=== PATIENT | female | born 1950 | race American Indian/Alaskan Native ===

== ENCOUNTER 2018-07-27 10:25 | Inpatient (IN) | payer MEDICARE ==
[2018-07-27 10:25] VITALS: BMI 39.6
[2018-07-27] MEDS ORDERED: Sodium Chloride 0.9% 1,000 ML IV ONE (11:30)
--- NOTE | 2018-07-27 11:30 | C.PDOC ---
History Of Present Illness 67 y/o female presents to the ED complaining of dizziness associated with generalized weakness for approximately 1 week. She reports taking routine walks around her neighborhood, but over the past week has been feeling too week to co mplete the walk. Last night she went to take her garbage out, felt dizzy, and fell. She denies any LOC or head trauma. Patient describes the dizziness as lightheadedness. Associated with nausea and decreased appetite. Patient reports having similar symptoms following her cholecystectomy years ago. States she had lab tests and was told she had an electrolyte abnormality. She denies any fever, abdominal pain, constipation, bloating, dark or bloody stool, chest pain, SOB, or [place]. Denies prior hx of transfusions. Denies prior hx of stomach ulcers. Time Seen by Provider: 07/27/18 10:50 Chief Complaint (Nursing): Dizziness/Lightheaded History Per: Patient History/Exam Limitations: no limitations Onset/Duration Of Symptoms: Days Current Symptoms Are (Timing): Still Present Fall Associated With With Symptoms: Yes, No Injury As Result Of Fall Past Medical History Reviewed: Historical Data, Nursing Documentation, Vital Signs Vital Signs: Last Vital Signs Temp Pulse 93 H 07/27/18 10:35 Resp 20 07/27/18 10:35 BP 148/72 07/27/18 10:35 Pulse Ox 97 07/27/18 10:35 - Medical History PMH: HTN Surgical History: Cholecystectomy Family History: States: No Known Family Hx - Social History Hx Alcohol Use: No Hx Substance Use: No - Immunization History Hx Tetanus Toxoid Vaccination: No Hx Influenza Vaccination: No Hx Pneumococcal Vaccination: No Review Of Systems Except As Marked, All Systems Reviewed And Found Negative. Constitutional: Positive for: Weakness (generalized). Negative for: Fever, Chills Eyes: Negative for: Vision Change Cardiovascular: Positive for: Light Headedness. Negative for: Chest Pain, Palpitations Respiratory: Negative for: Shortness of Breath, SOB with Excertion Gastrointestinal: Positive for: Nausea. Negative for: Vomiting, Abdominal Pain, Diarrhea, Hematochezia, Other (rectal bleed) Skin: Negative for: Rash Neurological: Positive for: Dizziness. Negative for: Weakness, Numbness, Change in Speech, Headache Physical Exam - Physical Exam Appears: Non-toxic, No Acute Distress Skin: Warm, Dry, No Pale, No Jaundice Head: Atraumatic, Normacephalic Eye(s): bilateral: Normal Inspection (no conjunctival pallor), PERRL, EOMI Oral Mucosa: Moist Neck: Normal ROM, Supple Chest: Symmetrical Cardiovascular: Rhythm Regular, No Murmur Respiratory: Normal Breath Sounds, No Rales, No Rhonchi, No Wheezing, Other (NARD) Gastrointestinal/Abdominal: Soft, No Tenderness, No Distention, No Guarding, No Rebound Extremity: Bilateral: Atraumatic, No Pedal Edema, Normal Color And Temperature Neurological/Psych: Oriented x3, Normal Speech, Normal Cranial Nerves, Other (No focal deficits) ED Course And Treatment - Laboratory Results Result Diagrams: 07/27/18 11:49 07/27/18 11:49 O2 Sat by Pulse Oximetry: 97 (RA) Pulse Ox Interpretation: Normal - Radiology CXR: Interpreted by Me CXR Interpretation: Yes: No Acute Disease Progress - Re-Evaluation Re-evaluation Note: 07/27/18 12:10 D/W DR BHATIA C/F PMD WILL ADMIT - Data Reviewed Data Reviewed: Lab, Diagnostic imaging, EKG, Old records Medical Decision Making Medical Decision Making: Initial Plan: - EKG - Blood work - Urinalysis - Chest x-ray - 1L IV fluids - Reassess Disposition Counseled Patient/Family Regarding: Studies Performed, Diagnosis - Disposition Disposition: HOSPITALIZED Disposition Time: 12:11 Condition: STABLE - POA Present On Arrival: None - Clinical Impression Clinical Impression: Symptomatic anemia - Scribe Statement The provider has reviewed the documentation as recorded by the Jermaine Palomares Provider Attestation: All medical record entries made by the Jermaine were at my direction and personally dictated by me. I have reviewed the chart and agree that the record accurately reflects my personal performance of the history, physical exam, medical decision making, and the department course for this patient. I have also personally directed, reviewed, and agree with the discharge instructions and disposition.
[2018-07-27 11:56] LABS: BASO # 0.1 K/uL (0.0-0.2); EOS # 0.3 K/uL (0.0-0.7); LYMPH # 3.2 K/uL (1.0-4.3); MONO # 0.9 K/uL (0.0-0.8); NEUT % 59.8 % (50.0-75.0)
[2018-07-27 12:02] LABS: BASO % 0.6 % (0.0-2.0); LYMPH % 28.4 % (20.0-40.0); MEAN CELL VOLUME 75.2 fL (81.0-99.0); MEAN CORPUSCULAR HEMOGLOBIN 23.4 pg (27.0-31.0); MEAN CORPUSCULAR HGB CONC 31.1 g/dL (33.0-37.0); MEAN PLATELET VOLUME 7.3 fL (7.2-11.7); MONO % 8.2 % (0.0-10.0); NEUT # 6.8 K/uL (1.8-7.0); RBC 2.72 Mil/uL (3.80-5.20); RED CELL DISTRIBUTION WIDTH 17.2 % (11.5-14.5); WHITE BLOOD COUNT 11.3 K/uL (4.8-10.8)
[2018-07-27 12:05] LABS: HEMOGLOBIN 6.4 g/dL (11.0-16.0)
[2018-07-27 12:09] LABS: ALB/GLOB RATIO 1.4 (1.0-2.1); ALBUMIN 3.9 g/dL (3.5-5.0); ALT/SGPT 12 U/L (9-52); AST/SGOT 30 U/L (14-36); BLOOD UREA NITROGEN 14 mg/dL (7-17); CALCIUM 8.4 mg/dl (8.6-10.4); GFR NON-AFRICAN AMERICAN > 60
[2018-07-27 12:44] LABS: SQUAMOUS EPITHIAL 7 /hpf (0-5); URINE BACTERIA OCC (<OCC)
[2018-07-27] MEDS ORDERED: Glucagon Recombinant 1 mg Inj IM PRN (12:56)
[2018-07-27] MEDS ORDERED: Dextrose 50% SYRINGE Inj (50 ml) IV PRN (12:56)
[2018-07-27 12:58] LABS: URINE BILIRUBIN NEGATIVE (NEGATIVE); URINE BLOOD NEGATIVE (NEGATIVE); URINE CLARITY Hazy (Clear); URINE COLOR YELLOW (YELLOW); URINE GLUCOSE (UA) NEGATIVE (Normal)
[2018-07-27 12:59] LABS: URINE LEUKOCYTE ESTERASE NEGATIVE Leu/uL (Negative); URINE PROTEIN NEGATIVE (NEGATIVE); URINE UROBILINOGEN 0.2 mg/dL (0.2-1.0)
--- NOTE | 2018-07-27 13:01 | CP.PCM.HP ---
<Judy Spencer - Last Filed: 07/27/18 14:06> History of Present Illness - History of Present Illness History of Present Illness: Judy Spencer PGY1 H&P for Dr. Artis Patient is a 67yo F with PMH of anemia, HTN, DM presenting to the ED with fatigue and dizziness for 10 days. She reports gradual onset of fatigue, lethargy, and dizziness. She reports prior history of this two years ago. She reports fatigue that worsens with exertion and shortness of breath when walking. She reports an episode of syncope 5 days ago while she was showering. Last night as she was walking outside of her house to take out the trash, she reports feeling fatigued and falling on her right side. She denied head trauma. She reports blurry vision and palpitations. She also reports decreased PO intake in the past couple of days. She denies blood in the urine, stool, or vomitus. She denies headache, fever, chills, abdominal pain, nausea, vomiting, dysuria. Patient states last colonoscopy was >2 yrs ago, with normal results. She denies previous blood transfusions. SxH: cholecystectomy SocH: 3 pack/year tobacco history, denies etoh or recreational drug use FamH: mom- anemia, . Allergies: NKDA Meds: insulin, diovan, crestor PMD: Sayed Present on Admission - Present on Admission Any Indicators Present on Admission: No Review of Systems - Constitutional Constitutional: As Per HPI, Daytime Sleepiness, Fatigue, Lethargy, Malaise, Weakness. absent: Weight Gain, Weight Loss - EENT Eyes: Blurred Vision - Cardiovascular Cardiovascular: Palpitations. absent: Chest Pain - Respiratory Respiratory: Dyspnea on Exertion - Gastrointestinal Gastrointestinal: absent: Abdominal Pain, Hematemesis, Hematochezia, Melena, Nausea, Vomiting - Genitourinary Genitourinary: absent: Dysuria, Hematuria, Pyuria - Menstruation Menstruation: absent: Abnormal Vaginal Bleeding - Musculoskeletal Musculoskeletal: absent: Numbness, Tingling - Integumentary Integumentary: absent: Rash - Neurological Neurological: Dizziness, Frequent Falls Past Patient History - Infectious Disease Hx of Infectious Diseases: None - Past Social History Smoking Status: Light Smoker < 10 Cigarettes Daily - CARDIAC Hx Hypertension: Yes - ENDOCRINE/METABOLIC Hx Endocrine Disorders: Yes Hx Diabetes Mellitus Type 2: Yes - PSYCHIATRIC Hx Substance Use: No - SURGICAL HISTORY Hx Cholecystectomy: Yes - ANESTHESIA Hx Anesthesia: Yes Hx Anesthesia Reactions: No Hx Malignant Hyperthermia: No Meds Allergies/Adverse Reactions: Allergies Allergy/AdvReac Type Severity Reaction Status Date / Time No Known Allergies Allergy Verified 01/23/16 00:49 Physical Exam - Constitutional Appears: Well, No Acute Distress - Head Exam Head Exam: ATRAUMATIC, NORMOCEPHALIC - Eye Exam Eye Exam: EOMI, PERRL Additional comments: pale conjuctiva - ENT Exam ENT Exam: Mucous Membranes Moist, Normal Exam - Neck Exam Neck exam: Positive for: Normal Inspection. Negative for: Lymphadenopathy, Thyromegaly - Respiratory Exam Respiratory Exam: Clear to Auscultation Bilateral, NORMAL BREATHING PATTERN. absent: Rales, Rhonchi, Wheezes - Cardiovascular Exam Cardiovascular Exam: REGULAR RHYTHM, +S1, +S2. absent: Gallop, Rubs, Systolic Murmur - GI/Abdominal Exam GI & Abdominal Exam: Normal Bowel Sounds, Soft. absent: Distended, Tenderness - Rectal Exam Rectal Exam: Hemorrhoids. absent: Bloody Stool, Fecal Impaction - Extremities Exam Extremities exam: Positive for: normal capillary refill, normal inspection. Negative for: pedal edema, tenderness - Neurological Exam Neurological exam: Alert, CN II-XII Intact, Oriented x3 - Psychiatric Exam Psychiatric exam: Normal Affect, Normal Mood - Skin Skin Exam: Pallor Results - Vital Signs Recent Vital Signs: Last Vital Signs Temp Pulse 89 07/27/18 11:55 Resp 15 07/27/18 11:55 BP 150/67 07/27/18 11:55 Pulse Ox 97 07/27/18 12:34 - Labs Result Diagrams: 07/27/18 11:49 07/27/18 11:49 Labs: Laboratory Results - last 24 hr 07/27/18 07/27/18 07/27/18 10:33 11:49 11:49 WBC 11.3 H RBC 2.72 L Hgb 6.4 L* Hct 20.5 L MCV 75.2 L MCH 23.4 L MCHC 31.1 L RDW 17.2 H Plt Count 391 MPV 7.3 Neut % (Auto) 59.8 Lymph % (Auto) 28.4 [place] % (Auto) 8.2 Eos % (Auto) 3.0 Baso % (Auto) 0.6 Neut # (Auto) 6.8 Lymph # (Auto) 3.2 [place] # (Auto) 0.9 H Eos # (Auto) 0.3 Baso # (Auto) 0.1 Sodium 136 Potassium 3.8 Chloride 106 Carbon Dioxide 23 Anion Gap 11 BUN 14 Creatinine 0.6 L Est GFR ( Amer) > 60 Est GFR (Non-Af Amer) > 60 POC Glucose (mg/dL) 124 H Random Glucose 109 H Calcium 8.4 L Total Bilirubin 0.3 AST 30 ALT 12 Alkaline Phosphatase 95 Troponin I < 0.0120 Total Protein 6.7 Albumin 3.9 Globulin 2.8 Albumin/Globulin Ratio 1.4 Assessment & Plan - Assessment and Plan (Free Text) Assessment: 67yo F with PMH of anemia, HTN, DM presenting to the ED with fatigue and dizziness for 10 days. Hemoglobin 6.4, admitted for symptomatic anemia. Receiving blood transfusion. Plan: Symptomatic Anemia - H/H 6.4/20.5 - microcytic - EKG: NSR - CXR: no active disease - UA +RBCs - consented for 1u PRBC transfusion - f/u rpt H/H - f/u TIBC, %sat, Fe, ferritin - f/u haptoglobin, LDH, retic count - f/u FOBT - f/u TSH, T3, Free T4 - f/u B12, folate - benadryl and tylenol PRN transfusion reaction - f/u CT head and chest - Heme/Onc consulted, Dr. Boudreaux - f/u recs HTN - hold home valsartan as BP is controlled at this time DM - f/u HbA1c - medium dose sliding scale - accuchecks ACHS - hypoglycemic protocol PPx DVT: SCDs, hold chemical anticoagulation at this time GI: pepcid HHD Patient seen and case discussed with Dr. Artis <Armaan Artis H - Last Filed: 07/27/18 15:55> Results - Vital Signs Recent Vital Signs: Last Vital Signs Temp Pulse 98 H 07/27/18 13:57 Resp 15 07/27/18 13:57 BP 170/57 H 07/27/18 13:57 Pulse Ox 98 07/27/18 13:57 - Labs Result Diagrams: 07/27/18 11:49 07/27/18 11:49 Labs: Laboratory Results - last 24 hr 07/27/18 07/27/18 07/27/18 10:33 11:49 11:49 WBC 11.3 H RBC 2.72 L Hgb 6.4 L* Hct 20.5 L MCV 75.2 L MCH 23.4 L MCHC 31.1 L RDW 17.2 H Plt Count 391 MPV 7.3 Neut % (Auto) 59.8 Lymph % (Auto) 28.4 [place] % (Auto) 8.2 Eos % (Auto) 3.0 Baso % (Auto) 0.6 Neut # (Auto) 6.8 Lymph # (Auto) 3.2 [place] # (Auto) 0.9 H Eos # (Auto) 0.3 Baso # (Auto) 0.1 Retic Count Sodium 136 Potassium 3.8 Chloride 106 Carbon Dioxide 23 Anion Gap 11 BUN 14 Creatinine 0.6 L Est GFR ( Amer) > 60 Est GFR (Non-Af Amer) > 60 POC Glucose (mg/dL) 124 H Random Glucose 109 H Calcium 8.4 L Total Bilirubin 0.3 AST 30 ALT 12 Alkaline Phosphatase 95 Troponin I < 0.0120 Total Protein 6.7 Albumin 3.9 Globulin 2.8 Albumin/Globulin Ratio 1.4 Urine Color Urine Clarity Urine pH Ur Specific [place] Urine Protein Urine Glucose (UA) Urine Ketones Urine Blood Urine Nitrate Urine Bilirubin Urine Urobilinogen Ur Leukocyte Esterase Urine WBC (Auto) Urine RBC (Auto) Ur Squamous Epith Cells Urine Bacteria Blood Type Antibody Screen 07/27/18 07/27/18 07/27/18 12:26 12:55 14:18 WBC RBC Hgb Hct MCV MCH MCHC RDW Plt Count MPV Neut % (Auto) Lymph % (Auto) [place] % (Auto) Eos % (Auto) Baso % (Auto) Neut # (Auto) Lymph # (Auto) [place] # (Auto) Eos # (Auto) Baso # (Auto) Retic Count 3.2 H Sodium Potassium Chloride Carbon Dioxide Anion Gap BUN Creatinine Est GFR ( Amer) Est GFR (Non-Af Amer) POC Glucose (mg/dL) Random Glucose Calcium Total Bilirubin AST ALT Alkaline Phosphatase Troponin I Total Protein Albumin Globulin Albumin/Globulin Ratio Urine Color Yellow Urine Clarity Hazy Urine pH 6.0 Ur Specific [place] 1.015 Urine Protein Negative Urine Glucose (UA) Negative Urine Ketones Negative Urine Blood Negative Urine Nitrate Negative Urine Bilirubin Negative Urine Urobilinogen 0.2 Ur Leukocyte Esterase Negative Urine WBC (Auto) 136 H Urine RBC (Auto) 9 H Ur Squamous Epith Cells 7 H Urine Bacteria Occ H Blood Type A POSITIVE Antibody Screen Negative Attending/Attestation - Attestation I have personally seen and examined this patient.: Yes I have fully participated in the care of the patient.: Yes I have reviewed all pertinent clinical information: Yes Notes (Text): 07/27/18 15:03 Medical attending: Patient was seen and examined by me. Agree with the above note by the resident The patient was not in any acute distress when we saw her. She was speaking in full sentences and denied shortness of breath at rest, denied chest pain, denied palpitations at rest However she explained that she has had syncopal episodes as well as episodes of shortness of breath and palpitations while exerting herself around her home. A stool occult has been sent, she does not remember when the last time she had a colonscopy but that she had one. If need to we will get a GI evaluation. We are running a TIBC, retic count, iron studies, Ferritin, LDH, and haptoglobin and hematology evaluation Armaan Artis
--- NOTE | 2018-07-27 15:00 | RAD ---
Date of service: 07/27/2018 HISTORY: DIZZY COMPARISON: No prior. TECHNIQUE: Chest PA and lateral views FINDINGS: LUNGS: No active pulmonary disease. PLEURA: No significant pleural effusion identified. No pneumothorax apparent. CARDIOVASCULAR: Minor aortic atherosclerotic calcification present. Cardiomegaly. No pulmonary vascular congestion. OSSEOUS STRUCTURES: Minor multilevel degenerative spondylosis of the thoracic spine VISUALIZED UPPER ABDOMEN: Normal. OTHER FINDINGS: None. IMPRESSION: No active disease.
--- NOTE | 2018-07-27 15:45 | CT ---
Date of service: 07/27/2018 PROCEDURE: CT HEAD WITHOUT CONTRAST. HISTORY: s/p fall, symptomatic anemia COMPARISON: None available. TECHNIQUE: Axial computed tomography images were obtained through the head/brain without intravenous contrast. Radiation dose: Total exam DLP = 1166.36 mGy-cm. This CT exam was performed using one or more of the following dose reduction techniques: Automated exposure control, adjustment of the mA and/or kV according to patient size, and/or use of iterative reconstruction technique. FINDINGS: HEMORRHAGE: No intracranial hemorrhage. BRAIN: No mass effect or edema. No atrophy or chronic microvascular ischemic changes. VENTRICLES: Unremarkable. No hydrocephalus. CALVARIUM: Unremarkable. PARANASAL SINUSES: Unremarkable as visualized. No significant inflammatory changes. MASTOID AIR CELLS: Unremarkable as visualized. No inflammatory changes. OTHER FINDINGS: None. IMPRESSION: Normal CT of the Head.
[2018-07-27] MEDS: (Novolin R) Insulin Human Regular 100 units/ml vial SC SCH ×2 (16:13→21:18)
--- NOTE | 2018-07-27 17:15 | CT ---
Date of service: 07/27/2018 PROCEDURE: CT Chest without contrast HISTORY: Status post fall symptomatic anemia COMPARISON: No prior study available for comparison TECHNIQUE: Contiguous axial images were obtained through the chest without intravenous contrast enhancement. Sagittal and coronal reconstructions were performed. Radiation dose: Total exam DLP = 896.28 mGy-cm. This CT exam was performed using one or more of the following dose reduction techniques: Automated exposure control, adjustment of the mA and/or kV according to patient size, and/or use of iterative reconstruction technique. FINDINGS: LUNGS: There appears to be some linear atelectasis/scarring left lung base presumably along the inferior margin of the major fissure. Minor linear scarring also seen in the right lung base and lateral aspect right middle lobe extending to the anterolateral pleural surface as well.. Mild passive/dependent atelectasis both posterior lower lung lau. MEDIASTINUM: Heart is enlarged with small pericardial effusion. The cardiac chambers exhibit low attenuation consistent with underlying anemia. Ascending thoracic aorta is dilated measuring approximately 4.25 cm. Descending thoracic aorta measures approximately 2.9 cm. Minor aortic atherosclerotic calcification.. Pulmonary trunk measures approximately 3.7 cm. There are a few small nonspecific mediastinal lymph nodes. Evaluation for hilar adenopathy limited due to the lack of circulating intravenous contrast material. Moderate to fairly significant enlargement right lobe thyroid gland which mildly compresses and displaces the trachea from right to left. Airways patent however. Follow-up ultrasound recommended. The remainder of the trachea is midline and patent with no large central endoluminal lesions. There is a small hiatal hernia. PLEURA: No pleural fluid. No pneumothorax. BONES: Mild multilevel degenerative spondylosis of the thoracic spine. There are no acute compression fractures no retropulsed fragments. UPPER ABDOMEN: Cholecystectomy. OTHER FINDINGS: Note made of a cluster of calcifications right posterolateral breast likely representing a calcified fibroadenoma however follow-up mammography recommended for further evaluation if not recently performed. IMPRESSION: There is enlarged right lobe thyroid gland which mildly compresses and displaces the trachea from right to left.. Minor scarring changes seen in both lung bases as well as the right middle lobe. No acute consolidation effusion or pneumothorax. Cardiomegaly with small pericardial effusion an additional findings consistent with underlying anemia. Cholecystectomy. 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 Follow-up mild moderate fecal be performed further evaluation
[2018-07-27 17:36] LABS: FREE T4 1.11 ng/dL (0.78-2.19)
[2018-07-27 17:43] LABS: IRON < 10 ug/dL (37-170); TOTAL IRON BINDING CAPACITY 415 ug/dL (250-450)
[2018-07-27 17:44] LABS: % IRON SATURATION 2.4 (20-55)
[2018-07-27 17:55] LABS: T3 1.87 nmol/L (1.49-2.60)
[2018-07-27 17:59] LABS: FERRITIN 5.4 ng/mL
--- NOTE | 2018-07-27 23:13 | CP.PCM.CON ---
History of Present Illness - History of Present Illness History of Present Illness: 67 year old female with a history of HTN, DM, admitted with symptomatic anemia. The patient reports to progressive fatigue and dizziness for about 10 days time. She does report to falling twice related to this but denies hitting her head. She deniies abnormal bleeding and bruising. She reports colonoscopy/EGD were normal about 2 years ago. Her hgb was noted to be 6.4 in the ER and is to have a PRBC transfusion today. Past medical history: DM, HTN Past surgical history: Cholecystectomy Family history: Denies hematologic and oncologic problems Social history: 3 cigarettes daily Allergies: NKDA Review of systems: All remaining review of systems including HEENT, cardiovascular, respiratory, gastrointestinal, genitourinary, musculoskeletal, dermatologic, neurologic, and psychiatric are negative unless mentioned in the HPI. Past Patient History - Infectious Disease Hx of Infectious Diseases: None - Past Social History Smoking Status: Light Smoker < 10 Cigarettes Daily - CARDIAC Hx Hypertension: Yes - ENDOCRINE/METABOLIC Hx Endocrine Disorders: Yes Hx Diabetes Mellitus Type 2: Yes - PSYCHIATRIC Hx Substance Use: No - SURGICAL HISTORY Hx Cholecystectomy: Yes - ANESTHESIA Hx Anesthesia: Yes Hx Anesthesia Reactions: No Hx Malignant Hyperthermia: No Meds Allergies/Adverse Reactions: Allergies Allergy/AdvReac Type Severity Reaction Status Date / Time No Known Allergies Allergy Verified 01/23/16 00:49 - Medications Medications: Current Medications Acetaminophen (Tylenol 325mg Tab) 650 mg PO Q6 PRN PRN Reason: Fever >100.4 F Dextrose (Dextrose 50% Inj) 0 ml IV STAT PRN; Protocol PRN Reason: Hypoglycemia Protocol Dextrose (Glutose 15) 0 gm PO ONCE PRN; Protocol PRN Reason: Hypoglycemia Protocol Diphenhydramine HCl (Benadryl) 25 mg PO Q6 PRN PRN Reason: Allergy symptoms Last Admin: 07/27/18 20:19 Dose: 25 mg Famotidine (Pepcid) 20 mg PO BID [facility] Last Admin: 07/27/18 17:33 Dose: 20 mg Ferric Sodium Gluconate Complex (Ferrlecit) 125 mg IVPB DAILY [facility] Stop: 08/05/18 10:01 Glucagon (Glucagen Diagnostic Kit) 0 mg IM STAT PRN; Protocol PRN Reason: Hypoglycemia Protocol Dextrose (Dextrose 5% In Water 1000 Ml) 1,000 mls @ 0 mls/hr IV .Q0M PRN; Protocol PRN Reason: Hypoglycemia Protocol Insulin Human Regular (Novolin R) 0 unit SC ACHS [facility]; Protocol Last Admin: 07/27/18 21:18 Dose: Not Given Rosuvastatin Calcium (Crestor) 10 mg PO HS [facility] Last Admin: 07/27/18 21:33 Dose: 10 mg Physical Exam - Head Exam Head Exam: ATRAUMATIC - Eye Exam Eye Exam: Normal appearance - ENT Exam ENT Exam: Mucous Membranes Dry - Respiratory Exam Respiratory Exam: NORMAL BREATHING PATTERN - Cardiovascular Exam Cardiovascular Exam: +S1, +S2 - GI/Abdominal Exam GI & Abdominal Exam: Normal Bowel Sounds - Extremities Exam Extremities exam: Positive for: normal inspection - Neurological Exam Neurological exam: Oriented x3 - Psychiatric Exam Psychiatric exam: Normal Affect, Normal Mood - Skin Skin Exam: Warm Results - Vital Signs Recent Vital Signs: Last Vital Signs Temp 98.1 F 07/27/18 23:05 Pulse 76 07/27/18 23:05 Resp 20 07/27/18 23:05 BP 133/73 07/27/18 23:05 Pulse Ox 98 07/27/18 13:57 - Labs Result Diagrams: 07/27/18 11:49 07/27/18 11:49 Labs: Laboratory Results - last 24 hr 07/27/18 07/27/18 07/27/18 10:33 11:49 11:49 WBC 11.3 H RBC 2.72 L Hgb 6.4 L* Hct 20.5 L MCV 75.2 L MCH 23.4 L MCHC 31.1 L RDW 17.2 H Plt Count 391 MPV 7.3 Neut % (Auto) 59.8 Lymph % (Auto) 28.4 [place] % (Auto) 8.2 Eos % (Auto) 3.0 Baso % (Auto) 0.6 Neut # (Auto) 6.8 Lymph # (Auto) 3.2 [place] # (Auto) 0.9 H Eos # (Auto) 0.3 Baso # (Auto) 0.1 Retic Count Haptoglobin Sodium 136 Potassium 3.8 Chloride 106 Carbon Dioxide 23 Anion Gap 11 BUN 14 Creatinine 0.6 L Est GFR ( Amer) > 60 Est GFR (Non-Af Amer) > 60 POC Glucose (mg/dL) 124 H Random Glucose 109 H Calcium 8.4 L Iron TIBC % Saturation Ferritin Total Bilirubin 0.3 AST 30 ALT 12 Alkaline Phosphatase 95 Lactate Dehydrogenase Troponin I < 0.0120 Total Protein 6.7 Albumin 3.9 Globulin 2.8 Albumin/Globulin Ratio 1.4 Vitamin B12 Folate Free T4 Total T3 TSH 3rd Generation Urine Color Urine Clarity Urine pH Ur Specific [place] Urine Protein Urine Glucose (UA) Urine Ketones Urine Blood Urine Nitrate Urine Bilirubin Urine Urobilinogen Ur Leukocyte Esterase Urine WBC (Auto) Urine RBC (Auto) Ur Squamous Epith Cells Urine Bacteria Blood Type Antibody Screen 07/27/18 07/27/18 07/27/18 12:26 12:55 14:18 WBC RBC Hgb Hct MCV MCH MCHC RDW Plt Count MPV Neut % (Auto) Lymph % (Auto) [place] % (Auto) Eos % (Auto) Baso % (Auto) Neut # (Auto) Lymph # (Auto) [place] # (Auto) Eos # (Auto) Baso # (Auto) Retic Count 3.2 H Haptoglobin Sodium Potassium Chloride Carbon Dioxide Anion Gap BUN Creatinine Est GFR ( Amer) Est GFR (Non-Af Amer) POC Glucose (mg/dL) Random Glucose Calcium Iron TIBC % Saturation Ferritin Total Bilirubin AST ALT Alkaline Phosphatase Lactate Dehydrogenase Troponin I Total Protein Albumin Globulin Albumin/Globulin Ratio Vitamin B12 Folate Free T4 Total T3 TSH 3rd Generation Urine Color Yellow Urine Clarity Hazy Urine pH 6.0 Ur Specific [place] 1.015 Urine Protein Negative Urine Glucose (UA) Negative Urine Ketones Negative Urine Blood Negative Urine Nitrate Negative Urine Bilirubin Negative Urine Urobilinogen 0.2 Ur Leukocyte Esterase Negative Urine WBC (Auto) 136 H Urine RBC (Auto) 9 H Ur Squamous Epith Cells 7 H Urine Bacteria Occ H Blood Type A POSITIVE Antibody Screen Negative 07/27/18 07/27/18 07/27/18 16:01 17:04 17:04 WBC RBC Hgb Hct MCV MCH MCHC RDW Plt Count MPV Neut % (Auto) Lymph % (Auto) [place] % (Auto) Eos % (Auto) Baso % (Auto) Neut # (Auto) Lymph # (Auto) [place] # (Auto) Eos # (Auto) Baso # (Auto) Retic Count Haptoglobin Sodium Potassium Chloride Carbon Dioxide Anion Gap BUN Creatinine Est GFR ( Amer) Est GFR (Non-Af Amer) POC Glucose (mg/dL) 144 H Random Glucose Calcium Iron < 10 L TIBC 415 % Saturation 2.4 L Ferritin 5.4 Total Bilirubin AST ALT Alkaline Phosphatase Lactate Dehydrogenase 352 Troponin I Total Protein Albumin Globulin Albumin/Globulin Ratio Vitamin B12 998 H Folate 15.0 Free T4 Total T3 1.87 TSH 3rd Generation 0.51 Urine Color Urine Clarity Urine pH Ur Specific [place] Urine Protein Urine Glucose (UA) Urine Ketones Urine Blood Urine Nitrate Urine Bilirubin Urine Urobilinogen Ur Leukocyte Esterase Urine WBC (Auto) Urine RBC (Auto) Ur Squamous Epith Cells Urine Bacteria Blood Type Antibody Screen 07/27/18 07/27/18 07/27/18 17:04 17:04 21:07 WBC RBC Hgb Hct MCV MCH MCHC RDW Plt Count MPV Neut % (Auto) Lymph % (Auto) [place] % (Auto) Eos % (Auto) Baso % (Auto) Neut # (Auto) Lymph # (Auto) [place] # (Auto) Eos # (Auto) Baso # (Auto) Retic Count Haptoglobin 241.5 H Sodium Potassium Chloride Carbon Dioxide Anion Gap BUN Creatinine Est GFR ( Amer) Est GFR (Non-Af Amer) POC Glucose (mg/dL) 173 H Random Glucose Calcium Iron TIBC % Saturation 2.4 L Ferritin Total Bilirubin AST ALT Alkaline Phosphatase Lactate Dehydrogenase Troponin I Total Protein Albumin Globulin Albumin/Globulin Ratio Vitamin B12 Folate Free T4 1.11 Total T3 TSH 3rd Generation Urine Color Urine Clarity Urine pH Ur Specific [place] Urine Protein Urine Glucose (UA) Urine Ketones Urine Blood Urine Nitrate Urine Bilirubin Urine Urobilinogen Ur Leukocyte Esterase Urine WBC (Auto) Urine RBC (Auto) Ur Squamous Epith Cells Urine Bacteria Blood Type Antibody Screen Assessment & Plan (1) Anemia Assessment and Plan: work up consistent with iron deficiency anemia (low ferritin) likely chronic blood loss; rule out GI blood loss for PRBC transfusion will start IV iron Thank you for this interesting consult. Status: Acute
[2018-07-28] MEDS: (Novolin R) Insulin Human Regular 100 units/ml vial SC SCH ×4 (07:15→22:08)
[2018-07-28 07:52] LABS: BASO # 0.1 K/uL (0.0-0.2); BASO % 0.6 % (0.0-2.0); EOS # 0.4 K/uL (0.0-0.7); EOS % 4.5 % (0.0-4.0); LYMPH # 2.9 K/uL (1.0-4.3); LYMPH % 34.2 % (20.0-40.0); MEAN CORPUSCULAR HEMOGLOBIN 24.7 pg (27.0-31.0); MEAN CORPUSCULAR HGB CONC 31.9 g/dL (33.0-37.0); MEAN PLATELET VOLUME 6.8 fL (7.2-11.7); MONO # 0.8 K/uL (0.0-0.8); MONO % 9.4 % (0.0-10.0); NEUT # 4.4 K/uL (1.8-7.0); NEUT % 51.3 % (50.0-75.0); RBC 2.81 Mil/uL (3.80-5.20); RED CELL DISTRIBUTION WIDTH 18.6 % (11.5-14.5); WHITE BLOOD COUNT 8.6 K/uL (4.8-10.8)
[2018-07-28 07:56] LABS: MEAN CELL VOLUME 77.6 fL (81.0-99.0)
[2018-07-28 08:12] LABS: ALB/GLOB RATIO 1.2 (1.0-2.1); ALBUMIN 3.1 g/dL (3.5-5.0); ALT/SGPT 14 U/L (9-52); AST/SGOT 21 U/L (14-36); BLOOD UREA NITROGEN 12 mg/dL (7-17); CALCIUM 8.1 mg/dl (8.6-10.4); GFR NON-AFRICAN AMERICAN > 60
--- NOTE | 2018-07-28 09:05 | CP.PCM.PN ---
<John Spencer - Last Filed: 07/28/18 14:14> Subjective - Date & Time of Evaluation Date of Evaluation: 07/28/18 Time of Evaluation: 09:04 - Subjective Subjective: HOSPITALIST SERVICE Pt s/e at bedside, complained of unsteadiness previously however now improved when she went to bathroom last night, denies lightheadedness, dizziness, [place], SOB, [place], [place] FC CP. Objective - Vital Signs/Intake and Output Vital Signs (last 24 hours): Temp Pulse Resp BP Pulse Ox 98.3 F 62 20 155/81 H 97 07/28/18 07:10 07/28/18 07:10 07/28/18 07:10 07/28/18 07:10 07/28/18 07:10 Intake and Output: 07/28/18 07/28/18 06:59 18:59 Intake Total 620 Balance 620 - Medications Medications: Current Medications Acetaminophen (Tylenol 325mg Tab) 650 mg PO Q6 PRN PRN Reason: Fever >100.4 F Dextrose (Dextrose 50% Inj) 0 ml IV STAT PRN; Protocol PRN Reason: Hypoglycemia Protocol Dextrose (Glutose 15) 0 gm PO ONCE PRN; Protocol PRN Reason: Hypoglycemia Protocol Diphenhydramine HCl (Benadryl) 25 mg PO Q6 PRN PRN Reason: Allergy symptoms Last Admin: 07/27/18 20:19 Dose: 25 mg Famotidine (Pepcid) 20 mg PO BID [facility] Last Admin: 07/27/18 17:33 Dose: 20 mg Ferric Sodium Gluconate Complex (Ferrlecit) 125 mg IVPB DAILY [facility] Stop: 08/05/18 10:01 Glucagon (Glucagen Diagnostic Kit) 0 mg IM STAT PRN; Protocol PRN Reason: Hypoglycemia Protocol Dextrose (Dextrose 5% In Water 1000 Ml) 1,000 mls @ 0 mls/hr IV .Q0M PRN; Protocol PRN Reason: Hypoglycemia Protocol Insulin Human Regular (Novolin R) 0 unit SC ACHS [facility]; Protocol Last Admin: 07/28/18 07:15 Dose: Not Given Rosuvastatin Calcium (Crestor) 10 mg PO HS [facility] Last Admin: 07/27/18 21:33 Dose: 10 mg - Labs Labs: 07/28/18 07:44 07/28/18 07:44 Assessment and Plan - Assessment and Plan (Free Text) Assessment: 67yo F with PMH of anemia, HTN, DM presenting to the ED with fatigue and dizziness for 10 days. Hemoglobin 6.4, admitted for symptomatic anemia. Receiving blood transfusion. Plan: Symptomatic Anemia-Iron Deficiency - H/H 10/31.8 today - microcytic - EKG: NSR - CXR: no active disease - UA +RBCs - normal TIBC, low %sat - elevated haptoglobin, neg LDH, elevated retic count - f/u FOBT - benadryl and tylenol PRN transfusion reaction - neg CT head and chest - Heme/Onc consulted, Dr. Boudreaux transfuse 2 more PRBCs today - GI consulted, Dr Damon Upper EGD tmrw, if neg prep for colonoscopy fri HTN - hold home valsartan as BP is controlled at this time DM - f/u HbA1c - medium dose sliding scale - accuchecks ACHS - hypoglycemic protocol PPx DVT: SCDs, hold chemical anticoagulation at this time GI: pepcid HHD Patient seen and case discussed with Dr. Artis CK PGY1 <Armaan Artis H - Last Filed: 07/28/18 15:45> Objective - Vital Signs/Intake and Output Vital Signs (last 24 hours): Temp Pulse Resp BP Pulse Ox 97.9 F 70 18 146/68 97 07/28/18 15:19 07/28/18 15:19 07/28/18 15:19 07/28/18 15:19 07/28/18 15:00 Intake and Output: 07/28/18 07/28/18 06:59 18:59 Intake Total 620 500 Balance 620 500 - Medications Medications: Current Medications Acetaminophen (Tylenol 325mg Tab) 650 mg PO Q6 PRN PRN Reason: Fever >100.4 F Dextrose (Dextrose 50% Inj) 0 ml IV STAT PRN; Protocol PRN Reason: Hypoglycemia Protocol Dextrose (Glutose 15) 0 gm PO ONCE PRN; Protocol PRN Reason: Hypoglycemia Protocol Diphenhydramine HCl (Benadryl) 25 mg PO Q6 PRN PRN Reason: Allergy symptoms Last Admin: 07/27/18 20:19 Dose: 25 mg Famotidine (Pepcid) 20 mg PO BID [facility] Last Admin: 07/28/18 09:47 Dose: 20 mg Ferric Sodium Gluconate Complex (Ferrlecit) 125 mg IVPB DAILY [facility] Stop: 08/05/18 10:01 Last Admin: 07/28/18 09:47 Dose: 125 mg Glucagon (Glucagen Diagnostic Kit) 0 mg IM STAT PRN; Protocol PRN Reason: Hypoglycemia Protocol Dextrose (Dextrose 5% In Water 1000 Ml) 1,000 mls @ 0 mls/hr IV .Q0M PRN; Protocol PRN Reason: Hypoglycemia Protocol Insulin Human Regular (Novolin R) 0 unit SC ACHS [facility]; Protocol Last Admin: 07/28/18 11:24 Dose: Not Given Losartan Potassium (Cozaar) 50 mg PO DAILY [facility] Rosuvastatin Calcium (Crestor) 10 mg PO HS [facility] Last Admin: 07/27/18 21:33 Dose: 10 mg - Labs Labs: 07/28/18 07:44 07/28/18 07:44 Attending/Attestation - Attestation I have personally seen and examined this patient.: Yes I have fully participated in the care of the patient.: Yes I have reviewed all pertinent clinical information, including history, physical exam and plan: Yes Notes (Text): 07/28/18 15:43 Medical attending: Patient was seen and examined by me. Agree with the above note by the resident The patient was not in any acute distress when I came and saw with the medical research scientist We are transfusing additional PRBCs as the Hgb did not increase by much. She was already getting IV ferrrlicit as well Patient was crying and anxious and we took time to discuss with her and answer questions. Currently the patient says that she does not have pain at this moment We will get a GI evalaution as well thank you Armaan Artis
[2018-07-28] MEDS: Ferric Sodium Gluconat Complex 62.5 mg/5 ml Vial IVPB SCH (09:47)
--- NOTE | 2018-07-28 14:34 | US ---
Date of service: 07/28/2018 HISTORY: mass noted on CT TECHNIQUE: Sonographic evaluation of the thyroid gland. COMPARISON: 07/27/2018. CT thorax. FINDINGS: RIGHT LOBE: Measures 3.2 x 4.5 x 7.1 cm. Heterogenous echotexture, normal vascularity Nodules: Dominant nodule/mass occupying most of the right lobe measures 2.9 x 4 2 x 6 cm. LEFT LOBE: Measures 1.3 x 1.4 x 4.6 cm. Heterogenous echotexture, normal vascularity Nodules: Solid nodule well-circumscribed 8 x 8 x 10.5 mm ISTHMUS: Measures 3.6 mm. Normal echotexture and flow. Nodules: None OTHER FINDINGS: None . IMPRESSION: Enlarged gland bilaterally. Dominant nodule right lobe. In the absence of prior studies, follow-up recommended. Recommendations for follow-up: 1. Radionuclide Scan to assess Thyroid function and to evaluate the thyroid for the presence of hot or cold nodules. 2. Fine needle aspiration (FNA) should also be considered as an invasive diagnostic tool in the assessment of findings described above.
[2018-07-28 20:58] LABS: BASO # 0.1 K/uL (0.0-0.2); BASO % 0.7 % (0.0-2.0); EOS # 0.4 K/uL (0.0-0.7); LYMPH # 2.6 K/uL (1.0-4.3); LYMPH % 31.2 % (20.0-40.0); MEAN CELL VOLUME 79.4 fL (81.0-99.0); MEAN CORPUSCULAR HEMOGLOBIN 25.3 pg (27.0-31.0); MEAN CORPUSCULAR HGB CONC 31.9 g/dL (33.0-37.0); MEAN PLATELET VOLUME 7.1 fL (7.2-11.7); MONO # 0.9 K/uL (0.0-0.8); MONO % 10.6 % (0.0-10.0); NEUT # 4.3 K/uL (1.8-7.0); NEUT % 52.5 % (50.0-75.0); RBC 3.17 Mil/uL (3.80-5.20); RED CELL DISTRIBUTION WIDTH 19.4 % (11.5-14.5); WHITE BLOOD COUNT 8.2 K/uL (4.8-10.8)
[2018-07-28 21:20] LABS: INR 1.1; PROTHROMBIN TIME 12.1 SECONDS (9.7-12.2)
--- NOTE | 2018-07-29 07:16 | CON ---
DATE: 07/28/2018 I was called for GI consultation by the admitting MD. The patient is seen and fully examined on 07/28/2018 as requested by the admitting medical staff. The entire chart is reviewed including but not limited to the most recent lab and radiology study results, current and the previous medication list, current and the previous medical events, allergy to medication list as well as all the available current and the previous medical records. Case discussed with the staff at length. HISTORY OF PRESENT ILLNESS: This is a 67-year-old female who was admitted to the hospital with the complaint of generalized weakness and malaise, nausea, dyspepsia, dizziness without any reported active bleeding but light headache with loss of appetite. No chest pain, palpitations, or significant increase of shortness of breath. PAST MEDICAL HISTORY: Including, 1. Hypertension. 2. Cholelithiasis, was status post cholecystectomy. FAMILY HISTORY: Unrelated to specific GI disorder. SOCIAL HISTORY: No known history of cigarette smoking or alcohol intake. CURRENT MEDICATIONS: Post-admission medication list was reviewed. ALLERGY TO MEDICATION: UNKNOWN. LABORATORY DATA: Initial blood workup showed hemoglobin of 6.4, now it is 7; hematocrit 20.5, now it is 21.8 with low indices highly suggestive of hypochromic macrocytic anemia. Blood glucose level of 145, calcium 8.1 with low iron studies. Thyroid function test was done, appeared to be normal. PHYSICAL EXAMINATION: GENERAL: A 67-year-old female, awake, alert, oriented, afebrile. VITAL SIGNS: Pulse of 64, respiratory rate 20 to 22, blood pressure of 150/78. HEENT: Showed pale dry oral mucoid membrane. Nonicteric sclerae. LUNGS: Few scattered crepitation. Decreased air entry at bases. HEART: Positive S1 and S2. ABDOMEN: Soft with mild generalized tenderness. No mass or organomegaly. No rebound tenderness or guarding. EXTREMITIES: Without significant clubbing, cyanosis, or edema. NEUROLOGICAL: No reported new neurological deficits, sensory or motor. No reported focal deficits. On record, the patient had normal CAT scan of the head at the time of the admission due to her dizziness and the fall as well as chest CAT scan report is seen. IMPRESSION: 1. Severe symptomatic anemia, to rule out gastrointestinal blood loss, upper versus lower. 2. To rule out occult gastrointestinal malignancy. 3. Known history of hypertension with cardiomegaly by radiology study results. 4. Abnormal thyroid gland by chest CAT scan. 5. Episodes of hyperglycemia with hypocalcemia as well as hyponatremia. SUGGESTIONS: 1. Agree with your plan. 2. Cancer markers. 3. Keep n.p.o. after midnight for endoscopic evaluation of the upper GI tract followed by lower GI tract after adequate preparation. Winter Ellis MD
[2018-07-29 07:25] LABS: BASO # 0.1 K/uL (0.0-0.2); BASO % 0.6 % (0.0-2.0); EOS # 0.4 K/uL (0.0-0.7); EOS % 4.5 % (0.0-4.0); HEMOGLOBIN 8.3 g/dL (11.0-16.0); LYMPH # 2.6 K/uL (1.0-4.3); LYMPH % 29.4 % (20.0-40.0); MEAN CORPUSCULAR HEMOGLOBIN 25.8 pg (27.0-31.0); MEAN CORPUSCULAR HGB CONC 32.6 g/dL (33.0-37.0); MONO # 0.8 K/uL (0.0-0.8); MONO % 8.8 % (0.0-10.0); NEUT # 5.1 K/uL (1.8-7.0); NEUT % 56.7 % (50.0-75.0); RBC 3.22 Mil/uL (3.80-5.20); RED CELL DISTRIBUTION WIDTH 19.5 % (11.5-14.5)
--- NOTE | 2018-07-29 07:41 | CP.PCM.PN ---
<AnthonyryanJohn - Last Filed: 07/29/18 13:43> Subjective - Date & Time of Evaluation Date of Evaluation: 07/29/18 Time of Evaluation: 07:39 - Subjective Subjective: HOSPITALIST SERVICE Pt s/e at bedside, pt did not sleep well last night, was anxious about her current status, denies any fever or itchiness after transfusion, denies CP SOB FC NV. Pt is worried about coming results, however she understands and agrees with plans going forward Objective - Vital Signs/Intake and Output Vital Signs (last 24 hours): Temp Pulse Resp BP Pulse Ox 98.8 F 62 20 126/73 96 07/28/18 23:10 07/28/18 23:10 07/28/18 23:10 07/28/18 23:10 07/28/18 23:10 - Medications Medications: Current Medications Acetaminophen (Tylenol 325mg Tab) 650 mg PO Q6 PRN PRN Reason: Fever >100.4 F Last Admin: 07/28/18 15:56 Dose: 650 mg Dextrose (Dextrose 50% Inj) 0 ml IV STAT PRN; Protocol PRN Reason: Hypoglycemia Protocol Dextrose (Glutose 15) 0 gm PO ONCE PRN; Protocol PRN Reason: Hypoglycemia Protocol Diphenhydramine HCl (Benadryl) 25 mg PO Q6 PRN PRN Reason: Allergy symptoms Last Admin: 07/27/18 20:19 Dose: 25 mg Famotidine (Pepcid) 20 mg PO BID [facility] Last Admin: 07/28/18 17:14 Dose: 20 mg Ferric Sodium Gluconate Complex (Ferrlecit) 125 mg IVPB DAILY [facility] Stop: 08/05/18 10:01 Last Admin: 07/28/18 09:47 Dose: 125 mg Glucagon (Glucagen Diagnostic Kit) 0 mg IM STAT PRN; Protocol PRN Reason: Hypoglycemia Protocol Dextrose (Dextrose 5% In Water 1000 Ml) 1,000 mls @ 0 mls/hr IV .Q0M PRN; Protocol PRN Reason: Hypoglycemia Protocol Insulin Human Regular (Novolin R) 0 unit SC ACHS [facility]; Protocol Last Admin: 07/28/18 22:08 Dose: Not Given Losartan Potassium (Cozaar) 50 mg PO DAILY [facility] Last Admin: 07/28/18 15:53 Dose: 50 mg Rosuvastatin Calcium (Crestor) 10 mg PO HS [facility] Last Admin: 07/28/18 21:53 Dose: 10 mg - Labs Labs: 07/29/18 07:00 07/28/18 07:44 PT 12.1 SECONDS (9.7-12.2) 07/28/18 20:45 INR 1.1 07/28/18 20:45 APTT 33 SECONDS (21-34) 07/28/18 20:45 - Additional Findings Additional findings: - Constitutional Appears: Well, No Acute Distress - Head Exam Head Exam: ATRAUMATIC, NORMOCEPHALIC - Eye Exam Eye Exam: EOMI, PERRL Additional comments: pale conjuctiva - ENT Exam ENT Exam: Mucous Membranes Moist, Normal Exam - Neck Exam Neck exam: Positive for: Normal Inspection. Negative for: Lymphadenopathy, Thyromegaly - Respiratory Exam Respiratory Exam: Clear to Auscultation Bilateral, NORMAL BREATHING PATTERN. absent: Rales, Rhonchi, Wheezes - Cardiovascular Exam Cardiovascular Exam: REGULAR RHYTHM, +S1, +S2. absent: Gallop, Rubs, Systolic Murmur - GI/Abdominal Exam GI & Abdominal Exam: Normal Bowel Sounds, Soft. absent: Distended, Tenderness - Rectal Exam Rectal Exam: Hemorrhoids. absent: Bloody Stool, Fecal Impaction - Extremities Exam Extremities exam: Positive for: normal capillary refill, normal inspection. Negative for: pedal edema, tenderness - Neurological Exam Neurological exam: Alert, CN II-XII Intact, Oriented x3 - Psychiatric Exam Psychiatric exam: Normal Affect, Normal Mood - Skin Skin Exam: Pallor Assessment and Plan - Assessment and Plan (Free Text) Assessment: 67yo F with PMH of anemia, HTN, DM presenting to the ED with fatigue and dizziness for 10 days. Hemoglobin 6.4, admitted for symptomatic anemia. Receiving blood transfusion. Plan: Symptomatic Anemia-Iron Deficiency - H&H 8.07/05 today - microcytic - EKG: NSR - CXR: no active disease - UA +RBCs - normal TIBC, low %sat - elevated haptoglobin, neg LDH, elevated retic count - FOBT: f/u - benadryl and tylenol PRN transfusion reaction - neg CT head and chest - Heme/Onc consulted, Dr. Boudreaux transfuse 2 more PRBCs yesterday contionue with Ferrlecit IVPB - GI consulted, Dr Damon Upper EGD today, if neg prep for colonoscopy tmrw HTN - Cozaar 50 daily - home valsartan/hctz not on formulary DM - 6.2 HbA1c - medium dose sliding scale - accuchecks ACHS - hypoglycemic protocol PPx DVT: SCDs, hold chemical anticoagulation at this time GI: pepcid Dispo: for upper EGD today, if neg, colonoscopy tmrw Patient seen and case discussed with Dr. Artis CK PGY1 <Armaan Artis H - Last Filed: 07/29/18 16:42> Objective - Vital Signs/Intake and Output Vital Signs (last 24 hours): Temp Pulse Resp BP Pulse Ox 98.3 F 78 20 148/90 98 07/29/18 15:00 07/29/18 15:00 07/29/18 15:00 07/29/18 15:00 07/29/18 15:00 Intake and Output: 07/29/18 07/29/18 06:59 18:59 Intake Total 200 Balance 200 - Medications Medications: Current Medications Acetaminophen (Tylenol 325mg Tab) 650 mg PO Q6 PRN PRN Reason: Fever >100.4 F Last Admin: 07/28/18 15:56 Dose: 650 mg Bisacodyl (Dulcolax) 10 mg PO ONCE ONE Stop: 07/29/18 17:01 Dextrose (Dextrose 50% Inj) 0 ml IV STAT PRN; Protocol PRN Reason: Hypoglycemia Protocol Dextrose (Glutose 15) 0 gm PO ONCE PRN; Protocol PRN Reason: Hypoglycemia Protocol Diphenhydramine HCl (Benadryl) 25 mg PO Q6 PRN PRN Reason: Allergy symptoms Last Admin: 07/27/18 20:19 Dose: 25 mg Famotidine (Pepcid) 20 mg PO BID [facility] Last Admin: 07/29/18 09:36 Dose: Not Given Ferric Sodium Gluconate Complex (Ferrlecit) 125 mg IVPB DAILY [facility] Stop: 08/05/18 10:01 Last Admin: 07/29/18 09:23 Dose: 125 mg Glucagon (Glucagen Diagnostic Kit) 0 mg IM STAT PRN; Protocol PRN Reason: Hypoglycemia Protocol Dextrose (Dextrose 5% In Water 1000 Ml) 1,000 mls @ 0 mls/hr IV .Q0M PRN; Protocol PRN Reason: Hypoglycemia Protocol Insulin Human Regular (Novolin R) 0 unit SC ACHS [facility]; Protocol Last Admin: 07/29/18 11:03 Dose: Not Given Losartan Potassium (Cozaar) 50 mg PO DAILY [facility] Last Admin: 07/29/18 09:24 Dose: 50 mg Metoclopramide HCl (Reglan) 5 mg IVP Q6H [facility] Stop: 07/31/18 10:00 Rosuvastatin Calcium (Crestor) 10 mg PO HS [facility] Last Admin: 07/28/18 21:53 Dose: 10 mg - Labs Labs: 07/29/18 07:00 07/29/18 06:55 PT 12.1 SECONDS (9.7-12.2) 07/28/18 20:45 INR 1.1 07/28/18 20:45 APTT 33 SECONDS (21-34) 07/28/18 20:45 Attending/Attestation - Attestation I have personally seen and examined this patient.: Yes I have fully participated in the care of the patient.: Yes I have reviewed all pertinent clinical information, including history, physical exam and plan: Yes Notes (Text): Medical attending: Patient was seen and examined by me. Agree with the above note by the resident The patient was not in any acute distress when we came and saw the patient Her Hgb was increased to 8 now. She denied active bleeding. The patient is pending for an upper EGD at some point today Also we are waiting on the results of the thyroid U/S as well She was not as anxious and crying today like she was yesterday. We took our time to explain things to the patient Armaan Artis
[2018-07-29 07:47] LABS: ALB/GLOB RATIO 1.2 (1.0-2.1); ALBUMIN 3.2 g/dL (3.5-5.0); ALT/SGPT 15 U/L (9-52); AST/SGOT 34 U/L (14-36); BLOOD UREA NITROGEN 10 mg/dL (7-17); CALCIUM 8.6 mg/dl (8.6-10.4); GFR NON-AFRICAN AMERICAN > 60
[2018-07-29] MEDS: (Novolin R) Insulin Human Regular 100 units/ml vial SC SCH ×4 (07:58→21:42)
[2018-07-29] MEDS: Ferric Sodium Gluconat Complex 62.5 mg/5 ml Vial IVPB SCH (09:23)
[2018-07-29] MEDS ORDERED: Midazolam 2 MG/2 ML VIAL ONE (11:51)
[2018-07-29] MEDS ORDERED: Propofol 10 mg/ml Inj (20 ML) ONE (11:51)
[2018-07-29] MEDS ORDERED: Peg-Electrolyte Oral Soln 4L (Golytely) PO ONE (14:00)
--- NOTE | 2018-07-29 14:07 | CARD ---
APPROVED REPORT Date of service: 07/27/2018 EKG Measurement Heart [id number] <Conclusion> Normal sinus rhythm Septal infarct, age undetermined Abnormal ECG
[2018-07-29] MEDS ORDERED: Bisacodyl 5mg EC Tab PO ONE (17:00)
--- NOTE | 2018-07-29 22:48 | CP.PCM.PN ---
Subjective - Date & Time of Evaluation Date of Evaluation: 07/28/18 Time of Evaluation: 20:00 - Subjective Subjective: Feeling better Objective - Vital Signs/Intake and Output Vital Signs (last 24 hours): Temp Pulse Resp BP Pulse Ox 98.3 F 78 20 148/90 98 07/29/18 15:00 07/29/18 15:00 07/29/18 15:00 07/29/18 15:00 07/29/18 15:00 Intake and Output: 07/29/18 07/30/18 18:59 06:59 Intake Total 200 Balance 200 - Medications Medications: Current Medications Acetaminophen (Tylenol 325mg Tab) 650 mg PO Q6 PRN PRN Reason: Fever >100.4 F Last Admin: 07/28/18 15:56 Dose: 650 mg Dextrose (Dextrose 50% Inj) 0 ml IV STAT PRN; Protocol PRN Reason: Hypoglycemia Protocol Dextrose (Glutose 15) 0 gm PO ONCE PRN; Protocol PRN Reason: Hypoglycemia Protocol Diphenhydramine HCl (Benadryl) 25 mg PO Q6 PRN PRN Reason: Allergy symptoms Last Admin: 07/27/18 20:19 Dose: 25 mg Famotidine (Pepcid) 20 mg PO BID [facility] Last Admin: 07/29/18 18:00 Dose: 20 mg Ferric Sodium Gluconate Complex (Ferrlecit) 125 mg IVPB DAILY [facility] Stop: 08/05/18 10:01 Last Admin: 07/29/18 09:23 Dose: 125 mg Glucagon (Glucagen Diagnostic Kit) 0 mg IM STAT PRN; Protocol PRN Reason: Hypoglycemia Protocol Dextrose (Dextrose 5% In Water 1000 Ml) 1,000 mls @ 0 mls/hr IV .Q0M PRN; Protocol PRN Reason: Hypoglycemia Protocol Insulin Human Regular (Novolin R) 0 unit SC ACHS [facility]; Protocol Last Admin: 07/29/18 21:42 Dose: Not Given Losartan Potassium (Cozaar) 50 mg PO DAILY [facility] Last Admin: 07/29/18 09:24 Dose: 50 mg Metoclopramide HCl (Reglan) 5 mg IVP Q6H [facility] Stop: 07/31/18 10:00 Last Admin: 07/29/18 18:12 Dose: 5 mg Rosuvastatin Calcium (Crestor) 10 mg PO HS [facility] Last Admin: 04/18/19 22:09 Dose: 10 mg - Labs Labs: 07/29/18 07:00 07/29/18 06:55 PT 12.1 SECONDS (9.7-12.2) 07/28/18 20:45 INR 1.1 07/28/18 20:45 APTT 33 SECONDS (21-34) 07/28/18 20:45 - Head Exam Head Exam: ATRAUMATIC - Eye Exam Eye Exam: Normal appearance - ENT Exam ENT Exam: Mucous Membranes Dry - Respiratory Exam Respiratory Exam: NORMAL BREATHING PATTERN - Cardiovascular Exam Cardiovascular Exam: +S1, +S2 - GI/Abdominal Exam GI & Abdominal Exam: Normal Bowel Sounds Assessment and Plan (1) Anemia Assessment & Plan: work up consistent with iron deficiency anemia (low ferritin) likely chronic blood loss; rule out GI blood loss s/p PRBC transfusion on IV iron GI w/u in progress Status: Acute (2) Elevated CEA Assessment & Plan: for egd and colonoscopy Status: Acute
--- NOTE | 2018-07-29 22:49 | CP.PCM.PN ---
Subjective - Date & Time of Evaluation Date of Evaluation: 07/29/18 Time of Evaluation: 17:00 - Subjective Subjective: No complaints, s/p EGD Objective - Vital Signs/Intake and Output Vital Signs (last 24 hours): Temp Pulse Resp BP Pulse Ox 98.3 F 78 20 148/90 98 07/29/18 15:00 07/29/18 15:00 07/29/18 15:00 07/29/18 15:00 07/29/18 15:00 Intake and Output: 07/29/18 07/30/18 18:59 06:59 Intake Total 200 Balance 200 - Medications Medications: Current Medications Acetaminophen (Tylenol 325mg Tab) 650 mg PO Q6 PRN PRN Reason: Fever >100.4 F Last Admin: 07/28/18 15:56 Dose: 650 mg Dextrose (Dextrose 50% Inj) 0 ml IV STAT PRN; Protocol PRN Reason: Hypoglycemia Protocol Dextrose (Glutose 15) 0 gm PO ONCE PRN; Protocol PRN Reason: Hypoglycemia Protocol Diphenhydramine HCl (Benadryl) 25 mg PO Q6 PRN PRN Reason: Allergy symptoms Last Admin: 07/27/18 20:19 Dose: 25 mg Famotidine (Pepcid) 20 mg PO BID [facility] Last Admin: 07/29/18 18:00 Dose: 20 mg Ferric Sodium Gluconate Complex (Ferrlecit) 125 mg IVPB DAILY [facility] Stop: 08/05/18 10:01 Last Admin: 07/29/18 09:23 Dose: 125 mg Glucagon (Glucagen Diagnostic Kit) 0 mg IM STAT PRN; Protocol PRN Reason: Hypoglycemia Protocol Dextrose (Dextrose 5% In Water 1000 Ml) 1,000 mls @ 0 mls/hr IV .Q0M PRN; Protocol PRN Reason: Hypoglycemia Protocol Insulin Human Regular (Novolin R) 0 unit SC ACHS [facility]; Protocol Last Admin: 07/29/18 21:42 Dose: Not Given Losartan Potassium (Cozaar) 50 mg PO DAILY [facility] Last Admin: 07/29/18 09:24 Dose: 50 mg Metoclopramide HCl (Reglan) 5 mg IVP Q6H [facility] Stop: 07/31/18 10:00 Last Admin: 07/29/18 18:12 Dose: 5 mg Rosuvastatin Calcium (Crestor) 10 mg PO HS [facility] Last Admin: 07/29/18 22:09 Dose: 10 mg - Labs Labs: 07/29/18 07:00 07/29/18 06:55 PT 12.1 SECONDS (9.7-12.2) 07/28/18 20:45 INR 1.1 07/28/18 20:45 APTT 33 SECONDS (21-34) 07/28/18 20:45 - Head Exam Head Exam: ATRAUMATIC - Eye Exam Eye Exam: Normal appearance - ENT Exam ENT Exam: Mucous Membranes Dry - Respiratory Exam Respiratory Exam: NORMAL BREATHING PATTERN - Cardiovascular Exam Cardiovascular Exam: +S1, +S2 - GI/Abdominal Exam GI & Abdominal Exam: Normal Bowel Sounds Assessment and Plan (1) Anemia Assessment & Plan: work up consistent with iron deficiency anemia (low ferritin) likely chronic blood loss; rule out GI blood loss s/p PRBC transfusion on IV iron GI w/u in progress Status: Acute (2) Elevated CEA Assessment & Plan: sp EGD for colonoscopy tomorrow Status: Acute
[2018-07-30] MEDS: (Novolin R) Insulin Human Regular 100 units/ml vial SC SCH ×4 (06:59→21:52)
--- NOTE | 2018-07-30 07:04 | CP.PCM.PN ---
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 Pt agrees w/ plan Objective - Vital Signs/Intake and Output Vital Signs (last 24 hours): Temp Pulse Resp BP Pulse Ox 98.4 F 58 L 18 126/78 96 07/30/18 05:52 07/30/18 05:52 07/30/18 05:52 07/30/18 05:52 07/30/18 05:52 - Medications Medications: Current Medications Acetaminophen (Tylenol 325mg Tab) 650 mg PO Q6 PRN PRN Reason: Fever >100.4 F Last Admin: 07/28/18 15:56 Dose: 650 mg Dextrose (Dextrose 50% Inj) 0 ml IV STAT PRN; Protocol PRN Reason: Hypoglycemia Protocol Dextrose (Glutose 15) 0 gm PO ONCE PRN; Protocol PRN Reason: Hypoglycemia Protocol Diphenhydramine HCl (Benadryl) 25 mg PO Q6 PRN PRN Reason: Allergy symptoms Last Admin: 07/27/18 20:19 Dose: 25 mg Famotidine (Pepcid) 20 mg PO BID [facility] Last Admin: 07/29/18 18:00 Dose: 20 mg Ferric Sodium Gluconate Complex (Ferrlecit) 125 mg IVPB DAILY [facility] Stop: 08/05/18 10:01 Last Admin: 07/29/18 09:23 Dose: 125 mg Glucagon (Glucagen Diagnostic Kit) 0 mg IM STAT PRN; Protocol PRN Reason: Hypoglycemia Protocol Dextrose (Dextrose 5% In Water 1000 Ml) 1,000 mls @ 0 mls/hr IV .Q0M PRN; Protocol PRN Reason: Hypoglycemia Protocol Insulin Human Regular (Novolin R) 0 unit SC ACHS [facility]; Protocol Last Admin: 07/30/18 06:59 Dose: Not Given Losartan Potassium (Cozaar) 50 mg PO DAILY [facility] Last Admin: 07/29/18 09:24 Dose: 50 mg Metoclopramide HCl (Reglan) 5 mg IVP Q6H [facility] Stop: 07/31/18 10:00 Last Admin: 07/30/18 05:46 Dose: 5 mg Rosuvastatin Calcium (Crestor) 10 mg PO HS [facility] Last Admin: 07/29/18 22:09 Dose: 10 mg - Labs Labs: 07/29/18 07:00 07/29/18 06:55 PT 12.1 SECONDS (9.7-12.2) 07/28/18 20:45 INR 1.1 07/28/18 20:45 APTT 33 SECONDS (21-34) 07/28/18 20:45 - Additional Findings Additional findings: - Constitutional Appears: Well, No Acute Distress - Head Exam Head Exam: ATRAUMATIC, NORMOCEPHALIC - Eye Exam Eye Exam: EOMI, PERRL Additional comments: pale conjuctiva - ENT Exam ENT Exam: Mucous Membranes Moist, Normal Exam - Neck Exam Neck exam: Positive for: Normal Inspection. Negative for: Lymphadenopathy, Thyr omegaly - Respiratory Exam Respiratory Exam: Clear to Auscultation Bilateral, NORMAL BREATHING PATTERN. absent: Rales, Rhonchi, Wheezes - Cardiovascular Exam Cardiovascular Exam: REGULAR RHYTHM, +S1, +S2. absent: Gallop, Rubs, Systolic Murmur - GI/Abdominal Exam GI & Abdominal Exam: Normal Bowel Sounds, Soft. absent: Distended, Tenderness - Rectal Exam Rectal Exam: Hemorrhoids. absent: Bloody Stool, Fecal Impaction - Extremities Exam Extremities exam: Positive for: normal capillary refill, normal inspection. Negative for: pedal edema, tenderness - Neurological Exam Neurological exam: Alert, CN II-XII Intact, Oriented x3 - Psychiatric Exam Psychiatric exam: Normal Affect, Normal Mood - Skin Skin Exam: Pallor Assessment and Plan - Assessment and Plan (Free Text) Assessment: 67yo F with PMH of anemia, HTN, DM presenting to the ED with fatigue and dizziness for 10 days. Hemoglobin 6.4, admitted for symptomatic anemia. Receiving blood transfusion. 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 Janusz linda with Ferrlecit IVPB HTN - Cozaar 50 daily - home valsartan/hctz not on formulary Thyroid nodule - CT scan: R Lobe enlargement - U/S: enlarged bilateral gland, f/u with fine needle bx and a radionucleatide scan - Recommend outpatient follow up hot vs cold nodule DM - 6.2 HbA1c - medium dose sliding scale - accuchecks ACHS - hypoglycemic protocol PPx DVT: SCDs, hold chemical anticoagulation at this time GI: pepcid Dispo: f/u CT w PO and IV cont, f/u when GenSx to take to OR Patient seen and case discussed with Dr. Artis CK PGY1 <Armaan Artis - Last Filed: 07/30/18 18:39> Objective - Vital Signs/Intake and Output Vital Signs (last 24 hours): Temp Pulse Resp BP Pulse Ox 97.4 F L 71 20 145/70 98 07/30/18 15:40 07/30/18 15:40 07/30/18 15:40 07/30/18 15:45 07/30/18 15:40 - Medications Medications: Current Medications Acetaminophen (Tylenol 325mg Tab) 650 mg PO Q6 PRN PRN Reason: Fever >100.4 F Last Admin: 07/28/18 15:56 Dose: 650 mg Dextrose (Dextrose 50% Inj) 0 ml IV STAT PRN; Protocol PRN Reason: Hypoglycemia Protocol Dextrose (Glutose 15) 0 gm PO ONCE PRN; Protocol PRN Reason: Hypoglycemia Protocol Diphenhydramine HCl (Benadryl) 25 mg PO Q6 PRN PRN Reason: Allergy symptoms Last Admin: 07/27/18 20:19 Dose: 25 mg Famotidine (Pepcid) 20 mg PO BID [facility] Last Admin: 07/30/18 18:02 Dose: 20 mg Ferric Sodium Gluconate Complex (Ferrlecit) 125 mg IVPB DAILY [facility] Stop: 08/05/18 10:01 Last Admin: 07/30/18 13:03 Dose: 125 mg Glucagon (Glucagen Diagnostic Kit) 0 mg IM STAT PRN; Protocol PRN Reason: Hypoglycemia Protocol Insulin Human Regular (Novolin R) 0 unit SC ACHS [facility]; Protocol Last Admin: 07/30/18 18:03 Dose: Not Given Losartan Potassium (Cozaar) 50 mg PO DAILY [facility] Last Admin: 07/30/18 10:09 Dose: Not Given Metoclopramide HCl (Reglan) 5 mg IVP Q6H [facility] Stop: 07/31/18 10:00 Last Admin: 07/30/18 18:10 Dose: 5 mg Rosuvastatin Calcium (Crestor) 10 mg PO HS [facility] Last Admin: 07/29/18 22:09 Dose: 10 mg - Labs Labs: 07/30/18 08:19 07/30/18 08:19 PT 12.1 SECONDS (9.7-12.2) 07/28/18 20:45 INR 1.1 07/28/18 20:45 APTT 33 SECONDS (21-34) 07/28/18 20:45 Attending/Attestation - Attestation I have personally seen and examined this patient.: Yes I have fully participated in the care of the patient.: Yes I have reviewed all pertinent clinical information, including history, physical exam and plan: Yes Notes (Text): 07/30/18 18:35 Medical attending: Patient was seen and examined by me, agree with the above note by the resident The patient was not in any acute distress when we came and saw her. She has undergone a colonscopy today and the report is concerning for a colonic mass. The patient will be having additional PRBC as well as surgical evaluation. She was anxious about this information and so we took the time to sit and comfort her. Armaan Artis
[2018-07-30 08:34] LABS: BASO # 0.1 K/uL (0.0-0.2); BASO % 0.6 % (0.0-2.0); EOS # 0.4 K/uL (0.0-0.7); EOS % 4.4 % (0.0-4.0); HEMOGLOBIN 7.9 g/dL (11.0-16.0); LYMPH # 2.7 K/uL (1.0-4.3); LYMPH % 29.4 % (20.0-40.0); MEAN CORPUSCULAR HEMOGLOBIN 25.8 pg (27.0-31.0); MEAN CORPUSCULAR HGB CONC 32.6 g/dL (33.0-37.0); MEAN PLATELET VOLUME 7.2 fL (7.2-11.7); MONO # 0.8 K/uL (0.0-0.8); MONO % 8.6 % (0.0-10.0); NEUT # 5.1 K/uL (1.8-7.0); RBC 3.08 Mil/uL (3.80-5.20); RED CELL DISTRIBUTION WIDTH 19.9 % (11.5-14.5)
[2018-07-30 08:45] LABS: ALB/GLOB RATIO 1.3 (1.0-2.1); ALBUMIN 3.1 g/dL (3.5-5.0); ALT/SGPT 16 U/L (9-52); AST/SGOT 25 U/L (14-36); BLOOD UREA NITROGEN 8 mg/dL (7-17); CALCIUM 8.4 mg/dl (8.6-10.4); GFR NON-AFRICAN AMERICAN > 60
[2018-07-30] MEDS ORDERED: Propofol 10 mg/ml Inj (20 ML) ONE (09:53)
[2018-07-30] MEDS ORDERED: Lidocaine Hydrochloride 5 ML INJ ONE (09:54)
[2018-07-30] MEDS ORDERED: Midazolam 2 MG/2 ML VIAL ONE (09:54)
[2018-07-30] MEDS ORDERED: ePHEDrine 50 mg/ml Inj ONE (09:55)
[2018-07-30] MEDS ORDERED: Lactated Ringer's 500 ML IV ONE (10:35)
--- NOTE | 2018-07-30 12:21 | CP.PCM.CON ---
History of Present Illness - History of Present Illness History of Present Illness: Surgery Consult Note- Dr. Barrett Reason for consult: Near obstruction ascending colon mass 67F pmhx significant for DM, HTN initially presented with dizziness, malaise, shortness of breath and subsequently found to be anemic. During work up, colonoscopy was performed by GI and a near obstructing mass in the ascending colon was found. During encounter patient has an appetite, passing gas, and having BM. Explained to patient the findings of the colonoscopy and that further imaging is warranted. PMH: stated above PSH: cholecystectomy ALL: NKDA Socialhx: + tobacco use 3-10 cigarettes per day for 10+ years. Denies etoh, recreational drug use Review of Systems - Review of Systems All systems: reviewed and no additional remarkable complaints except - Constitutional Constitutional: As Per HPI Past Patient History - Infectious Disease Hx of Infectious Diseases: None - Past Social History Smoking Status: Light Smoker < 10 Cigarettes Daily - CARDIAC Hx Hypertension: Yes - ENDOCRINE/METABOLIC Hx Endocrine Disorders: Yes Hx Diabetes Mellitus Type 2: Yes - PSYCHIATRIC Hx Substance Use: No - SURGICAL HISTORY Hx Cholecystectomy: Yes - ANESTHESIA Hx Anesthesia: Yes Hx Anesthesia Reactions: No Hx Malignant Hyperthermia: No Meds Allergies/Adverse Reactions: Allergies Allergy/AdvReac Type Severity Reaction Status Date / Time No Known Allergies Allergy Verified 01/23/16 00:49 - Medications Medications: Current Medications Acetaminophen (Tylenol 325mg Tab) 650 mg PO Q6 PRN PRN Reason: Fever >100.4 F Last Admin: 07/28/18 15:56 Dose: 650 mg Dextrose (Dextrose 50% Inj) 0 ml IV STAT PRN; Protocol PRN Reason: Hypoglycemia Protocol Dextrose (Glutose 15) 0 gm PO ONCE PRN; Protocol PRN Reason: Hypoglycemia Protocol Diphenhydramine HCl (Benadryl) 25 mg PO Q6 PRN PRN Reason: Allergy symptoms Last Admin: 07/27/18 20:19 Dose: 25 mg Famotidine (Pepcid) 20 mg PO BID [facility] Last Admin: 07/29/18 18:00 Dose: 20 mg Ferric Sodium Gluconate Complex (Ferrlecit) 125 mg IVPB DAILY [facility] Stop: 08/05/18 10:01 Last Admin: 07/29/18 09:23 Dose: 125 mg Glucagon (Glucagen Diagnostic Kit) 0 mg IM STAT PRN; Protocol PRN Reason: Hypoglycemia Protocol Dextrose (Dextrose 5% In Water 1000 Ml) 1,000 mls @ 0 mls/hr IV .Q0M PRN; Protocol PRN Reason: Hypoglycemia Protocol Insulin Human Regular (Novolin R) 0 unit SC ACHS [facility]; Protocol Last Admin: 07/30/18 06:59 Dose: Not Given Losartan Potassium (Cozaar) 50 mg PO DAILY [facility] Last Admin: 07/30/18 10:09 Dose: Not Given Metoclopramide HCl (Reglan) 5 mg IVP Q6H [facility] Stop: 07/31/18 10:00 Last Admin: 07/30/18 05:46 Dose: 5 mg Rosuvastatin Calcium (Crestor) 10 mg PO HS [facility] Last Admin: 07/29/18 22:09 Dose: 10 mg Physical Exam - Constitutional Appears: Non-toxic, No Acute Distress - Head Exam Head Exam: ATRAUMATIC - Eye Exam Eye Exam: EOMI. absent: Scleral icterus - ENT Exam ENT Exam: Mucous Membranes Moist - Respiratory Exam Respiratory Exam: NORMAL BREATHING PATTERN. absent: Accessory Muscle Use, Respiratory Distress - Cardiovascular Exam Cardiovascular Exam: REGULAR RHYTHM. absent: Bradycardia, Tachycardia - GI/Abdominal Exam GI & Abdominal Exam: Soft, Tenderness (mildly tender to deep palpation in RLQ. ). absent: Firm, Guarding, Hernia, Pulsatile Mass, Rebound, Rigid - Rectal Exam Additional comments: good tone, no mona blood - Extremities Exam Extremities exam: Negative for: calf tenderness - Neurological Exam Neurological exam: Alert, Oriented x3 - Psychiatric Exam Psychiatric exam: Normal Affect - Skin Skin Exam: Intact, Normal Color Results - Vital Signs Recent Vital Signs: Last Vital Signs Temp 98.9 F 07/30/18 10:35 Pulse 65 07/30/18 11:05 Resp 18 07/30/18 11:05 BP 165/87 H 07/30/18 11:05 Pulse Ox 100 07/30/18 11:05 - Labs Result Diagrams: 07/30/18 08:19 07/30/18 08:19 Labs: Laboratory Results - last 24 hr 07/29/18 07/29/18 07/30/18 18:05 21:15 02:03 WBC RBC Hgb Hct MCV MCH MCHC RDW Plt Count MPV Neut % (Auto) Lymph % (Auto) Holt % (Auto) Eos % (Auto) Baso % (Auto) Neut # (Auto) Lymph # (Auto) Holt # (Auto) Eos # (Auto) Baso # (Auto) Sodium Potassium Chloride Carbon Dioxide Anion Gap BUN Creatinine Est GFR ( Amer) Est GFR (Non-Af Amer) POC Glucose (mg/dL) 93 95 102 Random Glucose Calcium Total Bilirubin AST ALT Alkaline Phosphatase Total Protein Albumin Globulin Albumin/Globulin Ratio 07/30/18 07/30/18 07/30/18 06:21 08:19 08:19 WBC 9.0 RBC 3.08 L Hgb 7.9 L Hct 24.3 L MCV 79.0 L MCH 25.8 L MCHC 32.6 L RDW 19.9 H Plt Count 301 MPV 7.2 Neut % (Auto) 57.0 Lymph % (Auto) 29.4 Holt % (Auto) 8.6 Eos % (Auto) 4.4 H Baso % (Auto) 0.6 Neut # (Auto) 5.1 Lymph # (Auto) 2.7 Holt # (Auto) 0.8 Eos # (Auto) 0.4 Baso # (Auto) 0.1 Sodium 139 Potassium 3.5 L Chloride 107 Carbon Dioxide 26 Anion Gap 10 BUN 8 Creatinine 0.7 Est GFR ( Amer) > 60 Est GFR (Non-Af Amer) > 60 POC Glucose (mg/dL) 98 Random Glucose 84 Calcium 8.4 L Total Bilirubin 0.2 AST 25 ALT 16 Alkaline Phosphatase 77 Total Protein 5.6 L Albumin 3.1 L Globulin 2.5 Albumin/Globulin Ratio 1.3 07/30/18 11:58 WBC RBC Hgb Hct MCV MCH MCHC RDW Plt Count MPV Neut % (Auto) Lymph % (Auto) Holt % (Auto) Eos % (Auto) Baso % (Auto) Neut # (Auto) Lymph # (Auto) Holt # (Auto) Eos # (Auto) Baso # (Auto) Sodium Potassium Chloride Carbon Dioxide Anion Gap BUN Creatinine Est GFR ( Amer) Est GFR (Non-Af Amer) POC Glucose (mg/dL) 96 Random Glucose Calcium Total Bilirubin AST ALT Alkaline Phosphatase Total Protein Albumin Globulin Albumin/Globulin Ratio Assessment & Plan - Assessment and Plan (Free Text) Assessment: 67F w/ anemia, found to have nearly obstructing ascending colon mass on colonoscopy Plan: - will need CT w/ IV & PO contrast - CEA markers - f/u pathology - will plan for surgery during this hospital visit - further recs per Dr. Nena Griffin PGY2
[2018-07-30] MEDS ORDERED: Iohexol 240 (50 ml) PO ONE (12:45)
[2018-07-30] MEDS ORDERED: Potassium Chloride 20 mEq/15 ml LIQ UD PO ONE (13:00)
[2018-07-30] MEDS: Ferric Sodium Gluconat Complex 62.5 mg/5 ml Vial IVPB SCH (13:03)
[2018-07-30] MEDS ORDERED: Iodixanol 320 MG/ML 100 ML BOTTLE IV ONE (16:05)
--- NOTE | 2018-07-30 18:17 | CT ---
Date of service: 07/30/2018 CT chest, abdomen, and pelvis with IV contrast Indication: mass seen at ascending colon Technique: Contiguous axial images of the chest, abdomen, and pelvis. Coronal and Sagittal reformats generated and reviewed. This CT exam was performed using 1 or more of the following dose reduction techniques: Automated exposure control, adjustment of the MAA and/or kV according to patient size, and/or use of iterative reconstruction technique. Contrast: 100 mL Visipaque 320 IV Radiation dose: Total exam DLP = 1852.6 MGy-cm. Comparison: None available Findings: Visualized portions of the inferior thyroid gland demonstrates heterogeneous and markedly enlarged right lower pole. The mediastinal and hilar vascular structures appear within normal limits. The heart appears within normal limits of size. Small pericardial fluid. Small nodular densities are noted within the soft tissues of both breasts/axillae of uncertain significance. Recommend correlation with physical exam and dedicated breast imaging. Mild bibasilar atelectasis. No visible pleural effusion or pneumothorax. No suspicious pulmonary nodules measuring greater than 5 mm. Small hiatal hernia/distal esophageal wall thickening. Cholecystectomy. Hypoattenuation of the liver compatible with hepatic steatosis. The spleen, kidneys, pancreas, and adrenal glands appear unremarkable. The stomach is nondistended. Annular soft tissue mass at the right colon worrisome for malignant neoplasm. Small adjacent foci of air as well as curvilinear focus of air appears extra luminal; correlate clinically for possibility of small perforation. Mild adjacent inflammatory stranding. Small adjacent lymph nodes measuring up to 13 mm in short axis. Small bowel loops appear within normal limits of caliber without evidence of obstruction. Heterogeneous enlarged and lobulated uterus consistent with fibroids. Mildly thick-walled urinary bladder; correlate with urinalysis. Small fat containing left inguinal hernia. Degenerative changes of the spine. Kyphosis. Impression: Annular soft tissue mass involving the right colon worrisome for malignant neoplasm. Small adjacent foci of air as well as curvilinear focus of air appears extraluminal; correlate clinically for possibility of small perforation. Mild adjacent inflammatory stranding. Small adjacent lymph nodes measuring up to 13 mm in short axis. Heterogeneous markedly enlarged right lower pole thyroid gland. Recommend further evaluation with thyroid ultrasound. Small nodular densities are noted within the soft tissues of both breasts/axillae of uncertain significance. Recommend correlation with physical exam and dedicated breast imaging. Hypoattenuation of the liver compatible with hepatic steatosis. Mildly thick-walled urinary bladder; recommend correlation with urinalysis. Fibroid uterus. Cholecystectomy. Additional findings as above. Emergent findings discussed with the patient's RN Jorge on 07/30/18 at 6:07 p.m.
[2018-07-31 06:47] LABS: BASO # 0.1 K/uL (0.0-0.2); BASO % 0.5 % (0.0-2.0); EOS # 0.4 K/uL (0.0-0.7); EOS % 3.4 % (0.0-4.0); HEMOGLOBIN 10.8 g/dL (11.0-16.0); LYMPH # 3.1 K/uL (1.0-4.3); LYMPH % 24.7 % (20.0-40.0); MEAN CORPUSCULAR HEMOGLOBIN 27.1 pg (27.0-31.0); MEAN CORPUSCULAR HGB CONC 33.4 g/dL (33.0-37.0); MEAN PLATELET VOLUME 7.4 fL (7.2-11.7); MONO # 0.9 K/uL (0.0-0.8); MONO % 7.1 % (0.0-10.0); NEUT % 64.3 % (50.0-75.0); RBC 3.99 Mil/uL (3.80-5.20); RED CELL DISTRIBUTION WIDTH 19.5 % (11.5-14.5); WHITE BLOOD COUNT 12.4 K/uL (4.8-10.8)
[2018-07-31 07:01] LABS: ALB/GLOB RATIO 1.4 (1.0-2.1); ALBUMIN 3.7 g/dL (3.5-5.0); ALT/SGPT 12 U/L (9-52); AST/SGOT 31 U/L (14-36); BLOOD UREA NITROGEN 6 mg/dL (7-17); CALCIUM 8.4 mg/dl (8.6-10.4); GFR NON-AFRICAN AMERICAN > 60
--- NOTE | 2018-07-31 08:07 | CP.PCM.PN ---
Subjective - Date & Time of Evaluation Date of Evaluation: 07/31/18 Time of Evaluation: 08:03 - Subjective Subjective: Surgery: Dr. Barrett Patient feeling very well today. Energy has returned. She reports appetite and would like a diet. She denies SOB, chest pain, dizziness, blood bowel movements. She denies pain in the abdomen. Denies n/v/f/c. s/p 2 units PRBC overnight for anemia. Objective - Vital Signs/Intake and Output Vital Signs (last 24 hours): Temp Pulse Resp BP Pulse Ox 98.4 F 79 20 168/72 H 97 07/31/18 07:00 07/31/18 07:00 07/31/18 07:00 07/31/18 07:00 07/31/18 07:00 Intake and Output: 07/31/18 07/31/18 06:59 18:59 Intake Total 710 Balance 710 - Medications Medications: Current Medications Acetaminophen (Tylenol 325mg Tab) 650 mg PO Q6 PRN PRN Reason: Fever >100.4 F Last Admin: 07/28/18 15:56 Dose: 650 mg Dextrose (Dextrose 50% Inj) 0 ml IV STAT PRN; Protocol PRN Reason: Hypoglycemia Protocol Dextrose (Glutose 15) 0 gm PO ONCE PRN; Protocol PRN Reason: Hypoglycemia Protocol Diphenhydramine HCl (Benadryl) 25 mg PO Q6 PRN PRN Reason: Allergy symptoms Last Admin: 07/27/18 20:19 Dose: 25 mg Famotidine (Pepcid) 20 mg PO BID [facility] Last Admin: 07/30/18 18:02 Dose: 20 mg Ferric Sodium Gluconate Complex (Ferrlecit) 125 mg IVPB DAILY [facility] Stop: 08/05/18 10:01 Last Admin: 07/30/18 13:03 Dose: 125 mg Glucagon (Glucagen Diagnostic Kit) 0 mg IM STAT PRN; Protocol PRN Reason: Hypoglycemia Protocol Metronidazole (Flagyl) 500 mg in 100 mls @ 100 mls/hr IVPB Q8H [facility]; Protocol Insulin Human Regular (Novolin R) 0 unit SC ACHS [facility]; Protocol Last Admin: 07/30/18 21:52 Dose: Not Given Losartan Potassium (Cozaar) 50 mg PO DAILY [facility] Last Admin: 07/30/18 10:09 Dose: Not Given Metoclopramide HCl (Reglan) 5 mg IVP Q6H [facility] Stop: 07/31/18 10:00 Last Admin: 07/31/18 06:16 Dose: 5 mg Rosuvastatin Calcium (Crestor) 10 mg PO HS [facility] Last Admin: 07/30/18 21:52 Dose: 10 mg - Labs Labs: 07/31/18 06:38 07/31/18 06:38 PT 12.1 SECONDS (9.7-12.2) 07/28/18 20:45 INR 1.1 07/28/18 20:45 APTT 33 SECONDS (21-34) 07/28/18 20:45 - Constitutional Appears: Non-toxic, No Acute Distress - Head Exam Head Exam: ATRAUMATIC, NORMOCEPHALIC - Eye Exam Eye Exam: EOMI, Normal appearance - ENT Exam ENT Exam: Mucous Membranes Moist - Respiratory Exam Respiratory Exam: NORMAL BREATHING PATTERN. absent: Respiratory Distress - Cardiovascular Exam Cardiovascular Exam: REGULAR RHYTHM. absent: Tachycardia - GI/Abdominal Exam GI & Abdominal Exam: Soft. absent: Distended, Guarding, Tenderness, Rebound - Neurological Exam Neurological Exam: Alert, Awake, Oriented x3 - Psychiatric Exam Psychiatric exam: Normal Affect, Normal Mood - Skin Skin Exam: Normal Color, Warm Assessment and Plan - Assessment and Plan (Free Text) Assessment: 67 y/o female w/ bleeding ascending colon mass s/p colonoscopy with biopsy Plan: -s/p 2 units PRBC - Hgb responded appropriately and no clinical evidence of bleeding -ok for diet today -CLD on Thursday and NPO pmn for Surgery Thursday -CT scan reviewed and d/w Dr. Barrett -OOB -daily labs -please document clearance for OR on Thursday -further recs per Dr. Barrett AKWhite PGY4
[2018-07-31] MEDS: (Novolin R) Insulin Human Regular 100 units/ml vial SC SCH ×4 (08:15→21:37)
--- NOTE | 2018-07-31 09:21 | CP.PCM.PN ---
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 denies CP SOB FC NV 12 point ROS reviewed and otherwise negative Objective - Vital Signs/Intake and Output Vital Signs (last 24 hours): Temp Pulse Resp BP Pulse Ox 98.4 F 79 20 168/72 H 97 07/31/18 07:00 07/31/18 07:00 07/31/18 07:00 07/31/18 07:00 07/31/18 07:00 Intake and Output: 07/31/18 07/31/18 06:59 18:59 Intake Total 710 Balance 710 - Medications Medications: Current Medications Acetaminophen (Tylenol 325mg Tab) 650 mg PO Q6 PRN PRN Reason: Fever >100.4 F Last Admin: 07/28/18 15:56 Dose: 650 mg Dextrose (Dextrose 50% Inj) 0 ml IV STAT PRN; Protocol PRN Reason: Hypoglycemia Protocol Dextrose (Glutose 15) 0 gm PO ONCE PRN; Protocol PRN Reason: Hypoglycemia Protocol Diphenhydramine HCl (Benadryl) 25 mg PO Q6 PRN PRN Reason: Allergy symptoms Last Admin: 07/27/18 20:19 Dose: 25 mg Famotidine (Pepcid) 20 mg PO BID [facility] Last Admin: 07/30/18 18:02 Dose: 20 mg Ferric Sodium Gluconate Complex (Ferrlecit) 125 mg IVPB DAILY [facility] Stop: 08/05/18 10:01 Last Admin: 07/30/18 13:03 Dose: 125 mg Glucagon (Glucagen Diagnostic Kit) 0 mg IM STAT PRN; Protocol PRN Reason: Hypoglycemia Protocol Metronidazole (Flagyl) 500 mg in 100 mls @ 100 mls/hr IVPB Q8H [facility]; Protocol Insulin Human Regular (Novolin R) 0 unit SC ACHS [facility]; Protocol Last Admin: 07/31/18 08:15 Dose: Not Given Losartan Potassium (Cozaar) 50 mg PO DAILY [facility] Last Admin: 07/30/18 10:09 Dose: Not Given Metoclopramide HCl (Reglan) 5 mg IVP Q6H [facility] Stop: 07/31/18 10:00 Last Admin: 07/31/18 06:16 Dose: 5 mg Rosuvastatin Calcium (Crestor) 10 mg PO HS [facility] Last Admin: 07/30/18 21:52 Dose: 10 mg - Labs Labs: 07/31/18 06:38 07/31/18 06:38 PT 12.1 SECONDS (9.7-12.2) 07/28/18 20:45 INR 1.1 07/28/18 20:45 APTT 33 SECONDS (21-34) 07/28/18 20:45 - Additional Findings Additional findings: Constitutional Appears: Well, No Acute Distress - Head Exam Head Exam: ATRAUMATIC, NORMOCEPHALIC - Eye Exam Eye Exam: EOMI, PERRL Additional comments: pale conjuctiva - ENT Exam ENT Exam: Mucous Membranes Moist, Normal Exam - Neck Exam Neck exam: Positive for: Normal Inspection. Negative for: Lymphadenopathy, Thyromegaly - Respiratory Exam Respiratory Exam: Clear to Auscultation Bilateral, NORMAL BREATHING PATTERN. absent: Rales, Rhonchi, Wheezes - Cardiovascular Exam Cardiovascular Exam: REGULAR RHYTHM, +S1, +S2. absent: Gallop, Rubs, Systolic Murmur - GI/Abdominal Exam GI & Abdominal Exam: Normal Bowel Sounds, Soft. absent: Distended, Tenderness - Rectal Exam Rectal Exam: Hemorrhoids. absent: Bloody Stool, Fecal Impaction - Extremities Exam Extremities exam: Positive for: normal capillary refill, normal inspection. Negative for: pedal edema, tenderness - Neurological Exam Neurological exam: Alert, CN II-XII Intact, Oriented x3 - Psychiatric Exam Psychiatric exam: Normal Affect, Normal Mood - Skin Skin Exam: Pallor Assessment and Plan - Assessment and Plan (Free Text) Assessment: 67yo F with PMH of anemia, HTN, DM presenting to the ED with fatigue and dizziness for 10 days. Hemoglobin 6.4, admitted for symptomatic anemia. Receiving blood transfusion. Plan: Ascending Colon Ulcerated Mass - GI consulted, Dr Damon Upper EGD findings: mild esophagitis f/u bx, no bleed colonoscopy today: Ascending colon showed bleeding ulcerated mass, possible adeno ca, will f/u with CT scan - GenSx consulted Dr Barrett: CT ChestAbPelv: malignant appearing ascending colon mass Sx tues Symptomatic Anemia-Iron Deficiency - H&H 10. today - microcytic - EKG: NSR - CXR: no active disease - UA +RBCs - normal TIBC, low %sat - elevated haptoglobin, neg LDH, elevated retic count - FOBT: f/u - benadryl and tylenol PRN transfusion reaction - neg CT head and chest - Heme/Onc consulted, Dr. Janusz linda with Ferrlecit IVPB HTN - Cozaar 50 daily - home valsartan/hctz not on formulary Thyroid nodule - CT scan: R Lobe enlargement - U/S: enlarged bilateral gland, f/u with fine needle bx and a radionucleatide scan - Recommend outpatient follow up hot vs cold nodule DM - 6.2 HbA1c - medium dose sliding scale - accuchecks ACHS - hypoglycemic protocol PPx DVT: SCDs, hold chemical anticoagulation at this time GI: pepcid Dispo: malignancy on CT seen. Sx Patient seen and case discussed with Dr. Artis CK PGY1 <Armaan Artis - Last Filed: 08/01/18 08:08> Objective - Vital Signs/Intake and Output Vital Signs (last 24 hours): Temp Pulse Resp BP Pulse Ox 97.9 F 60 20 162/64 H 97 08/01/18 07:00 08/01/18 07:00 08/01/18 07:00 08/01/18 07:00 08/01/18 07:00 - Medications Medications: Current Medications Acetaminophen (Tylenol 325mg Tab) 650 mg PO Q6 PRN PRN Reason: Fever >100.4 F Last Admin: 07/31/18 21:33 Dose: 650 mg Dextrose (Dextrose 50% Inj) 0 ml IV STAT PRN; Protocol PRN Reason: Hypoglycemia Protocol Dextrose (Glutose 15) 0 gm PO ONCE PRN; Protocol PRN Reason: Hypoglycemia Protocol Diphenhydramine HCl (Benadryl) 25 mg PO Q6 PRN PRN Reason: Allergy symptoms Last Admin: 07/27/18 20:19 Dose: 25 mg Famotidine (Pepcid) 20 mg PO BID [facility] Last Admin: 07/31/18 17:18 Dose: 20 mg Ferric Sodium Gluconate Complex (Ferrlecit) 125 mg IVPB DAILY [facility] Stop: 08/05/18 10:01 Last Admin: 07/31/18 09:59 Dose: 125 mg Glucagon (Glucagen Diagnostic Kit) 0 mg IM STAT PRN; Protocol PRN Reason: Hypoglycemia Protocol Hydrochlorothiazide (Microzide) 12.5 mg PO DAILY [facility] Metronidazole (Flagyl) 500 mg in 100 mls @ 100 mls/hr IVPB Q8H [facility]; Protocol Last Admin: 08/01/18 00:35 Dose: 100 mls/hr Insulin Human Regular (Novolin R) 0 unit SC ACHS [facility]; Protocol Last Admin: 07/31/18 21:37 Dose: Not Given Losartan Potassium (Cozaar) 50 mg PO DAILY [facility] Last Admin: 07/31/18 09:59 Dose: 50 mg Rosuvastatin Calcium (Crestor) 10 mg PO HS [facility] Last Admin: 07/31/18 21:33 Dose: 10 mg - Labs Labs: 07/31/18 06:38 07/31/18 06:38 PT 12.1 SECONDS (9.7-12.2) 07/28/18 20:45 INR 1.1 07/28/18 20:45 APTT 33 SECONDS (21-34) 07/28/18 20:45 Attending/Attestation - Attestation I have personally seen and examined this patient.: Yes I have fully participated in the care of the patient.: Yes I have reviewed all pertinent clinical information, including history, physical exam and plan: Yes Notes (Text): 08/01/18 08:05 Medical attending: Patient was seen and examined by me. Agree with the above note by the resident. The patient was with family members at bedside The patient today's Hgb was much better than previous This is also the first day she appeared to be in better spitrits - she was happy today and I am gald for her since this is the first time we have walked in and she wasn't crying. We were able to have a long conversation with her today Pending surgery this - at some point the other nodules seen on CT - especially on the thyroid will need to be addressed as well Armaan Artis
[2018-07-31] MEDS: Ferric Sodium Gluconat Complex 62.5 mg/5 ml Vial IVPB SCH (09:59)
[2018-07-31] MEDS: metroNIDAZOLE IV 500 mg/100 ml 500 MG/100 ML BAG IVPB SCH ×2 (10:00→17:18)
--- NOTE | 2018-07-31 13:23 | PN ---
DATE: 07/31/2018 LOCATION: 563, bed B. SUBJECTIVE: This is a 67-year-old female, seen and examined in rounds post upper and lower endoscopy with reported colon mass lesion, for which surgical consultation was called. On record, the result of the gastric mucosal biopsy was negative for Helicobacter pylori infection and the patient had no chest pain or palpitation this morning. Most recent lab results today showed leukocytosis of 12.4, hemoglobin 10.8, hematocrit 32.3 post blood transfusion with blood glucose level 107, calcium 8.4. Abdominal and pelvic CAT scan was ordered by myself yesterday, official report is seen, indicative of right colon mass lesion with mild inflammatory adenopathy with enlarged right lower lobe of the thyroid gland. Rest of the report as mentioned. PHYSICAL EXAMINATION: GENERAL: A 67-year-old female. VITAL SIGNS: Afebrile with pulse of 74, respiratory rate 20-22, and blood pressure of 162/70. HEENT: Showed pale, dry oral mucous membrane. Nonicteric sclerae. LUNGS: Few scattered crepitation. Decreased air entry at bases. HEART: Positive S1 and S2. ABDOMEN: Soft, mildly obese with mild generalized tenderness. No mass or organomegaly. No rebound tenderness or guarding. EXTREMITIES: With lower extremity edematous changes. No clubbing or cyanosis. NEUROLOGICAL: No reported new neurological deficits, sensory or motor. IMPRESSION: 1. Anemia, hypochromic microcytic. 2. Peptic ulcer disease. 3. Colon mass lesion, most likely carcinoma of the colon. 4. Abnormal radiology study of the thyroid gland. 5. Poorly-controlled diabetes mellitus. 6. Known history of hypertension and cardiomyopathy. SUGGESTIONS: 1. Agree with your plan. 2. Follow up on pathology report. 3. Surgical reevaluation as the colon mass lesion had evidence of bleeding. 4. Further recommendation to follow. Winter Ellis MD
[2018-08-01] MEDS: metroNIDAZOLE IV 500 mg/100 ml 500 MG/100 ML BAG IVPB SCH ×3 (00:35→16:36)
--- NOTE | 2018-08-01 05:45 | CP.PCM.PN ---
<Hebert Boyd M - Last Filed: 08/01/18 06:10> Subjective - Date & Time of Evaluation Date of Evaluation: 08/01/18 Time of Evaluation: 05:15 - Subjective Subjective: Medicine progress note for Hospitalist Dr. Artis. Pt seen and examiend at bedside. Patient reports feeling much better, having tolerated a diet without any nausea, vomiting. Patient does report she noticed when she passed 2 bowel movements yesterday, she noticed some blood on the tissue and was nervous to eat. Pt educated normal bleeding on tissue paper post colonoscopy biopsy. Patient also reporting pain at midline site. No erythema noted. Denies chest pain, SOB, abdominal pain, nausea, vomiting, diarrhea, constipation. Overnight required hydralizine 10 mg PO for elevated HTN. Objective - Vital Signs/Intake and Output Vital Signs (last 24 hours): Temp Pulse Resp BP Pulse Ox 98.9 F 74 20 154/64 H 96 07/31/18 23:00 07/31/18 23:00 07/31/18 23:00 07/31/18 23:00 07/31/18 23:00 Intake and Output: 07/31/18 08/01/18 18:59 06:59 Intake Total 1000 Balance 1000 - Medications Medications: Current Medications Acetaminophen (Tylenol 325mg Tab) 650 mg PO Q6 PRN PRN Reason: Fever >100.4 F Last Admin: 07/31/18 21:33 Dose: 650 mg Dextrose (Dextrose 50% Inj) 0 ml IV STAT PRN; Protocol PRN Reason: Hypoglycemia Protocol Dextrose (Glutose 15) 0 gm PO ONCE PRN; Protocol PRN Reason: Hypoglycemia Protocol Diphenhydramine HCl (Benadryl) 25 mg PO Q6 PRN PRN Reason: Allergy symptoms Last Admin: 07/27/18 20:19 Dose: 25 mg Famotidine (Pepcid) 20 mg PO BID [facility] Last Admin: 07/31/18 17:18 Dose: 20 mg Ferric Sodium Gluconate Complex (Ferrlecit) 125 mg IVPB DAILY [facility] Stop: 08/05/18 10:01 Last Admin: 07/31/18 09:59 Dose: 125 mg Glucagon (Glucagen Diagnostic Kit) 0 mg IM STAT PRN; Protocol PRN Reason: Hypoglycemia Protocol Metronidazole (Flagyl) 500 mg in 100 mls @ 100 mls/hr IVPB Q8H [facility]; Protocol Last Admin: 08/01/18 00:35 Dose: 100 mls/hr Insulin Human Regular (Novolin R) 0 unit SC ACHS [facility]; Protocol Last Admin: 07/31/18 21:37 Dose: Not Given Losartan Potassium (Cozaar) 50 mg PO DAILY [facility] Last Admin: 07/31/18 09:59 Dose: 50 mg Rosuvastatin Calcium (Crestor) 10 mg PO HS [facility] Last Admin: 07/31/18 21:33 Dose: 10 mg - Labs Labs: 07/31/18 06:38 07/31/18 06:38 PT 12.1 SECONDS (9.7-12.2) 07/28/18 20:45 INR 1.1 07/28/18 20:45 APTT 33 SECONDS (21-34) 07/28/18 20:45 - Constitutional Appears: Non-toxic, No Acute Distress - Head Exam Head Exam: NORMAL INSPECTION, NORMOCEPHALIC - Eye Exam Eye Exam: EOMI, Normal appearance - ENT Exam ENT Exam: Mucous Membranes Moist - Respiratory Exam Respiratory Exam: Clear to Ausculation Bilateral, NORMAL BREATHING PATTERN. absent: Rales, Rhonchi, Wheezes - Cardiovascular Exam Cardiovascular Exam: +S1, +S2 - GI/Abdominal Exam GI & Abdominal Exam: Soft, Normal Bowel Sounds - Extremities Exam Extremities Exam: Full ROM, Normal Inspection. absent: Calf Tenderness, Pedal Edema Additional comments: left UE midline no erythema, no swelling at site - Back Exam Back Exam: absent: CVA tenderness (L), CVA tenderness (R) - Neurological Exam Neurological Exam: Alert, Awake, Oriented x3 - Psychiatric Exam Psychiatric exam: Normal Affect, Normal Mood - Skin Skin Exam: Dry, Intact, Normal Color, Warm Assessment and Plan - Assessment and Plan (Free Text) Assessment: 67yo F with PMH of anemia, HTN, DM presenting to the ED with fatigue and dizziness for 10 days. Hemoglobin 6.4, admitted for symptomatic anemia. Receiv ing blood transfusion. Plan: Ascending Colon Ulcerated Mass - GI consulted, Dr Damon Upper EGD findings: mild esophagitis f/u bx, no bleed colonoscopy today: Ascending colon showed bleeding ulcerated mass, possible adeno ca - GenSx consulted Dr Barrtet: CT ChestAbPelv: malignant appearing ascending colon mass Sx tues; will require medical clerance - CT abd/pelvis: annualar soft tissue mass involving right colon worrisome for neoplasm; small adjacent lymph nodes 13 mm Symptomatic Anemia-Iron Deficiency - H&H 10.8/32 today - microcytic - EKG: NSR - CXR: no active disease - UA +RBCs - normal TIBC, low %sat - elevated haptoglobin, neg LDH, elevated retic count - FOBT: f/u - benadryl and tylenol PRN transfusion reaction - neg CT head and chest - Heme/Onc consulted, Dr. Janusz linda with Ferrlecit IVPB HTN - Cozaar 50 daily - will consider adding HCTZ as additional medication for HTN - home valsartan/hctz not on formulary Thyroid nodule - CT scan: R Lobe enlargement - U/S: enlarged bilateral gland, f/u with fine needle bx and a radionucleatide scan - Recommend outpatient follow up hot vs cold nodule DM - 6.2 HbA1c - medium dose sliding scale - accuchecks ACHS - hypoglycemic protocol Breast nodules - small nodular densities notes on Ct/ab/pelvis, will require mammogram outpatient PPx DVT: SCDs, hold chemical anticoagulation at this time GI: pepcid Dispo: malignancy on CT seen. Sx tues Will d/w Dr. Artis <Armaan Artis H - Last Filed: 08/01/18 10:51> Objective - Vital Signs/Intake and Output Vital Signs (last 24 hours): Temp Pulse Resp BP Pulse Ox 97.9 F 60 20 162/64 H 97 08/01/18 07:00 08/01/18 07:00 08/01/18 07:00 08/01/18 07:00 08/01/18 07:00 - Medications Medications: Current Medications Acetaminophen (Tylenol 325mg Tab) 650 mg PO Q6 PRN PRN Reason: Fever >100.4 F Last Admin: 07/31/18 21:33 Dose: 650 mg Dextrose (Dextrose 50% Inj) 0 ml IV STAT PRN; Protocol PRN Reason: Hypoglycemia Protocol Dextrose (Glutose 15) 0 gm PO ONCE PRN; Protocol PRN Reason: Hypoglycemia Protocol Diphenhydramine HCl (Benadryl) 25 mg PO Q6 PRN PRN Reason: Allergy symptoms Last Admin: 07/27/18 20:19 Dose: 25 mg Famotidine (Pepcid) 20 mg PO BID [facility] Last Admin: 08/01/18 10:29 Dose: 20 mg Ferric Sodium Gluconate Complex (Ferrlecit) 125 mg IVPB DAILY [facility] Stop: 08/05/18 10:01 Last Admin: 08/01/18 10:29 Dose: 125 mg Glucagon (Glucagen Diagnostic Kit) 0 mg IM STAT PRN; Protocol PRN Reason: Hypoglycemia Protocol Hydrochlorothiazide (Microzide) 12.5 mg PO DAILY [facility] Last Admin: 08/01/18 10:32 Dose: 12.5 mg Metronidazole (Flagyl) 500 mg in 100 mls @ 100 mls/hr IVPB Q8H [facility]; Protocol Last Admin: 08/01/18 09:55 Dose: 100 mls/hr Insulin Human Regular (Novolin R) 0 unit SC ACHS [facility]; Protocol Last Admin: 08/01/18 08:10 Dose: Not Given Losartan Potassium (Cozaar) 50 mg PO DAILY [facility] Last Admin: 08/01/18 10:29 Dose: 50 mg Rosuvastatin Calcium (Crestor) 10 mg PO HS [facility] Last Admin: 07/31/18 21:33 Dose: 10 mg - Labs Labs: 08/01/18 08:16 08/01/18 08:16 PT 12.1 SECONDS (9.7-12.2) 07/28/18 20:45 INR 1.1 07/28/18 20:45 APTT 33 SECONDS (21-34) 07/28/18 20:45 Attending/Attestation - Attestation I have personally seen and examined this patient.: Yes I have fully participated in the care of the patient.: Yes I have reviewed all pertinent clinical information, including history, physical exam and plan: Yes Notes (Text): 08/01/18 10:49 Medical attending: Patient was seen and examined by me. Reviewed the above note by the resident Patient is eager for the procedure this Thursday She did not report any acute events overnight. We are getting an endocrinology evaluation because of the equivical thyroid nodules seen on imaging. Today's Hgb was stable as well She was added back on her HCTZ Armaan Artis 08/01/18 10:51
[2018-08-01] MEDS: (Novolin R) Insulin Human Regular 100 units/ml vial SC SCH ×4 (08:10→21:16)
[2018-08-01 08:28] LABS: BASO # 0.1 K/uL (0.0-0.2); BASO % 0.5 % (0.0-2.0); EOS # 0.4 K/uL (0.0-0.7); EOS % 4.5 % (0.0-4.0); HEMOGLOBIN 10.3 g/dL (11.0-16.0); LYMPH # 2.6 K/uL (1.0-4.3); LYMPH % 26.3 % (20.0-40.0); MEAN CELL VOLUME 82.5 fL (81.0-99.0); MEAN CORPUSCULAR HEMOGLOBIN 27.2 pg (27.0-31.0); MEAN CORPUSCULAR HGB CONC 32.9 g/dL (33.0-37.0); MEAN PLATELET VOLUME 7.1 fL (7.2-11.7); MONO # 0.8 K/uL (0.0-0.8); MONO % 8.3 % (0.0-10.0); NEUT # 5.9 K/uL (1.8-7.0); NEUT % 60.4 % (50.0-75.0); NRBC % 0.2 % (0.0-2.0); RBC 3.78 Mil/uL (3.80-5.20); RED CELL DISTRIBUTION WIDTH 20.2 % (11.5-14.5); WHITE BLOOD COUNT 9.8 K/uL (4.8-10.8)
[2018-08-01 08:45] LABS: ALB/GLOB RATIO 1.4 (1.0-2.1); ALBUMIN 3.4 g/dL (3.5-5.0); ALT/SGPT 11 U/L (9-52); AST/SGOT 22 U/L (14-36); BLOOD UREA NITROGEN 13 mg/dL (7-17); CALCIUM 8.3 mg/dl (8.6-10.4); GFR NON-AFRICAN AMERICAN > 60
--- NOTE | 2018-08-01 09:47 | PN ---
DATE: 08/01/2018 LOCATION: 563, bed B. SUBJECTIVE: This 67-year-old female, seen and examined in rounds early today without reported significant clinical changes or evidence of active bleeding, somewhat anxious with reported elevated blood pressure. The patient tolerated oral intake better than before, with bowel movement associated with trace of some blood but no hematemesis, chest pain, palpitation or significant increase of shortness of breath. Most recent lab results showed today's blood glucose level 144. Rest of the lab results still pending. However, the patient still have leukocytosis with low hemoglobin and hematocrit. PHYSICAL EXAMINATION: GENERAL: A 67-year-old female. VITAL SIGNS: Afebrile with pulse of 62, respiratory rate 20 to 22, blood pressure of 160/66. HEENT: Showed pale, dry oral mucous membrane. Nonicteric sclerae. LUNGS: Few scattered crepitation. Decreased air entry at bases. HEART: Positive S1 and S2. ABDOMEN: Soft, slightly obese with mild generalized tenderness. No mass or organomegaly. No rebound tenderness or guarding. It has to be mentioned that official pathology report from the colon mass lesion is still pending. IMPRESSION: 1. Re-exacerbation of peptic ulcer disease. 2. Colon mass lesion with ulceration and bleeding, most likely carcinoma of the colon. 3. Anemia, secondary to above. 4. Abnormal CAT scan of the thyroid gland. 6. Poorly controlled diabetes mellitus. 7. Known history of cardiomegaly, hypertension and some anxiety syndrome. SUGGESTIONS: 1. Continue current management. 2. The patient for potential surgical reevaluation for possible right hemicolectomy. 3. The patient will need mammography due to the abnormal radiology studies of the breast as reported. We will follow up closely with you. Winter Ellis MD
[2018-08-01] MEDS: Ferric Sodium Gluconat Complex 62.5 mg/5 ml Vial IVPB SCH (10:29)
[2018-08-02] MEDS: metroNIDAZOLE IV 500 mg/100 ml 500 MG/100 ML BAG IVPB SCH ×3 (00:45→17:45)
--- NOTE | 2018-08-02 01:55 | CON ---
DATE: 08/01/2018 ENDOCRINOLOGY CONSULT HISTORY OF PRESENT ILLNESS: This is a 67-year-old female with recent history of marked anemia. A subsequent GI workup showed the presence of an obstructing and ulcerative mass lesion in the ascending colon and is now scheduled for a surgical resection this coming week and is also being referred for endocrine evaluation of an incidental mass in the neck area as noted. PAST MEDICAL HISTORY: As mentioned above, history of long-standing diabetes and hypertension, on oral hypoglycemic drug therapy. History of a prior cholecystectomy. Also, history of osteoarthritis with lower back pain and knee pain as noted. FAMILY HISTORY: Positive for hypertension and heart disease. SOCIAL HISTORY: The patient is an active and current smoker, has a supportive family otherwise. REVIEW OF SYSTEMS: As mentioned above, admits to generalized body weakness with easy fatigability and tiredness and suboptimal energy level. Also admits to progressively worsening dizziness and lightheadedness, especially in the last 2 to 3 weeks prior to admission. No chest pain but admits to progressive shortness of breath especially on exertion. Her oral intake has been variable with nausea, dyspepsia, and vague and diffuse abdominal pain with habitual constipation. PHYSICAL EXAMINATION: GENERAL: This is an overweight female, in no apparent distress. VITAL SIGNS: Blood pressure of 150/90, pulse of 100 beats per minute and regular, temperature 99, respirations 20, height 5 feet, weight is 200 pounds. HEENT: Head, normocephalic. Eyes: Anicteric with pink conjunctivae. Funduscopy not possible at this time. Ears, nose and throat otherwise normal. NECK: Supple. Thyroid gland is in normal size. No carotid bruits or any cervical adenopathy. CARDIOPULMONARY: Some adynamic precordium. S1 and S2, rapid and regular. LUNGS: Clear to auscultation. ABDOMEN: Flat and soft with positive bowel sounds. EXTREMITIES: No peripheral edema. Pulses are +2 bilaterally. LABORATORY DATA: Hemoglobin initially was 7 g with hematocrit of 22. Her latest hemoglobin is 10 and hematocrit of 32. The thyroid study showed a TSH of 0.51 with a free T4 of 1.11. Her chemistries, BUN of 13, sodium 136, potassium 3.9, chloride 107, CO2 of 26, glucose of 114, and creatinine 0.8. Her thyroid ultrasound showed the presence of a dominant nodule in the right lobe measuring 6 x 4.2 x 2.9 cm and the right lobe dimension measures 7.1 x 4.5 x 3.2 cm. The left lobe is 4.6 x 1.3 x 1.4 cm with small nodules as noted. ASSESSMENT: This is a 67-year-old female with a colonic mass lesion in the ascending colon and scheduled for colonic resection and is now also being referred for endocrine evaluation of an incidental thyroid mass lesion, especially on the right lobe. Initially seen by CAT scan and confirmed by a thyroid ultrasound. She actually has the presence of a multinodular goiter of moderate enlargement and dimension with a dominant right thyroid nodule as noted. She remains clinically and biochemically euthyroid at this time with no overt compressive neck symptoms as noted. PLAN OF MANAGEMENT: As the patient is scheduled for colonic resection this week, we will order a comprehensive thyroid hormonal profile tomorrow morning and also add thyroid antibodies which will confirm and/or indicate the presence of thyroid autoimmunity. We will also add a quantitative thyroglobulin level for possible underlying thyroid malignancy. She will absolutely need at this time but postoperatively also a fine-needle aspiration biopsy of the dominant nodule on the right lobe to exclude any underlying malignancy at this time. We concur with the present medical management and all the surgical resection scheduled. Kathy Hernandez MD
--- NOTE | 2018-08-02 06:58 | CP.PCM.PN ---
<Hebert Boyd M - Last Filed: 08/02/18 13:14> Subjective - Date & Time of Evaluation Date of Evaluation: 08/02/18 Time of Evaluation: 07:15 - Subjective Subjective: Medicine progress note for hospitalist Dr. Lan. Pt seen and examined at bedside. Initially patient calm and cooperative. Pt reports pain around her midline site. Pt denies abdominal pain, nausea, vomiting, fevers, chills. Pt denies chest pain, SOB, diarrhea, constipation. During attending rounds patient was agitated and upset stating they keep poking me. Pt was referring to blood draws. Objective - Vital Signs/Intake and Output Vital Signs (last 24 hours): Temp Pulse Resp BP Pulse Ox 98.1 F 88 20 120/89 95 08/02/18 00:00 08/02/18 00:00 08/02/18 00:00 08/02/18 00:00 08/02/18 00:00 Intake and Output: 08/01/18 08/02/18 18:59 06:59 Intake Total 850 690 Balance 850 690 - Medications Medications: Current Medications Acetaminophen (Tylenol 325mg Tab) 650 mg PO Q6 PRN PRN Reason: Fever >100.4 F Last Admin: 07/31/18 21:33 Dose: 650 mg Dextrose (Dextrose 50% Inj) 0 ml IV STAT PRN; Protocol PRN Reason: Hypoglycemia Protocol Dextrose (Glutose 15) 0 gm PO ONCE PRN; Protocol PRN Reason: Hypoglycemia Protocol Diphenhydramine HCl (Benadryl) 25 mg PO Q6 PRN PRN Reason: Allergy symptoms Last Admin: 07/27/18 20:19 Dose: 25 mg Famotidine (Pepcid) 20 mg PO BID [facility] Last Admin: 08/01/18 17:29 Dose: 20 mg Ferric Sodium Gluconate Complex (Ferrlecit) 125 mg IVPB DAILY [facility] Stop: 08/05/18 10:01 Last Admin: 08/01/18 10:29 Dose: 125 mg Glucagon (Glucagen Diagnostic Kit) 0 mg IM STAT PRN; Protocol PRN Reason: Hypoglycemia Protocol Hydrochlorothiazide (Microzide) 12.5 mg PO DAILY [facility] Last Admin: 08/01/18 10:32 Dose: 12.5 mg Metronidazole (Flagyl) 500 mg in 100 mls @ 100 mls/hr IVPB Q8H [facility]; Protocol Last Admin: 08/02/18 00:45 Dose: 100 mls/hr Insulin Human Regular (Novolin R) 0 unit SC ACHS [facility]; Protocol Last Admin: 08/01/18 21:16 Dose: Not Given Losartan Potassium (Cozaar) 50 mg PO DAILY [facility] Last Admin: 08/01/18 10:29 Dose: 50 mg Rosuvastatin Calcium (Crestor) 10 mg PO HS [facility] Last Admin: 08/01/18 21:16 Dose: 10 mg - Labs Labs: 08/01/18 08:16 08/01/18 08:16 PT 12.1 SECONDS (9.7-12.2) 07/28/18 20:45 INR 1.1 07/28/18 20:45 APTT 33 SECONDS (21-34) 07/28/18 20:45 - Constitutional Appears: Non-toxic, No Acute Distress - Head Exam Head Exam: NORMAL INSPECTION - Eye Exam Eye Exam: EOMI, Normal appearance - ENT Exam ENT Exam: Mucous Membranes Moist - Respiratory Exam Respiratory Exam: Clear to Ausculation Bilateral, NORMAL BREATHING PATTERN. absent: Rales, Rhonchi, Wheezes - Cardiovascular Exam Cardiovascular Exam: +S1, +S2. absent: +S4, Murmur - GI/Abdominal Exam GI & Abdominal Exam: Soft, Normal Bowel Sounds. absent: Firm, Guarding, Rigid - Extremities Exam Extremities Exam: Full ROM. absent: Calf Tenderness, Pedal Edema Additional comments: swelling superior to midline insertion no erythema present some tenderness on palpation near swelling area - Back Exam Back Exam: absent: CVA tenderness (L), CVA tenderness (R) - Neurological Exam Neurological Exam: Alert, Awake, Oriented x3 - Psychiatric Exam Psychiatric exam: Normal Affect, Normal Mood - Skin Skin Exam: Dry, Intact, Normal Color, Warm Assessment and Plan - Assessment and Plan (Free Text) Assessment: 67yo F with PMH of anemia, HTN, DM presenting to the ED with fatigue and dizziness for 10 days. Hemoglobin 6.4, admitted for symptomatic anemia. Receiving blood transfusion. 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 Godfrey johnson for cardiac clearance Symptomatic Anemia-Iron Deficiency - Initial Hemoglobin 6s - 2 x PRBC - H&H 10s/30 stable - EKG: NSR - CXR: no active disease - UA +RBCs - normal TIBC, low %sat - elevated haptoglobin, neg LDH, elevated retic count - FOBT: f/u - benadryl and tylenol PRN transfusion reaction - neg CT head and chest - Heme/Onc consulted, Dr. Boudreaux continue with Ferric IVPB HTN - Cozaar 50 daily - hold hctz for now - home valsartan/hctz not on formulary Thyroid nodule - CT scan: R Lobe enlargement - U/S: enlarged bilateral gland, f/u with fine needle bx and a radionucleatide scan - F/u endocrine, Dr. David johnson DM - 6.2 HbA1c - medium dose sliding scale - accuchecks ACHS - hypoglycemic protocol Breast nodules - small nodular densities notes on Ct/ab/pelvis, will require mammogram outpatient PPx DVT: SCDs, hold chemical anticoagulation at this time due to recent GI bleed GI: pepcid Dispo: malignancy on CT seen. Sx cecil <Bart Lan - Last Filed: 08/02/18 17:49> Objective - Vital Signs/Intake and Output Vital Signs (last 24 hours): Temp Pulse Resp BP Pulse Ox 98.7 F 69 20 115/65 99 08/02/18 15:00 08/02/18 15:00 08/02/18 15:00 08/02/18 15:00 08/02/18 15:00 Intake and Output: 08/02/18 08/02/18 06:59 18:59 Intake Total 690 120 Balance 690 120 - Medications Medications: Current Medications Acetaminophen (Tylenol 325mg Tab) 650 mg PO Q6 PRN PRN Reason: Fever >100.4 F Last Admin: 07/31/18 21:33 Dose: 650 mg Dextrose (Dextrose 50% Inj) 0 ml IV STAT PRN; Protocol PRN Reason: Hypoglycemia Protocol Dextrose (Glutose 15) 0 gm PO ONCE PRN; Protocol PRN Reason: Hypoglycemia Protocol Famotidine (Pepcid) 20 mg PO BID [facility] Last Admin: 08/02/18 09:47 Dose: 20 mg Ferric Sodium Gluconate Complex (Ferrlecit) 125 mg IVPB DAILY [facility] Stop: 08/05/18 10:01 Last Admin: 08/02/18 09:47 Dose: 125 mg Glucagon (Glucagen Diagnostic Kit) 0 mg IM STAT PRN; Protocol PRN Reason: Hypoglycemia Protocol Hydrochlorothiazide (Microzide) 12.5 mg PO DAILY [facility] Last Admin: 08/02/18 09:47 Dose: 12.5 mg Metronidazole (Flagyl) 500 mg in 100 mls @ 100 mls/hr IVPB Q8H [facility]; Protocol Last Admin: 08/02/18 08:35 Dose: 100 mls/hr Insulin Human Regular (Novolin R) 0 unit SC ACHS [facility]; Protocol Last Admin: 08/02/18 12:19 Dose: Not Given Losartan Potassium (Cozaar) 50 mg PO DAILY [facility] Last Admin: 08/02/18 09:46 Dose: 50 mg Rosuvastatin Calcium (Crestor) 10 mg PO HS [facility] Last Admin: 08/01/18 21:16 Dose: 10 mg - Labs Labs: 08/02/18 11:35 08/02/18 08:12 PT 12.1 SECONDS (9.7-12.2) 07/28/18 20:45 INR 1.1 07/28/18 20:45 APTT 33 SECONDS (21-34) 07/28/18 20:45 Attending/Attestation - Attestation I have personally seen and examined this patient.: Yes I have fully participated in the care of the patient.: Yes I have reviewed all pertinent clinical information, including history, physical exam and plan: Yes Notes (Text): Seen and examined this morning and later this afternoon. patient was complaining of left arm swelling on examination her left above her midline was swollen. patient has poor venous access. midline was removed. Anesthesiologist was requesting for cardiology clearance before surgery. Dr Donahue was consulted. She is going for stress test tomorrow,follow echo. 1. Adenocarcinoma of colon 2.DM 3.HTN 4.anemia
--- NOTE | 2018-08-02 07:41 | CP.PCM.PN ---
Subjective - Date & Time of Evaluation Date of Evaluation: 08/02/18 Time of Evaluation: 07:40 - Subjective Subjective: Surgery: Dr. Barrett Patient doing well today. CLD to start today and bowel prep. Denies n/v/f/c. Denies bloody bowel movements. Objective - Vital Signs/Intake and Output Vital Signs (last 24 hours): Temp Pulse Resp BP Pulse Ox 98.1 F 88 20 120/89 95 08/02/18 00:00 08/02/18 00:00 08/02/18 00:00 08/02/18 00:00 08/02/18 00:00 Intake and Output: 08/02/18 08/02/18 06:59 18:59 Intake Total 690 Balance 690 - Medications Medications: Current Medications Acetaminophen (Tylenol 325mg Tab) 650 mg PO Q6 PRN PRN Reason: Fever >100.4 F Last Admin: 07/31/18 21:33 Dose: 650 mg Dextrose (Dextrose 50% Inj) 0 ml IV STAT PRN; Protocol PRN Reason: Hypoglycemia Protocol Dextrose (Glutose 15) 0 gm PO ONCE PRN; Protocol PRN Reason: Hypoglycemia Protocol Famotidine (Pepcid) 20 mg PO BID [facility] Last Admin: 08/01/18 17:29 Dose: 20 mg Ferric Sodium Gluconate Complex (Ferrlecit) 125 mg IVPB DAILY [facility] Stop: 08/05/18 10:01 Last Admin: 08/01/18 10:29 Dose: 125 mg Glucagon (Glucagen Diagnostic Kit) 0 mg IM STAT PRN; Protocol PRN Reason: Hypoglycemia Protocol Hydrochlorothiazide (Microzide) 12.5 mg PO DAILY [facility] Last Admin: 08/01/18 10:32 Dose: 12.5 mg Metronidazole (Flagyl) 500 mg in 100 mls @ 100 mls/hr IVPB Q8H [facility]; Protocol Last Admin: 08/02/18 00:45 Dose: 100 mls/hr Insulin Human Regular (Novolin R) 0 unit SC ACHS [facility]; Protocol Last Admin: 08/01/18 21:16 Dose: Not Given Losartan Potassium (Cozaar) 50 mg PO DAILY [facility] Last Admin: 08/01/18 10:29 Dose: 50 mg Polyethylene Glycol/Electrolytes (Golytely) 4,000 ml PO ONCE ONE Stop: 08/02/18 07:38 Rosuvastatin Calcium (Crestor) 10 mg PO HS [facility] Last Admin: 08/01/18 21:16 Dose: 10 mg - Labs Labs: 08/01/18 08:16 08/01/18 08:16 PT 12.1 SECONDS (9.7-12.2) 07/28/18 20:45 INR 1.1 07/28/18 20:45 APTT 33 SECONDS (21-34) 07/28/18 20:45 - Constitutional Appears: Non-toxic, No Acute Distress - Head Exam Head Exam: ATRAUMATIC, NORMOCEPHALIC - Eye Exam Eye Exam: EOMI, Normal appearance - ENT Exam ENT Exam: Mucous Membranes Moist - Respiratory Exam Respiratory Exam: NORMAL BREATHING PATTERN. absent: Respiratory Distress - Cardiovascular Exam Cardiovascular Exam: REGULAR RHYTHM. absent: Tachycardia - GI/Abdominal Exam GI & Abdominal Exam: Soft. absent: Distended, Guarding, Tenderness, Rebound Assessment and Plan - Assessment and Plan (Free Text) Assessment: 67 y/o female w/ colon mass and anemia Plan: -for partial colectomy Thursday -bowel prep today, ok to mix with crystal light for taste -CLD today and NPO pmn -am labs and type and cross 2 units on hold for or -start IVF hydration with prep -cont early mobility -IS use -ok for DVT ppx from surgical standpoint, hold am of OR -further recs per Dr. Nena Shipley PGY4
[2018-08-02] MEDS ORDERED: Lactated Ringer's 1,000 ML IV SCH (07:45)
[2018-08-02] MEDS ORDERED: Peg-Electrolyte Oral Soln 4L (Golytely) PO ONE (08:00)
[2018-08-02] MEDS: (Novolin R) Insulin Human Regular 100 units/ml vial SC SCH ×4 (08:34→21:30)
[2018-08-02 08:43] LABS: ALB/GLOB RATIO 1.3 (1.0-2.1); ALBUMIN 3.7 g/dL (3.5-5.0); ALT/SGPT 15 U/L (9-52); AST/SGOT 21 U/L (14-36); BLOOD UREA NITROGEN 11 mg/dL (7-17); CALCIUM 8.8 mg/dl (8.6-10.4); GFR NON-AFRICAN AMERICAN > 60
[2018-08-02] MEDS: Ferric Sodium Gluconat Complex 62.5 mg/5 ml Vial IVPB SCH (09:47)
[2018-08-02 11:59] LABS: BASO # 0.1 K/uL (0.0-0.2); BASO % 0.5 % (0.0-2.0); EOS # 0.6 K/uL (0.0-0.7); EOS % 4.9 % (0.0-4.0); LYMPH # 3.2 K/uL (1.0-4.3); LYMPH % 28.2 % (20.0-40.0); MEAN CELL VOLUME 82.8 fL (81.0-99.0); MEAN CORPUSCULAR HGB CONC 32.7 g/dL (33.0-37.0); MEAN PLATELET VOLUME 7.4 fL (7.2-11.7); MONO # 0.8 K/uL (0.0-0.8); MONO % 7.4 % (0.0-10.0); NEUT # 6.7 K/uL (1.8-7.0); NRBC % 0.1 % (0.0-2.0); RBC 3.71 Mil/uL (3.80-5.20); RED CELL DISTRIBUTION WIDTH 20.7 % (11.5-14.5); WHITE BLOOD COUNT 11.4 K/uL (4.8-10.8)
--- NOTE | 2018-08-02 16:55 | CP.PCM.CON ---
History of Present Illness - History of Present Illness History of Present Illness: 67 F for Colon surgery Cardiology risk assessment requested today and patient scheduled for surgery For Cardiology risk assessment due to multiple risk factors and the symptoms of dyspnea and syncope needs ECHO, Carotid doppler and a stress test If its an emergency surgery proceed with it otherwise recommend to wait till the work up is complete Thank you Past Patient History - Infectious Disease Hx of Infectious Diseases: None - Past Medical History & Family History Past Medical History?: Yes - Past Social History Smoking Status: Light Smoker < 10 Cigarettes Daily - CARDIAC Hx Hypertension: Yes - PULMONARY Hx Respiratory Disorders: No - NEUROLOGICAL Hx Neurological Disorder: Yes Hx Dizziness: Yes - HEENT Hx HEENT Problems: No - RENAL Hx Chronic Kidney Disease: No - ENDOCRINE/METABOLIC Hx Endocrine Disorders: Yes Hx Diabetes Mellitus Type 2: Yes - HEMATOLOGICAL/ONCOLOGICAL Hx Cancer: No - INTEGUMENTARY Hx Dermatological Problems: No - MUSCULOSKELETAL/RHEUMATOLOGICAL Hx Musculoskeletal Disorders: Yes Hx Falls: Yes - GASTROINTESTINAL Hx Gastrointestinal Disorders: No - GENITOURINARY/GYNECOLOGICAL Hx Genitourinary Disorders: No - PSYCHIATRIC Hx Substance Use: No - SURGICAL HISTORY Hx Cholecystectomy: Yes - ANESTHESIA Hx Anesthesia: Yes Hx Anesthesia Reactions: No Hx Malignant Hyperthermia: No Meds Allergies/Adverse Reactions: Allergies Allergy/AdvReac Type Severity Reaction Status Date / Time No Known Allergies Allergy Verified 01/23/16 00:49 - Medications Medications: Current Medications Acetaminophen (Tylenol 325mg Tab) 650 mg PO Q6 PRN PRN Reason: Fever >100.4 F Last Admin: 07/31/18 21:33 Dose: 650 mg Dextrose (Dextrose 50% Inj) 0 ml IV STAT PRN; Protocol PRN Reason: Hypoglycemia Protocol Dextrose (Glutose 15) 0 gm PO ONCE PRN; Protocol PRN Reason: Hypoglycemia Protocol Famotidine (Pepcid) [address] [facility] Last Admin: 08/02/18 09:47 Dose: 20 mg Ferric Sodium Gluconate Complex (Ferrlecit) [address] [facility] Stop: 08/05/18 10:01 Last Admin: 08/02/18 09:47 Dose: 125 mg Glucagon (Glucagen Diagnostic Kit) 0 mg IM STAT PRN; Protocol PRN Reason: Hypoglycemia Protocol Hydrochlorothiazide (Microzide) 12.[address] [facility] Last Admin: 08/02/18 09:47 Dose: 12.5 mg Metronidazole (Flagyl) 500 mg in 100 mls @ 100 mls/hr IVPB Q8H [facility]; Protocol Last Admin: 08/02/18 08:35 Dose: 100 mls/hr Lactated Ringer's (Lactated Ringer's) 1,000 mls @ 100 mls/hr IV .Q10H [facility] Last Admin: 08/02/18 08:37 Dose: 100 mls/hr Insulin Human Regular (Novolin R) 0 unit SC ACHS [facility]; Protocol Last Admin: 08/02/18 12:19 Dose: Not Given Losartan Potassium (Cozaar) 50 mg PO DAILY [facility] Last Admin: 08/02/18 09:46 Dose: 50 mg Rosuvastatin Calcium (Crestor) 10 mg PO HS [facility] Last Admin: 08/01/18 21:16 Dose: 10 mg Results - Vital Signs Recent Vital Signs: Last Vital Signs Temp 98.7 F 08/02/18 15:00 Pulse 69 08/02/18 15:00 Resp 20 08/02/18 15:00 BP 115/65 08/02/18 15:00 Pulse Ox 99 08/02/18 15:00 - Labs Result Diagrams: 08/02/18 11:35 08/02/18 08:12 Labs: Laboratory Results - last 24 hr 08/01/18 08/02/18 08/02/18 20:59 06:23 08:12 WBC RBC Hgb Hct MCV MCH MCHC RDW Plt Count MPV Neut % (Auto) Lymph % (Auto) [place] % (Auto) Eos % (Auto) Baso % (Auto) Neut # (Auto) Lymph # (Auto) [place] # (Auto) Eos # (Auto) Baso # (Auto) Sodium 138 Potassium 4.1 Chloride 106 Carbon Dioxide 26 Anion Gap 11 BUN 11 Creatinine 0.8 Est GFR ( Amer) > 60 Est GFR (Non-Af Amer) > 60 POC Glucose (mg/dL) 160 H 151 H Random Glucose 137 H D Calcium 8.8 Total Bilirubin 0.2 AST 21 ALT 15 Alkaline Phosphatase 77 Total Protein 6.4 Albumin 3.7 Globulin 2.8 Albumin/Globulin Ratio 1.3 Thyroxine (T4) 10.8 TSH 3rd Generation 0.71 08/02/18 08/02/18 08/02/18 11:35 11:41 16:12 WBC 11.4 H RBC 3.71 L Hgb 10.0 L Hct 30.7 L MCV 82.8 MCH 27.0 MCHC 32.7 L RDW 20.7 H Plt Count 259 MPV 7.4 Neut % (Auto) 59.0 Lymph % (Auto) 28.2 [place] % (Auto) 7.4 Eos % (Auto) 4.9 H Baso % (Auto) 0.5 Neut # (Auto) 6.7 Lymph # (Auto) 3.2 [place] # (Auto) 0.8 Eos # (Auto) 0.6 Baso # (Auto) 0.1 Sodium Potassium Chloride Carbon Dioxide Anion Gap BUN Creatinine Est GFR ( Amer) Est GFR (Non-Af Amer) POC Glucose (mg/dL) 98 138 H Random Glucose Calcium Total Bilirubin AST ALT Alkaline Phosphatase Total Protein Albumin Globulin Albumin/Globulin Ratio Thyroxine (T4) TSH 3rd Generation
--- NOTE | 2018-08-02 19:34 | PN ---
DATE: 08/02/2018 LOCATION: 563, bed B. SUBJECTIVE: This is a 67-year-old female post upper and lower endoscopy, seen and examined in rounds without reported significant clinical changes or evidence of active bleeding. The patient denied any actual chest pain or palpitation; however, she is scheduled for potential echo today with cardiology clearance for her potential right hemicolectomy. The entire chart is reviewed including but not limited to the most recent lab and radiology study results, current and the previous medication lists. Today's lab results showed white blood cells elevated to 11.4, hemoglobin 10, hematocrit 30.7 with normal platelet count. Latest blood glucose level 98. PHYSICAL EXAMINATION: GENERAL: A 67-year-old female, awake, alert, oriented with a complaint of intermittent periods of abdominal pain. VITAL SIGNS: Afebrile with pulse of 66, respiratory rate 20 to 22, blood pressure of 152/80. HEENT: Showed pale, dry mucous membranes, nonicteric sclerae. LUNGS: Few scattered crepitation. Decreased air entry at bases. HEART: Positive S1 and S2. ABDOMEN: Soft with mild generalized tenderness. No mass or organomegaly. No rebound tenderness or guarding. EXTREMITIES: Without significant edema, clubbing or cyanosis. NEUROLOGIC: No reported new neurological deficits, sensory or motor. DIAGNOSTIC DATA: Official report from the biopsy of the colon mass lesion showed evidence of ulcerated adenocarcinoma with mucinous features, discussed with the pathology staff. IMPRESSION: 1. Adenocarcinoma of the colon. 2. Re-exacerbation of peptic ulcer disease. 3. Anemia, secondary to above. 4. Abnormal CAT scan of the thyroid. 5. Poorly controlled diabetes mellitus. 6. Known history of hypertension, cardiomegaly and anxiety syndrome. SUGGESTIONS: 1. Continue current management. 2. The patient is for potential right hemicolectomy. Case discussed with the surgical team at length. Winter Ellis MD
[2018-08-03] MEDS: metroNIDAZOLE IV 500 mg/100 ml 500 MG/100 ML BAG IVPB SCH ×3 (00:35→17:43)
--- NOTE | 2018-08-03 07:06 | CP.PCM.PN ---
<Hebert Boyd M - Last Filed: 08/03/18 13:29> Subjective - Date & Time of Evaluation Date of Evaluation: 08/03/18 Time of Evaluation: 07:00 - Subjective Subjective: Medicine progress note for hospitalist Dr. Lan. Patient seen and examined at bedside. Pt reports that her arm is feeling much better now with the midline removed. Pt denies erythema, and states a reduction in swelling. Patient denies fevers, chills, headaches, chest pain, SOB, abdominal pain, nausea, vomiting, diarrhea, constipation. Pt denied ECHO yesterday as "her family member was present praying for her." Objective - Vital Signs/Intake and Output Vital Signs (last 24 hours): Temp Pulse Resp BP Pulse Ox 98 F 58 L 20 147/64 97 08/02/18 23:26 08/02/18 23:26 08/02/18 23:26 08/02/18 23:26 08/02/18 23:26 - Medications Medications: Current Medications Acetaminophen (Tylenol 325mg Tab) 650 mg PO Q6 PRN PRN Reason: Fever >100.4 F Last Admin: 07/31/18 21:33 Dose: 650 mg Dextrose (Dextrose 50% Inj) 0 ml IV STAT PRN; Protocol PRN Reason: Hypoglycemia Protocol Dextrose (Glutose 15) 0 gm PO ONCE PRN; Protocol PRN Reason: Hypoglycemia Protocol Famotidine (Pepcid) 20 mg PO BID [facility] Last Admin: 08/02/18 17:42 Dose: 20 mg Ferric Sodium Gluconate Complex (Ferrlecit) 125 mg IVPB DAILY [facility] Stop: 08/05/18 10:01 Last Admin: 08/02/18 09:47 Dose: 125 mg Glucagon (Glucagen Diagnostic Kit) 0 mg IM STAT PRN; Protocol PRN Reason: Hypoglycemia Protocol Hydrochlorothiazide (Microzide) 12.5 mg PO DAILY [facility] Last Admin: 08/02/18 09:47 Dose: 12.5 mg Metronidazole (Flagyl) 500 mg in 100 mls @ 100 mls/hr IVPB Q8H [facility]; Protocol Last Admin: 08/03/18 00:35 Dose: Not Given Insulin Human Regular (Novolin R) 0 unit SC ACHS [facility]; Protocol Last Admin: 08/02/18 21:30 Dose: Not Given Losartan Potassium (Cozaar) 50 mg PO DAILY [facility] Last Admin: 08/02/18 09:46 Dose: 50 mg Rosuvastatin Calcium (Crestor) 10 mg PO HS [facility] Last Admin: 08/02/18 21:56 Dose: 10 mg - Labs Labs: 08/02/18 11:35 08/02/18 08:12 PT 12.1 SECONDS (9.7-12.2) 07/28/18 20:45 INR 1.1 07/28/18 20:45 APTT 33 SECONDS (21-34) 07/28/18 20:45 - Constitutional Appears: Non-toxic, No Acute Distress - Head Exam Head Exam: NORMAL INSPECTION - Eye Exam Eye Exam: EOMI, Normal appearance - ENT Exam ENT Exam: Mucous Membranes Moist - Respiratory Exam Respiratory Exam: Clear to Ausculation Bilateral, NORMAL BREATHING PATTERN. absent: Rales, Rhonchi, Wheezes - Cardiovascular Exam Cardiovascular Exam: +S1, +S2. absent: Murmur - GI/Abdominal Exam GI & Abdominal Exam: Soft, Normal Bowel Sounds. absent: Firm, Guarding, Rigid - Extremities Exam Extremities Exam: Full ROM. absent: Calf Tenderness, Pedal Edema Additional comments: reduction in swelling of LUE near site of previous midline no erythema present - Back Exam Back Exam: absent: CVA tenderness (L), CVA tenderness (R) - Neurological Exam Neurological Exam: Alert, Awake, Oriented x3 - Psychiatric Exam Psychiatric exam: Normal Affect, Normal Mood - Skin Skin Exam: Dry, Intact, Normal Color, Warm Assessment and Plan - Assessment and Plan (Free Text) Assessment: 67yo F with PMH of anemia, HTN, DM presenting to the ED with fatigue and dizziness for 10 days. Hemoglobin 6.4, admitted for symptomatic anemia. Received 2 X pRBC, colonic mass found, scheduled for partial colectomy on 08/04 pending cardiac clearance. Pt is due for stress test today, echo, and carotid duplex. 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 Donahue reckatarzyna for cardiac clearance Symptomatic Anemia-Iron Deficiency - Initial Hemoglobin 6s - 2 x PRBC - H&H 10s/30 stable - EKG: NSR - CXR: no active disease - UA +RBCs - normal TIBC, low %sat - elevated haptoglobin, neg LDH, elevated retic count - FOBT: f/u - benadryl and tylenol PRN transfusion reaction - neg CT head and chest - Heme/Onc consulted, Dr. Boudreaux - continue with Ferric IVPB; however held on 08/03 due to arm swelling HTN - Cozaar 50 daily - hctz for now - home valsartan/hctz not on formulary Thyroid nodule - CT scan: R Lobe enlargement - U/S: enlarged bilateral gland, f/u with fine needle bx and a radionucleatide scan - endocrine, Dr. Hernandez reckatarzyna - fine needle aspiration following partial colectomy, outpatient vs inpatient DM - 6.2 HbA1c - medium dose sliding scale - accuchecks ACHS - hypoglycemic protocol Breast nodules - small nodular densities notes on Ct/ab/pelvis, will require mammogram outpatient PPx DVT: SCDs, hold chemical anticoagulation at this time due to recent GI bleed GI: pepcid Dispo: malignancy on CT seen. Sx tues <Bart Lan - Last Filed: 08/06/18 16:16> Objective - Vital Signs/Intake and Output Vital Signs (last 24 hours): Temp Pulse Resp BP Pulse Ox 98.3 F 84 18 168/57 H 92 L 08/06/18 16:00 08/06/18 16:01 08/06/18 16:01 08/06/18 16:01 08/06/18 16:01 Intake and Output: 08/06/18 08/06/18 06:59 18:59 Intake Total 2800 400 Output Total 700 650 Balance 2100 -250 - Medications Medications: Current Medications Acetaminophen (Tylenol 325mg Tab) 650 mg PO Q6 [facility] Last Admin: 08/06/18 12:01 Dose: Not Given Amlodipine Besylate (Norvasc) 5 mg PO DAILY [facility] Last Admin: 08/06/18 12:00 Dose: 5 mg Cyclobenzaprine HCl (Flexeril) 5 mg PO TID [facility] Last Admin: 08/06/18 15:35 Dose: 5 mg Dextrose (Dextrose 50% Inj) 0 ml IV STAT PRN; Protocol PRN Reason: Hypoglycemia Protocol Dextrose (Glutose 15) 0 gm PO ONCE PRN; Protocol PRN Reason: Hypoglycemia Protocol Enoxaparin Sodium (Lovenox) 90 mg SC Q12 [facility] Last Admin: 08/06/18 10:56 Dose: 90 mg Famotidine (Pepcid) 20 mg PO BID [facility] Last Admin: 08/06/18 10:57 Dose: 20 mg Glucagon (Glucagen Diagnostic Kit) 0 mg IM STAT PRN; Protocol PRN Reason: Hypoglycemia Protocol Hydromorphone HCl (Dilaudid) 0.5 mg IVP Q6H PRN PRN Reason: Pain, severe (8-10) Last Admin: 08/06/18 15:38 Dose: 0.5 mg BUPIVACAINE 0.125%/0.9% NACL (Bupivacaine-Ns 0.125% On-Q [employer]) 600 mls @ 4 mls/hr IJ ONCE ONE Stop: 08/10/18 22:10 Last Admin: 08/04/18 17:25 Dose: 0 mls Insulin Human Regular (Novolin R) 0 unit SC ACHS [facility]; Protocol Last Admin: 08/06/18 12:00 Dose: 2 units Losartan Potassium (Cozaar) 100 mg PO DAILY [facility] Ondansetron HCl (Zofran Inj) 4 mg IVP Q6H PRN PRN Reason: Nausea/Vomiting Last Admin: 08/06/18 08:01 Dose: 4 mg Oxycodone HCl (Oxycodone Immediate Release Tab) 5 mg PO Q6H PRN PRN Reason: Pain, Mild (1-3) Oxycodone HCl (Oxycodone Immediate Release Tab) 10 mg PO Q6H PRN PRN Reason: Pain, moderate (4-7) Rosuvastatin Calcium (Crestor) 10 mg PO HS [facility] Last Admin: 08/05/18 22:04 Dose: 10 mg - Labs Labs: 08/06/18 11:22 08/06/18 11:22 PT 14.1 SECONDS (9.7-12.2) H 08/04/18 08:17 INR 1.3 08/04/18 08:17 APTT 35.0 SECONDS (21-34) H 08/04/18 08:17 Attending/Attestation - Attestation I have personally seen and examined this patient.: Yes I have fully participated in the care of the patient.: Yes I have reviewed all pertinent clinical information, including history, physical exam and plan: Yes Notes (Text): seen and examined with the resident. patient is happy that her midline is rem chas,pending cardiology work up before surgery Assessment and the plan discussed with the resident and I agree with the documentation
--- NOTE | 2018-08-03 07:15 | PN ---
DATE: 08/03/2018 ENDOCRINOLOGY FOLLOWUP NOTE LOCATION: Room 563. SUBJECTIVE: This is a 67-year-old female with symptomatic anemia on admission and was found to have a colonic mass in the right ascending colon and undergoing surgical resection today as scheduled. She also had an incidental finding of a large multinodular goiter with a dominant right thyroid nodule as noted. She remains clinically and biochemically euthyroid at this time. LABORATORY DATA: Her latest thyroid study showed a T4 of 10.8 with a TSH of 0.71. Her thyroid antibodies are pending at this time. Her latest chemistries showed a BUN of 11, sodium 138, potassium 4.1, chloride 106, CO2 of 26, glucose 137, and creatinine 0.8. Her glucose levels have ranged from 98 to 151 mg/dL. PLAN OF MANAGEMENT: So, at this time, we will concur with the present medical management and also surgical resection as scheduled today. Postoperatively, we will determine whether we can do a fine-needle aspiration biopsy of the dominant right thyroid nodule either inpatient or outpatient depending on her clinical condition otherwise. We will obtain serial chemistries and supplement accordingly as needed. We will follow. Kathy Hernandez MD
[2018-08-03] MEDS: (Novolin R) Insulin Human Regular 100 units/ml vial SC SCH ×4 (07:33→23:04)
[2018-08-03 08:20] LABS: ALB/GLOB RATIO 1.3 (1.0-2.1); ALBUMIN 3.4 g/dL (3.5-5.0); ALT/SGPT 12 U/L (9-52); AST/SGOT 25 U/L (14-36); BLOOD UREA NITROGEN 7 mg/dL (7-17); CALCIUM 8.6 mg/dl (8.6-10.4); GFR NON-AFRICAN AMERICAN > 60
[2018-08-03 08:22] LABS: BASO # 0.1 K/uL (0.0-0.2); BASO % 0.6 % (0.0-2.0); EOS # 0.5 K/uL (0.0-0.7); EOS % 5.2 % (0.0-4.0); HEMOGLOBIN 10.8 g/dL (11.0-16.0); LYMPH % 28.5 % (20.0-40.0); MEAN CORPUSCULAR HGB CONC 33.4 g/dL (33.0-37.0); MEAN PLATELET VOLUME 7.3 fL (7.2-11.7); MONO # 0.9 K/uL (0.0-0.8); MONO % 8.7 % (0.0-10.0); NRBC % 0.1 % (0.0-2.0); RBC 3.86 Mil/uL (3.80-5.20); RED CELL DISTRIBUTION WIDTH 21.4 % (11.5-14.5); WHITE BLOOD COUNT 10.5 K/uL (4.8-10.8)
[2018-08-03] MEDS ORDERED: Caffeine Citrated **INJ** 20 MG/ML IV ONE (08:22)
--- NOTE | 2018-08-03 09:33 | CP.PCM.PN ---
Subjective - Date & Time of Evaluation Date of Evaluation: 08/03/18 Time of Evaluation: 07:30 - Subjective Subjective: General Surgery Note for Dr. Barrett Patient seen and examined at bedside. No acute event overnight. Patient to have cardiology work up today with nuclear stress test. Patient will receive prep today after cardiology work up. May have clear liquids today then NPO past MN. Patient has no complaints at this time. Objective - Vital Signs/Intake and Output Vital Signs (last 24 hours): Temp Pulse Resp BP Pulse Ox 97.6 F 60 20 177/78 H 96 08/03/18 08:28 08/03/18 08:28 08/03/18 08:28 08/03/18 08:28 08/03/18 08:28 - Medications Medications: Current Medications Acetaminophen (Tylenol 325mg Tab) 650 mg PO Q6 PRN PRN Reason: Fever >100.4 F Last Admin: 07/31/18 21:33 Dose: 650 mg Dextrose (Dextrose 50% Inj) 0 ml IV STAT PRN; Protocol PRN Reason: Hypoglycemia Protocol Dextrose (Glutose 15) 0 gm PO ONCE PRN; Protocol PRN Reason: Hypoglycemia Protocol Famotidine (Pepcid) 20 mg PO BID [facility] Last Admin: 08/02/18 17:42 Dose: 20 mg Ferric Sodium Gluconate Complex (Ferrlecit) 125 mg IVPB DAILY [facility] Stop: 08/05/18 10:01 Last Admin: 08/02/18 09:47 Dose: 125 mg Glucagon (Glucagen Diagnostic Kit) 0 mg IM STAT PRN; Protocol PRN Reason: Hypoglycemia Protocol Hydrochlorothiazide (Microzide) 12.5 mg PO DAILY [facility] Last Admin: 08/02/18 09:47 Dose: 12.5 mg Metronidazole (Flagyl) 500 mg in 100 mls @ 100 mls/hr IVPB Q8H [facility]; Protocol Last Admin: 08/03/18 09:07 Dose: Not Given Insulin Human Regular (Novolin R) 0 unit SC ACHS [facility]; Protocol Last Admin: 08/03/18 07:33 Dose: Not Given Losartan Potassium (Cozaar) 50 mg PO DAILY [facility] Last Admin: 08/02/18 09:46 Dose: 50 mg Rosuvastatin Calcium (Crestor) 10 mg PO HS [facility] Last Admin: 08/02/18 21:56 Dose: 10 mg - Labs Labs: 08/03/18 07:41 08/03/18 07:41 PT 12.1 SECONDS (9.7-12.2) 07/28/18 20:45 INR 1.1 07/28/18 20:45 APTT 33 SECONDS (21-34) 07/28/18 20:45 - Additional Findings Additional findings: - Constitutional Appears: Non-toxic, No Acute Distress - Head Exam Head Exam: ATRAUMATIC, NORMOCEPHALIC - Eye Exam Eye Exam: EOMI, Normal appearance - ENT Exam ENT Exam: Mucous Membranes Moist - Respiratory Exam Respiratory Exam: NORMAL BREATHING PATTERN. absent: Respiratory Distress - Cardiovascular Exam Cardiovascular Exam: REGULAR RHYTHM. absent: Tachycardia - GI/Abdominal Exam GI & Abdominal Exam: Soft. absent: Distended, Guarding, Tenderness, Rebound Assessment and Plan - Assessment and Plan (Free Text) Assessment: 67F who presents with bleeding colon mass and symptomatic anemia Plan: -f/u Cardiology work up today -Right hemicolectomy 08/04 -bowel prep today -NPO past mn -start IVF with prep -cont early mobility -IS use -ok for DVT ppx from surgical standpoint, hold am of OR -further recs per Dr. Nena Enrique PGY2
--- NOTE | 2018-08-03 09:53 | PN ---
DATE: 08/03/2018 LOCATION: 563, bed B. SUBJECTIVE: This is a 67-year-old female seen and examined early in rounds without reported significant clinical changes, with a complaint of left upper arm edematous changes and pain on and off. The patient for full cardiology evaluation prior to any surgical interference. No reported chest pain, palpitation or actual increase of shortness of breath. No chills or fever. The entire chart is reviewed including the most recent lab and radiology study results and today's blood glucose level reported to be 119. However, the patient still has leukocytosis with low hemoglobin and hematocrit. PHYSICAL EXAMINATION: GENERAL: A 67-year-old female awake, alert, oriented. VITAL SIGNS: Afebrile with pulse of 62, respiratory rate 20-22, blood pressure of 140/62. HEENT: Showed pale, dry oral mucous membrane. Nonicteric sclerae. LUNGS: Few scattered crepitation. Decreased air entry at bases. HEART: Positive S1 and S2. ABDOMEN: Soft with mild generalized tenderness, mildly obese. No mass or organomegaly. No rebound tenderness or guarding. EXTREMITIES: Without significant clubbing or cyanosis, but mild lower extremity edematous changes. No reported new neurological deficits, no reported new focal deficits. IMPRESSION: 1. Colon cancer with ulceration and trace of bleeding and partial colon obstruction. 2. Peptic ulcer disease. 3. Abnormal CAT scan of the thyroid. 4. Anemia secondary to above. 5. Poorly controlled diabetes mellitus. 6. Hypertension, cardiomegaly, and severe anxiety syndrome by history. SUGGESTIONS: 1. Continue current management. 2. Blood transfusion as needed to keep hemoglobin around 10 g percent. 3. Further recommendation to follow post surgery, awaiting cardiology clearance. Winter Ellis MD
[2018-08-03] MEDS: Ferric Sodium Gluconat Complex 62.5 mg/5 ml Vial IVPB SCH (11:21)
[2018-08-03] MEDS ORDERED: Magnesium Citrate Oral SOL (300 ml) PO ONE (17:08)
[2018-08-03] MEDS: Erythromycin Base 500 mg Tab PO SCH ×4 (17:38→18:30)
[2018-08-03 19:07] LABS: THYROGLOBULIN 42.9 ng/mL (2.8-40.9)
--- NOTE | 2018-08-03 20:05 | PN ---
DATE: 08/02/2018 ENDOCRINOLOGY FOLLOWUP NOTE LOCATION: In room 563. SUBJECTIVE: This is a 67-year-old female with a recent lower endoscopy showing the presence of a obstructing ulcerated mass lesion in the ascending colon and scheduled for surgical resection tomorrow and now being followed closely also for metabolic management for an incidental finding of a moderately enlarged multinodular goiter with a dominant right thyroid nodule. She remains clinically euthyroid at this time. LABORATORY DATA: Her latest chemistry showed a BUN of 11, sodium 138, potassium 4.1, chloride 106, CO2 of 26, glucose 137, and creatinine 0.8. Her latest thyroid studies showed a T4 of 10.8 with a TSH of 0.71 as noted. The thyroid antibodies are pending at this time, which will confirm presence of underlying thyroid autoimmunity. Her thyroid ultrasound confirmed the presence of a large, dominant right thyroid nodule measuring 6 x 4.2 x 2.9 cm with the right lobe dimensions also quite enlarged of 7.1 x 4.5 x 3.2 cm. ASSESSMENT: This is a 67-year-old female with a right colonic mass lesion and scheduled for surgical resection tomorrow to exclude any underlying malignancy and it is also now being followed closely for metabolic management for an incidental finding of a moderately enlarged multinodular goiter with a right thyroid dominant nodule as mentioned. We also exclude any underlying subclinical thyroid malignancy; although, it is quite common with woman to have multinodular goiters, which are usually benign in nature. Because of the dominant right thyroid nodule, we have to exclude also the possibility of underlying and concomitant thyroid malignancy. PLAN OF MANAGEMENT: We will continue and concur with the present medical and surgical plan for tomorrow and postoperatively if she improves clinically and hemodynamically, then we will consider the possibility of doing a fine needle aspiration biopsy either for inpatient and/or outpatient management. We will obtain thyroid antibodies, which are pending actually, which will confirm the presence of underlying thyroid autoimmunity. We will follow. Kathy Hernandez MD
--- NOTE | 2018-08-03 23:29 | CP.PCM.PN ---
Subjective - Date & Time of Evaluation Date of Evaluation: 07/30/18 Time of Evaluation: 20:00 - Subjective Subjective: No complaints. Objective - Vital Signs/Intake and Output Vital Signs (last 24 hours): Temp Pulse Resp BP Pulse Ox 98.8 F 78 20 154/62 H 98 08/03/18 15:00 08/03/18 15:00 08/03/18 15:00 08/03/18 15:00 08/03/18 15:00 - Medications Medications: Current Medications Acetaminophen (Tylenol 325mg Tab) 650 mg PO Q6 PRN PRN Reason: Fever >100.4 F Last Admin: 08/03/18 22:33 Dose: 650 mg Dextrose (Dextrose 50% Inj) 0 ml IV STAT PRN; Protocol PRN Reason: Hypoglycemia Protocol Dextrose (Glutose 15) 0 gm PO ONCE PRN; Protocol PRN Reason: Hypoglycemia Protocol Erythromycin (Erythromycin) 1,000 mg PO ONCE ONE; Protocol Stop: 08/04/18 02:01 Famotidine (Pepcid) 20 mg PO BID [facility] Last Admin: 08/03/18 18:37 Dose: 20 mg Ferric Sodium Gluconate Complex (Ferrlecit) 125 mg IVPB DAILY [facility] Stop: 08/05/18 10:01 Last Admin: 08/03/18 11:21 Dose: Not Given Glucagon (Glucagen Diagnostic Kit) 0 mg IM STAT PRN; Protocol PRN Reason: Hypoglycemia Protocol Hydrochlorothiazide (Microzide) 12.5 mg PO DAILY [facility] Last Admin: 08/02/18 09:47 Dose: 12.5 mg Metronidazole (Flagyl) 500 mg in 100 mls @ 100 mls/hr IVPB Q8H [facility]; Protocol Last Admin: 08/03/18 17:43 Dose: 100 mls/hr Lactated Ringer's (Lactated Ringer's) 1,000 mls @ 130 mls/hr IV .Q7H42M [facility] Insulin Human Regular (Novolin R) 0 unit SC ACHS [facility]; Protocol Last Admin: 08/03/18 23:04 Dose: Not Given Losartan Potassium (Cozaar) 50 mg PO DAILY [facility] Last Admin: 08/03/18 11:13 Dose: 50 mg Neomycin Sulfate (Neomycin Tab) 1,000 mg PO ONCE ONE Stop: 08/04/18 02:01 Rosuvastatin Calcium (Crestor) 10 mg PO HS [facility] Last Admin: 08/03/18 22:33 Dose: 10 mg - Labs Labs: 08/03/18 07:41 08/03/18 07:41 PT 12.1 SECONDS (9.7-12.2) 07/28/18 20:45 INR 1.1 07/28/18 20:45 APTT 33 SECONDS (21-34) 07/28/18 20:45 - Head Exam Head Exam: ATRAUMATIC - Eye Exam Eye Exam: Normal appearance - ENT Exam ENT Exam: Mucous Membranes Dry - Respiratory Exam Respiratory Exam: NORMAL BREATHING PATTERN - Cardiovascular Exam Cardiovascular Exam: +S1, +S2 - GI/Abdominal Exam GI & Abdominal Exam: Normal Bowel Sounds Assessment and Plan (1) Anemia Assessment & Plan: work up consistent with iron deficiency anemia (low ferritin) found to have bleeding colonic mass transfusion support IV iron Status: Acute (2) Colonic mass Assessment & Plan: likely colon cancer staging CT scans surgical evaluation Status: Acute (3) Elevated CEA Assessment & Plan: secondary to colon cancer Status: Acute
--- NOTE | 2018-08-03 23:31 | CP.PCM.PN ---
Subjective - Date & Time of Evaluation Date of Evaluation: 08/02/18 Time of Evaluation: 18:00 - Subjective Subjective: Feels nervous about colon mass Objective - Vital Signs/Intake and Output Vital Signs (last 24 hours): Temp Pulse Resp BP Pulse Ox 98.8 F 78 20 154/62 H 98 08/03/18 15:00 08/03/18 15:00 08/03/18 15:00 08/03/18 15:00 08/03/18 15:00 - Medications Medications: Current Medications Acetaminophen (Tylenol 325mg Tab) 650 mg PO Q6 PRN PRN Reason: Fever >100.4 F Last Admin: 08/03/18 22:33 Dose: 650 mg Dextrose (Dextrose 50% Inj) 0 ml IV STAT PRN; Protocol PRN Reason: Hypoglycemia Protocol Dextrose (Glutose 15) 0 gm PO ONCE PRN; Protocol PRN Reason: Hypoglycemia Protocol Erythromycin (Erythromycin) 1,000 mg PO ONCE ONE; Protocol Stop: 08/04/18 02:01 Famotidine (Pepcid) 20 mg PO BID [facility] Last Admin: 08/03/18 18:37 Dose: 20 mg Ferric Sodium Gluconate Complex (Ferrlecit) 125 mg IVPB DAILY [facility] Stop: 08/05/18 10:01 Last Admin: 08/03/18 11:21 Dose: Not Given Glucagon (Glucagen Diagnostic Kit) 0 mg IM STAT PRN; Protocol PRN Reason: Hypoglycemia Protocol Hydrochlorothiazide (Microzide) 12.5 mg PO DAILY [facility] Last Admin: 08/02/18 09:47 Dose: 12.5 mg Metronidazole (Flagyl) 500 mg in 100 mls @ 100 mls/hr IVPB Q8H [facility]; Protocol Last Admin: 08/03/18 17:43 Dose: 100 mls/hr Lactated Ringer's (Lactated Ringer's) 1,000 mls @ 130 mls/hr IV .Q7H42M [facility] Insulin Human Regular (Novolin R) 0 unit SC ACHS [facility]; Protocol Last Admin: 08/03/18 23:04 Dose: Not Given Losartan Potassium (Cozaar) 50 mg PO DAILY [facility] Last Admin: 08/03/18 11:13 Dose: 50 mg Neomycin Sulfate (Neomycin Tab) 1,000 mg PO ONCE ONE Stop: 08/04/18 02:01 Rosuvastatin Calcium (Crestor) 10 mg PO [facility] Last Admin: 08/03/18 22:33 Dose: 10 mg - Labs Labs: 08/03/18 07:41 08/03/18 07:41 PT 12.1 SECONDS (9.7-12.2) 07/28/18 20:45 INR 1.1 07/28/18 20:45 APTT 33 SECONDS (21-34) 07/28/18 20:45 - Head Exam Head Exam: ATRAUMATIC - Eye Exam Eye Exam: Normal appearance - ENT Exam ENT Exam: Mucous Membranes Dry - Respiratory Exam Respiratory Exam: NORMAL BREATHING PATTERN - Cardiovascular Exam Cardiovascular Exam: +S1, +S2 - GI/Abdominal Exam GI & Abdominal Exam: Normal Bowel Sounds Assessment and Plan (1) Anemia Assessment & Plan: iron deficiency secondary to bleeding colon mass transfusion support IV iron Status: Acute (2) Colonic mass Assessment & Plan: no evidence of distant mets awaiting biopsy results surgical resection Status: Acute (3) Elevated CEA Assessment & Plan: likely colon cancer Status: Acute
--- NOTE | 2018-08-03 23:33 | CP.PCM.PN ---
Subjective - Date & Time of Evaluation Date of Evaluation: 08/03/18 Time of Evaluation: 20:00 - Subjective Subjective: No complaints, family at bedside. Objective - Vital Signs/Intake and Output Vital Signs (last 24 hours): Temp Pulse Resp BP Pulse Ox 98.8 F 78 20 154/62 H 98 08/03/18 15:00 08/03/18 15:00 08/03/18 15:00 08/03/18 15:00 08/03/18 15:00 - Medications Medications: Current Medications Acetaminophen (Tylenol 325mg Tab) 650 mg PO Q6 PRN PRN Reason: Fever >100.4 F Last Admin: 08/03/18 22:33 Dose: 650 mg Dextrose (Dextrose 50% Inj) 0 ml IV STAT PRN; Protocol PRN Reason: Hypoglycemia Protocol Dextrose (Glutose 15) 0 gm PO ONCE PRN; Protocol PRN Reason: Hypoglycemia Protocol Erythromycin (Erythromycin) 1,000 mg PO ONCE ONE; Protocol Stop: 08/04/18 02:01 Famotidine (Pepcid) 20 mg PO BID [facility] Last Admin: 08/03/18 18:37 Dose: 20 mg Ferric Sodium Gluconate Complex (Ferrlecit) 125 mg IVPB DAILY [facility] Stop: 08/05/18 10:01 Last Admin: 08/03/18 11:21 Dose: Not Given Glucagon (Glucagen Diagnostic Kit) 0 mg IM STAT PRN; Protocol PRN Reason: Hypoglycemia Protocol Hydrochlorothiazide (Microzide) 12.5 mg PO DAILY [facility] Last Admin: 08/02/18 09:47 Dose: 12.5 mg Metronidazole (Flagyl) 500 mg in 100 mls @ 100 mls/hr IVPB Q8H [facility]; Protocol Last Admin: 08/03/18 17:43 Dose: 100 mls/hr Lactated Ringer's (Lactated Ringer's) 1,000 mls @ 130 mls/hr IV .Q7H42M [facility] Insulin Human Regular (Novolin R) 0 unit SC ACHS [facility]; Protocol Last Admin: 08/03/18 23:04 Dose: Not Given Losartan Potassium (Cozaar) 50 mg PO DAILY [facility] Last Admin: 08/03/18 11:13 Dose: 50 mg Neomycin Sulfate (Neomycin Tab) 1,000 mg PO ONCE ONE Stop: 08/04/18 02:01 Rosuvastatin Calcium (Crestor) 10 mg PO [facility] Last Admin: 08/03/18 22:33 Dose: 10 mg - Labs Labs: 08/03/18 07:41 08/03/18 07:41 PT 12.1 SECONDS (9.7-12.2) 07/28/18 20:45 INR 1.1 07/28/18 20:45 APTT 33 SECONDS (21-34) 07/28/18 20:45 - Head Exam Head Exam: ATRAUMATIC - Eye Exam Eye Exam: Normal appearance - ENT Exam ENT Exam: Mucous Membranes Dry - Respiratory Exam Respiratory Exam: NORMAL BREATHING PATTERN - Cardiovascular Exam Cardiovascular Exam: +S1, +S2 - GI/Abdominal Exam GI & Abdominal Exam: Normal Bowel Sounds Assessment and Plan (1) Anemia Assessment & Plan: iron deficiency anemia secondary to bleeding colonic mass s/p PRBC transfusion IV iron Status: Acute (2) Colon cancer Assessment & Plan: no evidence of distant mets for surgical resection further treatment recommendations based on surgical staging Status: Acute (3) Elevated CEA Assessment & Plan: secondary to colon cancer Status: Acute
[2018-08-03] MEDS ORDERED: Lactated Ringer's 1,000 ML IV SCH (23:55)
[2018-08-04] MEDS: metroNIDAZOLE IV 500 mg/100 ml 500 MG/100 ML BAG IVPB SCH ×3 (00:12→21:00)
--- NOTE | 2018-08-04 05:19 | CON ---
DATE: 08/03/2018 COVERING FOR: Kathy Hernandez MD LOCATION: The patient is on [address], room [address] B. HISTORY OF PRESENT ILLNESS: Ms. Robert is a 67-year-old black female who entered the hospital due to fatigue, weakness, and subsequently was found to be severely anemic. Her hemoglobin was down to 6 and on appropriate workup during colonoscopy, she was found to have a large colon mass, which is requiring colectomy. The patient currently is awaiting a cardiac clearance before procedure can be done. Endocrine is asked to evaluate the thyroid nodule, which was found incidentally as part of general workup, which included CAT scans and MRIs for the patient who also showed some breast nodules, lymph nodules and lung nodules. Previous history is negative for any thyroid condition. The patient never took thyroid medication. Also, there is no family history of thyroid disorder. She has a history of hypertension and history of diabetes mellitus of several-year duration and at home for that took insulin Toujeo 45 units twice a day as well as Victoza 1.8 units once a day. Apparently, her glycemic control was fair and stable prior to this admission, and also it is stable during this admission while the patient had Accu-Cheks performed four times a day, and they are all in mid 100 range while continuing her insulin dosage same as at home. PHYSICAL EXAMINATION: GENERAL: Presently, physical examination shows the patient to be in no severe distress. She is friendly and asks a lot of pertinent to her condition questions. She is smart and motivated. In terms of thyroid organ system, there is no dysphagia or shortness of breath or pressure upon swallowing or breathing according to the patient, and she is not aware of any swelling on her thyroid or neck area. Besides that, she does appear to be a little bit weak, but in no acute distress. She is sitting up in bed. VITAL SIGNS: Blood pressure 120/70, heart rate is 76. HEAD AND NECK: Unremarkable. Thyroid examination does reveal enlarged right thyroid lobe, which is firmer and larger than the left thyroid lobe. There is no cervical lymphadenopathy observed. CHEST: Clear. HEART: S1 and S2. No gallop. No rub. No murmur. The rate is about 76 per minute. ABDOMEN: There is sensitivity in epigastric area, but no rebound or acute signs. EXTREMITIES: Lower extremities show no evidence of edema, and peripheral pulses are pulsated down to DP area, dorsalis pedis pulse. LABORATORY DATA: Essentially, her blood work is stable with an exception of hemoglobin that had been low at 6 and after the patient received 4 units of packed red blood cells, the hemoglobin has gone up to 8, then 10.3 and down to 8.9 again, but her creatinine and electrolytes remained stable. She is also on low rate of half saline infusion. Accu-Chek values, fingerstick glucose remain stable in mid 100 range while the patient is on her insulin regimen and also low dose of Novolog insulin sliding scale. IMPRESSION AND PLAN: Essentially, the impression from endocrinology standpoint is that the patient has a newly diagnosed right thyroid large nodule, which on ultrasound occupies almost the entire right thyroid lobe and is about 4 x 5 cm in diameter. This is a mixed in that will require biopsy for further diagnosis. The patient also is clinically and chemically euthyroid. Her thyroid function tests are normal. Her current condition though would suggest that this workup could be performed after current treatment and addressing her current problems and proceeding with the current surgery. A biopsy could be performed on the outpatient basis once the patient is somewhat more clinically stable rather than subjectively required to any such procedure. At this moment, this is not a priority right now. The patient was explained all that. I have also named out physical doctors/officers where this could be done on the outpatient basis or in Radiology in [facility] and assured the patient that the procedure would not be a large procedure. She was also advised to have a followup with Dr. Hernandez and myself after the biopsy would be done. I imagine that due to her surgery and anemia and other issues, the biopsy of the thyroid would probably be ready for 09/2018. In efforts, otherwise, diabetes is in good control. We suggested that her Accu-Cheks are continued on four times daily basis and diabetic orders maintained. Thank you very much for allowing me to participate in this patient while covering for Dr. Hernandez. Victorina Vargas MD
[2018-08-04] MEDS: (Novolin R) Insulin Human Regular 100 units/ml vial SC SCH ×4 (07:01→21:54)
--- NOTE | 2018-08-04 07:03 | CP.PCM.PN ---
Subjective - Date & Time of Evaluation Date of Evaluation: 08/04/18 Time of Evaluation: 10:00 - Subjective Subjective: Medicine progress note for hospitalist Dr. Lan. Pt seen and examined at bedside. Pt stating persistent swelling at site of her previous midline placement. Pt reports pain, but no erythema, fevers, chill, nausea, vomiting, diarrhea, constipation, chest pain, SOB. Pt does report yesterday she had some blood on toilet tissue following passing a bowel movement. Pt is scheduled for partial colectomy 08/04. Objective - Vital Signs/Intake and Output Vital Signs (last 24 hours): Temp Pulse Resp BP Pulse Ox 98.1 F 63 20 143/64 98 08/03/18 23:50 08/03/18 23:50 08/03/18 23:50 08/03/18 23:50 08/03/18 23:50 - Medications Medications: Current Medications Acetaminophen (Tylenol 325mg Tab) 650 mg PO Q6 PRN PRN Reason: Fever >100.4 F Last Admin: 08/03/18 22:33 Dose: 650 mg Dextrose (Dextrose 50% Inj) 0 ml IV STAT PRN; Protocol PRN Reason: Hypoglycemia Protocol Dextrose (Glutose 15) 0 gm PO ONCE PRN; Protocol PRN Reason: Hypoglycemia Protocol Famotidine (Pepcid) 20 mg PO BID [facility] Last Admin: 08/03/18 18:37 Dose: 20 mg Ferric Sodium Gluconate Complex (Ferrlecit) 125 mg IVPB DAILY [facility] Stop: 08/05/18 10:01 Last Admin: 08/03/18 11:21 Dose: Not Given Glucagon (Glucagen Diagnostic Kit) 0 mg IM STAT PRN; Protocol PRN Reason: Hypoglycemia Protocol Hydrochlorothiazide (Microzide) 12.5 mg PO DAILY [facility] Last Admin: 08/02/18 09:47 Dose: 12.5 mg Metronidazole (Flagyl) 500 mg in 100 mls @ 100 mls/hr IVPB Q8H [facility]; Protocol Last Admin: 08/04/18 00:12 Dose: 100 mls/hr Lactated Ringer's (Lactated Ringer's) 1,000 mls @ 130 mls/hr IV .Q7H42M [facility] Last Admin: 08/04/18 00:12 Dose: 130 mls/hr Insulin Human Regular (Novolin R) 0 unit SC ACHS [facility]; Protocol Last Admin: 08/04/18 07:01 Dose: Not Given Losartan Potassium (Cozaar) 50 mg PO DAILY [facility] Last Admin: 08/03/18 11:13 Dose: 50 mg Rosuvastatin Calcium (Crestor) 10 mg PO HS [facility] Last Admin: 08/03/18 22:33 Dose: 10 mg - Labs Labs: 08/03/18 07:41 08/03/18 07:41 PT 12.1 SECONDS (9.7-12.2) 07/28/18 20:45 INR 1.1 07/28/18 20:45 APTT 33 SECONDS (21-34) 07/28/18 20:45 - Constitutional Appears: Non-toxic, No Acute Distress - Head Exam Head Exam: NORMAL INSPECTION - Eye Exam Eye Exam: EOMI, Normal appearance - ENT Exam ENT Exam: Mucous Membranes Moist - Respiratory Exam Respiratory Exam: Clear to Ausculation Bilateral, NORMAL BREATHING PATTERN. absent: Rales, Rhonchi, Wheezes - Cardiovascular Exam Cardiovascular Exam: +S1, +S2. absent: Murmur - GI/Abdominal Exam GI & Abdominal Exam: Soft, Normal Bowel Sounds. absent: Guarding, Rigid, Tenderness - Extremities Exam Extremities Exam: Full ROM. absent: Calf Tenderness, Pedal Edema Additional comments: LUE edema No erythema Tenderness on palpation Full range of motion - Back Exam Back Exam: absent: CVA tenderness (L), CVA tenderness (R) - Neurological Exam Neurological Exam: Alert, Awake, Oriented x3 - Psychiatric Exam Psychiatric exam: Agitated, Anxious - Skin Skin Exam: Dry, Intact, Normal Color, Warm Assessment and Plan - Assessment and Plan (Free Text) Assessment: 67yo F with PMH of anemia, HTN, DM presenting to the ED with fatigue and dizziness for 10 days. Hemoglobin 6.4, admitted for symptomatic anemia. Received 2 X pRBC, colonic mass found, partial colectomy 08/04. New DVT of Left subclavian, will require anticoagulation once cleared by surgery. 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 Donahue recs for cardiac clearance - ECHO - EF of 65-70%, diastolic dysfunction - Nuclear stres test - normal - carotid duplex - no stenosis - per cardio, patient is at moderate risk for colonic surgery Deep Vein thrombosis Superficial vein thrombosis - celiac vein revealing superficial vein thrombosis - subclavian vein revealing deep vein thrombosis - will require anticoagulation post op once cleared by surgery - F/u Heme/onc recs Symptomatic Anemia-Iron Deficiency - resolving - Initial Hemoglobin 6s - 2 x PRBC - H&H 10s/30 stable - EKG: NSR - CXR: no active disease - UA +RBCs - normal TIBC, low %sat - elevated haptoglobin, neg LDH, elevated retic count - FOBT: f/u - benadryl and tylenol PRN transfusion reaction - neg CT head and chest - Heme/Onc consulted, Dr. Boudreaux - continue with Ferric IVPB; however held on 08/03 due to arm swelling HTN - Cozaar 50 daily - hctz for now - home valsartan/hctz not on formulary Thyroid nodule - CT scan: R Lobe enlargement - U/S: enlarged bilateral gland, f/u with fine needle bx and a radionucleatide scan - endocrine, Dr. Hernandez recs - fine needle aspiration following partial colectomy, outpatient vs inpatient DM - 6.2 HbA1c - medium dose sliding scale - accuchecks ACHS - hypoglycemic protocol Breast nodules - small nodular densities notes on Ct/ab/pelvis, will require mammogram outpatient PPx DVT: SCDs, hold chemical anticoagulation at this time due to recent GI bleed GI: pepcid Dispo: malignancy on CT seen. Sx 08/04. Will require anticoagulation for new DVT of L subclavian.
[2018-08-04 08:30] LABS: BASO # 0.2 K/uL (0.0-0.2); BASO % 1.3 % (0.0-2.0); EOS # 0.5 K/uL (0.0-0.7); EOS % 4.3 % (0.0-4.0); LYMPH # 3.3 K/uL (1.0-4.3); LYMPH % 27.5 % (20.0-40.0); MEAN CELL VOLUME 83.6 fL (81.0-99.0); MEAN CORPUSCULAR HGB CONC 32.3 g/dL (33.0-37.0); MEAN PLATELET VOLUME 7.1 fL (7.2-11.7); MONO % 8.1 % (0.0-10.0); NEUT # 7.1 K/uL (1.8-7.0); NEUT % 58.8 % (50.0-75.0); RBC 4.06 Mil/uL (3.80-5.20)
[2018-08-04 08:40] LABS: INR 1.3; PROTHROMBIN TIME 14.1 SECONDS (9.7-12.2)
[2018-08-04 08:55] LABS: ALB/GLOB RATIO 1.3 (1.0-2.1); ALBUMIN 3.7 g/dL (3.5-5.0); ALT/SGPT 17 U/L (9-52); AST/SGOT 31 U/L (14-36); BLOOD UREA NITROGEN 8 mg/dL (7-17); CALCIUM 8.4 mg/dl (8.6-10.4); GFR NON-AFRICAN AMERICAN > 60
--- NOTE | 2018-08-04 10:38 | CARD ---
APPROVED REPORT Date of service: 08/03/2018 EXAM: Two-dimensional and M-mode echocardiogram with Doppler and color Doppler. Other Information Quality : GoodRhythm : INDICATION Dizziness and Vertigo Dyspnea Pre-Op RISK FACTORS Hypertension Hyperlipidemia Diabetes 2D DIMENSIONS IVSd1.3 (0.7-1.1cm)LVDd4.4 (3.9-5.9cm) PWd1.0 (0.7-1.1cm)LA Cdcbuy09 (18-58mL) LVDs2.7 (2.5-4.0cm)FS (%) 39.0 % LVEF (%)69.6 (>50%)LVEF (Summers's)65.73 % M-Mode DIMENSIONS Left Atrium (MM)4.46 (2.5-4.0cm)IVSd4.12 (0.7-1.1cm) Aortic Root3.57 (2.2-3.7cm)LVDd2.84 (4.0-5.6cm) PWd0.97 (0.7-1.1cm)FS (%) 3 % LVDs2.92 (2.0-3.8cm)LVEF (%)60 (>50%) Mitral Valve MV E Weckffje04.3cm/sMV A Tmaeenct27.8cm/sE/A ratio0.6 TDI Lateral E' Peak V4.48cm/sMedial E' Peak V3.38cm/sE/Lateral E'13.0 E/Medial E'17.2 Tricuspid Valve TR Peak [id number]/sTR Peak Gr.[id number] LEFT VENTRICLE The left ventricle is normal size. There is moderate asymmetric septal hypertrophy. The echo findings are not consistent with left ventricular outflow obstruction. Left ventricle systolic function is normal. The Ejection Fraction is 65-70%. There is normal LV segmental wall motion. Tissue Doppler imaging reveals abnormal left ventricular diastolic dysfunction. RIGHT VENTRICLE The right ventricle is normal size. There is normal right ventricular wall thickness. The right ventricular systolic function is normal. ATRIA The left atrium size is normal. The right atrium size is normal. The interatrial septum is intact with no evidence for an atrial septal defect. AORTIC VALVE The aortic valve is normal in structure. No aortic regurgitation is present. There is no aortic valvular stenosis. There is no aortic valvular vegetation. MITRAL VALVE The mitral valve is normal in structure. There is no evidence of mitral valve prolapse. There is no mitral valve stenosis. There is no mitral valve regurgitation noted. TRICUSPID VALVE The tricuspid valve is normal in structure. There is mild tricuspid regurgitation. Right ventricular systolic pressure is estimated at 30-40 mmHg. There is mild pulmonary hypertension. PULMONIC VALVE The pulmonic valve is not well visualized. There is trace to mild pulmonic valvular regurgitation. GREAT VESSELS The aortic root is normal in size. PERICARDIAL EFFUSION There is no significant pericardial effusion. <Conclusion> Left ventricle systolic function is normal. The Ejection Fraction is 65-70%. There is moderate asymmetric septal hypertrophy with NO systolic anterior motion of the mitral leaflet. The echo findings are not consistent with left ventricular outflow obstruction. Diastolic dysfunction. No aortic regurgitation is present. There is no mitral valve regurgitation noted. There is mild tricuspid regurgitation. There is mild pulmonary hypertension. There is trace to mild pulmonic valvular regurgitation.
--- NOTE | 2018-08-04 12:26 | PN ---
DATE: 08/04/2018 LOCATION: 563, bed B. SUBJECTIVE: This is a 67-year-old female seen and examined very early in rounds today without significant clinical changes or reported active bleeding, with less abdominal distention, received preparation for possible right hemicolectomy today, with incomplete finishing due to nausea with mild dyspepsia. No chest pain or palpitation. No reported significant increase of shortness of breath. Most recent lab results showed low hemoglobin and hematocrit with today's blood glucose level 137, low albumin and low total protein. Cardiac perfusion scan is still pending reports. PHYSICAL EXAMINATION: GENERAL: A 67-year-old female, awake, alert, oriented. VITAL SIGNS: Afebrile with pulse of 60, respiratory rate 20 to 22, blood pressure 140/60. HEENT: Pale, dry oral mucous membrane. Nonicteric sclerae. LUNGS: Few scattered crepitation. Decreased air entry at bases. HEART: Positive S1 and S2. ABDOMEN: Soft. Bowel sounds are present. No mass or organomegaly. No rebound tenderness or guarding. EXTREMITIES: Without significant clubbing, cyanosis, or edema. NEUROLOGIC: No reported new neurological deficit, sensory or motor. IMPRESSION: 1. Right-sided carcinoma of the colon, the patient for potential right hemicolectomy today. 2. Anemia, secondary to above. 3. Re-exacerbation of peptic ulcer disease. 4. Period of hyperglycemia, poorly controlled. 5. Known history of hypertension, cardiomyopathy, severe anxiety syndrome by history. 6. Abnormal CAT scan of the abdomen and pelvis. SUGGESTIONS: 1. Continue current management. 2. Peripheral hyperalimentation. 3. Further recommendation to follow, pending the outcome of the surgery. Winter Ellis MD
--- NOTE | 2018-08-04 13:02 | VASCLAB ---
Date of service: 08/04/2018 PROCEDURE: Carotid Duplex Exam. HISTORY: cardiac clearance for colonic mass removal(preop examination) COMPARISON: None available. TECHNIQUE: Grayscale and duplex Doppler evaluation of the cervical carotid and vertebral arteries were performed. The common carotid, carotid bifurcations and cervical Internal Carotid Artery (ICA) and proximal External Carotid Artery (ECA) were evaluated. The vertebral arteries were evaluated for gross patency and flow direction. Report prepared by Espinoza Poole T FINDINGS: RIGHT CAROTID ARTERIES: 1. Common Carotid Artery: No significant focal plaque formation of the right common carotid artery. Maximum Peak Systolic velocity: 61 cm/sec: End-diastolic velocity 12 cm/sec. 2. Carotid Bifurcation: plaque formation. Maximum Peak Systolic velocity: 22 cm/sec: End-diastolic velocity 8 cm/sec. 3. Internal Carotid Artery: Plaque description: 3.1. Proximal Segment: Peak systolic velocity 37 cm/sec: End-diastolic velocity 13 cm/sec - % stenosis 0-15% 3.2. Middle Segment: Peak systolic velocity 41 cm/sec: End-diastolic velocity 16 cm/sec - % stenosis 0-15% 3.3. Distal Segment: Peak systolic velocity 41 cm/sec: End-diastolic velocity 17 cm/sec - % stenosis 0-15% 4. External Carotid Artery: No significant focal plaque formation. Peak systolic velocity 48 cm/sec 5. ICA/CCA Ratio: 0.9 LEFT CAROTID ARTERIES: 1. Common Carotid Artery: No significant focal plaque formation of the left common carotid artery. Maximum Peak Systolic velocity: 77 cm/sec: End-diastolic velocity 16 cm/sec. 2. Carotid Bifurcation: plaque formation. Maximum Peak Systolic velocity: 32 cm/sec: End-diastolic velocity 13 cm/sec. 3. Internal Carotid Artery: Plaque description: 3.1. Proximal Segment: Peak systolic velocity 32 cm/sec: End-diastolic velocity 11 cm/sec - % stenosis 0-15% 3.2. Middle Segment: Peak systolic velocity 36 cm/sec: End-diastolic velocity 14 cm/sec - % stenosis 0-15% 3.3. Distal Segment: Peak systolic velocity 42 cm/sec: End-diastolic velocity 17 cm/sec - % stenosis 0-15% 4. External Carotid Artery: No significant focal plaque formation. Peak systolic velocity 36 cm/sec 5. ICA/CCA Ratio: 0.7 VERTEBRAL ARTERIES: 1. Right Vertebral Artery: The right vertebral artery flow direction is antegrade. 2. Left Vertebral Artery: The left vertebral artery flow direction is antegrade. OTHER FINDINGS: 1. None. IMPRESSION: RIGHT: Duplex scan does not suggest hemodynamically significant stenosis of the right extracranial carotid arteries. LEFT: Duplex scan does not suggest hemodynamically significant stenosis of the left extracranial carotid arteries.
--- NOTE | 2018-08-04 13:02 | VASCLAB ---
Date of service: 08/04/2018 PROCEDURE: Left Upper Extremity Venous Duplex Exam HISTORY: left arm swelling,s/p midline,rule out DVT Hx of previous left arm Picc Line(removal) PRIORS: None. TECHNIQUE: Left upper extremity, internal jugular, subclavian, axillary, brachial, ulnar, radial, basilic and upper cephalic veins were evaluated. Flow was assessed with color Doppler, compressibility, assessment of phasic flow and augmentation response. Report prepared by Espinoza Poole, RVT FINDINGS: LEFT: 1. Internal Jugular: 1.1. Compressibility - Fully compressible: Thrombus - None : Flow - Phasic: Augmentation -Normal: Reflux - None. 2. Subclavian: 2.1. Compressibility - Incompressible: Thrombus - Acute : Flow - Absent : Augmentation - None: Reflux - . 3. Axillary: 3.1. Compressibility - Fully compressible: Thrombus - None : Flow - Reduced : Augmentation -Reduced: Reflux - . 4. Brachial: 4.1. Compressibility - Fully compressible: Thrombus - None: Flow - Reduced : Augmentation -Reduced: Reflux - . 5. Ulnar: 5.1. Compressibility - Fully compressible: Thrombus - None: Flow - Phasic: Augmentation -Normal: Reflux - . 6. Radial: 6.1. Compressibility - Fully compressible: Thrombus - None: Flow - Phasic: Augmentation - Normal: Reflux - . 7. Cephalic: 7.1. Compressibility - Incompressible: Thrombus - Acute: Flow - Absent : Augmentation - None: Reflux - . 8. Basilic: 8.1. Compressibility - Fully compressible: Thrombus - None: Flow - Phasic: Augmentation -Normal: Reflux - . OTHER FINDINGS: Left: None. IMPRESSION: Left: There was evidence of deep and superficial(subclavian and cephalic) vein thrombosis noted of the left upper extremity. Normal venous flow noted in the right internal jugular and right subclavian veins.
[2018-08-04] MEDS ORDERED: Etomidate 20 mg/10ml Inj IV ONE (13:11)
[2018-08-04] MEDS ORDERED: Midazolam 2 MG/2 ML VIAL ONE (13:11)
[2018-08-04] MEDS ORDERED: ceFAZolin 1 gm in NS 2 GM/200 ML BAG IVPB ONE (13:53)
[2018-08-04] MEDS ORDERED: metroNIDAZOLE IV 500 mg/100 ml 500 MG/100 ML BAG ONE (13:53)
[2018-08-04] MEDS ORDERED: Succinylcholine Chloride 20 mg/ml Syr (5 ml) IV ONE (13:54)
[2018-08-04] MEDS ORDERED: Rocuronium 10 mg/ml (10 ml) ONE (14:01)
[2018-08-04] MEDS ORDERED: HYDROmorphone 0.5 mg/0.5 ml ISec IVP PRN (14:54)
[2018-08-04] MEDS ORDERED: Bupivacaine HCl 0.5% PF (10 ml) Inj ONE (15:15)
[2018-08-04] MEDS ORDERED: Neostigmine 1:1000 (1 mg/ml) Inj ONE (15:50)
[2018-08-04] MEDS ORDERED: BUPIVACAINE 0.125%/0.9% NACL 600 ML IJ ONE (16:11)
--- NOTE | 2018-08-04 16:11 | PCM.SURG1 ---
Surgeon's Initial Post Op Note - Surgeon's Notes Surgeon: constanza Flotation Tender Helper: brisa Type of Anesthesia: General Endo Anesthesia Administered By: angel Pre-Operative Diagnosis: right colon cancer Operative Findings: nodular liver. large bulky tumor ascending colon Post-Operative Diagnosis: same Operation Performed: right colectomy Specimen/Specimens Removed: colon Estimated Blood Loss: EBL {In ML}: 100 Blood Products Given: N/A Drains Used: No Drains Post-Op Condition: Good Date of Surgery/Procedure: 08/04/18 Time of Surgery/Procedure: 16:11
[2018-08-04] MEDS ORDERED: Lactated Ringer's 500 ML IV ONE (16:14)
--- NOTE | 2018-08-04 17:54 | CP.PCM.CON ---
<Fred Cruz - Last Filed: 08/04/18 17:43> History of Present Illness - History of Present Illness History of Present Illness: ICU Consult note: Pt is a 67 y/o female with hx of HTN, DM, Active Smoker and morbid obesity, recently found to have partially obstructing colonic mass in ascending colon with pathology demonstrating adenocarcinoma s/p Hemocolectomy today under Dr. Barrett, now admitted to ICU for close monitoring. Pt initally presenting admitted with symptomatic anemia and was also found to have DVT of L. Upper extremity. SxH: cholecystectomy SocH: 3 pack/year tobacco history, denies etoh or recreational drug use FamH: mom- anemia, . Allergies: NKDA Meds: insulin, diovan, crestor PMD: Sayed Past Patient History - Infectious Disease Hx of Infectious Diseases: None - Past Medical History & Family History Past Medical History?: Yes - Past Social History Smoking Status: Light Smoker < 10 Cigarettes Daily - CARDIAC Hx Hypertension: Yes - PULMONARY Hx Respiratory Disorders: No - NEUROLOGICAL Hx Neurological Disorder: Yes Hx Dizziness: Yes - HEENT Hx HEENT Problems: No - RENAL Hx Chronic Kidney Disease: No - ENDOCRINE/METABOLIC Hx Endocrine Disorders: Yes Hx Diabetes Mellitus Type 2: Yes - HEMATOLOGICAL/ONCOLOGICAL Hx Cancer: No - INTEGUMENTARY Hx Dermatological Problems: No - MUSCULOSKELETAL/RHEUMATOLOGICAL Hx Musculoskeletal Disorders: Yes Hx Falls: Yes - GASTROINTESTINAL Hx Gastrointestinal Disorders: No - GENITOURINARY/GYNECOLOGICAL Hx Genitourinary Disorders: No - PSYCHIATRIC Hx Substance Use: No - SURGICAL HISTORY Hx Cholecystectomy: Yes - ANESTHESIA Hx Anesthesia: Yes Hx Anesthesia Reactions: No Hx Malignant Hyperthermia: No Meds Allergies/Adverse Reactions: Allergies Allergy/AdvReac Type Severity Reaction Status Date / Time No Known Allergies Allergy Verified 01/23/16 00:49 - Medications Medications: Current Medications Acetaminophen (Tylenol 325mg Tab) 650 mg PO Q6 PRN PRN Reason: Fever >100.4 F Last Admin: 08/03/18 22:33 Dose: 650 mg Dextrose (Dextrose 50% Inj) 0 ml IV STAT PRN; Protocol PRN Reason: Hypoglycemia Protocol Dextrose (Glutose 15) 0 gm PO ONCE PRN; Protocol PRN Reason: Hypoglycemia Protocol Enoxaparin Sodium (Lovenox) 90 mg SC Q12 [facility] Famotidine (Pepcid) 20 mg PO BID [facility] Last Admin: 08/04/18 09:11 Dose: 20 mg Ferric Sodium Gluconate Complex (Ferrlecit) 125 mg IVPB DAILY [facility] Stop: 08/05/18 10:01 Last Admin: 08/03/18 11:21 Dose: Not Given Glucagon (Glucagen Diagnostic Kit) 0 mg IM STAT PRN; Protocol PRN Reason: Hypoglycemia Protocol Hydrochlorothiazide (Microzide) 12.5 mg PO DAILY [facility] Last Admin: 08/04/18 09:11 Dose: 12.5 mg Hydromorphone HCl (Dilaudid) 0.5 mg IVP Q5M PRN PRN Reason: Pain, severe (8-10) Stop: 08/04/18 20:00 Lactated Ringer's (Lactated Ringer's) 1,000 mls @ 150 mls/hr IV .Q6H40M [facility] Acetaminophen (Ofirmev) 100 mls @ 100 mls/hr IV Q6H [facility] Stop: 08/05/18 16:16 BUPIVACAINE 0.125%/0.9% NACL (Bupivacaine-Ns 0.125% On-Q Mice Raiser) 600 mls @ 4 mls/hr IJ ONCE ONE Stop: 08/10/18 22:10 Metronidazole (Flagyl) 500 mg in 100 mls @ 100 mls/hr IVPB Q8H [facility]; Protocol Stop: 08/05/18 14:59 Insulin Human Regular (Novolin R) 0 unit SC ACHS [facility]; Protocol Last Admin: 08/04/18 12:52 Dose: Not Given Losartan Potassium (Cozaar) 50 mg PO DAILY [facility] Last Admin: 08/04/18 09:11 Dose: 50 mg Rosuvastatin Calcium (Crestor) 10 mg PO HS [facility] Last Admin: 08/03/18 22:33 Dose: 10 mg Physical Exam - Constitutional Appears: No Acute Distress - Head Exam Head Exam: NORMAL INSPECTION - Eye Exam Eye Exam: Normal appearance - ENT Exam ENT Exam: Mucous Membranes Moist - Respiratory Exam Respiratory Exam: Clear to Auscultation Bilateral. absent: Rales, Wheezes - Cardiovascular Exam Cardiovascular Exam: REGULAR RHYTHM, +S1, +S2. absent: Systolic Murmur - GI/Abdominal Exam GI & Abdominal Exam: Soft, Tenderness (mildy tender near surgical site. Midline Dressing clean/dry/in tact. ) - Extremities Exam Extremities exam: Positive for: normal capillary refill, normal inspection, pedal pulses present. Negative for: pedal edema - Expanded Upper Extremities Exam Left Vascular exam: normal capillary refill - Neurological Exam Neurological exam: Alert, Oriented x3 - Psychiatric Exam Psychiatric exam: Normal Affect - Skin Skin Exam: Normal Color Results - Vital Signs Recent Vital Signs: Last Vital Signs Temp 98.4 F 08/04/18 07:56 Pulse 81 08/04/18 07:56 Resp 20 08/04/18 07:56 BP 166/79 H 08/04/18 07:56 Pulse Ox 98 08/04/18 07:56 - Labs Result Diagrams: 08/04/18 08:17 08/04/18 08:17 Labs: Laboratory Results - last 24 hr 08/02/18 08/03/18 08/03/18 08:12 07:41 20:59 WBC RBC Hgb Hct MCV MCH MCHC RDW Plt Count MPV Neut % (Auto) Lymph % (Auto) [place] % (Auto) Eos % (Auto) Baso % (Auto) Neut # (Auto) Lymph # (Auto) [place] # (Auto) Eos # (Auto) Baso # (Auto) PT INR APTT Sodium Potassium Chloride Carbon Dioxide Anion Gap BUN Creatinine Est GFR ( Amer) Est GFR (Non-Af Amer) POC Glucose (mg/dL) 225 H Random Glucose Calcium Phosphorus Magnesium Total Bilirubin AST ALT Alkaline Phosphatase Total Protein Albumin Globulin Albumin/Globulin Ratio Thyroglobulin, Quant 42.9 H Thyroperoxidase Ab 4 Thyroglobulin Antibody 1 Blood Type A POSITIVE Antibody Screen Negative 08/04/18 08/04/18 08/04/18 06:30 08:17 08:17 WBC 12.0 H RBC 4.06 Hgb 11.0 Hct 34.0 MCV 83.6 MCH 27.0 MCHC 32.3 L RDW 22.0 H Plt Count 289 MPV 7.1 L Neut % (Auto) 58.8 Lymph % (Auto) 27.5 [place] % (Auto) 8.1 Eos % (Auto) 4.3 H Baso % (Auto) 1.3 Neut # (Auto) 7.1 H Lymph # (Auto) 3.3 [place] # (Auto) 1.0 H Eos # (Auto) 0.5 Baso # (Auto) 0.2 PT INR APTT Sodium 138 Potassium 4.3 Chloride 107 Carbon Dioxide 23 Anion Gap 12 BUN 8 Creatinine 0.8 Est GFR ( Amer) > 60 Est GFR (Non-Af Amer) > 60 POC Glucose (mg/dL) 137 H Random Glucose 127 H Calcium 8.4 L Phosphorus 3.1 Magnesium 1.8 Total Bilirubin 0.4 AST 31 ALT 17 Alkaline Phosphatase 80 Total Protein 6.5 Albumin 3.7 Globulin 2.9 Albumin/Globulin Ratio 1.3 Thyroglobulin, Quant Thyroperoxidase Ab Thyroglobulin Antibody Blood Type Antibody Screen 08/04/18 08/04/18 08:17 16:45 WBC RBC Hgb Hct MCV MCH MCHC RDW Plt Count MPV Neut % (Auto) Lymph % (Auto) [place] % (Auto) Eos % (Auto) Baso % (Auto) Neut # (Auto) Lymph # (Auto) [place] # (Auto) Eos # (Auto) Baso # (Auto) PT 14.1 H INR 1.3 APTT 35.0 H Sodium Potassium Chloride Carbon Dioxide Anion Gap BUN Creatinine Est GFR ( Amer) Est GFR (Non-Af Amer) POC Glucose (mg/dL) 155 H Random Glucose Calcium Phosphorus Magnesium Total Bilirubin AST ALT Alkaline Phosphatase Total Protein Albumin Globulin Albumin/Globulin Ratio Thyroglobulin, Quant Thyroperoxidase Ab Thyroglobulin Antibody Blood Type Antibody Screen Assessment & Plan - Assessment and Plan (Free Text) Assessment: Pt is a 67 y/o female with hx of HTN, DM, Active Smoker and morbid obesity, recently found to have partially obstructing colonic mass in ascending colon with pathology demonstrating adenocarcinoma s/p Hemocolectomy today under Dr. Barrett, now admitted to ICU for close monitoring. Pt initally presenting admitted with symptomatic anemia and was also found to have DVT of L. Upper extremity. Pt evaluated postoperatively in while in PACU. Neuro - Asleep and arousable; answering questions appropriately - Ofirmev IV q6H for pain - Dilaudid prn - 0.5% Marcaine pain pump Cardiac - Hemodynamically stable - [place] - Echo EF of 65-70%, diastolic dysfunction - Nuclear stress test - normal - Carotid duplex - no stenosis - HTN: C/W home meds Cozaar and HTZ - Cardiology: Moderate risk for surgery Pulm - Saturating well on rm air - Maintain O2sat >90% GI - NPO for now, will advance to liquids in am - GI, Dr. Nelson - Zofran prn Renal - (+) Urine Output post operatively - Monitor I/O - C/W LR at 150cc/hr - BUN/Crea stable Heme/Onc - Anemia, studies c/w Iron Deficiency Anemia. S/P PRBC. C/W IV Iron - DVT- Celiac vein revealing superficial vein thrombosis ; Subclavian vein revealing deep vein thrombosis - Therapeutic Heparin, start tonight - Monitor H/H & platelets - Pathology (Ascending colon biopsy, 07/30): Ulcerated Adenocarcinoma - CEA 10 - CTA/P completed for staging-- malignant appearing mass in ascending colon, no distant mets - Empiric Flagyl for 24 hours as per surgery - Heme/Onc on board, Dr. Boudreaux Endocrine - 6.2 HbA1c, medium dose sliding scale, accuchecks ACHS, hypoglycemic protocol - U/S: enlarged Thyroid bilateral gland, f/u with fine needle bx and a radionucleatide scan - Endocrine, Dr. David johnson - fine needle aspiration following partial colectomy, outpatient vs inpatient PPX DVT: Heparin GI: Pepcid Discussed Case with Dr. Luca Cruz, PGY2 <Franklyn Segovia S - Last Filed: 08/04/18 18:59> Meds - Medications Medications: Current Medications Acetaminophen (Tylenol 325mg Tab) 650 mg PO Q6 PRN PRN Reason: Fever >100.4 F Last Admin: 08/03/18 22:33 Dose: 650 mg Dextrose (Dextrose 50% Inj) 0 ml IV STAT PRN; Protocol PRN Reason: Hypoglycemia Protocol Dextrose (Glutose 15) 0 gm PO ONCE PRN; Protocol PRN Reason: Hypoglycemia Protocol Enoxaparin Sodium (Lovenox) 90 mg SC Q12 [facility] Famotidine (Pepcid) 20 mg PO BID [facility] Last Admin: 08/04/18 18:01 Dose: 20 mg Ferric Sodium Gluconate Complex (Ferrlecit) 125 mg IVPB DAILY [facility] Stop: 08/05/18 10:01 Last Admin: 08/03/18 11:21 Dose: Not Given Glucagon (Glucagen Diagnostic Kit) 0 mg IM STAT PRN; Protocol PRN Reason: Hypoglycemia Protocol Hydrochlorothiazide (Microzide) 12.5 mg PO DAILY [facility] Last Admin: 08/04/18 09:11 Dose: 12.5 mg Hydromorphone HCl (Dilaudid) 0.5 mg IVP Q5M PRN PRN Reason: Pain, severe (8-10) Stop: 08/04/18 20:00 Last Admin: 08/04/18 16:36 Dose: 0.5 mg Lactated Ringer's (Lactated Ringer's) 1,000 mls @ 150 mls/hr IV .Q6H40M [facility] Last Admin: 08/04/18 18:01 Dose: 150 mls/hr Acetaminophen (Ofirmev) 100 mls @ 100 mls/hr IV Q6H [facility] Stop: 08/05/18 16:16 Last Admin: 08/04/18 16:40 Dose: 100 mls BUPIVACAINE 0.125%/0.9% NACL (Bupivacaine-Ns 0.125% On-Q Mice Raiser) 600 mls @ 4 mls/hr IJ ONCE ONE Stop: 08/10/18 22:10 Last Admin: 08/04/18 17:25 Dose: 0 mls Metronidazole (Flagyl) 500 mg in 100 mls @ 100 mls/hr IVPB Q8H [facility]; Protocol Stop: 08/05/18 14:59 Insulin Human Regular (Novolin R) 0 unit SC ACHS [facility]; Protocol Last Admin: 08/04/18 17:57 Dose: Not Given Losartan Potassium (Cozaar) 50 mg PO DAILY [facility] Last Admin: 08/04/18 09:11 Dose: 50 mg Ondansetron HCl (Zofran Inj) 4 mg IVP Q6H PRN PRN Reason: Nausea/Vomiting Rosuvastatin Calcium (Crestor) 10 mg PO HS [facility] Last Admin: 08/03/18 22:33 Dose: 10 mg Results - Vital Signs Recent Vital Signs: Last Vital Signs Temp 97.4 F L 08/04/18 18:06 Pulse 68 08/04/18 18:06 Resp 14 08/04/18 18:06 BP 130/68 08/04/18 18:06 Pulse Ox 99 08/04/18 18:06 - Labs Result Diagrams: 08/04/18 08:17 08/04/18 08:17 Labs: Laboratory Results - last 24 hr 08/02/18 08/03/18 08/03/18 08:12 07:41 20:59 WBC RBC Hgb Hct MCV MCH MCHC RDW Plt Count MPV Neut % (Auto) Lymph % (Auto) [place] % (Auto) Eos % (Auto) Baso % (Auto) Neut # (Auto) Lymph # (Auto) [place] # (Auto) Eos # (Auto) Baso # (Auto) PT INR APTT Sodium Potassium Chloride Carbon Dioxide Anion Gap BUN Creatinine Est GFR ( Amer) Est GFR (Non-Af Amer) POC Glucose (mg/dL) 225 H Random Glucose Calcium Phosphorus Magnesium Total Bilirubin AST ALT Alkaline Phosphatase Total Protein Albumin Globulin Albumin/Globulin Ratio Thyroglobulin, Quant 42.9 H Thyroperoxidase Ab 4 Thyroglobulin Antibody 1 Blood Type A POSITIVE Antibody Screen Negative 08/04/18 08/04/18 08/04/18 06:30 08:17 08:17 WBC 12.0 H RBC 4.06 Hgb 11.0 Hct 34.0 MCV 83.6 MCH 27.0 MCHC 32.3 L RDW 22.0 H Plt Count 289 MPV 7.1 L Neut % (Auto) 58.8 Lymph % (Auto) 27.5 [place] % (Auto) 8.1 Eos % (Auto) 4.3 H Baso % (Auto) 1.3 Neut # (Auto) 7.1 H Lymph # (Auto) 3.3 [place] # (Auto) 1.0 H Eos # (Auto) 0.5 Baso # (Auto) 0.2 PT INR APTT Sodium 138 Potassium 4.3 Chloride 107 Carbon Dioxide 23 Anion Gap 12 BUN 8 Creatinine 0.8 Est GFR ( Amer) > 60 Est GFR (Non-Af Amer) > 60 POC Glucose (mg/dL) 137 H Random Glucose 127 H Calcium 8.4 L Phosphorus 3.1 Magnesium 1.8 Total Bilirubin 0.4 AST 31 ALT 17 Alkaline Phosphatase 80 Total Protein 6.5 Albumin 3.7 Globulin 2.9 Albumin/Globulin Ratio 1.3 Thyroglobulin, Quant Thyroperoxidase Ab Thyroglobulin Antibody Blood Type Antibody Screen 08/04/18 08/04/18 08:17 16:45 WBC RBC Hgb Hct MCV MCH MCHC RDW Plt Count MPV Neut % (Auto) Lymph % (Auto) [place] % (Auto) Eos % (Auto) Baso % (Auto) Neut # (Auto) Lymph # (Auto) [place] # (Auto) Eos # (Auto) Baso # (Auto) PT 14.1 H INR 1.3 APTT 35.0 H Sodium Potassium Chloride Carbon Dioxide Anion Gap BUN Creatinine Est GFR ( Amer) Est GFR (Non-Af Amer) POC Glucose (mg/dL) 155 H Random Glucose Calcium Phosphorus Magnesium Total Bilirubin AST ALT Alkaline Phosphatase Total Protein Albumin Globulin Albumin/Globulin Ratio Thyroglobulin, Quant Thyroperoxidase Ab Thyroglobulin Antibody Blood Type Antibody Screen Attending/Attestation - Attestation I have personally seen and examined this patient.: Yes I have fully participated in the care of the patient.: Yes I have reviewed all pertinent clinical information: Yes Notes (Text): 08/04/18 18:58 Patient seen and examined 67-year-old female status post hemicolectomy for partially obstructing adenocarcinoma, transferred to ICU postop for overnight observation Continue pain medication Intake and output No anticoagulation yet
[2018-08-04] MEDS: Lactated Ringer's 1,000 ML IV SCH (18:01)
[2018-08-04] MEDS: Enoxaparin 100 mg Syringe SC SCH (21:54)
--- NOTE | 2018-08-04 22:21 | CP.PCM.PN ---
Subjective - Date & Time of Evaluation Date of Evaluation: 08/04/18 Time of Evaluation: 18:00 - Subjective Subjective: Tolerated surgery well. New LUE DVT Objective - Vital Signs/Intake and Output Vital Signs (last 24 hours): Temp Pulse Resp BP Pulse Ox 98.4 F 68 16 135/66 100 08/04/18 20:00 08/04/18 21:00 08/04/18 21:00 08/04/18 20:13 08/04/18 21:00 Intake and Output: 08/04/18 08/05/18 18:59 06:59 Intake Total 2050 300 Output Total 225 50 Balance 1825 250 - Medications Medications: Current Medications Acetaminophen (Tylenol 325mg Tab) 650 mg PO Q6 PRN PRN Reason: Fever >100.4 F Last Admin: 08/03/18 22:33 Dose: 650 mg Dextrose (Dextrose 50% Inj) 0 ml IV STAT PRN; Protocol PRN Reason: Hypoglycemia Protocol Dextrose (Glutose 15) 0 gm PO ONCE PRN; Protocol PRN Reason: Hypoglycemia Protocol Enoxaparin Sodium (Lovenox) 90 mg SC Q12 [facility] Last Admin: 08/04/18 21:54 Dose: 90 mg Famotidine (Pepcid) 20 mg PO BID [facility] Last Admin: 08/04/18 18:01 Dose: 20 mg Ferric Sodium Gluconate Complex (Ferrlecit) 125 mg IVPB DAILY [facility] Stop: 08/05/18 10:01 Last Admin: 08/03/18 11:21 Dose: Not Given Glucagon (Glucagen Diagnostic Kit) 0 mg IM STAT PRN; Protocol PRN Reason: Hypoglycemia Protocol Hydrochlorothiazide (Microzide) 12.5 mg PO DAILY [facility] Last Admin: 08/04/18 09:11 Dose: 12.5 mg Lactated Ringer's (Lactated Ringer's) 1,000 mls @ 150 mls/hr IV .Q6H40M [facility] Last Admin: 08/04/18 18:01 Dose: 150 mls/hr Acetaminophen (Ofirmev) 100 mls @ 100 mls/hr IV Q6H [facility] Stop: 08/05/18 16:16 Last Admin: 08/04/18 21:53 Dose: 100 mls/hr BUPIVACAINE 0.125%/0.9% NACL (Bupivacaine-Ns 0.125% On-Q Television Actor) 600 mls @ 4 mls/hr IJ ONCE ONE Stop: 08/10/18 22:10 Last Admin: 08/04/18 17:25 Dose: 0 mls Metronidazole (Flagyl) 500 mg in 100 mls @ 100 mls/hr IVPB Q8H [facility]; Protocol Stop: 08/05/18 14:59 Last Admin: 08/04/18 21:00 Dose: 100 mls/hr Insulin Human Regular (Novolin R) 0 unit SC ACHS [facility]; Protocol Last Admin: 08/04/18 21:54 Dose: Not Given Losartan Potassium (Cozaar) 50 mg PO DAILY [facility] Last Admin: 08/04/18 09:11 Dose: 50 mg Ondansetron HCl (Zofran Inj) 4 mg IVP Q6H PRN PRN Reason: Nausea/Vomiting Rosuvastatin Calcium (Crestor) 10 mg PO HS [facility] Last Admin: 08/04/18 21:54 Dose: 10 mg - Labs Labs: 08/04/18 08:17 08/04/18 08:17 PT 14.1 SECONDS (9.7-12.2) H 08/04/18 08:17 INR 1.3 08/04/18 08:17 APTT 35.0 SECONDS (21-34) H 08/04/18 08:17 - Head Exam Head Exam: ATRAUMATIC - Eye Exam Eye Exam: Normal appearance - ENT Exam ENT Exam: Mucous Membranes Dry - Respiratory Exam Respiratory Exam: NORMAL BREATHING PATTERN - Cardiovascular Exam Cardiovascular Exam: +S1, +S2 - GI/Abdominal Exam GI & Abdominal Exam: Normal Bowel Sounds Assessment and Plan (1) DVT (deep venous thrombosis) Assessment & Plan: provoked from catheter in the RUE, now removed therapeutic anticoagulation x 3 months; start once cleared by surgery Status: Acute (2) Colon cancer Assessment & Plan: no distant mets s/p hemicolectomy f/u path Status: Acute (3) Anemia Assessment & Plan: iron deficiency colon cancer s/p resection s/p transfusion support IV iron Status: Acute (4) Elevated CEA Assessment & Plan: secondary to colon cancer s/p resection Status: Acute
[2018-08-05] MEDS: Lactated Ringer's 1,000 ML IV SCH ×6 (02:39→20:42)
--- NOTE | 2018-08-05 02:55 | PN ---
DATE: 08/04/2018 ENDOCRINOLOGY FOLLOWUP NOTE LOCATION: Room 563. SUBJECTIVE: This is a 67-year-old female with recent marked symptomatic anemia and diagnosed to have a right colonic mass in the ascending colon and has been rescheduled for surgical resection today as noted. She remains clinically and biochemically euthyroid at this time but has a very large multinodular goiter with a dominant right thyroid nodule as noted. Her latest thyroid studies showed a T4 of 10.8 with a TSH of 0.71. Her thyroglobulin level is actually 42.9 as noted. Her latest chemistry showed a BUN of 8, sodium 138, potassium 4.3, chloride 107, CO2 of 23, glucose 127, and creatinine 0.8. PLAN: So, at this time, we will hold off any kind of thyroid management pending the postoperative course of the patient. We will obtain serial chemistries and supplement accordingly as needed. We will follow. Kathy Hernandez MD
[2018-08-05] MEDS: HYDROmorphone 0.5 mg/0.5 ml ISec IVP PRN ×4 (04:16→20:38)
--- NOTE | 2018-08-05 04:34 | CP.PCM.PN ---
Subjective - Date & Time of Evaluation Date of Evaluation: 08/05/18 Time of Evaluation: 05:00 - Subjective Subjective: General Surgery Note for Dr. Barrett Patient seen and examined at bedside. No acute event overnight. Patient is s/p right hemicolectomy POD#1. Patient reports abd pain at surgical site. Patient has ON-Q PUMP. She currently is NPO. She denies flatus or BM. Denies fever/chills or nausea/vomiting. UOP was 800cc since OR. Objective - Vital Signs/Intake and Output Vital Signs (last 24 hours): Temp Pulse Resp BP Pulse Ox 98 F 77 16 142/66 98 08/05/18 00:00 08/05/18 01:13 08/05/18 01:13 08/05/18 01:13 08/05/18 01:13 Intake and Output: 08/04/18 08/05/18 18:59 06:59 Intake Total 2050 980 Output Total 225 200 Balance 1825 780 - Medications Medications: Current Medications Dextrose (Dextrose 50% Inj) 0 ml IV STAT PRN; Protocol PRN Reason: Hypoglycemia Protocol Dextrose (Glutose 15) 0 gm PO ONCE PRN; Protocol PRN Reason: Hypoglycemia Protocol Enoxaparin Sodium (Lovenox) 90 mg SC Q12 [facility] Last Admin: 08/04/18 21:54 Dose: 90 mg Famotidine (Pepcid) 20 mg PO BID [facility] Last Admin: 08/04/18 18:01 Dose: 20 mg Ferric Sodium Gluconate Complex (Ferrlecit) 125 mg IVPB DAILY [facility] Stop: 08/05/18 10:01 Last Admin: 08/03/18 11:21 Dose: Not Given Glucagon (Glucagen Diagnostic Kit) 0 mg IM STAT PRN; Protocol PRN Reason: Hypoglycemia Protocol Hydrochlorothiazide (Microzide) 12.5 mg PO DAILY [facility] Last Admin: 08/04/18 09:11 Dose: 12.5 mg Hydromorphone HCl (Dilaudid) 0.5 mg IVP Q3H PRN PRN Reason: Pain, severe (8-10) Last Admin: 08/05/18 04:16 Dose: 0.5 mg Lactated Ringer's (Lactated Ringer's) 1,000 mls @ 150 mls/hr IV .Q6H40M [facility] Last Admin: 08/05/18 02:39 Dose: 150 mls/hr Acetaminophen (Ofirmev) 100 mls @ 100 mls/hr IV Q6H [facility] Stop: 08/05/18 16:16 Last Admin: 08/05/18 04:00 Dose: 100 mls/hr BUPIVACAINE 0.125%/0.9% NACL (Bupivacaine-Ns 0.125% On-Q [place]) 600 mls @ 4 mls/hr IJ ONCE ONE Stop: 08/10/18 22:10 Last Admin: 08/04/18 17:25 Dose: 0 mls Metronidazole (Flagyl) 500 mg in 100 mls @ 100 mls/hr IVPB Q8H [facility]; Protocol Stop: 08/05/18 14:59 Last Admin: 08/04/18 21:00 Dose: 100 mls/hr Insulin Human Regular (Novolin R) 0 unit SC ACHS [facility]; Protocol Last Admin: 08/04/18 21:54 Dose: Not Given Losartan Potassium (Cozaar) 50 mg PO DAILY [facility] Last Admin: 08/04/18 09:11 Dose: 50 mg Ondansetron HCl (Zofran Inj) 4 mg IVP Q6H PRN PRN Reason: Nausea/Vomiting Last Admin: 08/05/18 03:57 Dose: 4 mg Rosuvastatin Calcium (Crestor) 10 mg PO HS [facility] Last Admin: 08/04/18 21:54 Dose: 10 mg - Labs Labs: 08/04/18 08:17 08/04/18 08:17 PT 14.1 SECONDS (9.7-12.2) H 08/04/18 08:17 INR 1.3 08/04/18 08:17 APTT 35.0 SECONDS (21-34) H 08/04/18 08:17 - Constitutional Appears: No Acute Distress - Head Exam Head Exam: ATRAUMATIC, NORMOCEPHALIC - Eye Exam Eye Exam: EOMI, Normal appearance Pupil Exam: PERRL - ENT Exam ENT Exam: Mucous Membranes Moist - Respiratory Exam Respiratory Exam: NORMAL BREATHING PATTERN - Cardiovascular Exam Cardiovascular Exam: REGULAR RHYTHM - GI/Abdominal Exam GI & Abdominal Exam: Soft, Tenderness, Normal Bowel Sounds. absent: Distended, Firm, Guarding, Rigid, Rebound Additional comments: ON-Q pump in place Midline dressing clean dry and intact - Extremities Exam Extremities Exam: Normal Capillary Refill - Back Exam Back Exam: absent: CVA tenderness (L), CVA tenderness (R) - Neurological Exam Neurological Exam: Alert, Awake, Oriented x3 - Psychiatric Exam Psychiatric exam: Normal Affect, Normal Mood - Skin Skin Exam: Dry, Intact, Warm Assessment and Plan - Assessment and Plan (Free Text) Assessment: 67F s/p right hemicolectomy POD#1 Plan: -Will likely start CLD this morning -Pain control -Anti-emetics PRN -Strict I's & O's -OOB/IS/Ambulation -PT -Monitor for bowel function -bowel regimen -Medical management as per primary and ICU -Further recommendations as per Dr. Nena Enrique PGY2
--- NOTE | 2018-08-05 05:24 | CARD ---
APPROVED REPORT Date of service: 08/03/2018 Protocol: LEXISCAN Test Type: LEXISCAN STRESS Test Indications: PRE OP Medical History: CP Target HR: 151 bpm Resting ECG: normal Resting Heart Rate: 64 bpm Resting Blood Pressure: 132/80mmHg submaximum (85%): 128 bpm TEST SUMMARY PREINFSNHYPERV.17:[id number]/80.0. INFUSIONDOSE 100:300.00.01.055/.0. [id number]/80.0. PROCEDURE Pharmacologic stress testing was performed using 0.4mg per 5ml of regadenoson given intravenously over 7-10 seconds. POST EXERCISE Reason for Termination: Protocol Completed Target HR: No Max HR: 55 bpm 52% of Maximum Predicted HR: 151 bpm Exercise duration: 00:30 min:sec, 0 Stage Exercise capacity: 1.0METs Max Blood Pressure: 132/80mmHg Blood Pressure response to exercise: normal resting BP - appropriate response Heart Rate response to exercise: appropriate Chest Pain: No, none Angina index: 0 Arrhythmia: No, none ST Change: No, none Deviation: 0 mm INTERPRETATION Stress EKG Conclusion: Nuclear report to follow EXAM: Myocardial Perfusion STRESS/REST Imaging Protocol The imaging protocol used to acquire images was Stress Tc-99m/rest Tc-99m 1 day Stress Spect myocardial perfusion imaging was performed in supine position 45 minutes following the injection of 13.2 mCi of Tc-99 Myoview. Gated Rest Spect was performed 45 minutes after intravenous 32.4 mCi Tc-99 Myoview injection. The images were gated to evaluate regional wall motion and calculate ventricular ejection fraction.Images were reconstructed using backfilter projection method in short horizontal and verticle long axis. Spect slices were generated. RESTING DATA EDV62.74hvMF2.30L/min ESV17.00mlMyocardial Vezp441.00g Av. Heart Rate73.00bpm EF73.00% STRESS DATA EDV82.55wkPC9.90L/min ESV26.00mlMyocardial Yaax476.00g EF68.00% Regional WT score at stress:0.00 Regional WM score at stress:0.00 Summed WT score at stress:12.00 Av. Heart Rate70.00bpmSummed WM score at stress:1.00 LV Perf. Quant 17 Seg. SSS2.00 17 Seg. SRS0.00 17 Seg. SDS2.00 Stress Defect Extent (% LAD)0.00Rest Defect Extent (% LAD)0.00Rev. Defect Extent (% LAD)0.00 Stress Defect Extent (% LCX)18.80Rest Defect Extent (% LCX)0.00Rev. Defect Extent (% LCX)18.80 Stress Defect Extent (% RCA)0.00Rest Defect Extent (% RCA)0.00Rev. Defect Extent (% RCA)0.00 Stress Defect Extent (% ESTELLE)5.00Rest Defect Extent (% ESTELLE)0.00Rev. Defect Extent (% ESTELLE)5.00 Other Information Quality:Good IMPRESSION Normal Myocardial Perfusion exercise stress study Left Ventricle LV Function:Left ventricle systolic function is normal. The Ejection Fraction is >55%. Metabolism/Perfusion There are no perfusion/metabolism defects. Conclusion 1. Normal Lexiscan Nuclear Stress test. EF 60%
[2018-08-05] MEDS: metroNIDAZOLE IV 500 mg/100 ml 500 MG/100 ML BAG IVPB SCH ×2 (05:25→13:38)
--- NOTE | 2018-08-05 06:09 | CP.PCM.PN ---
Subjective - Date & Time of Evaluation Date of Evaluation: 08/04/18 Time of Evaluation: 18:05 - Subjective Subjective: Patient s/p Hemicloectomy Patient seen and evaluated in ICU Pt is a 67 y/o female with hx of HTN, DM, Active Smoker and morbid obesity, recently found to have partially obstructing colonic mass in ascending colon with pathology demonstrating adenocarcinoma s/p Hemocolectomy today under Dr. Barrett, now admitted to ICU for close monitoring. Pt initally presenting admitted with symptomatic anemia and was also found to have DVT of L. Upper extremity. SxH: cholecystectomy SocH: 3 pack/year tobacco history, denies etoh or recreational drug use FamH: mom- anemia, . Allergies: NKDA Meds: insulin, diovan, crestor PMD: Sayed Past Patient History - Infectious Disease Hx of Infectious Diseases: None - Past Medical History & Family History Past Medical History?: Yes - Past Social History Smoking Status: Light Smoker < 10 Cigarettes Daily - CARDIAC Hx Hypertension: Yes - PULMONARY Hx Respiratory Disorders: No - NEUROLOGICAL Hx Neurological Disorder: Yes Hx Dizziness: Yes - HEENT Hx HEENT Problems: No - RENAL Hx Chronic Kidney Disease: No - ENDOCRINE/METABOLIC Hx Endocrine Disorders: Yes Hx Diabetes Mellitus Type 2: Yes - HEMATOLOGICAL/ONCOLOGICAL Hx Cancer: No - INTEGUMENTARY Hx Dermatological Problems: No - MUSCULOSKELETAL/RHEUMATOLOGICAL Hx Musculoskeletal Disorders: Yes Hx Falls: Yes - GASTROINTESTINAL Hx Gastrointestinal Disorders: No - GENITOURINARY/GYNECOLOGICAL Hx Genitourinary Disorders: No - PSYCHIATRIC Hx Substance Use: No - SURGICAL HISTORY Hx Cholecystectomy: Yes - ANESTHESIA Hx Anesthesia: Yes Hx Anesthesia Reactions: No Hx Malignant Hyperthermia: No Meds Allergies/Adverse Reactions: Allergies Allergy/AdvReac Type Severity Reaction Status Date / Time No Known Allergies Allergy Verified 01/23/16 00:49 - Medications Medications: Current Medications Acetaminophen (Tylenol 325mg Tab) 650 mg PO Q6 PRN PRN Reason: Fever >100.4 F Last Admin: 08/03/18 22:33 Dose: 650 mg Dextrose (Dextrose 50% Inj) 0 ml IV STAT PRN; Protocol PRN Reason: Hypoglycemia Protocol Dextrose (Glutose 15) 0 gm PO ONCE PRN; Protocol PRN Reason: Hypoglycemia Protocol Enoxaparin Sodium (Lovenox) 90 mg SC Q12 [facility] Famotidine (Pepcid) 20 mg PO BID [facility] Last Admin: 08/04/18 09:11 Dose: 20 mg Ferric Sodium Gluconate Complex (Ferrlecit) 125 mg IVPB DAILY [facility] Stop: 08/05/18 10:01 Last Admin: 08/03/18 11:21 Dose: Not Given Glucagon (Glucagen Diagnostic Kit) 0 mg IM STAT PRN; Protocol PRN Reason: Hypoglycemia Protocol Hydrochlorothiazide (Microzide) 12.5 mg PO DAILY [facility] Last Admin: 08/04/18 09:11 Dose: 12.5 mg Hydromorphone HCl (Dilaudid) 0.5 mg IVP Q5M PRN PRN Reason: Pain, severe (8-10) Stop: 08/04/18 20:00 Lactated Ringer's (Lactated Ringer's) 1,000 mls @ 150 mls/hr IV .Q6H40M [facility] Acetaminophen (Ofirmev) 100 mls @ 100 mls/hr IV Q6H [facility] Stop: 08/05/18 16:16 BUPIVACAINE 0.125%/0.9% NACL (Bupivacaine-Ns 0.125% On-Q Aviation Safety Technician) 600 mls @ 4 mls/hr IJ ONCE ONE Stop: 08/10/18 22:10 Metronidazole (Flagyl) 500 mg in 100 mls @ 100 mls/hr IVPB Q8H [facility]; Protocol Stop: 08/05/18 14:59 Insulin Human Regular (Novolin R) 0 unit SC ACHS [facility]; Protocol Last Admin: 08/04/18 12:52 Dose: Not Given Losartan Potassium (Cozaar) 50 mg PO DAILY [facility] Last Admin: 08/04/18 09:11 Dose: 50 mg Rosuvastatin Calcium (Crestor) 10 mg PO [facility] Last Admin: 08/03/18 22:33 Dose: 10 mg Physical Exam - Constitutional Appears: No Acute Distress - Head Exam Head Exam: NORMAL INSPECTION - Eye Exam Eye Exam: Normal appearance - ENT Exam ENT Exam: Mucous Membranes Moist - Respiratory Exam Respiratory Exam: Clear to Auscultation Bilateral. absent: Rales, Wheezes - Cardiovascular Exam Cardiovascular Exam: REGULAR RHYTHM, +S1, +S2. absent: Systolic Murmur - GI/Abdominal Exam GI & Abdominal Exam: Soft, Tenderness (mildy tender near surgical site. Midline Dressing clean/dry/in tact. ) - Extremities Exam Extremities exam: Positive for: normal capillary refill, normal inspection, pedal pulses present. Negative for: pedal edema - Expanded Upper Extremities Exam Left Vascular exam: normal capillary refill - Neurological Exam Neurological exam: Alert, Oriented x3 - Psychiatric Exam Psychiatric exam: Normal Affect - Skin Skin Exam: Normal Color Results - Vital Signs Recent Vital Signs: Last Vital Signs Temp 98.4 F 08/04/18 07:56 Pulse 81 08/04/18 07:56 Resp 20 08/04/18 07:56 BP 166/79 H 08/04/18 07:56 Pulse Ox 98 08/04/18 07:56 - Labs Result Diagrams: 08/04/18 08:17 08/04/18 08:17 Labs: Laboratory Results - last 24 hr 08/02/18 08/03/18 08/03/18 08:12 07:41 20:59 WBC RBC Hgb Hct MCV MCH MCHC RDW Plt Count MPV Neut % (Auto) Lymph % (Auto) [place] % (Auto) Eos % (Auto) Baso % (Auto) Neut # (Auto) Lymph # (Auto) [place] # (Auto) Eos # (Auto) Baso # (Auto) PT INR APTT Sodium Potassium Chloride Carbon Dioxide Anion Gap BUN Creatinine Est GFR ( Amer) Est GFR (Non-Af Amer) POC Glucose (mg/dL) 225 H Random Glucose Calcium Phosphorus Magnesium Total Bilirubin AST ALT Alkaline Phosphatase Total Protein Albumin Globulin Albumin/Globulin Ratio Thyroglobulin, Quant 42.9 H Thyroperoxidase Ab 4 Thyroglobulin Antibody 1 Blood Type A POSITIVE Antibody Screen Negative 08/04/18 08/04/18 08/04/18 06:30 08:17 08:17 WBC 12.0 H RBC 4.06 Hgb 11.0 Hct 34.0 MCV 83.6 MCH 27.0 MCHC 32.3 L RDW 22.0 H Plt Count 289 MPV 7.1 L Neut % (Auto) 58.8 Lymph % (Auto) 27.5 [place] % (Auto) 8.1 Eos % (Auto) 4.3 H Baso % (Auto) 1.3 Neut # (Auto) 7.1 H Lymph # (Auto) 3.3 [place] # (Auto) 1.0 H Eos # (Auto) 0.5 Baso # (Auto) 0.2 PT INR APTT Sodium 138 Potassium 4.3 Chloride 107 Carbon Dioxide 23 Anion Gap 12 BUN 8 Creatinine 0.8 Est GFR ( Amer) > 60 Est GFR (Non-Af Amer) > 60 POC Glucose (mg/dL) 137 H Random Glucose 127 H Calcium 8.4 L Phosphorus 3.1 Magnesium 1.8 Total Bilirubin 0.4 AST 31 ALT 17 Alkaline Phosphatase 80 Total Protein 6.5 Albumin 3.7 Globulin 2.9 Albumin/Globulin Ratio 1.3 Thyroglobulin, Quant Thyroperoxidase Ab Thyroglobulin Antibody Blood Type Antibody Screen 08/04/18 08/04/18 08:17 16:45 WBC RBC Hgb Hct MCV MCH MCHC RDW Plt Count MPV Neut % (Auto) Lymph % (Auto) [place] % (Auto) Eos % (Auto) Baso % (Auto) Neut # (Auto) Lymph # (Auto) [place] # (Auto) Eos # (Auto) Baso # (Auto) PT 14.1 H INR 1.3 APTT 35.0 H Sodium Potassium Chloride Carbon Dioxide Anion Gap BUN Creatinine Est GFR ( Amer) Est GFR (Non-Af Amer) POC Glucose (mg/dL) 155 H Random Glucose Calcium Phosphorus Magnesium Total Bilirubin AST ALT Alkaline Phosphatase Total Protein Albumin Globulin Albumin/Globulin Ratio Thyroglobulin, Quant Thyroperoxidase Ab Thyroglobulin Antibody Blood Type Antibody Screen Assessment & Plan - Assessment and Plan (Free Text) Assessment: Pt is a 67 y/o female with hx of HTN, DM, Active Smoker and morbid obesity, recently found to have partially obstructing colonic mass in ascending colon with pathology demonstrating adenocarcinoma s/p Hemocolectomy today under Dr. Barrett, now admitted to ICU for close monitoring. Pt initally presenting admitted with symptomatic anemia and was also found to have DVT of L. Upper extremity. Pt evaluated postoperatively in while in PACU. Neuro - Asleep and arousable; answering questions appropriately - Ofirmev IV q6H for pain - Dilaudid prn - 0.5% Marcaine pain pump Cardiac - Hemodynamically stable - It Business Process Architect - Echo EF of 65-70%, diastolic dysfunction - Nuclear stress test - normal - Carotid duplex - no stenosis - HTN: C/W home meds Cozaar and HTZ - Cardiology: Moderate risk for surgery Pulm - Saturating well on rm air - Maintain O2sat >90% GI - NPO for now, will advance to liquids in am - GI, Dr. Nelson - Zofran prn Renal - (+) Urine Output post operatively - Monitor I/O - C/W LR at 150cc/hr - BUN/Crea stable Heme/Onc - Anemia, studies c/w Iron Deficiency Anemia. S/P PRBC. C/W IV Iron - DVT- Celiac vein revealing superficial vein thrombosis ; Subclavian vein revealing deep vein thrombosis - Therapeutic Heparin, start tonight - Monitor H/H & platelets - Pathology (Ascending colon biopsy, 07/30): Ulcerated Adenocarcinoma - CEA 10 - CTA/P completed for staging-- malignant appearing mass in ascending colon, no distant mets - Empiric Flagyl for 24 hours as per surgery - Heme/Onc on board, Dr. Boudreaux Endocrine - 6.2 HbA1c, medium dose sliding scale, accuchecks ACHS, hypoglycemic protocol - U/S: enlarged Thyroid bilateral gland, f/u with fine needle bx and a radionucleatide scan - Endocrine, Dr. David johnson - fine needle aspiration following partial colectomy, outpatient vs inpatient PPX DVT: Heparin GI: Pepcid No cardiac events post op Will monitor Objective - Vital Signs/Intake and Output Vital Signs (last 24 hours): Temp Pulse Resp BP Pulse Ox 98.8 F 79 20 159/70 H 93 L 08/05/18 04:00 08/05/18 04:13 08/05/18 04:13 08/05/18 04:13 08/05/18 04:13 Intake and Output: 08/04/18 08/05/18 18:59 06:59 Intake Total 2050 1380 Output Total 225 250 Balance 1825 1130 - Medications Medications: Current Medications Dextrose (Dextrose 50% Inj) 0 ml IV STAT PRN; Protocol PRN Reason: Hypoglycemia Protocol Dextrose (Glutose 15) 0 gm PO ONCE PRN; Protocol PRN Reason: Hypoglycemia Protocol Enoxaparin Sodium (Lovenox) 90 mg SC Q12 [facility] Last Admin: 08/04/18 21:54 Dose: 90 mg Famotidine (Pepcid) 20 mg PO BID [facility] Last Admin: 08/04/18 18:01 Dose: 20 mg Ferric Sodium Gluconate Complex (Ferrlecit) 125 mg IVPB DAILY [facility] Stop: 08/05/18 10:01 Last Admin: 08/03/18 11:21 Dose: Not Given Glucagon (Glucagen Diagnostic Kit) 0 mg IM STAT PRN; Protocol PRN Reason: Hypoglycemia Protocol Hydrochlorothiazide (Microzide) 12.5 mg PO DAILY [facility] Last Admin: 08/04/18 09:11 Dose: 12.5 mg Hydromorphone HCl (Dilaudid) 0.5 mg IVP Q3H PRN PRN Reason: Pain, severe (8-10) Last Admin: 08/05/18 04:16 Dose: 0.5 mg Lactated Ringer's (Lactated Ringer's) 1,000 mls @ 150 mls/hr IV .Q6H40M [facility] Last Admin: 08/05/18 05:26 Dose: Not Given Acetaminophen (Ofirmev) 100 mls @ 100 mls/hr IV Q6H [facility] Stop: 08/05/18 16:16 Last Admin: 08/05/18 04:00 Dose: 100 mls/hr BUPIVACAINE 0.125%/0.9% NACL (Bupivacaine-Ns 0.125% On-Q Aviation Safety Technician) 600 mls @ 4 mls/hr IJ ONCE ONE Stop: 08/10/18 22:10 Last Admin: 08/04/18 17:25 Dose: 0 mls Metronidazole (Flagyl) 500 mg in 100 mls @ 100 mls/hr IVPB Q8H [facility]; Protocol Stop: 08/05/18 14:59 Last Admin: 08/05/18 05:25 Dose: 100 mls/hr Insulin Human Regular (Novolin R) 0 unit SC ACHS [facility]; Protocol Last Admin: 08/04/18 21:54 Dose: Not Given Losartan Potassium (Cozaar) 50 mg PO DAILY [facility] Last Admin: 08/04/18 09:11 Dose: 50 mg Ondansetron HCl (Zofran Inj) 4 mg IVP Q6H PRN PRN Reason: Nausea/Vomiting Last Admin: 08/05/18 03:57 Dose: 4 mg Rosuvastatin Calcium (Crestor) 10 mg PO HS [facility] Last Admin: 08/04/18 21:54 Dose: 10 mg - Labs Labs: 08/04/18 08:17 08/04/18 08:17 PT 14.1 SECONDS (9.7-12.2) H 08/04/18 08:17 INR 1.3 08/04/18 08:17 APTT 35.0 SECONDS (21-34) H 08/04/18 08:17
--- NOTE | 2018-08-05 06:10 | OP ---
PROCEDURE DATE: 08/04/2018 PREOPERATIVE DIAGNOSIS: Tumor of right colon cancer. POSTOPERATIVE DIAGNOSIS: Tumor of right colon cancer. PROCEDURE CARRIED OUT: Right colectomy. SURGEON: Washington Barrett Jr., MD SPECIAL EDUCATION EDUCATIONAL ASSISTANT: Eddi Enrique DO ANESTHESIOLOGIST: Mr. Carpenter. INDICATIONS: The patient is an older middle-aged woman who presents with anemia, subsequently found to have a large tumor of the ascending colon. OPERATIVE FINDINGS: One, the liver was nodular, but there was no ascites and appeared fatty. There was no evidence of liver metastasis. There were some nodes in the mesentery but not particularly so. The tumor, however, was a large bulky tumor in the right colon and it is approximately 3 inches superior to the cecum. The rest of the intraoperative findings were unremarkable. There were some adhesions to the umbilicus from previous surgery. DESCRIPTION OF PROCEDURE: The patient was given general anesthesia, intravenous antibiotics, and Venodyne boots were applied. A standard midline incision was carried out with the above-mentioned findings. After exploring the abdomen, we then mobilized the colon, divided the small bowel, divided the transverse colon and then created a [id number] stapled anastomosis. After completion of the anastomosis, the omentum was wrapped around this and the abdomen was closed. The On-Q system was inserted for pain control. No drain was left. BLOOD LOSS FOR THE PROCEDURE: Less than 100 mL. OPERATION CARRIED OUT: Right colectomy. Washington Barrett Jr., MD cc: Dr. Gema Ellis MD
[2018-08-05 06:22] LABS: BASO % 0.2 % (0.0-2.0); EOS % 0.1 % (0.0-4.0); HEMOGLOBIN 10.1 g/dL (11.0-16.0); LYMPH # 1.4 K/uL (1.0-4.3); LYMPH % 10.3 % (20.0-40.0); MEAN CELL VOLUME 83.9 fL (81.0-99.0); MEAN CORPUSCULAR HEMOGLOBIN 27.6 pg (27.0-31.0); MEAN CORPUSCULAR HGB CONC 32.9 g/dL (33.0-37.0); MEAN PLATELET VOLUME 6.9 fL (7.2-11.7); MONO # 0.7 K/uL (0.0-0.8); MONO % 5.1 % (0.0-10.0); NEUT # 11.5 K/uL (1.8-7.0); NEUT % 84.3 % (50.0-75.0); RBC 3.66 Mil/uL (3.80-5.20); WHITE BLOOD COUNT 13.6 K/uL (4.8-10.8)
[2018-08-05 06:47] LABS: ALB/GLOB RATIO 1.2 (1.0-2.1); ALT/SGPT 23 U/L (9-52); AST/SGOT 22 U/L (14-36); BLOOD UREA NITROGEN 11 mg/dL (7-17); CALCIUM 7.8 mg/dl (8.6-10.4); GFR NON-AFRICAN AMERICAN > 60
[2018-08-05] MEDS ORDERED: Lactated Ringer's 1,000 ML IV ONE (07:50)
--- NOTE | 2018-08-05 07:55 | CP.PCM.PN ---
Subjective - Date & Time of Evaluation Date of Evaluation: 08/05/18 Time of Evaluation: 07:52 - Subjective Subjective: Surgery: Dr. Barrett Patient doing well. Pain controlled. Denies n/v/f/c. OOB to chair this am. Denies bowel movement or flatus. Per nursing report urine output aprx 35cc/hr over 12hrs. Objective - Vital Signs/Intake and Output Vital Signs (last 24 hours): Temp Pulse Resp BP Pulse Ox 98.8 F 75 14 129/53 L 94 L 08/05/18 04:00 08/05/18 06:00 08/05/18 06:00 08/05/18 05:14 08/05/18 06:00 Intake and Output: 08/05/18 08/05/18 06:59 18:59 Intake Total 1630 Output Total 400 Balance 1230 - Medications Medications: Current Medications Dextrose (Dextrose 50% Inj) 0 ml IV STAT PRN; Protocol PRN Reason: Hypoglycemia Protocol Dextrose (Glutose 15) 0 gm PO ONCE PRN; Protocol PRN Reason: Hypoglycemia Protocol Enoxaparin Sodium (Lovenox) 90 mg SC Q12 [facility] Last Admin: 08/04/18 21:54 Dose: 90 mg Famotidine (Pepcid) 20 mg PO BID [facility] Last Admin: 08/04/18 18:01 Dose: 20 mg Ferric Sodium Gluconate Complex (Ferrlecit) 125 mg IVPB DAILY [facility] Stop: 08/05/18 10:01 Last Admin: 08/03/18 11:21 Dose: Not Given Glucagon (Glucagen Diagnostic Kit) 0 mg IM STAT PRN; Protocol PRN Reason: Hypoglycemia Protocol Hydrochlorothiazide (Microzide) 12.5 mg PO DAILY [facility] Last Admin: 08/04/18 09:11 Dose: 12.5 mg Hydromorphone HCl (Dilaudid) 0.5 mg IVP Q3H PRN PRN Reason: Pain, severe (8-10) Last Admin: 08/05/18 04:16 Dose: 0.5 mg Lactated Ringer's (Lactated Ringer's) 1,000 mls @ 150 mls/hr IV .Q6H40M [facility] Last Admin: 08/05/18 05:26 Dose: Not Given Acetaminophen (Ofirmev) 100 mls @ 100 mls/hr IV Q6H [facility] Stop: 08/05/18 16:16 Last Admin: 08/05/18 04:00 Dose: 100 mls/hr BUPIVACAINE 0.125%/0.9% NACL (Bupivacaine-Ns 0.125% On-Q Sorter Operator) 600 mls @ 4 mls/h r IJ ONCE ONE Stop: 08/10/18 22:10 Last Admin: 08/04/18 17:25 Dose: 0 mls Metronidazole (Flagyl) 500 mg in 100 mls @ 100 mls/hr IVPB Q8H [facility]; Protocol Stop: 08/05/18 14:59 Last Admin: 08/05/18 05:25 Dose: 100 mls/hr Lactated Ringer's (Lactated Ringer's) 1,000 mls @ 1,000 mls/hr IV .Q1H ONE Stop: 08/05/18 08:49 Insulin Human Regular (Novolin R) 0 unit SC ACHS [facility]; Protocol Last Admin: 08/04/18 21:54 Dose: Not Given Losartan Potassium (Cozaar) 50 mg PO DAILY [facility] Last Admin: 08/04/18 09:11 Dose: 50 mg Ondansetron HCl (Zofran Inj) 4 mg IVP Q6H PRN PRN Reason: Nausea/Vomiting Last Admin: 08/05/18 03:57 Dose: 4 mg Rosuvastatin Calcium (Crestor) 10 mg PO HS [facility] Last Admin: 08/04/18 21:54 Dose: 10 mg - Labs Labs: 08/05/18 06:18 08/05/18 06:18 PT 14.1 SECONDS (9.7-12.2) H 08/04/18 08:17 INR 1.3 08/04/18 08:17 APTT 35.0 SECONDS (21-34) H 08/04/18 08:17 - Constitutional Appears: Non-toxic, No Acute Distress - Head Exam Head Exam: ATRAUMATIC, NORMOCEPHALIC - Eye Exam Eye Exam: EOMI, Normal appearance - ENT Exam ENT Exam: Mucous Membranes Moist - Respiratory Exam Respiratory Exam: NORMAL BREATHING PATTERN. absent: Respiratory Distress - Cardiovascular Exam Cardiovascular Exam: REGULAR RHYTHM. absent: Tachycardia - GI/Abdominal Exam GI & Abdominal Exam: Soft, Tenderness (appropriate). absent: Distended, Guarding, Rebound Assessment and Plan - Assessment and Plan (Free Text) Assessment: 67 y/o female s/p right hemicolectomy POD1 Plan: -ONQ to 7 -OOB, early mobility -lovenox -ok for CLD -bolus x1 for borderline urine output -august d/c finney this afternoon if urine output increases -abx dc after 3rd dose - IS use -further recs per Dr. Nena Shipley PGY4
[2018-08-05] MEDS: (Novolin R) Insulin Human Regular 100 units/ml vial SC SCH ×4 (08:21→22:00)
--- NOTE | 2018-08-05 09:55 | CP.PCM.PN ---
Subjective - Date & Time of Evaluation Date of Evaluation: 08/05/18 Time of Evaluation: 09:45 - Subjective Subjective: seen and examined,sitting on the chair,c/o feeling tired and mild nausea, started on liquid diet Objective - Vital Signs/Intake and Output Vital Signs (last 24 hours): Temp Pulse Resp BP Pulse Ox 98.8 F 69 17 137/56 L 96 08/05/18 04:00 08/05/18 09:00 08/05/18 09:00 08/05/18 08:13 08/05/18 09:00 Intake and Output: 08/05/18 08/05/18 06:59 18:59 Intake Total 1630 150 Output Total 400 36 Balance 1230 114 - Medications Medications: Current Medications Dextrose (Dextrose 50% Inj) 0 ml IV STAT PRN; Protocol PRN Reason: Hypoglycemia Protocol Dextrose (Glutose 15) 0 gm PO ONCE PRN; Protocol PRN Reason: Hypoglycemia Protocol Enoxaparin Sodium (Lovenox) 90 mg SC Q12 [facility] Last Admin: 08/04/18 21:54 Dose: 90 mg Famotidine (Pepcid) 20 mg PO BID [facility] Last Admin: 08/04/18 18:01 Dose: 20 mg Ferric Sodium Gluconate Complex (Ferrlecit) 125 mg IVPB DAILY [facility] Stop: 08/05/18 10:01 Last Admin: 08/03/18 11:21 Dose: Not Given Glucagon (Glucagen Diagnostic Kit) 0 mg IM STAT PRN; Protocol PRN Reason: Hypoglycemia Protocol Hydrochlorothiazide (Microzide) 12.5 mg PO DAILY [facility] Last Admin: 08/04/18 09:11 Dose: 12.5 mg Hydromorphone HCl (Dilaudid) 0.5 mg IVP Q3H PRN PRN Reason: Pain, severe (8-10) Last Admin: 08/05/18 04:16 Dose: 0.5 mg Lactated Ringer's (Lactated Ringer's) 1,000 mls @ 150 mls/hr IV .Q6H40M [facility] Last Admin: 08/05/18 05:26 Dose: Not Given Acetaminophen (Ofirmev) 100 mls @ 100 mls/hr IV Q6H [facility] Stop: 08/05/18 16:16 Last Admin: 08/05/18 04:00 Dose: 100 mls/hr BUPIVACAINE 0.125%/0.9% NACL (Bupivacaine-Ns 0.125% On-Q [employer]) 600 mls @ 4 mls/hr IJ ONCE ONE Stop: 08/10/18 22:10 Last Admin: 08/04/18 17:25 Dose: 0 mls Metronidazole (Flagyl) 500 mg in 100 mls @ 100 mls/hr IVPB Q8H [facility]; Protocol Stop: 08/05/18 14:59 Last Admin: 08/05/18 05:25 Dose: 100 mls/hr Insulin Human Regular (Novolin R) 0 unit SC ACHS [facility]; Protocol Last Admin: 08/05/18 08:21 Dose: 2 units Losartan Potassium (Cozaar) 50 mg PO DAILY [facility] Last Admin: 08/04/18 09:11 Dose: 50 mg Ondansetron HCl (Zofran Inj) 4 mg IVP Q6H PRN PRN Reason: Nausea/Vomiting Last Admin: 08/05/18 03:57 Dose: 4 mg Rosuvastatin Calcium (Crestor) 10 mg PO HS [facility] Last Admin: 08/04/18 21:54 Dose: 10 mg - Labs Labs: 08/05/18 06:18 08/05/18 06:18 PT 14.1 SECONDS (9.7-12.2) H 08/04/18 08:17 INR 1.3 08/04/18 08:17 APTT 35.0 SECONDS (21-34) H 08/04/18 08:17 - Constitutional Appears: Non-toxic - Head Exam Head Exam: NORMAL INSPECTION - Eye Exam Eye Exam: Normal appearance - ENT Exam ENT Exam: Mucous Membranes Moist - Neck Exam Neck Exam: Full ROM - Respiratory Exam Respiratory Exam: Clear to Ausculation Bilateral, NORMAL BREATHING PATTERN - Cardiovascular Exam Cardiovascular Exam: REGULAR RHYTHM - GI/Abdominal Exam GI & Abdominal Exam: Soft, Tenderness (surgery site,no diffuse tenderness), Normal Bowel Sounds - Extremities Exam Extremities Exam: Full ROM - Back Exam Back Exam: NORMAL INSPECTION - Neurological Exam Neurological Exam: Awake, Oriented x3 - Psychiatric Exam Psychiatric exam: Normal Mood - Skin Skin Exam: Dry, Intact, Normal Color Assessment and Plan - Assessment and Plan (Free Text) Plan: Ascending Colon Ulcerated Mass and s/p R hemicolectomy with removal of colonic mass POD #1 Adenocarcinoma of the Colon Patient was started on CLD by jesenia Has low urine out put and renal was consulted continue fluids,monitor urine out put Pathology (Ascending colon biopsy, 07/30): Ulcerated Adenocarcinoma CEA 10 CTA/P completed for staging-- malignant appearing mass in ascending colon, no distant mets Empiric Flagyl for 24 hours as per surgery Heme/Onc on board, Dr. Boudreaux Deep Vein thrombosis Superficial vein thrombosis Patient has poor venous access,Left arm midline was placed on left arm and removed due to swelling. Contributing factor for the thrombosis is malignancy celiac vein revealing superficial vein thrombosis and subclavian vein revealing deep vein thrombosis started on therapeutic Lovenox by surgery team Symptomatic Anemia-Iron Deficiency - resolving Initial Hemoglobin 6s,anemia due to blood loss secondary to colon malignancy s/p 2 x PRBC transfusion Heme/Onc consulted, Dr. Boudreaux continue with Ferric IVPB; however held on 08/03 due to arm swelling,patient has poor venous access HTN Cozaar 50 daily and hctz for now -home valsartan/hctz not on formulary Thyroid nodule CT scan: R Lobe enlargement U/S: enlarged bilateral gland, f/u with fine needle bx and a radionucleatide scan endocrine, Dr. Hernandez recs - fine needle aspiration following partial colectomy, outpatient vs inpatient DM 6.2 HbA1c medium dose sliding scale accuchecks ACHS hypoglycemic protocol Breast nodules small nodular densities notes on Ct/ab/pelvis, will require mammogram outpatient PPx DVT: on Lovenox
[2018-08-05] MEDS: Enoxaparin 100 mg Syringe SC SCH ×2 (10:55→22:00)
--- NOTE | 2018-08-05 11:09 | CP.PCM.PN ---
<Lyubov Yoon - Last Filed: 08/05/18 15:23> Subjective - Date & Time of Evaluation Date of Evaluation: 08/05/18 Time of Evaluation: 11:09 - Subjective Subjective: Progress note for Dr. Donahue Patient was seen and examined at bedside in no acute distress. Family at bedside. Patient has no complaitns and feels well. She denies chest pain, dyspnea, palpitations, leg pain and leg swelling. Objective - Vital Signs/Intake and Output Vital Signs (last 24 hours): Temp Pulse Resp BP Pulse Ox 98.8 F 69 17 137/56 L 96 08/05/18 04:00 08/05/18 09:00 08/05/18 09:00 08/05/18 08:13 08/05/18 09:00 Intake and Output: 08/05/18 08/05/18 06:59 18:59 Intake Total 1630 1450 Output Total 400 92 Balance 1230 1358 - Medications Medications: Current Medications Dextrose (Dextrose 50% Inj) 0 ml IV STAT PRN; Protocol PRN Reason: Hypoglycemia Protocol Dextrose (Glutose 15) 0 gm PO ONCE PRN; Protocol PRN Reason: Hypoglycemia Protocol Enoxaparin Sodium (Lovenox) 90 mg SC Q12 [facility] Last Admin: 08/05/18 10:55 Dose: 90 mg Famotidine (Pepcid) 20 mg PO BID [facility] Last Admin: 08/05/18 10:55 Dose: 20 mg Glucagon (Glucagen Diagnostic Kit) 0 mg IM STAT PRN; Protocol PRN Reason: Hypoglycemia Protocol Hydrochlorothiazide (Microzide) 12.5 mg PO DAILY [facility] Last Admin: 08/05/18 10:55 Dose: 12.5 mg Hydromorphone HCl (Dilaudid) 0.5 mg IVP Q3H PRN PRN Reason: Pain, severe (8-10) Last Admin: 08/05/18 10:15 Dose: 0.5 mg Lactated Ringer's (Lactated Ringer's) 1,000 mls @ 150 mls/hr IV .Q6H40M [facility] Last Admin: 08/05/18 09:54 Dose: 150 mls/hr Acetaminophen (Ofirmev) 100 mls @ 100 mls/hr IV Q6H [facility] Stop: 08/05/18 16:16 Last Admin: 08/05/18 04:00 Dose: 100 mls/hr BUPIVACAINE 0.125%/0.9% NACL (Bupivacaine-Ns 0.125% On-Q [employer] Director) 600 mls @ 4 mls/hr IJ ONCE ONE Stop: 08/10/18 22:10 Last Admin: 08/04/18 17:25 Dose: 0 mls Metronidazole (Flagyl) 500 mg in 100 mls @ 100 mls/hr IVPB Q8H [facility]; Protocol Stop: 08/05/18 14:59 Last Admin: 08/05/18 05:25 Dose: 100 mls/hr Insulin Human Regular (Novolin R) 0 unit SC ACHS [facility]; Protocol Last Admin: 08/05/18 08:21 Dose: 2 units Losartan Potassium (Cozaar) 50 mg PO DAILY [facility] Last Admin: 08/05/18 10:55 Dose: 50 mg Ondansetron HCl (Zofran Inj) 4 mg IVP Q6H PRN PRN Reason: Nausea/Vomiting Last Admin: 08/05/18 03:57 Dose: 4 mg Rosuvastatin Calcium (Crestor) 10 mg PO HS [facility] Last Admin: 08/04/18 21:54 Dose: 10 mg - Labs Labs: 08/05/18 06:18 08/05/18 06:18 PT 14.1 SECONDS (9.7-12.2) H 08/04/18 08:17 INR 1.3 08/04/18 08:17 APTT 35.0 SECONDS (21-34) H 08/04/18 08:17 - Constitutional Appears: No Acute Distress - Head Exam Head Exam: ATRAUMATIC, NORMAL INSPECTION - Eye Exam Eye Exam: EOMI, Normal appearance - Respiratory Exam Respiratory Exam: NORMAL BREATHING PATTERN. 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 Cardiology was consulted for preop clearance. Preoperative clearance - Echo EF of 65-70%, diastolic dysfunction - Nuclear stress test - normal - Carotid duplex - no stenosis - HTN: C/W home meds Cozaar and HTZ - Moderate risk for surgery --> s/p colectomy on 08/04/18 - No cardiac events post-operatively. - No further cardiology intervention at this time. Please reconsult as needed. Case discussed with Lyubov Perez, PGY2 <David Donahue - Last Filed: 08/06/18 20:56> Objective - Vital Signs/Intake and Output Vital Signs (last 24 hours): Temp Pulse Resp BP Pulse Ox 98.3 F 92 H 13 138/59 L 95 08/06/18 16:00 08/06/18 18:13 08/06/18 18:13 08/06/18 18:13 08/06/18 18:13 Intake and Output: 08/06/18 08/07/18 18:59 06:59 Intake Total 600 Output Total 900 Balance -300 - Medications Medications: Current Medications Acetaminophen (Tylenol 325mg Tab) 650 mg PO Q6 [facility] Last Admin: 08/06/18 17:14 Dose: Not Given Amlodipine Besylate (Norvasc) 5 mg PO DAILY [facility] Last Admin: 08/06/18 12:00 Dose: 5 mg Cyclobenzaprine HCl (Flexeril) 5 mg PO TID [facility] Last Admin: 08/06/18 17:16 Dose: 5 mg Dextrose (Dextrose 50% Inj) 0 ml IV STAT PRN; Protocol PRN Reason: Hypoglycemia Protocol Dextrose (Glutose 15) 0 gm PO ONCE PRN; Protocol PRN Reason: Hypoglycemia Protocol Enoxaparin Sodium (Lovenox) 90 mg SC Q12 [facility] Last Admin: 08/06/18 10:56 Dose: 90 mg Famotidine (Pepcid) 20 mg PO BID [facility] Last Admin: 08/06/18 17:16 Dose: 20 mg Glucagon (Glucagen Diagnostic Kit) 0 mg IM STAT PRN; Protocol PRN Reason: Hypoglycemia Protocol Hydromorphone HCl (Dilaudid) 0.5 mg IVP Q6H PRN PRN Reason: Pain, severe (8-10) Last Admin: 08/06/18 15:38 Dose: 0.5 mg BUPIVACAINE 0.125%/0.9% NACL (Bupivacaine-Ns 0.125% On-Q [employer]) 600 mls @ 4 mls/hr IJ ONCE ONE Stop: 08/10/18 22:10 Last Admin: 08/04/18 17:25 Dose: 0 mls Insulin Human Regular (Novolin R) 0 unit SC ACHS [facility]; Protocol Last Admin: 08/06/18 16:54 Dose: Not Given Losartan Potassium (Cozaar) 100 mg PO DAILY [facility] Ondansetron HCl (Zofran Inj) 4 mg IVP Q6H PRN PRN Reason: Nausea/Vomiting Last Admin: 08/06/18 08:01 Dose: 4 mg Oxycodone HCl (Oxycodone Immediate Release Tab) 5 mg PO Q6H PRN PRN Reason: Pain, Mild (1-3) Oxycodone HCl (Oxycodone Immediate Release Tab) 10 mg PO Q6H PRN PRN Reason: Pain, moderate (4-7) Rosuvastatin Calcium (Crestor) 10 mg PO HS [facility] Last Admin: 08/05/18 22:04 Dose: 10 mg - Labs Labs: 08/06/18 11:22 08/06/18 11:22 PT 14.1 SECONDS (9.7-12.2) H 08/04/18 08:17 INR 1.3 08/04/18 08:17 APTT 35.0 SECONDS (21-34) H 08/04/18 08:17 Assessment and Plan - Assessment and Plan (Free Text) Plan: Patient seen and personally seen and evaluated by me. Plan of care d/w the medical reimbursement specialist and as documented
--- NOTE | 2018-08-05 13:51 | CP.CCUPN ---
<Nicholas Frost - Last Filed: 08/05/18 13:55> CCU Subjective - Physician Review Subjective (Free Text): 08/05/18 14:30 PGY-1 Critical Care Progress Note for Dr. Bhatia Patient seen and examined at bedside. No acute events overnight. Patient tolerating clear liquid diet. Low urine output despite fluids. Denies BM or flatus since surgery yesterday. CCU Objective - Vital Signs / Intake & Output Vital Signs (Last 4 hours): Vital Signs Pulse Resp BP Pulse Ox 08/05/18 13:00 76 16 93 L 08/05/18 12:00 69 15 08/05/18 11:14 77 17 142/65 96 08/05/18 11:00 73 16 95 08/05/18 10:13 78 13 157/76 H 97 08/05/18 10:00 71 18 95 Intake and Output (Last 8hrs): Intake & Output 08/04/18 08/05/18 08/05/18 22:59 06:59 14:59 Intake Total 1280 1100 1800 Output Total 335 290 128 Balance 848 875 5912 Intake: IV 600 Intake, IV Amount 650 1100 1800 Right Upper arm 650 1100 1800 Oral 30 0 Output: Urine 335 290 128 Urethral (Park) 110 290 128 Urine, Voided 45 Emesis 0 Other: # Bowel Movements 0 0 - Physical Exam Head: Positive for: Atraumatic, Normocephalic Extroacular Muscles: Positive for: EOMI Mouth: Positive for: Moist Mucous Membranes Respiratory/Chest: Positive for: Clear to Auscultation, Tender to Palpation. Negative for: Respiratory Distress, Accessory Muscle Use Cardiovascular: Positive for: Regular Rate and Rhythm, Normal S1, S2 Abdomen: Positive for: Tenderness, Normal Bowel Sounds, Other (dressings c/d/i). Negative for: Distention Neurological: Positive for: CN II-XII Intact Psychiatric: Positive for: Alert, Oriented x 3 - Medications Active Medications: Active Medications Generic Name Dose Route Start Last Admin Trade Name Freq PRN Reason Stop Dose Admin Dextrose 0 ml 07/27/18 12:56 Dextrose 50% Inj IV STAT PRN Hypoglycemia Protocol Protocol Dextrose 0 gm 07/27/18 12:56 Glutose 15 PO ONCE PRN Hypoglycemia Protocol Protocol Enoxaparin Sodium 90 mg 08/04/18 22:00 08/05/18 10:55 Lovenox SC 90 mg Q12 TULIO Administration Famotidine 20 mg 07/27/18 18:00 08/05/18 10:55 Pepcid PO 20 mg BID TULIO Administration Glucagon 0 mg 07/27/18 12:56 Glucagen Diagnostic Kit IM STAT PRN Hypoglycemia Protocol Protocol Hydrochlorothiazide 12.5 mg 08/01/18 10:00 08/05/18 10:55 Microzide PO 12.5 mg DAILY TULIO Administration Hydromorphone HCl 0.5 mg 08/05/18 03:55 08/05/18 10:15 Dilaudid IVP 0.5 mg Q3H PRN Administration Pain, severe (8-10) Lactated Ringer's 1,000 mls @ 150 mls/hr 08/04/18 16:11 08/05/18 13:41 Lactated Ringer's IV Not Given .Q6H40M TULIO Acetaminophen 100 mls @ 100 mls/hr 08/04/18 16:15 08/05/18 11:15 Ofirmev IV 08/05/18 16:16 100 mls/hr Q6H TULIO Administration BUPIVACAINE 0.125%/0.9% NACL 600 mls @ 4 mls/hr 08/04/18 16:11 08/04/18 17:25 Bupivacaine-Ns 0.125% On-Q Rice Farmer IJ 08/10/18 22:10 0 mls ONCE ONE Administration Metronidazole 500 mg in 100 mls @ 100 mls/hr 08/04/18 22:00 08/05/18 13:38 Flagyl IVPB 08/05/18 14:59 100 mls/hr Q8H TULIO Administration Protocol Insulin Human Regular 0 unit 07/27/18 16:30 08/05/18 12:14 Novolin R SC Not Given ACHS TULIO Protocol Losartan Potassium 50 mg 07/28/18 10:00 08/05/18 10:55 Cozaar PO 50 mg DAILY TULIO Administration Ondansetron HCl 4 mg 08/04/18 17:30 08/05/18 03:57 Zofran Inj IVP 4 mg Q6H PRN Administration Nausea/Vomiting Rosuvastatin Calcium 10 mg 07/27/18 22:00 08/04/18 21:54 Crestor PO 10 mg HS TULIO Administration - Patient Studies Lab Studies: Lab Studies 08/05/18 08/05/1808/05/19 Range/Units 12:17 06:18 06:18 WBC 13.6 H (4.8-10.8) K/uL RBC 3.66 L (3.80-5.20) Mil/uL Hgb 10.1 L (11.0-16.0) g/dL Hct 30.7 L (34.0-47.0) % MCV 83.9 (81.0-99.0) fL MCH 27.6 (27.0-31.0) pg MCHC 32.9 L (33.0-37.0) g/dL RDW 22.0 H (11.5-14.5) % Plt Count 235 (130-400) K/uL MPV 6.9 L (7.2-11.7) fL Neut % (Auto) 84.3 H (50.0-75.0) % Lymph % (Auto) 10.3 L (20.0-40.0) % [place] % (Auto) 5.1 (0.0-10.0) % Eos % (Auto) 0.1 (0.0-4.0) % Baso % (Auto) 0.2 (0.0-2.0) % Neut # (Auto) 11.5 H (1.8-7.0) K/uL Lymph # (Auto) 1.4 (1.0-4.3) K/uL [place] # (Auto) 0.7 (0.0-0.8) K/uL Eos # (Auto) 0.0 (0.0-0.7) K/uL Baso # (Auto) 0.0 (0.0-0.2) K/uL Sodium 135 (132-148) mmol/L Potassium 4.1 (3.6-5.2) mmol/L Chloride 105 (98-107) mmol/L Carbon Dioxide 24 (22-30) mmol/L Anion Gap 11 (10-20) BUN 11 (7-17) mg/dL Creatinine 0.6 L (0.7-1.2) mg/dL Est GFR ( Amer) > 60 Est GFR (Non-Af Amer) > 60 POC Glucose (mg/dL) (65-110) mg/dL Random Glucose 156 H D (65-105) mg/dL Calcium 7.8 L (8.6-10.4) mg/dl Phosphorus 3.6 (2.5-4.5) mg/dL Magnesium 1.7 (1.6-2.3) mg/dL Total Bilirubin 0.3 (0.2-1.3) mg/dL AST 22 (14-36) U/L ALT 23 (9-52) U/L Alkaline Phosphatase 62 (38-126) U/L Total Protein 5.6 L (6.3-8.3) g/dL Albumin 3.0 L (3.5-5.0) g/dL Globulin 2.6 (2.2-3.9) gm/dL Albumin/Globulin Ratio 1.2 (1.0-2.1) Ur Random Sodium 75 mmol/L 08/04/18 Range/Units 16:45 WBC (4.8-10.8) K/uL RBC (3.80-5.20) Mil/uL Hgb (11.0-16.0) g/dL Hct (34.0-47.0) % MCV (81.0-99.0) fL MCH (27.0-31.0) pg MCHC (33.0-37.0) g/dL RDW (11.5-14.5) % Plt Count (130-400) K/uL MPV (7.2-11.7) fL Neut % (Auto) (50.0-75.0) % Lymph % (Auto) (20.0-40.0) % [place] % (Auto) (0.0-10.0) % Eos % (Auto) (0.0-4.0) % Baso % (Auto) (0.0-2.0) % Neut # (Auto) (1.8-7.0) K/uL Lymph # (Auto) (1.0-4.3) K/uL [place] # (Auto) (0.0-0.8) K/uL Eos # (Auto) (0.0-0.7) K/uL Baso # (Auto) (0.0-0.2) K/uL Sodium (132-148) mmol/L Potassium (3.6-5.2) mmol/L Chloride (98-107) mmol/L Carbon Dioxide (22-30) mmol/L Anion Gap (10-20) BUN (7-17) mg/dL Creatinine (0.7-1.2) mg/dL Est GFR ( Amer) Est GFR (Non-Af Amer) POC Glucose (mg/dL) 155 H (65-110) mg/dL Random Glucose (65-105) mg/dL Calcium (8.6-10.4) mg/dl Phosphorus (2.5-4.5) mg/dL Magnesium (1.6-2.3) mg/dL Total Bilirubin (0.2-1.3) mg/dL AST (14-36) U/L ALT (9-52) U/L Alkaline Phosphatase (38-126) U/L Total Protein (6.3-8.3) g/dL Albumin (3.5-5.0) g/dL Globulin (2.2-3.9) gm/dL Albumin/Globulin Ratio (1.0-2.1) Ur Random Sodium mmol/L Laboratory Results - last 24 hr 08/04/18 08/05/18 08/05/18 16:45 06:18 06:18 WBC 13.6 H RBC 3.66 L Hgb 10.1 L Hct 30.7 L MCV 83.9 MCH 27.6 MCHC 32.9 L RDW 22.0 H Plt Count 235 MPV 6.9 L Neut % (Auto) 84.3 H Lymph % (Auto) 10.3 L [place] % (Auto) 5.1 Eos % (Auto) 0.1 Baso % (Auto) 0.2 Neut # (Auto) 11.5 H Lymph # (Auto) 1.4 [place] # (Auto) 0.7 Eos # (Auto) 0.0 Baso # (Auto) 0.0 Sodium 135 Potassium 4.1 Chloride 105 Carbon Dioxide 24 Anion Gap 11 BUN 11 Creatinine 0.6 L Est GFR ( Amer) > 60 Est GFR (Non-Af Amer) > 60 POC Glucose (mg/dL) 155 H Random Glucose 156 H D Calcium 7.8 L Phosphorus 3.6 Magnesium 1.7 Total Bilirubin 0.3 AST 22 ALT 23 Alkaline Phosphatase 62 Total Protein 5.6 L Albumin 3.0 L Globulin 2.6 Albumin/Globulin Ratio 1.2 Ur Random Sodium 08/05/18 12:17 WBC RBC Hgb Hct MCV MCH MCHC RDW Plt Count MPV Neut % (Auto) Lymph % (Auto) [place] % (Auto) Eos % (Auto) Baso % (Auto) Neut # (Auto) Lymph # (Auto) [place] # (Auto) Eos # (Auto) Baso # (Auto) Sodium Potassium Chloride Carbon Dioxide Anion Gap BUN Creatinine Est GFR ( Amer) Est GFR (Non-Af Amer) POC Glucose (mg/dL) Random Glucose Calcium Phosphorus Magnesium Total Bilirubin AST ALT Alkaline Phosphatase Total Protein Albumin Globulin Albumin/Globulin Ratio Ur Random Sodium 75 Fingerstick Blood Sugar Results: 148 Review of Systems - Review of Systems All systems: reviewed and no additional remarkable complaints except Critical Care Progress Note - Nutrition Nutrition: Nutrition Category Date Time Status Liquid Diet [DIET] Diets 08/05/18 Lunch Active Assessment/Plan - Assessment and Plan (Free Text) Assessment: Pt is a 67 y/o female with hx of HTN, DM, Active Smoker and morbid obesity, recently found to have partially obstructing colonic mass in ascending colon with pathology demonstrating adenocarcinoma s/p Hemicolectomy 08/[address] Barrett, now admitted to ICU for close monitoring. Pt initally presenting admitted with symptomatic anemia and was also found to have DVT of L. Upper extremity. 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 Damon - Christel prn Renal - Nephro consulted, Dr. Rai - Retaining urine post-op - --F/u urine Na/urine Cr - Monitor I/O - LR at 150cc/hr - BUN/Crea WNL - Urinary retention Heme/Onc - Anemia, studies c/w Iron Deficiency Anemia. S/P PRBC. C/W IV Iron - DVT- Celiac vein revealing superficial vein thrombosis ; Subclavian vein revealing deep vein thrombosis - Therapeutic Heparin, start tonight - Monitor H/H & platelets - Pathology (Ascending colon biopsy, 07/30): Ulcerated Adenocarcinoma - CEA 10 - CTA/P completed for staging-- malignant appearing mass in ascending colon, no distant mets - Empiric Flagyl for 24 hours as per surgery - Heme/Onc on board, Dr. Boudreaux Endocrine - 6.2 HbA1c, medium dose sliding scale, accuchecks ACHS, hypoglycemic protocol - U/S: enlarged Thyroid bilateral gland, f/u with fine needle bx and a radionucleatide scan - Endocrine, Dr. David johnson - fine needle aspiration following partial colectomy, outpatient vs inpatient PPX DVT: Heparin GI: Pepcid Assessment and plan d/w Dr. Jannette Frost, PGY-1 <Ed Bhatia - Last Filed: 08/05/18 16:08> CCU Objective - Vital Signs / Intake & Output Vital Signs (Last 4 hours): Vital Signs Pulse Resp BP Pulse Ox 08/05/18 15:41 56 L 14 175/124 H 95 08/05/18 15:00 74 13 96 08/05/18 14:00 74 16 96 08/05/18 13:00 76 16 93 L Intake and Output (Last 8hrs): Intake & Output 08/05/18 08/05/18 08/05/18 06:59 14:59 22:59 Intake Total 1100 2070 390 Output Total 290 178 50 Balance 810 1892 340 Intake: Intake, IV Amount 1100 1950 150 Right Upper arm 1100 1950 150 Oral 120 240 Output: Urine 290 178 50 Urethral (Park) 290 178 50 Emesis 0 0 Other: # Bowel Movements 0 1 - Medications Active Medications: Active Medications Generic Name Dose Route Start Last Admin Trade Name Freq PRN Reason Stop Dose Admin Dextrose 0 ml 07/27/18 12:56 Dextrose 50% Inj IV STAT PRN Hypoglycemia Protocol Protocol Dextrose 0 gm 07/27/18 12:56 Glutose 15 PO ONCE PRN Hypoglycemia Protocol Protocol Enoxaparin Sodium 90 mg 08/04/18 22:00 08/05/18 10:55 Lovenox SC 90 mg Q12 TULIO Administration Famotidine 20 mg 07/27/18 18:00 08/05/18 10:55 Pepcid PO 20 mg BID TULIO Administration Glucagon 0 mg 07/27/18 12:56 Glucagen Diagnostic Kit IM STAT PRN Hypoglycemia Protocol Protocol Hydrochlorothiazide 12.5 mg 08/01/18 10:00 08/05/18 10:55 Microzide PO 12.5 mg DAILY TULIO Administration Hydromorphone HCl 0.5 mg 08/05/18 03:55 08/05/18 15:50 Dilaudid IVP 0.5 mg Q3H PRN Administration Pain, severe (8-10) Lactated Ringer's 1,000 mls @ 150 mls/hr 08/04/18 16:11 08/05/18 13:41 Lactated Ringer's IV Not Given .Q6H40M TULIO Acetaminophen 100 mls @ 100 mls/hr 08/04/18 16:15 08/05/18 11:15 Ofirmev IV 08/05/18 16:16 100 mls/hr Q6H TULIO Administration BUPIVACAINE 0.125%/0.9% NACL 600 mls @ 4 mls/hr 08/04/18 16:11 08/04/18 17:25 Bupivacaine-Ns 0.125% On-Q Rice Farmer IJ 08/10/18 22:10 0 mls ONCE ONE Administration Insulin Human Regular 0 unit 07/27/18 16:30 08/05/18 12:14 Novolin R SC Not Given ACHS TULIO Protocol Losartan Potassium 50 mg 07/28/18 10:00 08/05/18 10:55 Cozaar PO 50 mg DAILY TULIO Administration Ondansetron HCl 4 mg 08/04/18 17:30 08/05/18 15:50 Zofran Inj IVP 4 mg Q6H PRN Administration Nausea/Vomiting Rosuvastatin Calcium 10 mg 07/27/18 22:00 08/04/18 21:54 Crestor PO 10 mg HS TULIO Administration - Patient Studies Lab Studies: Lab Studies 08/05/18 08/05/18 08/05/18 Range/Units 12:17 06:18 06:18 WBC 13.6 H (4.8-10.8) K/uL RBC 3.66 L (3.80-5.20) Mil/uL Hgb 10.1 L (11.0-16.0) g/dL Hct 30.7 L (34.0-47.0) % MCV 83.9 (81.0-99.0) fL MCH 27.6 (27.0-31.0) pg MCHC 32.9 L (33.0-37.0) g/dL RDW 22.0 H (11.5-14.5) % Plt Count 235 (130-400) K/uL MPV 6.9 L (7.2-11.7) fL Neut % (Auto) 84.3 H (50.0-75.0) % Lymph % (Auto) 10.3 L (20.0-40.0) % [place] % (Auto) 5.1 (0.0-10.0) % Eos % (Auto) 0.1 (0.0-4.0) % Baso % (Auto) 0.2 (0.0-2.0) % Neut # (Auto) 11.5 H (1.8-7.0) K/uL Lymph # (Auto) 1.4 (1.0-4.3) K/uL [place] # (Auto) 0.7 (0.0-0.8) K/uL Eos # (Auto) 0.0 (0.0-0.7) K/uL Baso # (Auto) 0.0 (0.0-0.2) K/uL Sodium 135 (132-148) mmol/L Potassium 4.1 (3.6-5.2) mmol/L Chloride 105 (98-107) mmol/L Carbon Dioxide 24 (22-30) mmol/L Anion Gap 11 (10-20) BUN 11 (7-17) mg/dL Creatinine 0.6 L (0.7-1.2) mg/dL Est GFR ( Amer) > 60 Est GFR (Non-Af Amer) > 60 POC Glucose (mg/dL) (65-110) mg/dL Random Glucose 156 H D (65-105) mg/dL Calcium 7.8 L (8.6-10.4) mg/dl Phosphorus 3.6 (2.5-4.5) mg/dL Magnesium 1.7 (1.6-2.3) mg/dL Total Bilirubin 0.3 (0.2-1.3) mg/dL AST 22 (14-36) U/L ALT 23 (9-52) U/L Alkaline Phosphatase 62 (38-126) U/L Total Protein 5.6 L (6.3-8.3) g/dL Albumin 3.0 L (3.5-5.0) g/dL Globulin 2.6 (2.2-3.9) gm/dL Albumin/Globulin Ratio 1.2 (1.0-2.1) Ur Random Creatinine 240.9 mg/dL Ur Random Sodium 75 mmol/L 08/04/18 Range/Units 16:45 WBC (4.8-10.8) K/uL RBC (3.80-5.20) Mil/uL Hgb (11.0-16.0) g/dL Hct (34.0-47.0) % MCV (81.0-99.0) fL MCH (27.0-31.0) pg MCHC (33.0-37.0) g/dL RDW (11.5-14.5) % Plt Count (130-400) K/uL MPV (7.2-11.7) fL Neut % (Auto) (50.0-75.0) % Lymph % (Auto) (20.0-40.0) % [place] % (Auto) (0.0-10.0) % Eos % (Auto) (0.0-4.0) % Baso % (Auto) (0.0-2.0) % Neut # (Auto) (1.8-7.0) K/uL Lymph # (Auto) (1.0-4.3) K/uL [place] # (Auto) (0.0-0.8) K/uL Eos # (Auto) (0.0-0.7) K/uL Baso # (Auto) (0.0-0.2) K/uL Sodium (132-148) mmol/L Potassium (3.6-5.2) mmol/L Chloride (98-107) mmol/L Carbon Dioxide (22-30) mmol/L Anion Gap (10-20) BUN (7-17) mg/dL Creatinine (0.7-1.2) mg/dL Est GFR ( Amer) Est GFR (Non-Af Amer) POC Glucose (mg/dL) 155 H (65-110) mg/dL Random Glucose (65-105) mg/dL Calcium (8.6-10.4) mg/dl Phosphorus (2.5-4.5) mg/dL Magnesium (1.6-2.3) mg/dL Total Bilirubin (0.2-1.3) mg/dL AST (14-36) U/L ALT (9-52) U/L Alkaline Phosphatase (38-126) U/L Total Protein (6.3-8.3) g/dL Albumin (3.5-5.0) g/dL Globulin (2.2-3.9) gm/dL Albumin/Globulin Ratio (1.0-2.1) Ur Random Creatinine mg/dL Ur Random Sodium mmol/L Laboratory Results - last 24 hr 08/04/18 08/05/18 08/05/18 16:45 06:18 06:18 WBC 13.6 H RBC 3.66 L Hgb 10.1 L Hct 30.7 L MCV 83.9 MCH 27.6 MCHC 32.9 L RDW 22.0 H Plt Count 235 MPV 6.9 L Neut % (Auto) 84.3 H Lymph % (Auto) 10.3 L [place] % (Auto) 5.1 Eos % (Auto) 0.1 Baso % (Auto) 0.2 Neut # (Auto) 11.5 H Lymph # (Auto) 1.4 [place] # (Auto) 0.7 Eos # (Auto) 0.0 Baso # (Auto) 0.0 Sodium 135 Potassium 4.1 Chloride 105 Carbon Dioxide 24 Anion Gap 11 BUN 11 Creatinine 0.6 L Est GFR ( Amer) > 60 Est GFR (Non-Af Amer) > 60 POC Glucose (mg/dL) 155 H Random Glucose 156 H D Calcium 7.8 L Phosphorus 3.6 Magnesium 1.7 Total Bilirubin 0.3 AST 22 ALT 23 Alkaline Phosphatase 62 Total Protein 5.6 L Albumin 3.0 L Globulin 2.6 Albumin/Globulin Ratio 1.2 Ur Random Creatinine Ur Random Sodium 08/05/18 12:17 WBC RBC Hgb Hct MCV MCH MCHC RDW Plt Count MPV Neut % (Auto) Lymph % (Auto) [place] % (Auto) Eos % (Auto) Baso % (Auto) Neut # (Auto) Lymph # (Auto) [place] # (Auto) Eos # (Auto) Baso # (Auto) Sodium Potassium Chloride Carbon Dioxide Anion Gap BUN Creatinine Est GFR ( Amer) Est GFR (Non-Af Amer) POC Glucose (mg/dL) Random Glucose Calcium Phosphorus Magnesium Total Bilirubin AST ALT Alkaline Phosphatase Total Protein Albumin Globulin Albumin/Globulin Ratio Ur Random Creatinine 240.9 Ur Random Sodium 75 Critical Care Progress Note - Nutrition Nutrition: Nutrition Category Date Time Status Liquid Diet [DIET] Diets 08/05/18 Lunch Active Attending/Attestation - Attestation I have personally seen and examined this patient.: Yes I have fully participated in the care of the patient.: Yes I have reviewed all pertinent clinical information: Yes Notes (Text): 08/05/18 16:02 I have seen and examined the patient. Medical records, lab studies, and imaging were reviewed by me and a management plan was formulated on multidisciplinary rounds with resident Dr. Frost. I agree with their documented assessment and plan. Patient is recovering from recent hemicolectomy. Is in a pre-renal state, FeNA<1%, hydrating with 3L bolus and maintenance of LR@150, will monitor for i ncreased urine output, then stop. Critical Care Time 35 minutes. Multi-disciplinary rounds were performed with house staff, nursing, speech therapy, respiratory therapy, pharmacy and nutrition with integrated input from the primary team/attending and other consulting services. The documented time is cumulative and includes review of patient data/exams/labs/chart review and examination of the patient on rounds and throughout the day; time is exclusive of any procedures or teaching time.
--- NOTE | 2018-08-05 14:42 | CP.PCM.CON ---
History of Present Illness - History of Present Illness History of Present Illness: Nephrology Consultation Note: Assessment: Stable oliguria likely hypovolemia ? ATN due to hypotension diabetes Mellitus hypertension morbid obesity colon CA s/p Rt hemicolectomy 08/04/18 Anemia Plan No acute need for renal replacement therapy at this time. Hypertension control with meds as ordered. Maintain hemodynamics stable. Avoid hypotension. Monitor Input/Output, daily weights and renal function with basic metabolic panel continue with IVF flush finney supplement lytes as needed check Urine Na, Cr Dose meds/antibiotics for GFR >60 Glycemic control Further work up/management as per primary team Thanks for allowing me to participate in care of your patient. Will follow patient with you. Please call if any Qs. had d/w team Dr Giovanni Rai Office: [phone] Chief Complaint; pain Reason for consult: low urine output HPI: Pt is a 67 F with hx of diabetes Mellitus ( years), hypertension (years) morbid obesity presented with complaints of anemia and found to have colonic mass s/p Rt hemicolectomy 08/04/18. post-op urine output is noted to be low hence renal consulted Denies OTC/herbal meds or NSAIDs No recent iodinated contrast exposure. Noted obvious episodes of low BP during surgery. BP was low at 90/50s towards the end. ROS: Cardiovascular: No chest pain. Pulmonary: No shortness of breath Gastrointestinal: c/o abdominal pain at surgical site No nausea. No vomiting. Genitourinary: No pain while urinating. Denies blood in urine. has finney All other negative except as mentioned in HPI Physical Examination: General Appearance: Comfortable, in no acute respiratory distress, co-operative . obese Vitals reviewed and noted as below Head; Atraumatic, normocephalic ENT: no ulcers no thrush. Tongue is midline. Oropharynx: no rash or ulcers. EYES: Pupils are equal, round and reactive to light accommodation. Eye muscles and extraocular movement intact. Sclera is anicteric. Neck; supple no lymphadenopathy, no thyromegaly or bruit Lungs: Normal respiratory rate/effort. Breath sounds bilateral equal and clear Heart: Normal rate. s1s2 normal. No rub or gallop. Extremities: no edema. No varicose veins Neurological: Patient is alert, awake and oriented to person, place and time. No focal deficit. Strength bilateral appropriate and equal Skin: Warm and dry. Normal turgor. No rash. Palpitation: Normal elasticity for age Abdomen: Abdomen is soft. Bowel sounds +. There is no abdominal tenderness, no guarding/rigidity no organomegaly. s/p surgery, has abdominal binder. exam overall limited Psych: normal insight and normal affect/mood MSK: no joint tenderness or swelling. Digits and nails normal, no deformity : kidney or bladder not palpable. has finney Labs/imaging reviewed. Past medical history, past surgical history, family history, social history, allergy reviewed and noted as below Family hx: no hx of CKD. Rest non-contributory Past Patient History - Infectious Disease Hx of Infectious Diseases: None - Past Medical History & Family History Past Medical History?: Yes - Past Social History Smoking Status: Light Smoker < 10 Cigarettes Daily - CARDIAC Hx Hypertension: Yes - PULMONARY Hx Respiratory Disorders: No - NEUROLOGICAL Hx Neurological Disorder: Yes Hx Dizziness: Yes - HEENT Hx HEENT Problems: No - RENAL Hx Chronic Kidney Disease: No - ENDOCRINE/METABOLIC Hx Endocrine Disorders: Yes Hx Diabetes Mellitus Type 2: Yes - HEMATOLOGICAL/ONCOLOGICAL Hx Cancer: No - INTEGUMENTARY Hx Dermatological Problems: No - MUSCULOSKELETAL/RHEUMATOLOGICAL Hx Musculoskeletal Disorders: Yes Hx Falls: Yes - GASTROINTESTINAL Hx Gastrointestinal Disorders: No - GENITOURINARY/GYNECOLOGICAL Hx Genitourinary Disorders: No - PSYCHIATRIC Hx Substance Use: No - SURGICAL HISTORY Hx Cholecystectomy: Yes - ANESTHESIA Hx Anesthesia: Yes Hx Anesthesia Reactions: No Hx Malignant Hyperthermia: No Meds Allergies/Adverse Reactions: Allergies Allergy/AdvReac Type Severity Reaction Status Date / Time No Known Allergies Allergy Verified 01/23/16 00:49 - Medications Medications: Current Medications Dextrose (Dextrose 50% Inj) 0 ml IV STAT PRN; Protocol PRN Reason: Hypoglycemia Protocol Dextrose (Glutose 15) 0 gm PO ONCE PRN; Protocol PRN Reason: Hypoglycemia Protocol Enoxaparin Sodium (Lovenox) 90 mg SC Q12 [facility] Last Admin: 08/05/18 10:55 Dose: 90 mg Famotidine (Pepcid) 20 mg PO BID [facility] Last Admin: 08/05/18 10:55 Dose: 20 mg Glucagon (Glucagen Diagnostic Kit) 0 mg IM STAT PRN; Protocol PRN Reason: Hypoglycemia Protocol Hydrochlorothiazide (Microzide) 12.5 mg PO DAILY [facility] Last Admin: 08/05/18 10:55 Dose: 12.5 mg Hydromorphone HCl (Dilaudid) 0.5 mg IVP Q3H PRN PRN Reason: Pain, severe (8-10) Last Admin: 08/05/18 10:15 Dose: 0.5 mg Lactated Ringer's (Lactated Ringer's) 1,000 mls @ 150 mls/hr IV .Q6H40M [facility] Last Admin: 08/05/18 13:41 Dose: Not Given Acetaminophen (Ofirmev) 100 mls @ 100 mls/hr IV Q6H [facility] Stop: 08/05/18 16:16 Last Admin: 08/05/18 11:15 Dose: 100 mls/hr BUPIVACAINE 0.125%/0.9% NACL (Bupivacaine-Ns 0.125% On-Q Bpm Analyst) 600 mls @ 4 mls/hr IJ ONCE ONE Stop: 08/10/18 22:10 Last Admin: 08/04/18 17:25 Dose: 0 mls Metronidazole (Flagyl) 500 mg in 100 mls @ 100 mls/hr IVPB Q8H [facility]; Protocol Stop: 08/05/18 14:59 Last Admin: 08/05/18 13:38 Dose: 100 mls/hr Insulin Human Regular (Novolin R) 0 unit SC ACHS [facility]; Protocol Last Admin: 08/05/18 12:14 Dose: Not Given Losartan Potassium (Cozaar) 50 mg PO DAILY [facility] Last Admin: 08/05/18 10:55 Dose: 50 mg Ondansetron HCl (Zofran Inj) 4 mg IVP Q6H PRN PRN Reason: Nausea/Vomiting Last Admin: 08/05/18 03:57 Dose: 4 mg Rosuvastatin Calcium (Crestor) 10 mg PO HS [facility] Last Admin: 08/04/18 21:54 Dose: 10 mg Results - Vital Signs Recent Vital Signs: Last Vital Signs Temp 98.8 F 08/05/18 04:00 Pulse 76 08/05/18 13:00 Resp 16 08/05/18 13:00 BP 142/65 08/05/18 11:14 Pulse Ox 93 L 08/05/18 13:00 - Labs Result Diagrams: 08/05/18 06:18 08/05/18 06:18 Labs: Laboratory Results - last 24 hr 08/04/18 08/05/18 08/05/18 16:45 06:18 06:18 WBC 13.6 H RBC 3.66 L Hgb 10.1 L Hct 30.7 L MCV 83.9 MCH 27.6 MCHC 32.9 L RDW 22.0 H Plt Count 235 MPV 6.9 L Neut % (Auto) 84.3 H Lymph % (Auto) 10.3 L [place] % (Auto) 5.1 Eos % (Auto) 0.1 Baso % (Auto) 0.2 Neut # (Auto) 11.5 H Lymph # (Auto) 1.4 [place] # (Auto) 0.7 Eos # (Auto) 0.0 Baso # (Auto) 0.0 Sodium 135 Potassium 4.1 Chloride 105 Carbon Dioxide 24 Anion Gap 11 BUN 11 Creatinine 0.6 L Est GFR ( Amer) > 60 Est GFR (Non-Af Amer) > 60 POC Glucose (mg/dL) 155 H Random Glucose 156 H D Calcium 7.8 L Phosphorus 3.6 Magnesium 1.7 Total Bilirubin 0.3 AST 22 ALT 23 Alkaline Phosphatase 62 Total Protein 5.6 L Albumin 3.0 L Globulin 2.6 Albumin/Globulin Ratio 1.2 Ur Random Sodium 08/05/18 12:17 WBC RBC Hgb Hct MCV MCH MCHC RDW Plt Count MPV Neut % (Auto) Lymph % (Auto) [place] % (Auto) Eos % (Auto) Baso % (Auto) Neut # (Auto) Lymph # (Auto) [place] # (Auto) Eos # (Auto) Baso # (Auto) Sodium Potassium Chloride Carbon Dioxide Anion Gap BUN Creatinine Est GFR ( Amer) Est GFR (Non-Af Amer) POC Glucose (mg/dL) Random Glucose Calcium Phosphorus Magnesium Total Bilirubin AST ALT Alkaline Phosphatase Total Protein Albumin Globulin Albumin/Globulin Ratio Ur Random Sodium 75
[2018-08-05 15:14] LABS: CREATININE, RANDOM URINE 240.9 mg/dL
[2018-08-05] MEDS ORDERED: Sodium Chloride 0.9% 1,000 ML IV ONE ×2 (18:12→23:53)
--- NOTE | 2018-08-05 21:04 | PN ---
DATE: 08/05/2018 ENDOCRINOLOGY FOLLOWUP NOTE LOCATION: ICU room 8. This is a 67-year-old female with recent admission for marked anemia and evaluated to have a right colonic mass lesion and underwent today a right hemicolectomy and has been transferred to ICU for closer hemodynamic monitoring. She also had an incidental finding of a multinodular goiter with a dominant right thyroid nodule as noted. No overt compression symptoms have been noted otherwise in the neck area. No dysphonia or dysphagia as noted. Her thyroid ultrasound showed the presence of a large dominant thyroid nodule in the right lobe with an underlying multinodular goiter confirmed from the large dimensions of both the right and left lobes as noted. A fine-needle aspiration biopsy of the dominant right thyroid nodule would be recommended once she has improved clinically postoperatively either while inpatient or even done electively as outpatient to further elucidate the nature of the dominant right thyroid nodule. We will continue her low-dose correction scale using Novolin regular insulin as given. As her oral intake is improved and advanced, then we will start her back on a more physiologic basal and bolus insulin drug combination as indicated. We will obtain serial chemistries and supplement accordingly as needed. We will follow. Kathy Hernandez MD
--- NOTE | 2018-08-05 21:36 | PN ---
DATE: 08/05/2018 LOCATION: ICU 8. SUBJECTIVE: This is a 67-year-old female post right hemicolectomy, seen and examined in the intensive care unit without significant clinical changes, but intermittent period of abdominal pain. No chest pain or palpitation. The entire chart is reviewed including but not limited to the most recent lab and radiology study results, current and the previous medication list and today's lab showed leukocytosis of 13.6, hemoglobin 10.1, hematocrit 30.7 with normal platelet count, blood glucose level 156, calcium 7.8, albumin 3, and total protein 5.6. PHYSICAL EXAMINATION: GENERAL: A 67-year-old female. VITAL SIGNS: Afebrile with pulse of 74, respiratory rate 20-22, and blood pressure of 140/64. HEENT: Showed pale, dry oral mucous membrane. Nonicteric sclerae. LUNGS: Few scattered crepitation. Decreased air entry at bases. HEART: Positive S1 and S2. ABDOMEN: Soft with mild generalized tenderness, the side of a recently done surgery appears to be intact. Abdominal dressing was observed without any discharge. EXTREMITIES: Lower extremity edematous changes. No clubbing or cyanosis. NEUROLOGICAL: No reported new neurological deficits, sensory or motor. IMPRESSION: 1. Right-sided with status post right manuel colectomy. 2. Anemia, most likely secondary to above. 3. Re-exacerbation of peptic ulcer disease. 4. A period of hyperglycemia, which so far poorly-controlled. Known history of cardiomegaly, hypertension, and severe anxiety syndrome. 5. Abnormal CAT scan of the abdomen and pelvis. SUGGESTIONS: 1. Continue current management. 2. Antireflux measures. 3. Further recommendation to follow and the patient will need followup colonoscopy after 1 year or as indicated. Winter Ellis MD
[2018-08-06] MEDS: Lactated Ringer's 1,000 ML IV SCH ×3 (01:31→08:02)
--- NOTE | 2018-08-06 07:52 | CP.PCM.PN ---
Subjective - Date & Time of Evaluation Date of Evaluation: 08/06/18 Time of Evaluation: 07:49 - Subjective Subjective: Surgery: Dr. Barrett Patient reports More pain than yesterday and had problems sleeping last night. She denies cp or SOB. She was OOB to chair for most of yesterday. Last night patient adamant about finney removal and has voided freely 700cc since 0100 today. She is tolerating CLD and per patient + flatus with small BM last night. Objective - Vital Signs/Intake and Output Vital Signs (last 24 hours): Temp Pulse Resp BP Pulse Ox 98.6 F 76 22 171/67 H 96 08/06/18 04:00 08/06/18 07:13 08/06/18 07:13 08/06/18 07:13 08/06/18 06:00 Intake and Output: 08/06/18 08/06/18 06:59 18:59 Intake Total 2800 150 Output Total 700 Balance 2100 150 - Medications Medications: Current Medications Dextrose (Dextrose 50% Inj) 0 ml IV STAT PRN; Protocol PRN Reason: Hypoglycemia Protocol Dextrose (Glutose 15) 0 gm PO ONCE PRN; Protocol PRN Reason: Hypoglycemia Protocol Enoxaparin Sodium (Lovenox) 90 mg SC Q12 [facility] Last Admin: 08/05/18 22:00 Dose: 90 mg Famotidine (Pepcid) 20 mg PO BID [facility] Last Admin: 08/05/18 18:07 Dose: 20 mg Glucagon (Glucagen Diagnostic Kit) 0 mg IM STAT PRN; Protocol PRN Reason: Hypoglycemia Protocol Hydromorphone HCl (Dilaudid) 0.5 mg IVP Q3H PRN PRN Reason: Pain, severe (8-10) Last Admin: 08/05/18 20:38 Dose: 0.5 mg Lactated Ringer's (Lactated Ringer's) 1,000 mls @ 150 mls/hr IV .Q6H40M [facility] Last Admin: 08/06/18 04:16 Dose: 150 mls/hr BUPIVACAINE 0.125%/0.9% NACL (Bupivacaine-Ns 0.125% On-Q Bale Stacker) 600 mls @ 4 mls/hr IJ ONCE ONE Stop: 08/10/18 22:10 Last Admin: 08/04/18 17:25 Dose: 0 mls Insulin Human Regular (Novolin R) 0 unit SC ACHS [facility]; Protocol Last Admin: 08/05/18 22:00 Dose: Not Given Ondansetron HCl (Zofran Inj) 4 mg IVP Q6H PRN PRN Reason: Nausea/Vomiting Last Admin: 08/05/18 22:04 Dose: 4 mg Rosuvastatin Calcium (Crestor) 10 mg PO HS [facility] Last Admin: 08/05/18 22:04 Dose: 10 mg - Labs Labs: 08/05/18 06:18 08/05/18 06:18 PT 14.1 SECONDS (9.7-12.2) H 08/04/18 08:17 INR 1.3 08/04/18 08:17 APTT 35.0 SECONDS (21-34) H 08/04/18 08:17 - Constitutional Appears: Non-toxic, No Acute Distress - Head Exam Head Exam: ATRAUMATIC, NORMOCEPHALIC - Eye Exam Eye Exam: EOMI, Normal appearance - ENT Exam ENT Exam: Mucous Membranes Moist - Respiratory Exam Respiratory Exam: NORMAL BREATHING PATTERN. absent: Respiratory Distress - Cardiovascular Exam Cardiovascular Exam: REGULAR RHYTHM. absent: Tachycardia - GI/Abdominal Exam GI & Abdominal Exam: Distended, Soft. absent: Guarding, Tenderness, Rebound Assessment and Plan - Assessment and Plan (Free Text) Assessment: 67 y/o female s/p right hemicolectomy POD2 Plan: -cont CLD -monitor BM -OOB ambulating -may consider FLD today -cont lovenox -f/u labs -oral pain medication -f/u path -no further abx required for post op -medical management per primary -further recs per Dr. Barrett [facility] PGY4
[2018-08-06] MEDS: (Novolin R) Insulin Human Regular 100 units/ml vial SC SCH ×4 (08:01→21:08)
[2018-08-06] MEDS: HYDROmorphone 0.5 mg/0.5 ml ISec IVP PRN ×2 (08:01→15:38)
[2018-08-06] MEDS ORDERED: oxyCODONE 10 mg Immediate Release Tab PO PRN (09:00)
--- NOTE | 2018-08-06 10:00 | PN ---
DATE: 08/06/2018 LOCATION: ICU 8. SUBJECTIVE: This 67-year-old female, seen and examined early in rounds with postoperative abdominal pain, but no passing gas and no reported bowel movement. The entire chart is reviewed including but not limited to the most recent lab and radiology study results and today's lab results still pending. However, the patient has leukocytosis with low hemoglobin and hematocrit but normal platelet count with increased blood glucose level, low calcium, low albumin and low total protein. On record, no reported chills or fever. No chest pain or palpitation or evidence of active bleeding postsurgically. PHYSICAL EXAMINATION: GENERAL: A 67-year-old female. VITAL SIGNS: Afebrile with pulse of 72, respiratory rate 20 to 22 with blood pressure of 168/64. HEENT: Showed pale, dry, mucous membrane. Nonicteric sclerae. LUNGS: Few scattered crepitation. Decreased air entry at bases. HEART: Positive S1 and S2. ABDOMEN: Soft with moderate generalized tenderness covered with clean dressing, bowel sounds are negative. No mass or organomegaly. EXTREMITIES: With mild lower extremity edematous changes. No clubbing or cyanosis. NEUROLOGIC: No reported new neurological deficits, sensory or motor. IMPRESSION: 1. Right-sided colon carcinoma with status post right hemicolectomy. 2. Peptic ulcer disease. 3. Anemia, most likely secondary to above. 4. Hyperglycemia, poorly controlled. 5. Known history of hypertension, cardiomegaly, severe anxiety syndrome. 6. Abnormal CAT scan of the abdomen and pelvis. SUGGESTIONS: 1. Continue current management. 2. Follow up with Oncology-Hematology. 3. Followup colonoscopy after 1 year. 4. Peripheral hyperalimentation. 5,. Further recommendation to follow. Case discussed at length with the [employer] consultant. Winter Ellis MD
[2018-08-06] MEDS: Enoxaparin 100 mg Syringe SC SCH ×2 (10:56→21:23)
[2018-08-06 11:28] LABS: BASO # 0.1 K/uL (0.0-0.2); BASO % 0.7 % (0.0-2.0); EOS % 0.1 % (0.0-4.0); HEMOGLOBIN 9.1 g/dL (11.0-16.0); LYMPH # 2.2 K/uL (1.0-4.3); MEAN CELL VOLUME 83.1 fL (81.0-99.0); MEAN CORPUSCULAR HEMOGLOBIN 27.3 pg (27.0-31.0); MEAN CORPUSCULAR HGB CONC 32.8 g/dL (33.0-37.0); MEAN PLATELET VOLUME 7.5 fL (7.2-11.7); MONO # 0.8 K/uL (0.0-0.8); MONO % 5.2 % (0.0-10.0); NEUT # 12.5 K/uL (1.8-7.0); RBC 3.34 Mil/uL (3.80-5.20); RED CELL DISTRIBUTION WIDTH 22.2 % (11.5-14.5); WHITE BLOOD COUNT 15.6 K/uL (4.8-10.8)
[2018-08-06 11:58] LABS: ALB/GLOB RATIO 1.1 (1.0-2.1); ALBUMIN 2.9 g/dL (3.5-5.0); ALT/SGPT 17 U/L (9-52); AST/SGOT 21 U/L (14-36); BLOOD UREA NITROGEN 7 mg/dL (7-17); CALCIUM 7.7 mg/dl (8.6-10.4); GFR NON-AFRICAN AMERICAN > 60
--- NOTE | 2018-08-06 13:24 | CP.PCM.PN ---
Subjective - Date & Time of Evaluation Date of Evaluation: 08/06/18 Time of Evaluation: 13:22 - Subjective Subjective: Nephrology Consultation Note: Assessment: Stable oliguria likely hypovolemia as FeNa 0.1%: improved diabetes Mellitus hypertension with urgency morbid obesity colon CA s/p Rt hemicolectomy 08/04/18 Anemia Plan No acute need for renal replacement therapy at this time. Hypertension control with meds as ordered. Maintain hemodynamics stable. Avoid hypotension. increase losartan 100 mg/d. added norvasc as well Monitor Input/Output, daily weights and renal function with basic metabolic panel pt on diet, UOP better and cr stable. okay to be off fluid supplement lytes as needed Dose meds/antibiotics for GFR >60 Glycemic control Further work up/management as per primary team Thanks for allowing me to participate in care of your patient. Will follow patient with you for HTN management. Please call if any Qs. had d/w team Dr Giovanni Rai Office: [phone] Chief Complaint; pain Reason for consult: low urine output HPI: Pt is a 67 F with hx of diabetes Mellitus ( years), hypertension (years) morbid obesity presented with complaints of anemia and found to have colonic mass s/p Rt hemicolectomy 08/04/18. post-op urine output is noted to be low hence renal consulted Denies OTC/herbal meds or NSAIDs No recent iodinated contrast exposure. Noted obvious episodes of low BP during surgery. BP was low at 90/50s towards the end. ROS: making more urine. BP high overnight Cardiovascular: No chest pain. Pulmonary: No shortness of breath Gastrointestinal: c/o abdominal pain at surgical site No nausea. No vomiting. Genitourinary: No pain while urinating. Denies blood in urine. All other negative except as mentioned in HPI Physical Examination: General Appearance: Comfortable, in no acute respiratory distress, co-operative . obese Vitals reviewed and noted as below Head; Atraumatic, normocephalic ENT: no ulcers no thrush. Tongue is midline. Oropharynx: no rash or ulcers. EYES: Pupils are equal, round and reactive to light accommodation. Eye muscles and extraocular movement intact. Sclera is anicteric. Neck; supple no lymphadenopathy, no thyromegaly or bruit Lungs: Normal respiratory rate/effort. Breath sounds bilateral equal and clear Heart: Normal rate. s1s2 normal. No rub or gallop. Extremities: no edema. No varicose veins Neurological: Patient is alert, awake and oriented to person, place and time. No focal deficit. Strength bilateral appropriate and equal Skin: Warm and dry. Normal turgor. No rash. Palpitation: Normal elasticity for age Abdomen: Abdomen is soft. Bowel sounds +. There is no abdominal tenderness, no guarding/rigidity no organomegaly. s/p surgery, has abdominal binder. exam overall limited Psych: normal insight and normal affect/mood MSK: no joint tenderness or swelling. Digits and nails normal, no deformity : kidney or bladder not palpable. has finney Labs/imaging reviewed. Past medical history, past surgical history, family history, social history, allergy reviewed and noted as below Family hx: no hx of CKD. Rest non-contributory Objective - Vital Signs/Intake and Output Vital Signs (last 24 hours): Temp Pulse Resp BP Pulse Ox 98.6 F 82 10 L 149/66 97 08/06/18 08:00 08/06/18 11:16 08/06/18 11:16 08/06/18 11:16 08/06/18 11:16 Intake and Output: 08/06/18 08/06/18 06:59 18:59 Intake Total 2800 300 Output Total 700 400 Balance 2100 -100 - Medications Medications: Current Medications Acetaminophen (Tylenol 325mg Tab) 650 mg PO Q6 [facility] Last Admin: 08/06/18 12:01 Dose: Not Given Amlodipine Besylate (Norvasc) 5 mg PO DAILY [facility] Last Admin: 08/06/18 12:00 Dose: 5 mg Cyclobenzaprine HCl (Flexeril) 5 mg PO TID [facility] Last Admin: 08/06/18 10:56 Dose: 5 mg Dextrose (Dextrose 50% Inj) 0 ml IV STAT PRN; Protocol PRN Reason: Hypoglycemia Protocol Dextrose (Glutose 15) 0 gm PO ONCE PRN; Protocol PRN Reason: Hypoglycemia Protocol Enoxaparin Sodium (Lovenox) 90 mg SC Q12 [facility] Last Admin: 08/06/18 10:56 Dose: 90 mg Famotidine (Pepcid) 20 mg PO BID [facility] Last Admin: 08/06/18 10:57 Dose: 20 mg Glucagon (Glucagen Diagnostic Kit) 0 mg IM STAT PRN; Protocol PRN Reason: Hypoglycemia Protocol Hydromorphone HCl (Dilaudid) 0.5 mg IVP Q6H PRN PRN Reason: Pain, severe (8-10) BUPIVACAINE 0.125%/0.9% NACL (Bupivacaine-Ns 0.125% On-Q Shaper Set Up Operator) 600 mls @ 4 mls/hr IJ ONCE ONE Stop: 08/10/18 22:10 Last Admin: 08/04/18 17:25 Dose: 0 mls Insulin Human Regular (Novolin R) 0 unit SC [facility]; Protocol Last Admin: 08/06/18 12:00 Dose: 2 units Losartan Potassium (Cozaar) 100 mg PO DAILY [facility] Ondansetron HCl (Zofran Inj) 4 mg IVP Q6H PRN PRN Reason: Nausea/Vomiting Last Admin: 08/06/18 08:01 Dose: 4 mg Oxycodone HCl (Oxycodone Immediate Release Tab) 5 mg PO Q6H PRN PRN Reason: Pain, Mild (1-3) Oxycodone HCl (Oxycodone Immediate Release Tab) 10 mg PO Q6H PRN PRN Reason: Pain, moderate (4-7) Rosuvastatin Calcium (Crestor) 10 mg PO HS [facility] Last Admin: 08/05/18 22:04 Dose: 10 mg - Labs Labs: 08/06/18 11:22 08/06/18 11:22 PT 14.1 SECONDS (9.7-12.2) H 08/04/18 08:17 INR 1.3 08/04/18 08:17 APTT 35.0 SECONDS (21-34) H 08/04/18 08:17
--- NOTE | 2018-08-06 14:43 | CP.PCM.PN ---
Subjective - Date & Time of Evaluation Date of Evaluation: 08/06/18 Time of Evaluation: 14:00 - Subjective Subjective: Seen and examined by me. patient is lying down on bed comfortable. Her abdominal and left arm pain is better. faley cath was removed,passing urine well,started on liquid diet by surgery. blood pressure was high,started on amlodipine and Lorsartan dose increased Refuses abdominal exam.state that the other doctors examined her already Objective - Vital Signs/Intake and Output Vital Signs (last 24 hours): Temp Pulse Resp BP Pulse Ox 98.6 F 82 10 L 149/66 97 08/06/18 08:00 08/06/18 11:16 08/06/18 11:16 08/06/18 11:16 08/06/18 11:16 Intake and Output: 08/06/18 08/06/18 06:59 18:59 Intake Total 2800 300 Output Total 700 400 Balance 2100 -100 - Medications Medications: Current Medications Acetaminophen (Tylenol 325mg Tab) 650 mg PO Q6 [facility] Last Admin: 08/06/18 12:01 Dose: Not Given Amlodipine Besylate (Norvasc) 5 mg PO DAILY [facility] Last Admin: 08/06/18 12:00 Dose: 5 mg Cyclobenzaprine HCl (Flexeril) 5 mg PO TID [facility] Last Admin: 08/06/18 10:56 Dose: 5 mg Dextrose (Dextrose 50% Inj) 0 ml IV STAT PRN; Protocol PRN Reason: Hypoglycemia Protocol Dextrose (Glutose 15) 0 gm PO ONCE PRN; Protocol PRN Reason: Hypoglycemia Protocol Enoxaparin Sodium (Lovenox) 90 mg SC Q12 [facility] Last Admin: 08/06/18 10:56 Dose: 90 mg Famotidine (Pepcid) 20 mg PO BID [facility] Last Admin: 08/06/18 10:57 Dose: 20 mg Glucagon (Glucagen Diagnostic Kit) 0 mg IM STAT PRN; Protocol PRN Reason: Hypoglycemia Protocol Hydromorphone HCl (Dilaudid) 0.5 mg IVP Q6H PRN PRN Reason: Pain, severe (8-10) BUPIVACAINE 0.125%/0.9% NACL (Bupivacaine-Ns 0.125% On-Q [employer]) 600 mls @ 4 mls/hr IJ ONCE ONE Stop: 08/10/18 22:10 Last Admin: 08/04/18 17:25 Dose: 0 mls Insulin Human Regular (Novolin R) 0 unit SC ACHS [facility]; Protocol Last Admin: 08/06/18 12:00 Dose: 2 units Losartan Potassium (Cozaar) 100 mg PO DAILY [facility] Ondansetron HCl (Zofran Inj) 4 mg IVP Q6H PRN PRN Reason: Nausea/Vomiting Last Admin: 08/06/18 08:01 Dose: 4 mg Oxycodone HCl (Oxycodone Immediate Release Tab) 5 mg PO Q6H PRN PRN Reason: Pain, Mild (1-3) Oxycodone HCl (Oxycodone Immediate Release Tab) 10 mg PO Q6H PRN PRN Reason: Pain, moderate (4-7) Rosuvastatin Calcium (Crestor) 10 mg PO HS [facility] Last Admin: 08/05/18 22:04 Dose: 10 mg - Labs Labs: 08/06/18 11:22 08/06/18 11:22 PT 14.1 SECONDS (9.7-12.2) H 08/04/18 08:17 INR 1.3 08/04/18 08:17 APTT 35.0 SECONDS (21-34) H 08/04/18 08:17 - Constitutional Appears: Non-toxic, In Acute Distress - Head Exam Head Exam: NORMAL INSPECTION - Eye Exam Eye Exam: Normal appearance - ENT Exam ENT Exam: Mucous Membranes Moist - Neck Exam Neck Exam: Full ROM - Respiratory Exam Respiratory Exam: NORMAL BREATHING PATTERN. absent: Accessory Muscle Use, Stridor - Cardiovascular Exam Cardiovascular Exam: REGULAR RHYTHM - Extremities Exam Extremities Exam: Full ROM, Normal Capillary Refill. absent: Tenderness - Back Exam Back Exam: NORMAL INSPECTION - Neurological Exam Neurological Exam: Awake, Oriented x3 - Psychiatric Exam Psychiatric exam: Normal Mood - Skin Skin Exam: Dry Assessment and Plan - Assessment and Plan (Free Text) Plan: Ascending Colon Ulcerated Mass and s/p R hemicolectomy with removal of colonic mass POD #2 (large bulky tumor removed from ascending colon,nodular liver with no mets noted,no ascites) we will follow biopsy reports. follow oncology recommendation s/p colonoscopy and biopsy,Adenocarcinoma of the Colon Patient was started on CLD by surgery CEA 10 CTA/P completed for staging-- malignant appearing mass in ascending colon, no distant mets Empiric Flagyl for 24 hours as per surgery Heme/Onc on board, Dr. Boudreaux Deep Vein thrombosis Superficial vein thrombosis Patient has poor venous access,Left arm midline was placed on left arm and removed due to swelling. 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 Boudreaux continue with Ferric IVPB; however held on 08/03 due to arm swelling,patient has poor venous access HTN Losartan dose increased amlodipine added Thyroid nodule CT scan: R Lobe enlargement U/S: enlarged bilateral gland, f/u with fine needle bx and a radionucleatide scan endocrine, Dr. Hernandez reckatarzyna - fine needle aspiration following partial colectomy, outpatient vs inpatient DM 6.2 HbA1c medium dose sliding scale accuchecks ACHS hypoglycemic protocol Breast nodules small nodular densities notes on Ct/ab/pelvis, will require mammogram outpatient PPx DVT: on Lovenox
[2018-08-06] MEDS ORDERED: oxyCODONE 5 mg Immediate Release Tab PO PRN (16:15)
--- NOTE | 2018-08-06 21:04 | PN ---
DATE: 08/06/2018 ENDOCRINOLOGY FOLLOWUP NOTE LOCATION: ICU room 8. SUBJECTIVE: This is a 67-year-old female with recent admission for marked symptomatic anemia, and subsequent GI workup showing the presence of a colonic mass lesion and underwent a right hemicolectomy procedure yesterday and is now being followed closely in the ICU for postoperative hemodynamic monitoring and management. She is tolerating her current diet as advanced from liquids to soft diet as noted. LABORATORY DATA: Her glycemic levels are near optimal as noted, and the latest chemistry showed a BUN of 7, sodium 132, potassium 3.6, chloride 99, CO2 of 24, glucose 139, and creatinine 0.5. Her latest thyroid study showed a T4 of 13.5 with a TSH of 0.92, which is truly indicative of the so-called acute sick euthyroid syndrome. ASSESSMENT: This is a 67-year-old female with a right colonic mass lesion in the ascending colon and presenting here with symptomatic anemia and underwent a right hemicolectomy procedure yesterday and is now being followed closely for metabolic management. She also had an incidental finding of a moderately enlarged multinodular goiter with a dominant right thyroid nodule as noted. PLAN OF MANAGEMENT: We will defer at this time the fine-needle aspiration biopsy for now as the patient has really no obstructive neck manifestations as noted. She remains clinically and biochemically euthyroid at this time, and her thyroid indices are indicative of only the so-called acute sick euthyroid syndrome. She actually needs a fine-needle aspiration biopsy of the dominant right thyroid nodule either done with this admission or post discharge on the outpatient elective procedure. This was explained in detail to the patient, and she has also agreed to defer the aforementioned for now. We will obtain serial chemistries and supplement accordingly as needed, and we will also obtain serial thyroid studies accordingly. Kathy Hernandez MD
[2018-08-07] MEDS: HYDROmorphone 0.5 mg/0.5 ml ISec IVP PRN ×2 (01:17→07:55)
--- NOTE | 2018-08-07 06:13 | CP.PCM.PN ---
Subjective - Date & Time of Evaluation Date of Evaluation: 08/07/18 Time of Evaluation: 06:49 - Subjective Subjective: General Surgery: Dr. Barrett Patient seen and examined at examined at bedside. No acute event overnight. Patient reports abd pain but states it is controlled. She has been OOB to chair. Urine output was 900cc for yesterday. She is tolerating FLD. Admits to flatus and BM. Denies fever/chills, cp, SOB, nausea/vomiting/diarrhea. Objective - Vital Signs/Intake and Output Vital Signs (last 24 hours): Temp Pulse Resp BP Pulse Ox 98.9 F 94 H 20 153/73 H 96 08/07/18 00:00 08/07/18 01:00 08/07/18 00:00 08/07/18 00:00 08/07/18 00:00 Intake and Output: 08/06/18 08/07/18 18:59 06:59 Intake Total 600 100 Output Total 900 Balance -300 100 - Medications Medications: Current Medications Acetaminophen (Tylenol 325mg Tab) 650 mg PO Q6 [facility] Last Admin: 08/07/18 01:20 Dose: 650 mg Amlodipine Besylate (Norvasc) 5 mg PO DAILY [facility] Last Admin: 08/06/18 12:00 Dose: 5 mg Cyclobenzaprine HCl (Flexeril) 5 mg PO TID [facility] Last Admin: 08/06/18 17:16 Dose: 5 mg Dextrose (Dextrose 50% Inj) 0 ml IV STAT PRN; Protocol PRN Reason: Hypoglycemia Protocol Dextrose (Glutose 15) 0 gm PO ONCE PRN; Protocol PRN Reason: Hypoglycemia Protocol Enoxaparin Sodium (Lovenox) 90 mg SC Q12 [facility] Last Admin: 08/06/18 21:23 Dose: 90 mg Famotidine (Pepcid) 20 mg PO BID [facility] Last Admin: 08/06/18 17:16 Dose: 20 mg Glucagon (Glucagen Diagnostic Kit) 0 mg IM STAT PRN; Protocol PRN Reason: Hypoglycemia Protocol Hydromorphone HCl (Dilaudid) 0.5 mg IVP Q6H PRN PRN Reason: Pain, severe (8-10) Last Admin: 08/07/18 01:17 Dose: 0.5 mg BUPIVACAINE 0.125%/0.9% NACL (Bupivacaine-Ns 0.125% On-Q [employer]) 600 mls @ 4 mls/hr IJ ONCE ONE Stop: 08/10/18 22:10 Last Admin: 08/04/18 17:25 Dose: 0 mls Insulin Human Regular (Novolin R) 0 unit SC ACHS [facility]; Protocol Last Admin: 08/06/18 21:08 Dose: Not Given Losartan Potassium (Cozaar) 100 mg PO DAILY [facility] Ondansetron HCl (Zofran Inj) 4 mg IVP Q6H PRN PRN Reason: Nausea/Vomiting Last Admin: 08/06/18 08:01 Dose: 4 mg Oxycodone HCl (Oxycodone Immediate Release Tab) 5 mg PO Q6H PRN PRN Reason: Pain, Mild (1-3) Oxycodone HCl (Oxycodone Immediate Release Tab) 10 mg PO Q6H PRN PRN Reason: Pain, moderate (4-7) Rosuvastatin Calcium (Crestor) 10 mg PO HS [facility] Last Admin: 08/06/18 21:23 Dose: 10 mg - Labs Labs: 08/06/18 11:22 08/06/18 11:22 PT 14.1 SECONDS (9.7-12.2) H 08/04/18 08:17 INR 1.3 08/04/18 08:17 APTT 35.0 SECONDS (21-34) H 08/04/18 08:17 - Additional Findings Additional findings: - Constitutional Appears: Non-toxic, No Acute Distress - Head Exam Head Exam: ATRAUMATIC, NORMOCEPHALIC - Eye Exam Eye Exam: EOMI, Normal appearance - ENT Exam ENT Exam: Mucous Membranes Moist - Respiratory Exam Respiratory Exam: NORMAL BREATHING PATTERN. absent: Respiratory Distress - Cardiovascular Exam Cardiovascular Exam: REGULAR RHYTHM. absent: Tachycardia - GI/Abdominal Exam GI & Abdominal Exam: Distended, Soft. absent: Guarding, Tenderness, Rebound Assessment and Plan - Assessment and Plan (Free Text) Assessment: 67 F s/p right hemicolectomy POD#3 Plan: -cont CLD -OOB/ambulation /IS -PT -cont lovenox -Pain control -f/u path -medical management per primary -further recs per Dr. Nena Enrique PGY2
[2018-08-07] MEDS: (Novolin R) Insulin Human Regular 100 units/ml vial SC SCH ×4 (07:56→21:57)
--- NOTE | 2018-08-07 09:32 | CP.PCM.PN ---
<Soniya Rosenbaum - Last Filed: 08/07/18 13:38> Subjective - Date & Time of Evaluation Date of Evaluation: 08/07/18 Time of Evaluation: 09:29 - Subjective Subjective: PGY3 progress note for hospitalists Pt seen and examined at bedside. No acute events overnight. Per nurse, unable to draw blood work this am even after multiple attempts. Pt is sitting comfortably in chair. Currently not complaining of pain. Abd band in place and bupivicane pump in place. Currently denies having any CP, SOB, N/V/D/C, F/C. Objective - Vital Signs/Intake and Output Vital Signs (last 24 hours): Temp Pulse Resp BP Pulse Ox 98.5 F 96 H 20 115/55 L 97 08/07/18 08:00 08/07/18 08:00 08/07/18 08:00 08/07/18 08:00 08/07/18 08:00 Intake and Output: 08/07/18 08/07/18 06:59 18:59 Intake Total 100 Balance 100 - Medications Medications: Current Medications Acetaminophen (Tylenol 325mg Tab) 650 mg PO Q6 [facility] Last Admin: 08/07/18 06:50 Dose: 650 mg Amlodipine Besylate (Norvasc) 5 mg PO DAILY [facility] Last Admin: 08/06/18 12:00 Dose: 5 mg Cyclobenzaprine HCl (Flexeril) 5 mg PO TID [facility] Last Admin: 08/06/18 17:16 Dose: 5 mg Dextrose (Dextrose 50% Inj) 0 ml IV STAT PRN; Protocol PRN Reason: Hypoglycemia Protocol Dextrose (Glutose 15) 0 gm PO ONCE PRN; Protocol PRN Reason: Hypoglycemia Protocol Enoxaparin Sodium (Lovenox) 90 mg SC Q12 [facility] Last Admin: 08/06/18 21:23 Dose: 90 mg Famotidine (Pepcid) 20 mg PO BID [facility] Last Admin: 08/06/18 17:16 Dose: 20 mg Glucagon (Glucagen Diagnostic Kit) 0 mg IM STAT PRN; Protocol PRN Reason: Hypoglycemia Protocol Hydromorphone HCl (Dilaudid) 0.5 mg IVP Q6H PRN PRN Reason: Pain, severe (8-10) Last Admin: 08/07/18 07:55 Dose: 0.5 mg BUPIVACAINE 0.125%/0.9% NACL (Bupivacaine-Ns 0.125% On-Q [employer]) 600 mls @ 4 mls/hr IJ ONCE ONE Stop: 08/10/18 22:10 Last Admin: 08/04/18 17:25 Dose: 0 mls Insulin Human Regular (Novolin R) 0 unit SC ACHS [facility]; Protocol Last Admin: 08/07/18 07:56 Dose: Not Given Losartan Potassium (Cozaar) 100 mg PO DAILY [facility] Ondansetron HCl (Zofran Inj) 4 mg IVP Q6H PRN PRN Reason: Nausea/Vomiting Last Admin: 08/06/18 08:01 Dose: 4 mg Oxycodone HCl (Oxycodone Immediate Release Tab) 5 mg PO Q6H PRN PRN Reason: Pain, Mild (1-3) Oxycodone HCl (Oxycodone Immediate Release Tab) 10 mg PO Q6H PRN PRN Reason: Pain, moderate (4-7) Rosuvastatin Calcium (Crestor) 10 mg PO HS [facility] Last Admin: 08/06/18 21:23 Dose: 10 mg - Labs Labs: 08/06/18 11:22 08/06/18 11:22 PT 14.1 SECONDS (9.7-12.2) H 08/04/18 08:17 INR 1.3 08/04/18 08:17 APTT 35.0 SECONDS (21-34) H 08/04/18 08:17 - Constitutional Appears: Non-toxic, No Acute Distress - Head Exam Head Exam: ATRAUMATIC, NORMOCEPHALIC - ENT Exam ENT Exam: Mucous Membranes Dry - Respiratory Exam Respiratory Exam: Clear to Ausculation Bilateral. absent: Rales, Rhonchi, Wheezes - Cardiovascular Exam Cardiovascular Exam: REGULAR RHYTHM, +S1, +S2 - GI/Abdominal Exam GI & Abdominal Exam: Soft, Tenderness (mildly tender), Normal Bowel Sounds. absent: Distended, Firm, Guarding - Neurological Exam Neurological Exam: Alert, Awake, Oriented x3 - Psychiatric Exam Psychiatric exam: Normal Affect, Normal Mood - Skin Skin Exam: Dry, Intact, Normal Color, Warm Assessment and Plan - Assessment and Plan (Free Text) Assessment: Ascending Colon Ulcerated Mass and s/p R hemicolectomy with removal of colonic mass POD #3 (large bulky tumor removed from ascending colon,nodular liver with no mets noted,no ascites) s/p colonoscopy and biopsy,Adenocarcinoma of the Colon Biopsy pending Diet advanced to full liquid per surgical team CEA 10 CTA/P completed for staging-- malignant appearing mass in ascending colon, no distant mets Heme/Onc on board, Dr. Boudreaux Pain managemetn per surgical team PT/OT ordered Zofran prn Deep Vein thrombosis Superficial vein thrombosis Patient has poor venous access,Left arm midline was placed on left arm and removed due to swelling. 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 Boudreaux continue with Ferric IVPB; however held on 08/03 due to arm swelling,patient has poor venous access HTN Losartan dose increased amlodipine added Thyroid nodule CT scan: R Lobe enlargement U/S: enlarged bilateral gland, f/u with fine needle bx and a radionucleatide scan endocrine, Dr. Hernandez reckatarzyna - fine needle aspiration following partial colectomy, outpatient vs inpatient DM 6.2 HbA1c medium dose sliding scale accuchecks ACHS hypoglycemic protocol Breast nodules small nodular densities notes on Ct/ab/pelvis, will require mammogram outpatient Leukocystosis - may be 2/2 surgery. Will continue to trend HLD Crestor 10 mg po HS PPx DVT: on Lovenox Pepcid Case discussed with attending, Dr. Lan. <Bart Lan - Last Filed: 08/07/18 15:22> Objective - Vital Signs/Intake and Output Vital Signs (last 24 hours): Temp Pulse Resp BP Pulse Ox 99.0 F 96 H 18 107/47 L 96 08/07/18 12:00 08/07/18 12:00 08/07/18 12:00 08/07/18 12:00 08/07/18 12:00 Intake and Output: 08/07/18 08/07/18 06:59 18:59 Intake Total 100 350 Output Total 150 Balance 100 200 - Medications Medications: Current Medications Acetaminophen (Tylenol 325mg Tab) 650 mg PO Q6 [facility] Last Admin: 08/07/18 11:56 Dose: 650 mg Amlodipine Besylate (Norvasc) 5 mg PO DAILY [facility] Last Admin: 08/07/18 09:41 Dose: 5 mg Cyclobenzaprine HCl (Flexeril) 5 mg PO TID [facility] Last Admin: 08/07/18 09:42 Dose: 5 mg Dextrose (Dextrose 50% Inj) 0 ml IV STAT PRN; Protocol PRN Reason: Hypoglycemia Protocol Dextrose (Glutose 15) 0 gm PO ONCE PRN; Protocol PRN Reason: Hypoglycemia Protocol Enoxaparin Sodium (Lovenox) 90 mg SC Q12 [facility] Last Admin: 08/07/18 09:42 Dose: 90 mg Famotidine (Pepcid) 20 mg PO BID [facility] Last Admin: 08/07/18 09:42 Dose: 20 mg Glucagon (Glucagen Diagnostic Kit) 0 mg IM STAT PRN; Protocol PRN Reason: Hypoglycemia Protocol Hydromorphone HCl (Dilaudid) 0.5 mg IVP Q6H PRN PRN Reason: Pain, severe (8-10) Last Admin: 08/07/18 07:55 Dose: 0.5 mg BUPIVACAINE 0.125%/0.9% NACL (Bupivacaine-Ns 0.125% On-Q [employer]) 600 mls @ 4 mls/hr IJ ONCE ONE Stop: 08/13/18 18:59 Insulin Human Regular (Novolin R) 0 unit SC [facility]; Protocol Last Admin: 08/07/18 11:55 Dose: 2 units Losartan Potassium (Cozaar) 100 mg PO DAILY [facility] Last Admin: 08/07/18 09:42 Dose: 100 mg Ondansetron HCl (Zofran Inj) 4 mg IVP Q6H PRN PRN Reason: Nausea/Vomiting Last Admin: 08/06/18 08:01 Dose: 4 mg Oxycodone HCl (Oxycodone Immediate Release Tab) 5 mg PO Q6H PRN PRN Reason: Pain, Mild (1-3) Last Admin: 08/07/18 11:55 Dose: 5 mg Oxycodone HCl (Oxycodone Immediate Release Tab) 10 mg PO Q6H PRN PRN Reason: Pain, moderate (4-7) Rosuvastatin Calcium (Crestor) 10 mg PO HS [facility] Last Admin: 08/06/18 21:23 Dose: 10 mg - Labs Labs: 08/06/18 11:22 08/06/18 11:22 PT 14.1 SECONDS (9.7-12.2) H 08/04/18 08:17 INR 1.3 08/04/18 08:17 APTT 35.0 SECONDS (21-34) H 08/04/18 08:17 Attending/Attestation - Attestation I have personally seen and examined this patient.: Yes I have fully participated in the care of the patient.: Yes I have reviewed all pertinent clinical information, including history, physical exam and plan: Yes Notes (Text): Seen and examined with the resident. Lying down on chair,feeling little better,less pain,on full liquids continue Lovenox for DVT Could not draw morning labs. difficult due to poor venous access. patient was refusing multiple attemp, We will try tonight. No fever Monitor BP Assessment and the plan discussed with the patient
[2018-08-07] MEDS: Enoxaparin 100 mg Syringe SC SCH ×2 (09:42→21:49)
--- NOTE | 2018-08-07 09:52 | PN ---
DATE: 08/07/2018 LOCATION: ICU 8. SUBJECTIVE: This is a 67-year-old female post right hemicolectomy due to right-sided colon CA, seen and examined in rounds with intermittent periods of abdominal pain, less than before with a complaint of generalized weakness and malaise. The entire chart is reviewed including but not limited to the most recent lab and radiology study results and the patient still has leukocytosis, low hemoglobin and hematocrit with elevated blood glucose level with low albumin, low total protein with increased T4, today's lab is still pending. PHYSICAL EXAMINATION: GENERAL: A 67-year-old female. VITAL SIGNS: Afebrile with pulse of 84, respiratory rate 20-22, blood pressure 140/72. HEENT: Showed pale, dry oral mucous membrane. Nonicteric sclerae. LUNGS: Few scattered crepitation. Decreased air entry at bases. HEART: Positive S1 and S2. ABDOMEN: Soft. Bowel sounds are present, but hypoactive covered with clean dressing with mild distention. No mass or organomegaly. No rebound tenderness or guarding. EXTREMITIES: Without significant clubbing, cyanosis or edema. No reported new or significant neurological deficits, sensory or motor despite the patient complained before of some speech, despite her speech was reported to be normal. IMPRESSION: 1. Colon cancer status post right hemicolectomy improving clinically. The patient passing gas, had bowel movement recently. 2. Known history of peptic ulcer disease by recent upper endoscopy. 3. Anemia secondary to above. 4. Poorly controlled hyperglycemia. 5. Known history of severe anxiety syndrome, hypertension, cardiomegaly. 6. Abnormal CAT scan of the abdomen and pelvis. SUGGESTIONS: 1. Continue current management. 2. Ativan 1 mg p.o. twice a day with primary MD. 3. Advance the diet as tolerated as per the neurosurgical physician assistant. 4. If the patient's symptoms of not feeling well is statement, then CAT scan of the head to be ordered. Otherwise, close observation to follow. Winter Ellis MD
--- NOTE | 2018-08-07 10:10 | PN ---
DATE: 08/07/2018 ENDOCRINOLOGY FOLLOWUP NOTE LOCATION: ICU room 8. SUBJECTIVE: This is a 67-year-old female who underwent a recent right hemicolectomy for a colonic mass in the ascending colon and is also being followed for metabolic management. She had an incidental finding of a moderately enlarged multinodular goiter with a dominant right thyroid nodule. She has improved clinically and hemodynamically postoperatively as noted. Her latest chemistry showed a BUN of 7, sodium 132, potassium 3.6, chloride 99, CO2 24, glucose 139, and creatinine 0.5. Her glucose levels have ranged from 137 to 142 mg/dL. She has remained clinically and biochemically euthyroid and the latest T4 is 13.5 with a TSH of 0.92. ASSESSMENT AND PLAN: At this time, we will hold off the fine-needle aspiration biopsy at this time until she improves clinically as noted thereof. We will follow with you. Kathy Hernandez MD
[2018-08-07] MEDS: oxyCODONE 5 mg Immediate Release Tab PO PRN ×2 (11:55→20:12)
[2018-08-07] MEDS ORDERED: BUPIVACAINE 0.125%/0.9% NACL 600 ML IJ ONE (13:00)
[2018-08-07 17:50] LABS: ALB/GLOB RATIO 1.1 (1.0-2.1); ALBUMIN 2.8 g/dL (3.5-5.0); ALT/SGPT 13 U/L (9-52); AST/SGOT 61 U/L (14-36); BLOOD UREA NITROGEN 17 mg/dL (7-17); CALCIUM 7.9 mg/dl (8.6-10.4); GFR NON-AFRICAN AMERICAN > 60
--- NOTE | 2018-08-07 23:00 | CP.PCM.PN ---
Subjective - Date & Time of Evaluation Date of Evaluation: 08/05/18 Time of Evaluation: 12:00 - Subjective Subjective: No complaints. Objective - Vital Signs/Intake and Output Vital Signs (last 24 hours): Temp Pulse Resp BP Pulse Ox 98.3 F 84 20 125/72 98 08/07/18 21:53 08/07/18 21:53 08/07/18 21:53 08/07/18 21:53 08/07/18 21:53 Intake and Output: 08/07/18 08/08/18 18:59 06:59 Intake Total 350 Output Total 150 Balance 200 - Medications Medications: Current Medications Acetaminophen (Tylenol 325mg Tab) 650 mg PO Q6 [facility] Last Admin: 08/07/18 17:34 Dose: 650 mg Amlodipine Besylate (Norvasc) 5 mg PO DAILY [facility] Last Admin: 08/07/18 09:41 Dose: 5 mg Cyclobenzaprine HCl (Flexeril) 5 mg PO TID [facility] Last Admin: 08/07/18 17:40 Dose: Not Given Dextrose (Dextrose 50% Inj) 0 ml IV STAT PRN; Protocol PRN Reason: Hypoglycemia Protocol Dextrose (Glutose 15) 0 gm PO ONCE PRN; Protocol PRN Reason: Hypoglycemia Protocol Enoxaparin Sodium (Lovenox) 90 mg SC Q12 [facility] Last Admin: 08/07/18 21:49 Dose: 90 mg Famotidine (Pepcid) 20 mg PO BID [facility] Last Admin: 08/07/18 17:35 Dose: 20 mg Glucagon (Glucagen Diagnostic Kit) 0 mg IM STAT PRN; Protocol PRN Reason: Hypoglycemia Protocol Hydromorphone HCl (Dilaudid) 0.5 mg IVP Q6H PRN PRN Reason: Pain, severe (8-10) Last Admin: 08/07/18 07:55 Dose: 0.5 mg BUPIVACAINE 0.125%/0.9% NACL (Bupivacaine-Ns 0.125% On-Q Business Strategist) 600 mls @ 4 mls/hr IJ ONCE ONE Stop: 08/13/18 18:59 Insulin Human Regular (Novolin R) 0 unit SC ACHS [facility]; Protocol Last Admin: 08/07/18 21:57 Dose: Not Given Losartan Potassium (Cozaar) 100 mg PO DAILY [facility] Last Admin: 08/07/18 09:42 Dose: 100 mg Ondansetron HCl (Zofran Inj) 4 mg IVP Q6H PRN PRN Reason: Nausea/Vomiting Last Admin: 08/07/18 20:16 Dose: 4 mg Oxycodone HCl (Oxycodone Immediate Release Tab) 5 mg PO Q6H PRN PRN Reason: Pain, Mild (1-3) Last Admin: 08/07/18 20:12 Dose: 5 mg Oxycodone HCl (Oxycodone Immediate Release Tab) 10 mg PO Q6H PRN PRN Reason: Pain, moderate (4-7) Rosuvastatin Calcium (Crestor) 10 mg PO HS [facility] Last Admin: 08/07/18 22:14 Dose: Not Given - Labs Labs: 08/06/18 11:22 08/07/18 16:52 PT 14.1 SECONDS (9.7-12.2) H 08/04/18 08:17 INR 1.3 08/04/18 08:17 APTT 35.0 SECONDS (21-34) H 08/04/18 08:17 - Head Exam Head Exam: ATRAUMATIC - Eye Exam Eye Exam: Normal appearance - ENT Exam ENT Exam: Mucous Membranes Dry - Respiratory Exam Respiratory Exam: NORMAL BREATHING PATTERN - Cardiovascular Exam Cardiovascular Exam: +S1, +S2 - GI/Abdominal Exam GI & Abdominal Exam: Normal Bowel Sounds Assessment and Plan (1) DVT (deep venous thrombosis) Assessment & Plan: provoked from catheter in the RUE, now removed therapeutic anticoagulation x 3 months Status: Acute (2) Colon cancer Assessment & Plan: no distant mets s/p hemicolectomy f/u path Status: Acute (3) Anemia Assessment & Plan: iron deficiency colon cancer s/p resection s/p transfusion support IV iron Status: Acute (4) Elevated CEA Assessment & Plan: secondary to colon cancer s/p resection Status: Acute
--- NOTE | 2018-08-07 23:02 | CP.PCM.PN ---
Subjective - Date & Time of Evaluation Date of Evaluation: 08/06/18 Time of Evaluation: 12:00 - Subjective Subjective: Has LUE swelling Objective - Vital Signs/Intake and Output Vital Signs (last 24 hours): Temp Pulse Resp BP Pulse Ox 98.3 F 84 20 125/72 98 08/07/18 21:53 08/07/18 21:53 08/07/18 21:53 08/07/18 21:53 08/07/18 21:53 Intake and Output: 08/07/18 08/08/18 18:59 06:59 Intake Total 350 Output Total 150 Balance 200 - Medications Medications: Current Medications Acetaminophen (Tylenol 325mg Tab) 650 mg PO Q6 [facility]S AT [facility] Last Admin: 08/07/18 17:34 Dose: 650 mg Amlodipine Besylate (Norvasc) 5 mg PO DAILY [facility] 234 [facility]S AT [facility] Last Admin: 08/07/18 09:41 Dose: 5 mg Cyclobenzaprine HCl (Flexeril) 5 mg PO TID [facility] 234 BEDS AT [facility] Last Admin: 08/07/18 17:40 Dose: Not Given Dextrose (Dextrose 50% Inj) 0 ml IV STAT PRN; Protocol PRN Reason: Hypoglycemia Protocol Dextrose (Glutose 15) 0 gm PO ONCE PRN; Protocol PRN Reason: Hypoglycemia Protocol Enoxaparin Sodium (Lovenox) 90 mg SC Q12 [facility] 234 B[facility]S AT [facility] Last Admin: 08/07/18 21:49 Dose: 90 mg Famotidine (Pepcid) 20 mg PO BID [facility] 234 BEDS AT [facility] Last Admin: 08/07/18 17:35 Dose: 20 mg Glucagon (Glucagen Diagnostic Kit) 0 mg IM STAT PRN; Protocol PRN Reason: Hypoglycemia Protocol Hydromorphone HCl (Dilaudid) 0.5 mg IVP Q6H PRN PRN Reason: Pain, severe (8-10) Last Admin: 08/07/18 07:55 Dose: 0.5 mg BUPIVACAINE 0.125%/0.9% NACL (Bupivacaine-Ns 0.125% On-Q Change Director) 600 mls @ 4 mls/hr IJ ONCE ONE Stop: 08/13/18 18:59 Insulin Human Regular (Novolin R) 0 unit SC ACHS [facility] 234 BEDS AT [facility]; Protocol Last Admin: 08/07/18 21:57 Dose: Not Given Losartan Potassium (Cozaar) 100 mg PO DAILY [facility] 234 BEDS AT [facility] Last Admin: 08/07/18 09:42 Dose: 100 mg Ondansetron HCl (Zofran Inj) 4 mg IVP Q6H PRN PRN Reason: Nausea/Vomiting Last Admin: 08/07/18 20:16 Dose: 4 mg Oxycodone HCl (Oxycodone Immediate Release Tab) 5 mg PO Q6H PRN PRN Reason: Pain, Mild (1-3) Last Admin: 08/07/18 20:12 Dose: 5 mg Oxycodone HCl (Oxycodone Immediate Release Tab) 10 mg PO Q6H PRN PRN Reason: Pain, moderate (4-7) Rosuvastatin Calcium (Crestor) 10 mg PO HS [facility] Last Admin: 08/07/18 22:14 Dose: Not Given - Labs Labs: 08/06/18 11:22 08/07/18 16:52 PT 14.1 SECONDS (9.7-12.2) H 08/04/18 08:17 INR 1.3 08/04/18 08:17 APTT 35.0 SECONDS (21-34) H 08/04/18 08:17 - Head Exam Head Exam: ATRAUMATIC - Eye Exam Eye Exam: Normal appearance - ENT Exam ENT Exam: Mucous Membranes Dry - Respiratory Exam Respiratory Exam: NORMAL BREATHING PATTERN - Cardiovascular Exam Cardiovascular Exam: +S1, +S2 - GI/Abdominal Exam GI & Abdominal Exam: Normal Bowel Sounds Assessment and Plan (1) DVT (deep venous thrombosis) Assessment & Plan: provoked from catheter in the RUE, now removed therapeutic anticoagulation x 3 months Status: Acute (2) Colon cancer Assessment & Plan: no distant mets s/p hemicolectomy f/u path Status: Acute (3) Anemia Assessment & Plan: iron deficiency colon cancer s/p resection s/p transfusion support IV iron Status: Acute (4) Elevated CEA Assessment & Plan: secondary to colon cancer s/p resection Status: Acute
--- NOTE | 2018-08-07 23:03 | CP.PCM.PN ---
Subjective - Date & Time of Evaluation Date of Evaluation: 08/07/18 Time of Evaluation: 18:00 - Subjective Subjective: Complaining about needle sticks for blood draws. Objective - Vital Signs/Intake and Output Vital Signs (last 24 hours): Temp Pulse Resp BP Pulse Ox 98.3 F 84 20 125/72 98 08/07/18 21:53 08/07/18 21:53 08/07/18 21:53 08/07/18 21:53 08/07/18 21:53 Intake and Output: 08/07/18 08/08/18 18:59 06:59 Intake Total 350 Output Total 150 Balance 200 - Medications Medications: Current Medications Acetaminophen (Tylenol 325mg Tab) 650 mg PO Q6 [facility] Last Admin: 08/07/18 17:34 Dose: 650 mg Amlodipine Besylate (Norvasc) 5 mg PO DAILY [facility] Last Admin: 08/07/18 09:41 Dose: 5 mg Cyclobenzaprine HCl (Flexeril) 5 mg PO TID [facility] Last Admin: 08/07/18 17:40 Dose: Not Given Dextrose (Dextrose 50% Inj) 0 ml IV STAT PRN; Protocol PRN Reason: Hypoglycemia Protocol Dextrose (Glutose 15) 0 gm PO ONCE PRN; Protocol PRN Reason: Hypoglycemia Protocol Enoxaparin Sodium (Lovenox) 90 mg SC Q12 [facility] Last Admin: 08/07/18 21:49 Dose: 90 mg Famotidine (Pepcid) 20 mg PO BID [facility] Last Admin: 08/07/18 17:35 Dose: 20 mg Glucagon (Glucagen Diagnostic Kit) 0 mg IM STAT PRN; Protocol PRN Reason: Hypoglycemia Protocol Hydromorphone HCl (Dilaudid) 0.5 mg IVP Q6H PRN PRN Reason: Pain, severe (8-10) Last Admin: 08/07/18 07:55 Dose: 0.5 mg BUPIVACAINE 0.125%/0.9% NACL (Bupivacaine-Ns 0.125% On-Q Grain Combine Driver) 600 mls @ 4 mls/hr IJ ONCE ONE Stop: 08/13/18 18:59 Insulin Human Regular (Novolin R) 0 unit SC ACHS [facility]; Protocol Last Admin: 08/07/18 21:57 Dose: Not Given Losartan Potassium (Cozaar) 100 mg PO DAILY [facility] Last Admin: 08/07/18 09:42 Dose: 100 mg Ondansetron HCl (Zofran Inj) 4 mg IVP Q6H PRN PRN Reason: Nausea/Vomiting Last Admin: 08/07/18 20:16 Dose: 4 mg Oxycodone HCl (Oxycodone Immediate Release Tab) 5 mg PO Q6H PRN PRN Reason: Pain, Mild (1-3) Last Admin: 08/07/18 20:12 Dose: 5 mg Oxycodone HCl (Oxycodone Immediate Release Tab) 10 mg PO Q6H PRN PRN Reason: Pain, moderate (4-7) Rosuvastatin Calcium (Crestor) 10 mg PO HS [facility] Last Admin: 08/07/18 22:14 Dose: Not Given - Labs Labs: 08/06/18 11:22 08/07/18 16:52 PT 14.1 SECONDS (9.7-12.2) H 08/04/18 08:17 INR 1.3 08/04/18 08:17 APTT 35.0 SECONDS (21-34) H 08/04/18 08:17 - Head Exam Head Exam: ATRAUMATIC - Eye Exam Eye Exam: Normal appearance - ENT Exam ENT Exam: Mucous Membranes Dry - Respiratory Exam Respiratory Exam: NORMAL BREATHING PATTERN - Cardiovascular Exam Cardiovascular Exam: +S1, +S2 - GI/Abdominal Exam GI & Abdominal Exam: Normal Bowel Sounds Assessment and Plan (1) DVT (deep venous thrombosis) Assessment & Plan: provoked from catheter in the RUE, now removed therapeutic anticoagulation x 3 months Status: Acute (2) Colon cancer Assessment & Plan: no distant mets s/p hemicolectomy f/u path Status: Acute (3) Anemia Assessment & Plan: iron deficiency colon cancer s/p resection s/p transfusion support IV iron Status: Acute (4) Elevated CEA Assessment & Plan: secondary to colon cancer s/p resection Status: Acute
[2018-08-08] MEDS: (Novolin R) Insulin Human Regular 100 units/ml vial SC SCH ×4 (08:22→21:26)
--- NOTE | 2018-08-08 08:25 | PN ---
DATE: 08/08/2018 LOCATION: 650, bed A. SUBJECTIVE: This is a 67-year-old female seen and examined out in the intensive care unit to the floor with reported recurrent [id number] abdominal pain, mild abdominal distention with one episode of nausea and vomiting of dark-colored gastric contents without reported actual chest pain, palpitation or significant increase of shortness of breath. The patient expressed frustration due to inability to draw blood workup before. The patient denied any rectal bleeding but passing gas with some bowel movement recently. The entire chart is reviewed including but not limited to the most recent lab and radiology study results and today's blood glucose level is 152. Rest of the lab is still pending. However, the patient still have low sodium, low calcium and low phosphorus with mildly elevated AST before with low albumin and low total protein with the latest hemoglobin 9.1, hematocrit 27.7 with normal platelet count, but leukocytosis. PHYSICAL EXAMINATION: GENERAL: A 57-year-old female. VITAL SIGNS: Afebrile with pulse of 92, respiratory rate 20 to 22, blood pressure 130/70. HEENT: Showed pale, dry oral mucous membrane. Nonicteric sclerae. LUNGS: Few scattered crepitation. Decreased air entry at bases. HEART: Positive S1 and S2. ABDOMEN: Soft with mild generalized tenderness. No mass or organomegaly. No rebound tenderness or guarding. Clean dressing still in place. EXTREMITIES: With evidence of venous superficial thrombosis with tenderness in the left side. NEUROLOGICAL: No reported new neurological deficits, sensory or motor. IMPRESSION: 1. Right-sided adenocarcinoma of the colon with status post hemicolectomy. 2. Known history of hypertension, poorly controlled diabetes mellitus with hyperlipidemia. 3. Re-exacerbation of peptic ulcer disease. 4. Anemia, secondary to above. 5. Electrolyte imbalance with hyponatremia which can lead to recurrent episode of nausea and vomiting in addition to above. 6. Reported breast nodules. SUGGESTIONS: 1. Continue current management. 2. Reglan IV. 3. Adjust oral intake. 4. Further recommendation to follow. Winter Ellis MD
--- NOTE | 2018-08-08 08:58 | CP.PCM.PN ---
Subjective - Date & Time of Evaluation Date of Evaluation: 08/08/18 Time of Evaluation: 08:55 - Subjective Subjective: Surgery: Dr. Barrett Patient reports nausea usually associated with oxycodone pain medication. She reports flatus and minimal po intake due to nausea. She states she is voiding freely and last night noticed some blood in her urine/stool mix. She states she had a blood tinged mucous bowl movement last night and hasnt noticed bleeding since. She complains of frequent blood draws and reports that they were unable to get blood from her this am. She denies f/c. Per nursing report, blood tinged urine vs mucous bowl movement last night, no other acute events. Objective - Vital Signs/Intake and Output Vital Signs (last 24 hours): Temp Pulse Resp BP Pulse Ox 98.8 F 100 H 20 150/90 97 08/08/18 07:00 08/08/18 07:00 08/08/18 07:00 08/08/18 07:00 08/08/18 07:00 - Medications Medications: Current Medications Acetaminophen (Tylenol 325mg Tab) 650 mg PO Q6 [facility] Last Admin: 08/07/18 23:40 Dose: Not Given Amlodipine Besylate (Norvasc) 5 mg PO DAILY [facility] Last Admin: 08/07/18 09:41 Dose: 5 mg Cyclobenzaprine HCl (Flexeril) 10 mg PO TID [facility] Dextrose (Dextrose 50% Inj) 0 ml IV STAT PRN; Protocol PRN Reason: Hypoglycemia Protocol Dextrose (Glutose 15) 0 gm PO ONCE PRN; Protocol PRN Reason: Hypoglycemia Protocol Enoxaparin Sodium (Lovenox) 90 mg SC Q12 [facility] Last Admin: 08/07/18 21:49 Dose: 90 mg Famotidine (Pepcid) 20 mg PO BID [facility] Last Admin: 08/07/18 17:35 Dose: 20 mg Glucagon (Glucagen Diagnostic Kit) 0 mg IM STAT PRN; Protocol PRN Reason: Hypoglycemia Protocol BUPIVACAINE 0.125%/0.9% NACL (Bupivacaine-Ns 0.125% On-Q Lens Silverer) 600 mls @ 4 mls/hr IJ ONCE ONE Stop: 08/13/18 18:59 Insulin Human Regular (Novolin R) 0 unit SC ACHS [facility]; Protocol Last Admin: 08/07/18 21:57 Dose: Not Given Losartan Potassium (Cozaar) 100 mg PO DAILY [facility] Last Admin: 08/07/18 09:42 Dose: 100 mg Ondansetron HCl (Zofran Inj) 4 mg IVP Q6H PRN PRN Reason: Nausea/Vomiting Last Admin: 08/08/18 08:08 Dose: 4 mg Rosuvastatin Calcium (Crestor) 10 mg PO HS [facility] Last Admin: 08/07/18 22:14 Dose: Not Given Tramadol HCl (Ultram) 50 mg PO TID PRN PRN Reason: Pain, moderate (4-7) Tramadol HCl (Ultram) 50 mg PO ONCE ONE Stop: 08/08/18 09:01 - Labs Labs: 08/06/18 11:22 08/07/18 16:52 PT 14.1 SECONDS (9.7-12.2) H 08/04/18 08:17 INR 1.3 08/04/18 08:17 APTT 35.0 SECONDS (21-34) H 08/04/18 08:17 - Constitutional Appears: Non-toxic, No Acute Distress - Head Exam Head Exam: ATRAUMATIC, NORMOCEPHALIC - Eye Exam Eye Exam: EOMI, Normal appearance - ENT Exam ENT Exam: Mucous Membranes Moist - Respiratory Exam Respiratory Exam: NORMAL BREATHING PATTERN. absent: Respiratory Distress - Cardiovascular Exam Cardiovascular Exam: REGULAR RHYTHM. absent: Tachycardia - GI/Abdominal Exam GI & Abdominal Exam: Soft. absent: Distended, Guarding, Tenderness, Rebound Additional comments: midline incision CDI with staple closure, binder in place Assessment and Plan - Assessment and Plan (Free Text) Assessment: 67 y/o female s/p right hemicolectomy Plan: -add reglan for nausea and d/c oxycodone -will add ultram for prn pain and increase flexeril dose -OnQ remains -hold lovenox and monitor for further bleeding, if no episodes today can resume evenings dose -OOB -IS use -f/u electrolytes and replace prn -further recs per Dr. Nena Shipley PGY4
--- NOTE | 2018-08-08 10:11 | CP.PCM.PN ---
Subjective - Date & Time of Evaluation Date of Evaluation: 08/08/18 Time of Evaluation: 10:11 - Subjective Subjective: PGY3 progress note for hospitalists Pt seen and examined this am. Pt had 2 bloody BMs overnight and this morning. Pt also complaining of abd pain and after receiving pain medication, pt developed N/V. No other complaints. Specifically denies SOB, CP, F/C. Objective - Vital Signs/Intake and Output Vital Signs (last 24 hours): Temp Pulse Resp BP Pulse Ox 98.8 F 100 H 20 150/90 97 08/08/18 07:00 08/08/18 07:00 08/08/18 07:00 08/08/18 07:00 08/08/18 07:00 - Medications Medications: Current Medications Acetaminophen (Tylenol 325mg Tab) 650 mg PO Q6 [facility] Last Admin: 08/07/18 23:40 Dose: Not Given Amlodipine Besylate (Norvasc) 5 mg PO DAILY [facility] Last Admin: 08/07/18 09:41 Dose: 5 mg Cyclobenzaprine HCl (Flexeril) 10 mg PO TID [facility] Last Admin: 08/08/18 09:18 Dose: 10 mg Dextrose (Dextrose 50% Inj) 0 ml IV STAT PRN; Protocol PRN Reason: Hypoglycemia Protocol Dextrose (Glutose 15) 0 gm PO ONCE PRN; Protocol PRN Reason: Hypoglycemia Protocol Enoxaparin Sodium (Lovenox) 90 mg SC Q12 [facility] Last Admin: 08/07/18 21:49 Dose: 90 mg Famotidine (Pepcid) 20 mg PO BID [facility] Last Admin: 08/08/18 09:18 Dose: 20 mg Glucagon (Glucagen Diagnostic Kit) 0 mg IM STAT PRN; Protocol PRN Reason: Hypoglycemia Protocol BUPIVACAINE 0.125%/0.9% NACL (Bupivacaine-Ns 0.125% On-Q Wool Hat Hydraulicker) 600 mls @ 4 mls/hr IJ ONCE ONE Stop: 08/13/18 18:59 Insulin Human Regular (Novolin R) 0 unit SC ACHS [facility]; Protocol Last Admin: 08/08/18 08:22 Dose: Not Given Losartan Potassium (Cozaar) 100 mg PO DAILY [facility] Last Admin: 08/07/18 09:42 Dose: 100 mg Metoclopramide HCl (Reglan) 10 mg IVP Q6 [facility] Stop: 08/09/18 06:01 Ondansetron HCl (Zofran Inj) 4 mg IVP Q4H PRN PRN Reason: Nausea/Vomiting Rosuvastatin Calcium (Crestor) 10 mg PO HS [facility] Last Admin: 08/07/18 22:14 Dose: Not Given Tramadol HCl (Ultram) 50 mg PO TID PRN PRN Reason: Pain, moderate (4-7) - Labs Labs: 08/06/18 11:22 08/07/18 16:52 PT 14.1 SECONDS (9.7-12.2) H 08/04/18 08:17 INR 1.3 08/04/18 08:17 APTT 35.0 SECONDS (21-34) H 08/04/18 08:17 - Constitutional Appears: Non-toxic, No Acute Distress - Head Exam Head Exam: ATRAUMATIC, NORMOCEPHALIC - ENT Exam ENT Exam: Mucous Membranes Moist - Respiratory Exam Respiratory Exam: Clear to Ausculation Bilateral. absent: Accessory Muscle Use, Rales, Rhonchi, Wheezes, Respiratory Distress - Cardiovascular Exam Cardiovascular Exam: REGULAR RHYTHM, +S1, +S2. absent: Gallop, Rubs, Murmur - GI/Abdominal Exam GI & Abdominal Exam: Soft, Normal Bowel Sounds. absent: Distended, Firm, Guarding, Rigid, Tenderness, Organomegaly - Extremities Exam Extremities Exam: absent: Pedal Edema, Tenderness - Neurological Exam Neurological Exam: Alert, Awake, Oriented x3 - Psychiatric Exam Psychiatric exam: Normal Affect, Normal Mood - Skin Skin Exam: Dry, Intact, Normal Color, Warm Assessment and Plan - Assessment and Plan (Free Text) Assessment: Ascending Colon Ulcerated Mass and s/p R hemicolectomy with removal of colonic mass POD #3 (large bulky tumor removed from ascending colon,nodular liver with no mets noted,no ascites) s/p colonoscopy and biopsy,Adenocarcinoma of the Colon Biopsy pending Diet per surgery team. CEA 10 CTA/P completed for staging-- malignant appearing mass in ascending colon, no distant mets Heme/Onc on board, Dr. Boudreaux Pain management per surgical team. Currently on Bupivicane pump and tramadol PT/OT ordered Zofran prn Deep Vein thrombosis Superficial vein thrombosis Patient has poor venous access,Left arm midline was placed on left arm and removed due to swelling. 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 Damon is consulted - CBC today shows drop in hgb at 6.5 - Type and cross ordered. - Patient will likely need a central line for transfusion. Vascular surgery notified Symptomatic Anemia-Iron Deficiency - resolving Initial Hemoglobin 6s,anemia due to blood loss secondary to colon malignancy s/p 2 x PRBC transfusion Heme/Onc consulted, Dr. Boudreaux continue with Ferric IVPB; however held on 08/03 due to arm swelling,patient has poor venous access HTN Losartan dose increased amlodipine added Thyroid nodule CT scan: R Lobe enlargement U/S: enlarged bilateral gland, f/u with fine needle bx and a radionucleatide scan endocrine, Dr. Hernandez reckatarzyna - fine needle aspiration following partial colectomy, outpatient vs inpatient DM 6.2 HbA1c medium dose sliding scale accuchecks ACHS hypoglycemic protocol Breast nodules small nodular densities notes on Ct/ab/pelvis, will require mammogram outpatient Leukocystosis - may be 2/2 surgery. Will continue to trend - Repeat CBC pending HLD Crestor 10 mg po HS PPx DVT: on Lovenox Pepcid Case discussed with attending, Dr. Lan.
--- NOTE | 2018-08-08 11:17 | PN ---
DATE: 08/08/2018 ENDOCRINOLOGY FOLLOWUP NOTE LOCATION: Room 654. SUBJECTIVE: This is a 67-year-old female with recent right hemicolectomy for a colonic mass lesion in the ascending colon and currently being followed closely postoperatively for hemodynamic monitoring in the ICU as noted. She remains clinically and biochemically euthyroid at this time. She also has an incidental finding of a moderately large multinodular goiter with a dominant right thyroid nodule as noted. The patient is aware that she needs to undergo a fine needle aspiration biopsy of the dominant thyroid nodule as mentioned. This could be done electively on the outpatient if the patient decides for the procedure otherwise. There is no indication at this time for any kind of thyroid or pharmacotherapy. We will obtain serial thyroid studies accordingly. We will also obtain serial chemistries and supplement accordingly. Kathy Hernandez MD
[2018-08-08 14:13] LABS: BASO # 0.1 K/uL (0.0-0.2); BASO % 0.4 % (0.0-2.0); EOS % 0.2 % (0.0-4.0); LYMPH # 2.2 K/uL (1.0-4.3); LYMPH % 16.4 % (20.0-40.0); MEAN CELL VOLUME 85.2 fL (81.0-99.0); MEAN CORPUSCULAR HEMOGLOBIN 27.8 pg (27.0-31.0); MEAN CORPUSCULAR HGB CONC 32.7 g/dL (33.0-37.0); MEAN PLATELET VOLUME 7.6 fL (7.2-11.7); MONO # 1.2 K/uL (0.0-0.8); MONO % 8.9 % (0.0-10.0); NEUT # 10.1 K/uL (1.8-7.0); NEUT % 74.1 % (50.0-75.0); NRBC % 0.1 % (0.0-2.0); RBC 2.32 Mil/uL (3.80-5.20); RED CELL DISTRIBUTION WIDTH 23.2 % (11.5-14.5); WHITE BLOOD COUNT 13.7 K/uL (4.8-10.8)
[2018-08-08 14:18] LABS: INR 1.3; PROTHROMBIN TIME 13.8 SECONDS (9.7-12.2)
[2018-08-08 14:19] LABS: HEMOGLOBIN 6.5 g/dL (11.0-16.0)
[2018-08-08 14:26] LABS: ALBUMIN 2.7 g/dL (3.5-5.0); ALT/SGPT 22 U/L (9-52); AST/SGOT 30 U/L (14-36); BLOOD UREA NITROGEN 20 mg/dL (7-17); GFR NON-AFRICAN AMERICAN > 60
--- NOTE | 2018-08-08 15:36 | CP.PCM.PCO ---
Physician Communication Note - Physician Communication Note Physician Communication Note: 20G IV placed in R AC. ok to use
--- NOTE | 2018-08-08 20:54 | CP.PCM.PN ---
Subjective - Date & Time of Evaluation Date of Evaluation: 08/08/18 Time of Evaluation: 17:00 - Subjective Subjective: Had 2 bloody bowel movements overnight, lovenox held Objective - Vital Signs/Intake and Output Vital Signs (last 24 hours): Temp Pulse Resp BP Pulse Ox 98.2 F 82 18 114/73 97 08/08/18 20:30 08/08/18 20:30 08/08/18 20:30 08/08/18 20:30 08/08/18 07:00 Intake and Output: 08/08/18 08/09/18 18:59 06:59 Intake Total 325 0 Balance 325 0 - Medications Medications: Current Medications Acetaminophen (Tylenol 325mg Tab) 650 mg PO Q6 [facility] Last Admin: 08/08/18 17:53 Dose: 650 mg Amlodipine Besylate (Norvasc) 5 mg PO DAILY [facility] Last Admin: 08/07/18 09:41 Dose: 5 mg Cyclobenzaprine HCl (Flexeril) 10 mg PO TID [facility] Last Admin: 08/08/18 17:52 Dose: 10 mg Dextrose (Dextrose 50% Inj) 0 ml IV STAT PRN; Protocol PRN Reason: Hypoglycemia Protocol Dextrose (Glutose 15) 0 gm PO ONCE PRN; Protocol PRN Reason: Hypoglycemia Protocol Enoxaparin Sodium (Lovenox) 90 mg SC Q12 [facility] Last Admin: 08/07/18 21:49 Dose: 90 mg Famotidine (Pepcid) 20 mg PO BID [facility] Last Admin: 08/08/18 17:53 Dose: 20 mg Glucagon (Glucagen Diagnostic Kit) 0 mg IM STAT PRN; Protocol PRN Reason: Hypoglycemia Protocol BUPIVACAINE 0.125%/0.9% NACL (Bupivacaine-Ns 0.125% On-Q Technical Translator) 600 mls @ 4 mls/hr IJ ONCE ONE Stop: 08/13/18 18:59 Insulin Human Regular (Novolin R) 0 unit SC ACHS [facility]; Protocol Last Admin: 08/08/18 17:22 Dose: Not Given Losartan Potassium (Cozaar) 100 mg PO DAILY [facility] Last Admin: 08/07/18 09:42 Dose: 100 mg Metoclopramide HCl (Reglan) 10 mg IVP Q6 [facility] Stop: 08/09/18 06:01 Last Admin: 08/08/18 17:53 Dose: 10 mg Ondansetron HCl (Zofran Inj) 4 mg IVP Q4H PRN PRN Reason: Nausea/Vomiting Rosuvastatin Calcium (Crestor) 10 mg PO HS [facility] Last Admin: 08/07/18 22:14 Dose: Not Given Tramadol HCl (Ultram) 50 mg PO TID PRN PRN Reason: Pain, moderate (4-7) - Labs Labs: 08/08/18 13:59 08/08/18 13:59 PT 13.8 SECONDS (9.7-12.2) H 08/08/18 13:59 INR 1.3 08/08/18 13:59 APTT 31.0 SECONDS (21-34) 08/08/18 13:59 - Head Exam Head Exam: ATRAUMATIC - Eye Exam Eye Exam: Normal appearance - ENT Exam ENT Exam: Mucous Membranes Dry - Respiratory Exam Respiratory Exam: NORMAL BREATHING PATTERN - Cardiovascular Exam Cardiovascular Exam: +S1, +S2 - GI/Abdominal Exam GI & Abdominal Exam: Normal Bowel Sounds Assessment and Plan (1) Anemia Assessment & Plan: GI bleeding iron deficiency recommend 2U PRBC will start IV iron when better IV access placed Status: Acute (2) DVT (deep venous thrombosis) Assessment & Plan: provoked from midline lovenox held for GI bleeding Status: Acute (3) Colon cancer Assessment & Plan: s/p hemicolectomy f/u path Status: Acute (4) Elevated CEA Assessment & Plan: secondary to colon cancer Status: Acute
--- NOTE | 2018-08-09 06:52 | CP.PCM.PN ---
Objective - Vital Signs/Intake and Output Vital Signs (last 24 hours): Temp Pulse Resp BP Pulse Ox 98.9 F 81 95 H 114/62 20 L 08/08/18 23:00 08/09/18 03:34 08/08/18 23:00 08/08/18 23:00 08/08/18 23:00 Intake and Output: 08/08/18 08/09/18 18:59 06:59 Intake Total 325 375 Balance 325 375 - Medications Medications: Current Medications Acetaminophen (Tylenol 325mg Tab) 650 mg PO Q6 [facility] Last Admin: 08/09/18 06:04 Dose: 650 mg Amlodipine Besylate (Norvasc) 5 mg PO DAILY [facility] Last Admin: 08/07/18 09:41 Dose: 5 mg Cyclobenzaprine HCl (Flexeril) 10 mg PO TID [facility] Last Admin: 08/08/18 17:52 Dose: 10 mg Dextrose (Dextrose 50% Inj) 0 ml IV STAT PRN; Protocol PRN Reason: Hypoglycemia Protocol Dextrose (Glutose 15) 0 gm PO ONCE PRN; Protocol PRN Reason: Hypoglycemia Protocol Enoxaparin Sodium (Lovenox) 90 mg SC Q12 [facility] Last Admin: 08/07/18 21:49 Dose: 90 mg Famotidine (Pepcid) 20 mg PO BID [facility] Last Admin: 08/08/18 17:53 Dose: 20 mg Glucagon (Glucagen Diagnostic Kit) 0 mg IM STAT PRN; Protocol PRN Reason: Hypoglycemia Protocol BUPIVACAINE 0.125%/0.9% NACL (Bupivacaine-Ns 0.125% On-Q Internet Marketer) 600 mls @ 4 mls/hr IJ ONCE ONE Stop: 08/13/18 18:59 Insulin Human Regular (Novolin R) 0 unit SC ACHS [facility]; Protocol Last Admin: 08/08/18 21:26 Dose: Not Given Losartan Potassium (Cozaar) 100 mg PO DAILY [facility] Last Admin: 08/07/18 09:42 Dose: 100 mg Ondansetron HCl (Zofran Inj) 4 mg IVP Q4H PRN PRN Reason: Nausea/Vomiting Rosuvastatin Calcium (Crestor) 10 mg PO HS [facility] Last Admin: 08/08/18 21:39 Dose: 10 mg Tramadol HCl (Ultram) 50 mg PO TID PRN PRN Reason: Pain, moderate (4-7) Last Admin: 08/08/18 21:40 Dose: 50 mg - Labs Labs: 08/08/18 13:59 08/08/18 13:59 PT 13.8 SECONDS (9.7-12.2) H 08/08/18 13:59 INR 1.3 08/08/18 13:59 APTT 31.0 SECONDS (21-34) 08/08/18 13:59
--- NOTE | 2018-08-09 06:54 | CP.PCM.PN ---
<Hebert Boyd M - Last Filed: 08/09/18 11:06> Subjective - Date & Time of Evaluation Date of Evaluation: 08/09/18 Time of Evaluation: 07:20 - Subjective Subjective: Medicine progress note for Dr. Artis Pt seen and examined at bedside. Pt lying in bed comfortably, states her abdominal food is improved from previous days. Pt reports 2 non-bloody bowel movements since yesterday. Additionally pt reports receiving 2 units of PRBC wi th no issues. Denies headaches, vision changes, chest pain, SOB, nausea, vomiting, abdominal pain, constipation, diarrhea, fevers, chills. Objective - Vital Signs/Intake and Output Vital Signs (last 24 hours): Temp Pulse Resp BP Pulse Ox 98.9 F 81 95 H 114/62 20 L 08/08/18 23:00 08/09/18 03:34 08/08/18 23:00 08/08/18 23:00 08/08/18 23:00 Intake and Output: 08/08/18 08/09/18 18:59 06:59 Intake Total 325 375 Balance 325 375 - Medications Medications: Current Medications Acetaminophen (Tylenol 325mg Tab) 650 mg PO Q6 [facility] Last Admin: 08/09/18 06:04 Dose: 650 mg Amlodipine Besylate (Norvasc) 5 mg PO DAILY [facility] Last Admin: 08/07/18 09:41 Dose: 5 mg Cyclobenzaprine HCl (Flexeril) 10 mg PO TID [facility] Last Admin: 08/08/18 17:52 Dose: 10 mg Dextrose (Dextrose 50% Inj) 0 ml IV STAT PRN; Protocol PRN Reason: Hypoglycemia Protocol Dextrose (Glutose 15) 0 gm PO ONCE PRN; Protocol PRN Reason: Hypoglycemia Protocol Enoxaparin Sodium (Lovenox) 90 mg SC Q12 [facility] Last Admin: 08/07/18 21:49 Dose: 90 mg Famotidine (Pepcid) 20 mg PO BID [facility] Last Admin: 08/08/18 17:53 Dose: 20 mg Glucagon (Glucagen Diagnostic Kit) 0 mg IM STAT PRN; Protocol PRN Reason: Hypoglycemia Protocol BUPIVACAINE 0.125%/0.9% NACL (Bupivacaine-Ns 0.125% On-Q Suspender Maker) 600 mls @ 4 mls/hr IJ ONCE ONE Stop: 08/13/18 18:59 Insulin Human Regular (Novolin R) 0 unit SC ACHS [facility]; Protocol Last Admin: 08/08/18 21:26 Dose: Not Given Losartan Potassium (Cozaar) 100 mg PO DAILY [facility] Last Admin: 08/07/18 09:42 Dose: 100 mg Ondansetron HCl (Zofran Inj) 4 mg IVP Q4H PRN PRN Reason: Nausea/Vomiting Rosuvastatin Calcium (Crestor) 10 mg PO HS [facility] Last Admin: 08/08/18 21:39 Dose: 10 mg Tramadol HCl (Ultram) 50 mg PO TID PRN PRN Reason: Pain, moderate (4-7) Last Admin: 08/08/18 21:40 Dose: 50 mg - Labs Labs: 08/08/18 13:59 08/08/18 13:59 PT 13.8 SECONDS (9.7-12.2) H 08/08/18 13:59 INR 1.3 08/08/18 13:59 APTT 31.0 SECONDS (21-34) 08/08/18 13:59 - Constitutional Appears: Non-toxic, No Acute Distress - Head Exam Head Exam: NORMAL INSPECTION - Eye Exam Eye Exam: Normal appearance - ENT Exam ENT Exam: Mucous Membranes Moist - Respiratory Exam Respiratory Exam: Decreased Breath Sounds, Rales, NORMAL BREATHING PATTERN. absent: Rhonchi, Wheezes - Cardiovascular Exam Cardiovascular Exam: +S1, +S2. absent: Murmur - GI/Abdominal Exam GI & Abdominal Exam: Soft, Normal Bowel Sounds - Extremities Exam Extremities Exam: Full ROM. absent: Calf Tenderness, Pedal Edema Additional comments: LE extremity swelling, reduced from previous day, no erythema, slight tenderness on palpation. - Back Exam Back Exam: absent: CVA tenderness (L), CVA tenderness (R) - Neurological Exam Neurological Exam: Alert, Awake, Oriented x3 - Psychiatric Exam Psychiatric exam: Normal Affect, Normal Mood - Skin Skin Exam: Dry, Normal Color, Warm Assessment and Plan - Assessment and Plan (Free Text) Assessment: 67yo F with PMH of anemia, HTN, DM presenting to the ED with fatigue and dizziness for 10 days. Hemoglobin 6.4, admitted for symptomatic anemia. 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 New DVT of Left subclavian, initially on lovenox; however due to gi bleed, held, transfused 2 PRBC. Will transfuse 1 X more PRBC and start heparin drip. Plan: Ascending Colon Ulcerated Mass Colon cancer - CT abd/pelvis: annualar soft tissue mass involving right colon worrisome for neoplasm; small adjacent lymph nodes 13 mm - GI consulted, Dr Damon - Upper EGD findings: mild esophagitis f/u bx, no bleed - colonoscopy: Ascending colon showed bleeding ulcerated mass - path results: ulcerated adenocarcinoma w/ mucinous features - F/u cardio, Dr. Godfrey johnson for cardiac clearance - ECHO - EF of 65-70%, diastolic dysfunction - Nuclear stres test - normal - carotid duplex - no stenosis - per cardio, patient is at moderate risk for colonic surgery - GenSx consulted Dr Barrett: - CT ChestAbPelv: malignant appearing ascending colon mass - s/p right colectomy on 08/04 - f/u path - onQ + tramadol pain per surgery Deep Vein thrombosis Superficial vein thrombosis - celiac vein revealing superficial vein thrombosis - subclavian vein revealing deep vein thrombosis - s/p lovenox 90 SC BID; however held due to GI bleed - will transfuse 1 X pRBC today and start heparin drip GI bleed - hgb 6.5 on 08/08 - lovenox held - 2 X PRBC - 1 X pRBC today - will start heparin drip tonight w/ close monitoring Symptomatic Anemia-Iron Deficiency - resolving - Initial Hemoglobin 6s - 2 x PRBC - H&H 10s/30 stable - EKG: NSR - CXR: no active disease - UA +RBCs - normal TIBC, low %sat - elevated haptoglobin, neg LDH, elevated retic count - FOBT: f/u - benadryl and tylenol PRN transfusion reaction - neg CT head and chest - Heme/Onc consulted, Dr. Boudreaux - continue with Ferric IVPB; however held on 08/03 due to arm swelling HTN - home valsartan/hctz not on formulary - losartan/hctz held for now - amlodipin 5 mg daily Thyroid nodule - CT scan: R Lobe enlargement - U/S: enlarged bilateral gland, f/u with fine needle bx and a radionucleatide scan - endocrine, Dr. David johnson - fine needle aspiration following partial colectomy, outpatient vs inpatient DM - 6.2 HbA1c - medium dose sliding scale - accuchecks ACHS - hypoglycemic protocol Breast nodules - small nodular densities notes on Ct/ab/pelvis, will require mammogram outpatient PPx DVT: SCDs, chemical anticoagulation resumption 08/09 PM GI: pepcid PT recs: subacute rehab on d/c Dispo: malignancy on CT seen. Sx 08/04. Will give 1 X PRBC heather due to recent GI bleed and start heparin drip tonight, no Lovenox due to long acting duration. <Armaan Artis H - Last Filed: 08/09/18 13:57> Objective - Vital Signs/Intake and Output Vital Signs (last 24 hours): Temp Pulse Resp BP Pulse Ox 98.7 F 86 18 140/70 96 08/09/18 13:43 08/09/18 13:43 08/09/18 13:43 08/09/18 13:43 08/09/18 07:00 Intake and Output: 08/09/18 08/09/18 06:59 18:59 Intake Total 375 0 Balance 375 0 - Medications Medications: Current Medications Acetaminophen (Tylenol 325mg Tab) 650 mg PO Q6 [facility] Last Admin: 08/09/18 13:00 Dose: 650 mg Cyclobenzaprine HCl (Flexeril) 10 mg PO TID [facility] Last Admin: 08/09/18 13:13 Dose: 10 mg Dextrose (Dextrose 50% Inj) 0 ml IV STAT PRN; Protocol PRN Reason: Hypoglycemia Protocol Dextrose (Glutose 15) 0 gm PO ONCE PRN; Protocol PRN Reason: Hypoglycemia Protocol Enoxaparin Sodium (Lovenox) 90 mg SC Q12 [facility] Last Admin: 08/07/18 21:49 Dose: 90 mg Famotidine (Pepcid) 20 mg PO BID [facility] Last Admin: 08/09/18 10:31 Dose: 20 mg Glucagon (Glucagen Diagnostic Kit) 0 mg IM STAT PRN; Protocol PRN Reason: Hypoglycemia Protocol BUPIVACAINE 0.125%/0.9% NACL (Bupivacaine-Ns 0.125% On-Q Suspender Maker) 600 mls @ 4 mls/hr IJ ONCE ONE Stop: 08/13/18 18:59 Heparin Sodium/Sodium Chloride (Heparin 00778 Units/250ml 1/2 Normal Saline) 25,000 units in 250 mls @ 10.751 mls/hr IV .[id number] PRN; Protocol PRN Reason: ADJUST RATE PER PROTOCOL Insulin Human Regular (Novolin R) 0 unit SC ACHS [facility]; Protocol Last Admin: 08/09/18 12:03 Dose: 2 units Losartan Potassium (Cozaar) 100 mg PO DAILY [facility] Last Admin: 08/07/18 09:42 Dose: 100 mg Ondansetron HCl (Zofran Inj) 4 mg IVP Q4H PRN PRN Reason: Nausea/Vomiting Potassium Phos/Sodium Phos (Neutra-Phos) 2 pkt PO BID [facility] Stop: 08/09/18 18:01 Last Admin: 08/09/18 13:13 Dose: 2 pkt Rosuvastatin Calcium (Crestor) 10 mg PO HS [facility] Last Admin: 08/08/18 21:39 Dose: 10 mg Tramadol HCl (Ultram) 50 mg PO TID PRN PRN Reason: Pain, moderate (4-7) Last Admin: 08/09/18 13:12 Dose: 50 mg - Labs Labs: 08/09/18 07:01 08/09/18 07:01 PT 13.8 SECONDS (9.7-12.2) H 08/08/18 13:59 INR 1.3 08/08/18 13:59 APTT 31.0 SECONDS (21-34) 08/08/18 13:59 Attending/Attestation - Attestation I have personally seen and examined this patient.: Yes I have fully participated in the care of the patient.: Yes I have reviewed all pertinent clinical information, including history, physical exam and plan: Yes Notes (Text): 08/09/18 13:53 Medical attending: Patient was seen and examined by me. Agree with the above note by the resident The patient was not in any acute distress this morning. Her Hgb is better today 8.0, she had transfusion last night As mentioned previously she is S/P surgery and because of upper extremity DVT received Lovenox - and shortly therafter she reported blood in her BMs. Because it is a deep upper extremity DVT for now will avoid the lovenox 90 BID she was getting and try using heparin ggt. If her Hgb stays stable then can send home with PO anticoagulation. Armaan Artis
[2018-08-09 07:28] LABS: BASO # 0.1 K/uL (0.0-0.2); BASO % 0.8 % (0.0-2.0); EOS # 0.3 K/uL (0.0-0.7); LYMPH # 2.7 K/uL (1.0-4.3); LYMPH % 25.9 % (20.0-40.0); MEAN CELL VOLUME 83.7 fL (81.0-99.0); MEAN CORPUSCULAR HEMOGLOBIN 28.2 pg (27.0-31.0); MEAN CORPUSCULAR HGB CONC 33.7 g/dL (33.0-37.0); MEAN PLATELET VOLUME 7.2 fL (7.2-11.7); MONO # 1.1 K/uL (0.0-0.8); MONO % 10.1 % (0.0-10.0); NEUT # 6.4 K/uL (1.8-7.0); NEUT % 60.2 % (50.0-75.0); NRBC % 0.2 % (0.0-2.0); RBC 2.84 Mil/uL (3.80-5.20); RED CELL DISTRIBUTION WIDTH 20.5 % (11.5-14.5); WHITE BLOOD COUNT 10.5 K/uL (4.8-10.8)
[2018-08-09 07:29] LABS: ALB/GLOB RATIO 1.1 (1.0-2.1); ALBUMIN 2.6 g/dL (3.5-5.0); ALT/SGPT 21 U/L (9-52); AST/SGOT 24 U/L (14-36); BLOOD UREA NITROGEN 20 mg/dL (7-17); CALCIUM 7.6 mg/dl (8.6-10.4); GFR NON-AFRICAN AMERICAN > 60
[2018-08-09] MEDS ORDERED: Potassium Chloride 20 mEq ER Tab PO ONE (07:51)
[2018-08-09] MEDS: (Novolin R) Insulin Human Regular 100 units/ml vial SC SCH ×4 (08:39→21:31)
--- NOTE | 2018-08-09 10:31 | CP.PCM.PN ---
Subjective - Date & Time of Evaluation Date of Evaluation: 08/09/18 Time of Evaluation: 06:45 - Subjective Subjective: General Surgery Note for Dr. Barrett Patient seen and examined at bedside. No acute event overnight. Patient states pain is controlled. Denies bloody BM. Patient states she is feeling much better after transfusion. Admits to having flatus and BMs today. Denies fever/chills, cp, SOB, n/v/d, constipation. Objective - Vital Signs/Intake and Output Vital Signs (last 24 hours): Temp Pulse Resp BP Pulse Ox 98.8 F 76 20 125/68 96 08/09/18 07:00 08/09/18 07:00 08/09/18 07:00 08/09/18 07:00 08/09/18 07:00 Intake and Output: 08/09/18 08/09/18 06:59 18:59 Intake Total 375 Balance 375 - Medications Medications: Current Medications Acetaminophen (Tylenol 325mg Tab) 650 mg PO Q6 [facility] Last Admin: 08/09/18 06:04 Dose: 650 mg Amlodipine Besylate (Norvasc) 5 mg PO DAILY [facility] Last Admin: 08/07/18 09:41 Dose: 5 mg Cyclobenzaprine HCl (Flexeril) 10 mg PO TID [facility] Last Admin: 08/08/18 17:52 Dose: 10 mg Dextrose (Dextrose 50% Inj) 0 ml IV STAT PRN; Protocol PRN Reason: Hypoglycemia Protocol Dextrose (Glutose 15) 0 gm PO ONCE PRN; Protocol PRN Reason: Hypoglycemia Protocol Enoxaparin Sodium (Lovenox) 90 mg SC Q12 [facility] Last Admin: 08/07/18 21:49 Dose: 90 mg Famotidine (Pepcid) 20 mg PO BID [facility] Last Admin: 08/08/18 17:53 Dose: 20 mg Glucagon (Glucagen Diagnostic Kit) 0 mg IM STAT PRN; Protocol PRN Reason: Hypoglycemia Protocol BUPIVACAINE 0.125%/0.9% NACL (Bupivacaine-Ns 0.125% On-Q Infection Prevention Coordinator) 600 mls @ 4 mls/hr IJ ONCE ONE Stop: 08/13/18 18:59 Insulin Human Regular (Novolin R) 0 unit SC ACHS [facility]; Protocol Last Admin: 08/09/18 08:39 Dose: Not Given Losartan Potassium (Cozaar) 100 mg PO DAILY [facility] Last Admin: 08/07/18 09:42 Dose: 100 mg Ondansetron HCl (Zofran Inj) 4 mg IVP Q4H PRN PRN Reason: Nausea/Vomiting Rosuvastatin Calcium (Crestor) 10 mg PO HS [facility] Last Admin: 08/08/18 21:39 Dose: 10 mg Tramadol HCl (Ultram) 50 mg PO TID PRN PRN Reason: Pain, moderate (4-7) Last Admin: 08/08/18 21:40 Dose: 50 mg - Labs Labs: 08/09/18 07:01 08/09/18 07:01 PT 13.8 SECONDS (9.7-12.2) H 08/08/18 13:59 INR 1.3 08/08/18 13:59 APTT 31.0 SECONDS (21-34) 08/08/18 13:59 - Constitutional Appears: No Acute Distress - Head Exam Head Exam: ATRAUMATIC, NORMOCEPHALIC - Eye Exam Eye Exam: EOMI, Normal appearance Pupil Exam: PERRL - ENT Exam ENT Exam: Mucous Membranes Moist - Respiratory Exam Respiratory Exam: NORMAL BREATHING PATTERN - Cardiovascular Exam Cardiovascular Exam: REGULAR RHYTHM - GI/Abdominal Exam GI & Abdominal Exam: Soft, Normal Bowel Sounds. absent: Distended, Firm, Guarding, Rigid, Tenderness, Rebound Additional comments: mildine incision clean/dry/intact ON-Q pump still in place with bupivacaine left - Extremities Exam Extremities Exam: Normal Capillary Refill - Back Exam Back Exam: absent: CVA tenderness (L), CVA tenderness (R) - Neurological Exam Neurological Exam: Alert, Oriented x3 - Psychiatric Exam Psychiatric exam: Normal Affect, Normal Mood - Skin Skin Exam: Dry, Intact, Warm Assessment and Plan - Assessment and Plan (Free Text) Assessment: 67 F s/p right hemicolectomy POD#5 Plan: -Diabetic diet -OOB/ambulation /IS -PT -hold lovenox -Pain control -Monitor for Bloody BM -Monitor H/H, transfuse as needed -medical management per primary -further recs per Dr. Nena Enrique PGY2
--- NOTE | 2018-08-09 12:18 | CP.PCM.PN ---
Subjective - Date & Time of Evaluation Date of Evaluation: 08/09/18 Time of Evaluation: 12:17 - Subjective Subjective: Nephrology Consultation Note: Assessment: Stable oliguria likely hypovolemia as FeNa 0.1%: RESOLVED diabetes Mellitus hypertension with urgency morbid obesity colon CA s/p Rt hemicolectomy 08/04/18 Anemia hypokalemia hypophosphatemia Plan No acute need for renal replacement therapy at this time. Hypertension control with meds as ordered. Maintain hemodynamics stable. Avoid hypotension. c/w losartan 100 mg/d. stop norvasc Monitor Input/Output, daily weights and renal function with basic metabolic panel supplement lytes as needed ordered for K phos Dose meds/antibiotics for GFR >60 Glycemic control Further work up/management as per primary team Thanks for allowing me to participate in care of your patient. Will follow pat ient with you for HTN and lytes management. Please call if any Qs. had d/w team Dr Giovanni Rai Office: [phone] Chief Complaint; pain Reason for consult: low urine output HPI: Pt is a 67 F with hx of diabetes Mellitus ( years), hypertension (years) morbid obesity presented with complaints of anemia and found to have colonic mass s/p Rt hemicolectomy 08/04/18. post-op urine output is noted to be low hence renal consulted Denies OTC/herbal meds or NSAIDs No recent iodinated contrast exposure. Noted obvious episodes of low BP during surgery. BP was low at 90/50s towards the end. ROS: making more urine. GI bleed over weekend Cardiovascular: No chest pain. Pulmonary: No shortness of breath Gastrointestinal: no abdominal pain No nausea. No vomiting. Genitourinary: No pain while urinating. Denies blood in urine. All other negative except as mentioned in HPI Physical Examination: General Appearance: Comfortable, in no acute respiratory distress, co-operative . obese Vitals reviewed and noted as below Head; Atraumatic, normocephalic ENT: no ulcers no thrush. Tongue is midline. Oropharynx: no rash or ulcers. EYES: Pupils are equal, round and reactive to light accommodation. Eye muscles and extraocular movement intact. Sclera is anicteric. Neck; supple no lymphadenopathy, no thyromegaly or bruit Lungs: Normal respiratory rate/effort. Breath sounds bilateral equal and clear Heart: Normal rate. s1s2 normal. No rub or gallop. Extremities: no edema. No varicose veins Neurological: Patient is alert, awake and oriented to person, place and time. No focal deficit. Strength bilateral appropriate and equal Skin: Warm and dry. Normal turgor. No rash. Palpitation: Normal elasticity for age Abdomen: Abdomen is soft. Bowel sounds +. There is no abdominal tenderness, no guarding/rigidity no organomegaly. s/p surgery, has abdominal binder. exam overall limited Psych: normal insight and normal affect/mood MSK: no joint tenderness or swelling. Digits and nails normal, no deformity : kidney or bladder not palpable. has finney Labs/imaging reviewed. Past medical history, past surgical history, family history, social history, allergy reviewed and noted as below Family hx: no hx of CKD. Rest non-contributory Objective - Vital Signs/Intake and Output Vital Signs (last 24 hours): Temp Pulse Resp BP Pulse Ox 98.8 F 76 20 125/68 96 08/09/18 07:00 08/09/18 07:00 08/09/18 07:00 08/09/18 07:00 08/09/18 07:00 Intake and Output: 08/09/18 08/09/18 06:59 18:59 Intake Total 375 Balance 375 - Medications Medications: Current Medications Acetaminophen (Tylenol 325mg Tab) 650 mg PO Q6 [facility] Last Admin: 08/09/18 06:04 Dose: 650 mg Cyclobenzaprine HCl (Flexeril) 10 mg PO TID [facility] Last Admin: 08/09/18 10:31 Dose: 10 mg Dextrose (Dextrose 50% Inj) 0 ml IV STAT PRN; Protocol PRN Reason: Hypoglycemia Protocol Dextrose (Glutose 15) 0 gm PO ONCE PRN; Protocol PRN Reason: Hypoglycemia Protocol Enoxaparin Sodium (Lovenox) 90 mg SC Q12 [facility] Last Admin: 08/07/18 21:49 Dose: 90 mg Famotidine (Pepcid) 20 mg PO BID [facility] Last Admin: 08/09/18 10:31 Dose: 20 mg Glucagon (Glucagen Diagnostic Kit) 0 mg IM STAT PRN; Protocol PRN Reason: Hypoglycemia Protocol BUPIVACAINE 0.125%/0.9% NACL (Bupivacaine-Ns 0.125% On-Q End Frazer) 600 mls @ 4 mls/hr IJ ONCE ONE Stop: 08/13/18 18:59 Heparin Sodium/Sodium Chloride (Heparin 77423 Units/250ml 1/2 Normal Saline) 25,000 units in 250 mls @ 10.751 mls/hr IV .[id number] PRN; Protocol PRN Reason: ADJUST RATE PER PROTOCOL Insulin Human Regular (Novolin R) 0 unit SC ACHS [facility]; Protocol Last Admin: 08/09/18 12:03 Dose: 2 units Losartan Potassium (Cozaar) 100 mg PO DAILY [facility] Last Admin: 08/07/18 09:42 Dose: 100 mg Ondansetron HCl (Zofran Inj) 4 mg IVP Q4H PRN PRN Reason: Nausea/Vomiting Potassium Phos/Sodium Phos (Neutra-Phos) 2 pkt PO BID [facility] Stop: 08/09/18 18:01 Rosuvastatin Calcium (Crestor) 10 mg PO HS [facility] Last Admin: 08/08/18 21:39 Dose: 10 mg Tramadol HCl (Ultram) 50 mg PO TID PRN PRN Reason: Pain, moderate (4-7) Last Admin: 08/08/18 21:40 Dose: 50 mg - Labs Labs: 08/09/18 07:01 08/09/18 07:01 PT 13.8 SECONDS (9.7-12.2) H 08/08/18 13:59 INR 1.3 08/08/18 13:59 APTT 31.0 SECONDS (21-34) 08/08/18 13:59
[2018-08-09] MEDS: Potassium & Sodium Phosphate PO SCH ×2 (13:13→18:21)
[2018-08-09] MEDS ORDERED: Potassium Phosphate 15 MMOLE in Sodium Chloride 0.9% 250 ML IVPB SCH (14:00)
--- NOTE | 2018-08-09 16:03 | PN ---
DATE: 08/09/2018 LOCATION: 650, bed A. SUBJECTIVE: This is a 67-year-old female seen and examined early in rounds with intermittent period of abdominal pain without reported bowel movement early today but dark-colored urine as reported, appeared to be bloody at times. The patient had no chest pain, palpitation, or reported significant shortness of breath. Had two units of blood transfusion without any reaction. Today's lab results showed hemoglobin of 8, hematocrit 23.8 post two units of blood transfusion with normal white blood cells and platelet count. Potassium 3.2, CO2 content 31, BUN 20 with normal creatinine. Blood glucose level 141, calcium drop 7.8, phosphorus 1.7, albumin 2.6 with total protein 5. T4 of 14.4. PHYSICAL EXAMINATION: GENERAL: A 67-year-old female, appeared to be awake, alert. VITAL SIGNS: Afebrile with pulse of 72, respiratory rate 20 TO 22, blood pressure of 130/66. HEENT: Pale, dry oral mucous membrane. Nonicteric sclerae. LUNGS: Few scattered crepitation. Decreased air entry at bases. HEART: Positive S1 and S2. ABDOMEN: Soft with mild to moderate distention with mild to moderate generalized tenderness. Bowel sounds are hypoactive. No mass or organomegaly. No rebound tenderness or guarding. The patient experienced mild nausea during my physical examination. EXTREMITIES: Lower extremities mild edematous changes. No clubbing or cyanosis. NEUROLOGIC: No reported new neurological deficits, sensory or motor. IMPRESSION: 1. Right-sided colon carcinoma status post right hemicolectomy. 2. Re-exacerbation of peptic ulcer disease. 3. Anemia, most likely secondary to above. 4. Hematuria, as reported recently without clear etiology. 5. Reported deep vein thrombosis., electrolyte imbalance, poorly controlled diabetes mellitus. 6. Breast nodules by recent radiology studies. 7. Known history of hypertension with hyperlipidemia. SUGGESTIONS: 1. Continue current management. 2. Correct any underlying electrolyte imbalance. 3. Renal ultrasound with complete urinalysis and urine for C and S. Further recommendation to follow, Winter Ellis MD
[2018-08-09] MEDS ORDERED: Heparin25000 units/250ml 1/2NS 25,000 UNITS/250 ML BAG IV PRN (18:00)
--- NOTE | 2018-08-09 22:47 | PN ---
DATE: 08/09/2018 ENDOCRINOLOGY FOLLOWUP NOTE. LOCATION: In room 650. SUBJECTIVE: This is a 67-year-old female with recent right hemicolectomy undertaken for a colonic mass lesion in the ascending colon as noted thereof and is improving clinically and hemodynamically as noted postoperatively at this time. Her glycemic levels are fluctuating but improved, and the glucose values have ranged from 134 to 141 mg/dL. LABORATORY DATA: Her chemistry showed a BUN of 20, sodium 137, potassium 3.2, chloride 100, CO2 of 31, glucose 115, and creatinine 0.7. Her thyroid study showed a T4 of 14.4 with a TSH of 2 as noted. ASSESSMENT AND PLAN: This is a 67-year-old female with a recent colonic mass lesion in the ascending colon and underwent a right hemicolectomy and is being followed closely for hemodynamic monitoring as noted thereof. She also had an incidental finding of a multinodular goiter with a dominant right thyroid nodule and fine needle aspiration biopsy procedure as tolerated thereof. We will obtain serial chemistries and we will hold off any kind of thyroid pharmacotherapy as we are dealing with most likely an acute sick euthyroid syndrome as noted. We will obtain serial thyroid studies accordingly and also serial chemistries and supplement accordingly as needed. Kathy Hernandez MD
[2018-08-10 01:35] VITALS: RESP 20
[2018-08-10 02:16] LABS: INR 1.1; PROTHROMBIN TIME 12.4 SECONDS (9.7-12.2)
[2018-08-10] MEDS ORDERED: Heparin25000 units/250ml 1/2NS 25,000 UNITS/250 ML BAG IV PRN (02:45)
[2018-08-10] MEDS: (Novolin R) Insulin Human Regular 100 units/ml vial SC SCH ×4 (07:30→21:32)
--- NOTE | 2018-08-10 11:23 | CP.PCM.PN ---
Subjective - Date & Time of Evaluation Date of Evaluation: 08/10/18 Time of Evaluation: 09:30 - Subjective Subjective: GI Fellow PGY5 Progress Note Pt seen and evaluated at bedside, doing well and feels much better after blood transfusion. Pt denies any further rectal bleeding, melena or hematochezia. ROS: A 12pt ROS was negative except as above. Objective - Vital Signs/Intake and Output Vital Signs (last 24 hours): Temp Pulse Resp BP Pulse Ox 98.0 F 64 20 123/67 98 08/10/18 07:39 08/10/18 07:39 08/10/18 07:39 08/10/18 07:39 08/10/18 07:39 - Medications Medications: Current Medications Acetaminophen (Tylenol 325mg Tab) 650 mg PO Q6 [facility] Last Admin: 08/10/18 05:41 Dose: 650 mg Cyclobenzaprine HCl (Flexeril) 10 mg PO TID [facility] Last Admin: 08/10/18 10:48 Dose: 10 mg Dextrose (Dextrose 50% Inj) 0 ml IV STAT PRN; Protocol PRN Reason: Hypoglycemia Protocol Dextrose (Glutose 15) 0 gm PO ONCE PRN; Protocol PRN Reason: Hypoglycemia Protocol Enoxaparin Sodium (Lovenox) 90 mg SC Q12 [facility] Last Admin: 08/07/18 21:49 Dose: 90 mg Famotidine (Pepcid) 20 mg PO BID [facility] Last Admin: 08/10/18 10:51 Dose: 20 mg Glucagon (Glucagen Diagnostic Kit) 0 mg IM STAT PRN; Protocol PRN Reason: Hypoglycemia Protocol BUPIVACAINE 0.125%/0.9% NACL (Bupivacaine-Ns 0.125% On-Q [employer] Supervisor) 600 mls @ 4 mls/hr IJ ONCE ONE Stop: 08/13/18 18:59 Heparin Sodium/Sodium Chloride (Heparin 22963 Units/250ml 1/2 Normal Saline) 25,000 units in 250 mls @ 12.901 mls/hr IV .[id number] PRN; Protocol PRN Reason: ADJUST RATE PER PROTOCOL Last Admin: 08/10/18 02:49 Dose: 12 units/kg/hr, 12.901 mls/hr Insulin Human Regular (Novolin R) 0 unit SC ACHS [facility]; Protocol Last Admin: 08/10/18 07:30 Dose: Not Given Losartan Potassium (Cozaar) 100 mg PO DAILY [facility] Last Admin: 08/07/18 09:42 Dose: 100 mg Ondansetron HCl (Zofran Inj) 4 mg IVP Q4H PRN PRN Reason: Nausea/Vomiting Rosuvastatin Calcium (Crestor) 10 mg PO HS [facility] Last Admin: 08/09/18 21:10 Dose: 10 mg Tramadol HCl (Ultram) 50 mg PO TID PRN PRN Reason: Pain, moderate (4-7) Last Admin: 08/09/18 13:12 Dose: 50 mg - Labs Labs: 08/09/18 07:01 08/09/18 07:01 PT 12.4 SECONDS (9.7-12.2) H 08/10/18 02:00 INR 1.1 08/10/18 02:00 APTT 41.0 SECONDS (21-34) H D 08/10/18 02:00 - Constitutional Appears: Non-toxic, No Acute Distress - Head Exam Head Exam: ATRAUMATIC, NORMAL INSPECTION, NORMOCEPHALIC - Eye Exam Eye Exam: EOMI, Normal appearance - ENT Exam ENT Exam: Mucous Membranes Moist, Normal Exam - Neck Exam Neck Exam: Full ROM, Normal Inspection - Respiratory Exam Respiratory Exam: Clear to Ausculation Bilateral, NORMAL BREATHING PATTERN - Cardiovascular Exam Cardiovascular Exam: REGULAR RHYTHM, RRR, +S1, +S2 - GI/Abdominal Exam GI & Abdominal Exam: Soft, Normal Bowel Sounds. absent: Tenderness, Organomegaly - Rectal Exam Rectal Exam: Deferred - Extremities Exam Extremities Exam: Full ROM, Normal Inspection - Neurological Exam Neurological Exam: Alert, Awake, Oriented x3 - Psychiatric Exam Psychiatric exam: Anxious, Normal Affect, Normal Mood - Skin Skin Exam: Dry, Normal Color, Warm Assessment and Plan - Assessment and Plan (Free Text) Assessment: 1. Colon cancer s/p right hemicolectomy-adenocarcioma 2. Anemia Plan: -Continue supportive care -Diet as tolerated -Colon adenocarcinoma s/p right hemicolectomy -Follow up with Oncology and Surgery -Followup with GI as an outpatient for 6 month screening
[2018-08-10 11:29] LABS: BASO # 0.1 K/uL (0.0-0.2); BASO % 0.8 % (0.0-2.0); EOS # 0.4 K/uL (0.0-0.7); EOS % 4.1 % (0.0-4.0); HEMOGLOBIN 9.7 g/dL (11.0-16.0); LYMPH # 2.2 K/uL (1.0-4.3); LYMPH % 22.6 % (20.0-40.0); MEAN CELL VOLUME 85.3 fL (81.0-99.0); MEAN CORPUSCULAR HEMOGLOBIN 28.5 pg (27.0-31.0); MEAN CORPUSCULAR HGB CONC 33.4 g/dL (33.0-37.0); MEAN PLATELET VOLUME 7.6 fL (7.2-11.7); MONO # 0.7 K/uL (0.0-0.8); NEUT # 6.4 K/uL (1.8-7.0); NEUT % 65.5 % (50.0-75.0); RBC 3.4 Mil/uL (3.80-5.20); RED CELL DISTRIBUTION WIDTH 19.6 % (11.5-14.5); WHITE BLOOD COUNT 9.8 K/uL (4.8-10.8)
[2018-08-10 11:49] LABS: INR 1.2; PROTHROMBIN TIME 12.7 SECONDS (9.7-12.2)
--- NOTE | 2018-08-10 12:13 | CP.PCM.PN ---
Subjective - Date & Time of Evaluation Date of Evaluation: 08/10/18 Time of Evaluation: 12:12 - Subjective Subjective: Nephrology Consultation Note: Assessment: Stable oliguria likely hypovolemia as FeNa 0.1%: RESOLVED diabetes Mellitus hypertension with urgency morbid obesity colon CA s/p Rt hemicolectomy 08/04/18 Anemia hypokalemia hypophosphatemia Plan No acute need for renal replacement therapy at this time. no new labs today Hypertension control with meds as ordered. Maintain hemodynamics stable. Avoid hypotension. c/w losartan 100 mg/d. Monitor Input/Output, daily weights and renal function with basic metabolic panel supplement lytes as needed Dose meds/antibiotics for GFR >60 Glycemic control Further work up/management as per primary team Thanks for allowing me to participate in care of your patient. Will follow patient with you for HTN and lytes management. Please call if any Qs. had d/w team Dr Giovanni Rai Office: [phone] Chief Complaint; pain Reason for consult: low urine output HPI: Pt is a 67 F with hx of diabetes Mellitus ( years), hypertension (years) morbid obesity presented with complaints of anemia and found to have colonic mass s/p Rt hemicolectomy 08/04/18. post-op urine output is noted to be low hence renal consulted Denies OTC/herbal meds or NSAIDs No recent iodinated contrast exposure. Noted obvious episodes of low BP during surgery. BP was low at 90/50s towards the end. ROS: making more urine. GI bleed over weekend. stable now Cardiovascular: No chest pain. Pulmonary: No shortness of breath Gastrointestinal: no abdominal pain No nausea. No vomiting. Genitourinary: No pain while urinating. Denies blood in urine. All other negative except as mentioned in HPI Physical Examination: General Appearance: Comfortable, in no acute respiratory distress, co-operative . obese Vitals reviewed and noted as below Head; Atraumatic, normocephalic ENT: no ulcers no thrush. Tongue is midline. Oropharynx: no rash or ulcers. EYES: Pupils are equal, round and reactive to light accommodation. Eye muscles and extraocular movement intact. Sclera is anicteric. Neck; supple no lymphadenopathy, no thyromegaly or bruit Lungs: Normal respiratory rate/effort. Breath sounds bilateral equal and clear Heart: Normal rate. s1s2 normal. No rub or gallop. Extremities: no edema. No varicose veins Neurological: Patient is alert, awake and oriented to person, place and time. No focal deficit. Strength bilateral appropriate and equal Skin: Warm and dry. Normal turgor. No rash. Palpitation: Normal elasticity for age Abdomen: Abdomen is soft. Bowel sounds +. There is no abdominal tenderness, no guarding/rigidity no organomegaly. s/p surgery, has abdominal binder. exam overall limited Psych: normal insight and normal affect/mood MSK: no joint tenderness or swelling. Digits and nails normal, no deformity : kidney or bladder not palpable. has finney Labs/imaging reviewed. Past medical history, past surgical history, family history, social history, allergy reviewed and noted as below Family hx: no hx of CKD. Rest non-contributory Objective - Vital Signs/Intake and Output Vital Signs (last 24 hours): Temp Pulse Resp BP Pulse Ox 98.0 F 64 20 123/67 98 08/10/18 07:39 08/10/18 07:39 08/10/18 07:39 08/10/18 07:39 08/10/18 07:39 - Medications Medications: Current Medications Acetaminophen (Tylenol 325mg Tab) 650 mg PO Q6 [facility] Last Admin: 08/10/18 05:41 Dose: 650 mg Cyclobenzaprine HCl (Flexeril) 10 mg PO TID [facility] Last Admin: 08/10/18 10:48 Dose: 10 mg Dextrose (Dextrose 50% Inj) 0 ml IV STAT PRN; Protocol PRN Reason: Hypoglycemia Protocol Dextrose (Glutose 15) 0 gm PO ONCE PRN; Protocol PRN Reason: Hypoglycemia Protocol Enoxaparin Sodium (Lovenox) 90 mg SC Q12 [facility] Last Admin: 08/07/18 21:49 Dose: 90 mg Famotidine (Pepcid) 20 mg PO BID [facility] Last Admin: 08/10/18 10:51 Dose: 20 mg Glucagon (Glucagen Diagnostic Kit) 0 mg IM STAT PRN; Protocol PRN Reason: Hypoglycemia Protocol BUPIVACAINE 0.125%/0.9% NACL (Bupivacaine-Ns 0.125% On-Q Sack Sorter) 600 mls @ 4 mls/hr IJ ONCE ONE Stop: 08/13/18 18:59 Heparin Sodium/Sodium Chloride (Heparin 33226 Units/250ml 1/2 Normal Saline) 25,000 units in 250 mls @ 12.901 mls/hr IV .[id number] PRN; Protocol PRN Reason: ADJUST RATE PER PROTOCOL Last Admin: 08/10/18 02:49 Dose: 12 units/kg/hr, 12.901 mls/hr Insulin Human Regular (Novolin R) 0 unit SC ACHS [facility]; Protocol Last Admin: 08/10/18 07:30 Dose: Not Given Losartan Potassium (Cozaar) 100 mg PO DAILY [facility] Last Admin: 08/07/18 09:42 Dose: 100 mg Ondansetron HCl (Zofran Inj) 4 mg IVP Q4H PRN PRN Reason: Nausea/Vomiting Rosuvastatin Calcium (Crestor) 10 mg PO HS [facility] Last Admin: 08/09/18 21:10 Dose: 10 mg Tramadol HCl (Ultram) 50 mg PO TID PRN PRN Reason: Pain, moderate (4-7) Last Admin: 08/09/18 13:12 Dose: 50 mg - Labs Labs: 08/10/18 11:15 08/09/18 07:01 PT 12.7 SECONDS (9.7-12.2) H 08/10/18 11:15 INR 1.2 08/10/18 11:15 APTT 55.0 SECONDS (21-34) H D 08/10/18 11:15
[2018-08-10 13:02] LABS: ALT/SGPT 23 U/L (9-52); AST/SGOT 32 U/L (14-36); BLOOD UREA NITROGEN 11 mg/dL (7-17); CALCIUM 8.3 mg/dl (8.6-10.4); GFR NON-AFRICAN AMERICAN > 60
--- NOTE | 2018-08-10 13:40 | CP.PCM.PN ---
<Hebert Boyd - Last Filed: 08/10/18 16:17> Subjective - Date & Time of Evaluation Date of Evaluation: 08/10/18 Time of Evaluation: 07:45 - Subjective Subjective: Medicine progress note for hospitalist Dr. Artis. Pt seen and examined at bedside. Pt on heparin drip since 08/09, reports no bloody bowel movements, denies abdominal pain. Pt reports arm swelling reduced with minimal pain. Patient denies headaches, blurry vision, chest pain, SOB, cough, diarrhea, constipation, fevers, chills. Objective - Vital Signs/Intake and Output Vital Signs (last 24 hours): Temp Pulse Resp BP Pulse Ox 98.0 F 64 20 123/67 98 08/10/18 07:39 08/10/18 07:39 08/10/18 07:39 08/10/18 07:39 08/10/18 07:39 - Medications Medications: Current Medications Acetaminophen (Tylenol 325mg Tab) 650 mg PO Q6 [facility] Last Admin: 08/10/18 12:48 Dose: 650 mg Cyclobenzaprine HCl (Flexeril) 10 mg PO TID [facility] Last Admin: 08/10/18 13:38 Dose: 10 mg Dextrose (Dextrose 50% Inj) 0 ml IV STAT PRN; Protocol PRN Reason: Hypoglycemia Protocol Dextrose (Glutose 15) 0 gm PO ONCE PRN; Protocol PRN Reason: Hypoglycemia Protocol Enoxaparin Sodium (Lovenox) 90 mg SC Q12 [facility] Last Admin: 08/07/18 21:49 Dose: 90 mg Famotidine (Pepcid) 20 mg PO BID [facility] Last Admin: 08/10/18 10:51 Dose: 20 mg Glucagon (Glucagen Diagnostic Kit) 0 mg IM STAT PRN; Protocol PRN Reason: Hypoglycemia Protocol BUPIVACAINE 0.125%/0.9% NACL (Bupivacaine-Ns 0.125% On-Q Kennel Helper) 600 mls @ 4 mls/hr IJ ONCE ONE Stop: 08/13/18 18:59 Heparin Sodium/Sodium Chloride (Heparin 33578 Units/250ml 1/2 Normal Saline) 25,000 units in 250 mls @ 12.901 mls/hr IV .[id number] PRN; Protocol PRN Reason: ADJUST RATE PER PROTOCOL Last Admin: 08/10/18 02:49 Dose: 12 units/kg/hr, 12.901 mls/hr Insulin Human Regular (Novolin R) 0 unit SC ACHS [facility]; Protocol Last Admin: 08/10/18 12:49 Dose: 2 units Losartan Potassium (Cozaar) 100 mg PO DAILY [facility] Last Admin: 08/07/18 09:42 Dose: 100 mg Ondansetron HCl (Zofran Inj) 4 mg IVP Q4H PRN PRN Reason: Nausea/Vomiting Rosuvastatin Calcium (Crestor) 10 mg PO HS [facility] Last Admin: 08/09/18 21:10 Dose: 10 mg Tramadol HCl (Ultram) 50 mg PO TID PRN PRN Reason: Pain, moderate (4-7) Last Admin: 08/10/18 13:38 Dose: 50 mg - Labs Labs: 08/10/18 11:15 08/10/18 11:15 PT 12.7 SECONDS (9.7-12.2) H 08/10/18 11:15 INR 1.2 08/10/18 11:15 APTT 55.0 SECONDS (21-34) H D 08/10/18 11:15 - Constitutional Appears: Non-toxic, No Acute Distress - Head Exam Head Exam: NORMAL INSPECTION - Eye Exam Eye Exam: EOMI, Normal appearance - ENT Exam ENT Exam: Mucous Membranes Moist - Respiratory Exam Respiratory Exam: Clear to Ausculation Bilateral, NORMAL BREATHING PATTERN. absent: Rales, Rhonchi, Wheezes - Cardiovascular Exam Cardiovascular Exam: +S1, +S2. absent: Murmur - GI/Abdominal Exam GI & Abdominal Exam: Soft, Normal Bowel Sounds Additional comments: sri @ midline incision site, area clean dry, intact, abdominal binder in place - Extremities Exam Extremities Exam: Full ROM. absent: Calf Tenderness, Pedal Edema Additional comments: reduced swelling - Back Exam Back Exam: absent: CVA tenderness (L), CVA tenderness (R) - Neurological Exam Neurological Exam: Alert, Awake, Oriented x3 - Psychiatric Exam Psychiatric exam: Normal Affect, Normal Mood - Skin Skin Exam: Dry, Intact, Normal Color, Warm Assessment and Plan - Assessment and Plan (Free Text) Assessment: 67yo F with PMH of anemia, HTN, DM presenting to the ED with fatigue and dizziness for 10 days. Hemoglobin 6.4, admitted for symptomatic anemia. Received 2 X pRBC, colonic mass found- ulcerated adenocarcinoma w/ mucinous features, partial colectomy 08/04 - colonic adenocarcinoma, moderately differentiated, grade 2, invation through mucularis propria, not beyond subseroosal fat, no lyphovascular identified. New DVT of Left subclavian, initially on lovenox; however due to gi bleed, held, transfused 3 PRBC, no bleeding s/p heparin, will convert to eliquis 5 BID. Awaiting subacute placement. Plan: Deep Vein thrombosis Superficial vein thrombosis - celiac vein revealing superficial vein thrombosis - subclavian vein revealing deep vein thrombosis - s/p lovenox 90 SC BID; however held due to GI bleed - s/p heparin w/ stable h/h - d/c heaprin 08/10 night and start eliquis 5 mg BID tonight Ascending Colon Ulcerated Mass Colon cancer - CT abd/pelvis: annualar soft tissue mass involving right colon worrisome for neoplasm; small adjacent lymph nodes 13 mm - GI consulted, Dr Damon - Upper EGD findings: mild esophagitis f/u bx, no bleed - colonoscopy: Ascending colon showed bleeding ulcerated mass - path results: ulcerated adenocarcinoma w/ mucinous features - cardio consulted for clearance, Dr. Donahue recs for cardiac clearance - ECHO - EF of 65-70%, diastolic dysfunction - Nuclear stres test - normal - carotid duplex - no stenosis - per cardio, patient is at moderate risk for colonic surgery - GenSx consulted Dr Barrett: - CT ChestAbPelv: malignant appearing ascending colon mass - s/p right colectomy on 08/04 - path - colonic adenocarcinoma, moderately differentiated, grade 2, invation through mucularis propria, not beyond subseroosal fat, no lyphovascular identified - tramadol/flexeril for pain management per surgery - clear from surgery for d/c, pending subacute placement - F/u heme/onc recs - unlikley mets, f/u path & outpatient Symptomatic Anemia-Iron Deficiency - resolving - Initial Hemoglobin 6s - 2 x PRBC - H&H 10s/30 stable - EKG: NSR - CXR: no active disease - UA +RBCs - normal TIBC, low %sat - elevated haptoglobin, neg LDH, elevated retic count - FOBT: f/u - benadryl and tylenol PRN transfusion reaction - neg CT head and chest - Heme/Onc consulted, Dr. Boudreaux - continue with Ferric IVPB; however held on 08/03 due to arm swelling HTN - initially BP in 170s - home valsartan/hctz not on formulary - losartan/hctz initially - post op BP 120s, BP meds held for now Thyroid nodule - CT scan: R Lobe enlargement - U/S: enlarged bilateral gland, f/u with fine needle bx and a radionucleatide scan - endocrine, Dr. Hernandez recs - fine needle aspiration following partial colectomy, outpatient vs inpatient DM - 6.2 HbA1c - medium dose sliding scale - accuchecks ACHS - hypoglycemic protocol Breast nodules - small nodular densities notes on Ct/ab/pelvis, will require mammogram outpatient GI bleed - resolved - hgb 6.5 on 08/08 - lovenox held - 2 X PRBC - 1 X pRBC today - s/p heparin no longer bloody bowel movements - d/c heparin to now eliquis 5 BID PPx DVT: SCDs, eliquis 5 mg BID GI: pepcid PT recs: subacute rehab on d/c Dispo: mass on colonoscopy; s/p hemicolectomy on 08/04. Unlikely mets, will d/c to subacute; however, pt is extremely selective with her option and is stating she may sign out AMA. Working with social work to find placement. on D/c/ AMA provide eliquis 5 mg BID for DVT in left subclavian. F/u required with GI ([facility]), Heme (angi), surgery ([facility]), primary (mone murphy). <Armaan Artis H - Last Filed: 08/10/18 18:24> Objective - Vital Signs/Intake and Output Vital Signs (last 24 hours): Temp Pulse Resp BP Pulse Ox 99.1 F 79 20 157/74 H 95 08/10/18 15:34 08/10/18 15:34 08/10/18 15:34 08/10/18 15:34 08/10/18 15:34 - Medications Medications: Current Medications Acetaminophen (Tylenol 325mg Tab) 650 mg PO Q6 [facility] Last Admin: 08/10/18 12:48 Dose: 650 mg Apixaban (Eliquis) 5 mg PO Q12H [facility] Last Admin: 08/10/18 17:17 Dose: 5 mg Cyclobenzaprine HCl (Flexeril) 10 mg PO TID [facility] Last Admin: 08/10/18 17:17 Dose: 10 mg Dextrose (Dextrose 50% Inj) 0 ml IV STAT PRN; Protocol PRN Reason: Hypoglycemia Protocol Dextrose (Glutose 15) 0 gm PO ONCE PRN; Protocol PRN Reason: Hypoglycemia Protocol Famotidine (Pepcid) 20 mg PO BID [facility] Last Admin: 08/10/18 10:51 Dose: 20 mg Glucagon (Glucagen Diagnostic Kit) 0 mg IM STAT PRN; Protocol PRN Reason: Hypoglycemia Protocol BUPIVACAINE 0.125%/0.9% NACL (Bupivacaine-Ns 0.125% On-Q Kennel Helper) 600 mls @ 4 mls/hr IJ ONCE ONE Stop: 08/13/18 18:59 Heparin Sodium/Sodium Chloride (Heparin 06836 Units/250ml 1/2 Normal Saline) 25,000 units in 250 mls @ 12.901 mls/hr IV .[id number] PRN; Protocol PRN Reason: ADJUST RATE PER PROTOCOL Last Admin: 08/10/18 02:49 Dose: 12 units/kg/hr, 12.901 mls/hr Insulin Human Regular (Novolin R) 0 unit SC ACHS [facility]; Protocol Last Admin: 08/10/18 17:17 Dose: 2 units Losartan Potassium (Cozaar) 100 mg PO DAILY [facility] Last Admin: 08/07/18 09:42 Dose: 100 mg Ondansetron HCl (Zofran Inj) 4 mg IVP Q4H PRN PRN Reason: Nausea/Vomiting Rosuvastatin Calcium (Crestor) 10 mg PO HS [facility] Last Admin: 08/09/18 21:10 Dose: 10 mg Tramadol HCl (Ultram) 50 mg PO TID PRN PRN Reason: Pain, moderate (4-7) Last Admin: 08/10/18 13:38 Dose: 50 mg - Labs Labs: 08/10/18 11:15 08/10/18 11:15 PT 12.7 SECONDS (9.7-12.2) H 08/10/18 11:15 INR 1.2 08/10/18 11:15 APTT 55.0 SECONDS (21-34) H D 08/10/18 11:15 Attending/Attestation - Attestation I have personally seen and examined this patient.: Yes I have fully participated in the care of the patient.: Yes I have reviewed all pertinent clinical information, including history, physical exam and plan: Yes Notes (Text): 08/10/18 18:11 Medical attending: Patient was seen and examined by me. Agree with the above note by the medical clerk The patient Hgb was 9.5 this morning. She did not have problems with the heparin ggt. She had two BMs that were non bloody she explained. The patient tolerated her diet as well. Discussed with hematology oncology and so far the pathology results have not returned. So will transition over to Eliquis 5mg PO BID. The patient was hoping that she could go to a particular [facility], however it may take a day or two before case workers give us the ok The staff later notified me that she was getting impatient and considering leaving AMA. But then she changed her mind and agreed to stay I hope she does not leave [place] because she would benefit from rehab to get as strong as possible in case later on in the near future she may require chemotherapy depending on the pathology results of the lymph nodes Armaan Artis
--- NOTE | 2018-08-10 14:52 | CP.PCM.PN ---
Subjective - Date & Time of Evaluation Date of Evaluation: 08/10/18 Time of Evaluation: 14:50 - Subjective Subjective: Surgery: Dr. Barrett Patient doing well. In good spirits. No further bloody bowel movements. Has been OOB with some difficulty. Pain controlled. Tolerating diet. Objective - Vital Signs/Intake and Output Vital Signs (last 24 hours): Temp Pulse Resp BP Pulse Ox 98.0 F 64 20 123/67 98 08/10/18 07:39 08/10/18 07:39 08/10/18 07:39 08/10/18 07:39 08/10/18 07:39 - Medications Medications: Current Medications Acetaminophen (Tylenol 325mg Tab) 650 mg PO Q6 [facility] Last Admin: 08/10/18 12:48 Dose: 650 mg Apixaban (Eliquis) 5 mg PO Q12H [facility] Cyclobenzaprine HCl (Flexeril) 10 mg PO TID [facility] Last Admin: 08/10/18 13:38 Dose: 10 mg Dextrose (Dextrose 50% Inj) 0 ml IV STAT PRN; Protocol PRN Reason: Hypoglycemia Protocol Dextrose (Glutose 15) 0 gm PO ONCE PRN; Protocol PRN Reason: Hypoglycemia Protocol Famotidine (Pepcid) 20 mg PO BID [facility] Last Admin: 08/10/18 10:51 Dose: 20 mg Glucagon (Glucagen Diagnostic Kit) 0 mg IM STAT PRN; Protocol PRN Reason: Hypoglycemia Protocol BUPIVACAINE 0.125%/0.9% NACL (Bupivacaine-Ns 0.125% On-Q Ventilator Specialist) 600 mls @ 4 mls/hr IJ ONCE ONE Stop: 08/13/18 18:59 Heparin Sodium/Sodium Chloride (Heparin 86054 Units/250ml 1/2 Normal Saline) 25,000 units in 250 mls @ 12.901 mls/hr IV .[id number] PRN; Protocol PRN Reason: ADJUST RATE PER PROTOCOL Last Admin: 08/10/18 02:49 Dose: 12 units/kg/hr, 12.901 mls/hr Insulin Human Regular (Novolin R) 0 unit SC ACHS [facility]; Protocol Last Admin: 08/10/18 12:49 Dose: 2 units Losartan Potassium (Cozaar) 100 mg PO DAILY [facility] Last Admin: 08/07/18 09:42 Dose: 100 mg Ondansetron HCl (Zofran Inj) 4 mg IVP Q4H PRN PRN Reason: Nausea/Vomiting Rosuvastatin Calcium (Crestor) 10 mg PO HS [facility] Last Admin: 08/09/18 21:10 Dose: 10 mg Tramadol HCl (Ultram) 50 mg PO TID PRN PRN Reason: Pain, moderate (4-7) Last Admin: 08/10/18 13:38 Dose: 50 mg - Labs Labs: 08/10/18 11:15 08/10/18 11:15 PT 12.7 SECONDS (9.7-12.2) H 08/10/18 11:15 INR 1.2 08/10/18 11:15 APTT 55.0 SECONDS (21-34) H D 08/10/18 11:15 - Constitutional Appears: Non-toxic, No Acute Distress - Head Exam Head Exam: ATRAUMATIC, NORMOCEPHALIC - Eye Exam Eye Exam: EOMI, Normal appearance - ENT Exam ENT Exam: Mucous Membranes Moist - Respiratory Exam Respiratory Exam: NORMAL BREATHING PATTERN. absent: Respiratory Distress - Cardiovascular Exam Cardiovascular Exam: REGULAR RHYTHM. absent: Tachycardia - GI/Abdominal Exam GI & Abdominal Exam: Soft. absent: Distended, Tenderness Additional comments: incision CDI Assessment and Plan - Assessment and Plan (Free Text) Assessment: 67 y/o female s/p right hemicolectomy Plan: -ok for oral AC -OOB -reg diet -path T3N0 - hemo/onc recs -planning for AWA -further recs per DR. Nena Shipley PGY4
--- NOTE | 2018-08-10 22:13 | CP.PCM.PN ---
Subjective - Date & Time of Evaluation Date of Evaluation: 08/09/18 Time of Evaluation: 20:00 - Subjective Subjective: No complaints. Objective - Vital Signs/Intake and Output Vital Signs (last 24 hours): Temp Pulse Resp BP Pulse Ox 98.6 F 79 20 157/74 H 95 08/10/18 22:02 08/10/18 15:34 08/10/18 15:34 08/10/18 15:34 08/10/18 15:34 - Medications Medications: Current Medications Acetaminophen (Tylenol 325mg Tab) 650 mg PO Q6 [facility] Last Admin: 08/10/18 19:08 Dose: 650 mg Apixaban (Eliquis) 5 mg PO Q12H [facility] Last Admin: 08/10/18 17:17 Dose: 5 mg Cyclobenzaprine HCl (Flexeril) 10 mg PO TID [facility] Last Admin: 08/10/18 17:17 Dose: 10 mg Dextrose (Dextrose 50% Inj) 0 ml IV STAT PRN; Protocol PRN Reason: Hypoglycemia Protocol Dextrose (Glutose 15) 0 gm PO ONCE PRN; Protocol PRN Reason: Hypoglycemia Protocol Famotidine (Pepcid) 20 mg PO BID [facility] Last Admin: 08/10/18 19:03 Dose: 20 mg Glucagon (Glucagen Diagnostic Kit) 0 mg IM STAT PRN; Protocol PRN Reason: Hypoglycemia Protocol BUPIVACAINE 0.125%/0.9% NACL (Bupivacaine-Ns 0.125% On-Q Staple Cutter) 600 mls @ 4 mls/hr IJ ONCE ONE Stop: 08/13/18 18:59 Insulin Human Regular (Novolin R) 0 unit SC ACHS [facility]; Protocol Last Admin: 08/10/18 21:32 Dose: Not Given Losartan Potassium (Cozaar) 100 mg PO DAILY [facility] Last Admin: 08/07/18 09:42 Dose: 100 mg Ondansetron HCl (Zofran Inj) 4 mg IVP Q4H PRN PRN Reason: Nausea/Vomiting Rosuvastatin Calcium (Crestor) 10 mg PO HS [facility] Last Admin: 08/10/18 21:32 Dose: 10 mg Tramadol HCl (Ultram) 50 mg PO TID PRN PRN Reason: Pain, moderate (4-7) Last Admin: 08/10/18 13:38 Dose: 50 mg - Labs Labs: 08/10/18 11:15 08/10/18 11:15 PT 12.7 SECONDS (9.7-12.2) H 08/10/18 11:15 INR 1.2 08/10/18 11:15 APTT 55.0 SECONDS (21-34) H D 08/10/18 11:15 - Head Exam Head Exam: ATRAUMATIC - Eye Exam Eye Exam: Normal appearance - ENT Exam ENT Exam: Mucous Membranes Dry - Respiratory Exam Respiratory Exam: NORMAL BREATHING PATTERN - Cardiovascular Exam Cardiovascular Exam: +S1, +S2 - GI/Abdominal Exam GI & Abdominal Exam: Normal Bowel Sounds Assessment and Plan (1) Anemia Assessment & Plan: GI bleeding iron deficiency s/p 2U PRBC Status: Acute (2) DVT (deep venous thrombosis) Assessment & Plan: provoked from midline anticoagulation restarted Status: Acute (3) Colon cancer Assessment & Plan: s/p hemicolectomy f/u path Status: Acute (4) Elevated CEA Assessment & Plan: secondary to colon cancer Status: Acute
--- NOTE | 2018-08-10 22:14 | CP.PCM.PN ---
Subjective - Date & Time of Evaluation Date of Evaluation: 08/10/18 Time of Evaluation: 19:00 - Subjective Subjective: No complaints. Objective - Vital Signs/Intake and Output Vital Signs (last 24 hours): Temp Pulse Resp BP Pulse Ox 98.6 F 79 20 157/74 H 95 08/10/18 22:02 08/10/18 15:34 08/10/18 15:34 08/10/18 15:34 08/10/18 15:34 - Medications Medications: Current Medications Acetaminophen (Tylenol 325mg Tab) 650 mg PO Q6 [facility] Last Admin: 08/10/18 19:08 Dose: 650 mg Apixaban (Eliquis) 5 mg PO Q12H [facility] Last Admin: 08/10/18 17:17 Dose: 5 mg Cyclobenzaprine HCl (Flexeril) 10 mg PO TID [facility] Last Admin: 08/10/18 17:17 Dose: 10 mg Dextrose (Dextrose 50% Inj) 0 ml IV STAT PRN; Protocol PRN Reason: Hypoglycemia Protocol Dextrose (Glutose 15) 0 gm PO ONCE PRN; Protocol PRN Reason: Hypoglycemia Protocol Famotidine (Pepcid) 20 mg PO BID [facility] Last Admin: 08/10/18 19:03 Dose: 20 mg Glucagon (Glucagen Diagnostic Kit) 0 mg IM STAT PRN; Protocol PRN Reason: Hypoglycemia Protocol BUPIVACAINE 0.125%/0.9% NACL (Bupivacaine-Ns 0.125% On-Q Unified Communications Architect) 600 mls @ 4 mls/hr IJ ONCE ONE Stop: 08/13/18 18:59 Insulin Human Regular (Novolin R) 0 unit SC ACHS [facility]; Protocol Last Admin: 08/10/18 21:32 Dose: Not Given Losartan Potassium (Cozaar) 100 mg PO DAILY [facility] Last Admin: 08/07/18 09:42 Dose: 100 mg Ondansetron HCl (Zofran Inj) 4 mg IVP Q4H PRN PRN Reason: Nausea/Vomiting Rosuvastatin Calcium (Crestor) 10 mg PO HS [facility] Last Admin: 08/10/18 21:32 Dose: 10 mg Tramadol HCl (Ultram) 50 mg PO TID PRN PRN Reason: Pain, moderate (4-7) Last Admin: 08/10/18 13:38 Dose: 50 mg - Labs Labs: 08/10/18 11:15 08/10/18 11:15 PT 12.7 SECONDS (9.7-12.2) H 08/10/18 11:15 INR 1.2 08/10/18 11:15 APTT 55.0 SECONDS (21-34) H D 08/10/18 11:15 - Head Exam Head Exam: ATRAUMATIC - Eye Exam Eye Exam: Normal appearance - ENT Exam ENT Exam: Mucous Membranes Dry - Respiratory Exam Respiratory Exam: NORMAL BREATHING PATTERN - Cardiovascular Exam Cardiovascular Exam: +S1, +S2 - GI/Abdominal Exam GI & Abdominal Exam: Normal Bowel Sounds Assessment and Plan (1) Anemia Assessment & Plan: GI bleeding iron deficiency recommend 2U PRBC Status: Acute (2) DVT (deep venous thrombosis) Assessment & Plan: provoked from midline restarted anticoagulation; Eliquis 5mg BID Status: Acute (3) Colon cancer Assessment & Plan: s/p hemicolectomy stage II does not require adjuvant chemotherapy Status: Acute (4) Elevated CEA Assessment & Plan: secondary to colon cancer Status: Acute
--- NOTE | 2018-08-11 00:48 | PN ---
DATE: 08/10/2018 ENDOCRINOLOGY FOLLOWUP NOTE LOCATION: Room 650. This is a 67-year-old female with recent right hemicolectomy for an ascending colonic mass lesion as noted and is now being followed closely for metabolic management. She remains clinically and biochemically euthyroid at this time. She has a large multinodular goiter with dominant right thyroid nodule as noted. Her latest thyroid study showed a T4 of 14.4 with a TSH of 2. Her chemistry showed a BUN of 11, sodium 140, potassium 3.4, chloride 105, CO2 of 25, glucose 236, creatinine 0.6. Her glucose levels have ranged from 127 to 166 mg/dL. So at this time, we will continue the present medical management and obtain serial chemistries and supplement accordingly as needed. We will hold off the fine-needle aspiration biopsy of the dominant right thyroid nodule for now and continue the completion of her current medical management as noted. After a request, I discussed with the patient regarding the need for outpatient fine-needle aspiration biopsy of the dominant thyroid nodule subclinical thyroid malignancy especially the very large dominant right thyroid nodule. We will obtain serial chemistries and supplement accordingly as needed. We will follow. Kathy Hernandez MD
[2018-08-11] MEDS: (Novolin R) Insulin Human Regular 100 units/ml vial SC SCH ×4 (07:30→21:04)
--- NOTE | 2018-08-11 08:03 | CP.PCM.PN ---
Subjective - Date & Time of Evaluation Date of Evaluation: 08/11/18 Time of Evaluation: 08:03 - Subjective Subjective: detailed discussion with patient re pathology report copy given to patient Objective - Vital Signs/Intake and Output Vital Signs (last 24 hours): Temp Pulse Resp BP Pulse Ox 98.3 F 73 20 132/71 96 08/10/18 23:00 08/11/18 04:00 08/10/18 23:00 08/10/18 23:00 08/10/18 23:00 Intake and Output: 08/11/18 08/11/18 06:59 18:59 Output Total 600 Balance -600 - Medications Medications: Current Medications Acetaminophen (Tylenol 325mg Tab) 650 mg PO Q6 [facility] Last Admin: 08/11/18 06:20 Dose: 650 mg Apixaban (Eliquis) 5 mg PO Q12H [facility] Last Admin: 08/11/18 06:22 Dose: 5 mg Cyclobenzaprine HCl (Flexeril) 10 mg PO TID [facility] Last Admin: 08/10/18 17:17 Dose: 10 mg Dextrose (Dextrose 50% Inj) 0 ml IV STAT PRN; Protocol PRN Reason: Hypoglycemia Protocol Dextrose (Glutose 15) 0 gm PO ONCE PRN; Protocol PRN Reason: Hypoglycemia Protocol Famotidine (Pepcid) 20 mg PO BID [facility] Last Admin: 08/10/18 19:03 Dose: 20 mg Glucagon (Glucagen Diagnostic Kit) 0 mg IM STAT PRN; Protocol PRN Reason: Hypoglycemia Protocol BUPIVACAINE 0.125%/0.9% NACL (Bupivacaine-Ns 0.125% On-Q Processing Associate) 600 mls @ 4 mls/hr IJ ONCE ONE Stop: 08/13/18 18:59 Insulin Human Regular (Novolin R) 0 unit SC ACHS [facility]; Protocol Last Admin: 08/10/18 21:32 Dose: Not Given Losartan Potassium (Cozaar) 100 mg PO DAILY [facility] Last Admin: 08/07/18 09:42 Dose: 100 mg Ondansetron HCl (Zofran Inj) 4 mg IVP Q4H PRN PRN Reason: Nausea/Vomiting Rosuvastatin Calcium (Crestor) 10 mg PO HS [facility] Last Admin: 08/10/18 21:32 Dose: 10 mg Tramadol HCl (Ultram) 50 mg PO TID PRN PRN Reason: Pain, moderate (4-7) Last Admin: 08/10/18 13:38 Dose: 50 mg - Labs Labs: 08/10/18 11:15 08/10/18 11:15 PT 12.7 SECONDS (9.7-12.2) H 08/10/18 11:15 INR 1.2 08/10/18 11:15 APTT 55.0 SECONDS (21-34) H D 08/10/18 11:15
--- NOTE | 2018-08-11 09:23 | CP.PCM.PN ---
<Hebert Boyd M - Last Filed: 08/11/18 11:50> Subjective - Date & Time of Evaluation Date of Evaluation: 08/11/18 Time of Evaluation: 07:05 - Subjective Subjective: Medicine progress note for hospitalist Dr. Artis. Pt seen and examined at bedside. Pt reports feeling well, having regular bowel movements with no blood present. Patient is tolerating diet without nausea, vomiting, and reports minimal abdominal pain. Patient denies headaches, vision changes, chest pain, SOB, nausea, vomiting, fevers, chills, burning on urination. Objective - Vital Signs/Intake and Output Vital Signs (last 24 hours): Temp Pulse Resp BP Pulse Ox 98.3 F 73 20 132/71 96 08/10/18 23:00 08/11/18 04:00 08/10/18 23:00 08/10/18 23:00 08/10/18 23:00 Intake and Output: 08/11/18 08/11/18 06:59 18:59 Output Total 600 Balance -600 - Medications Medications: Current Medications Acetaminophen (Tylenol 325mg Tab) 650 mg PO Q6 [facility] Last Admin: 08/11/18 06:20 Dose: 650 mg Apixaban (Eliquis) 5 mg PO Q12H [facility] Last Admin: 08/11/18 06:22 Dose: 5 mg Cyclobenzaprine HCl (Flexeril) 10 mg PO TID [facility] Last Admin: 08/10/18 17:17 Dose: 10 mg Dextrose (Dextrose 50% Inj) 0 ml IV STAT PRN; Protocol PRN Reason: Hypoglycemia Protocol Dextrose (Glutose 15) 0 gm PO ONCE PRN; Protocol PRN Reason: Hypoglycemia Protocol Famotidine (Pepcid) 20 mg PO BID [facility] Last Admin: 08/10/18 19:03 Dose: 20 mg Glucagon (Glucagen Diagnostic Kit) 0 mg IM STAT PRN; Protocol PRN Reason: Hypoglycemia Protocol BUPIVACAINE 0.125%/0.9% NACL (Bupivacaine-Ns 0.125% On-Q Manager Real Estate) 600 mls @ 4 mls/hr IJ ONCE ONE Stop: 08/13/18 18:59 Insulin Human Regular (Novolin R) 0 unit SC ACHS [facility]; Protocol Last Admin: 08/10/18 21:32 Dose: Not Given Losartan Potassium (Cozaar) 100 mg PO DAILY [facility] Last Admin: 08/07/18 09:42 Dose: 100 mg Ondansetron HCl (Zofran Inj) 4 mg IVP Q4H PRN PRN Reason: Nausea/Vomiting Rosuvastatin Calcium (Crestor) 10 mg PO HS [facility] Last Admin: 08/10/18 21:32 Dose: 10 mg Tramadol HCl (Ultram) 50 mg PO TID PRN PRN Reason: Pain, moderate (4-7) Last Admin: 08/10/18 13:38 Dose: 50 mg - Labs Labs: 08/10/18 11:15 08/10/18 11:15 PT 12.7 SECONDS (9.7-12.2) H 08/10/18 11:15 INR 1.2 08/10/18 11:15 APTT 55.0 SECONDS (21-34) H D 08/10/18 11:15 - Constitutional Appears: Non-toxic, No Acute Distress - Head Exam Head Exam: NORMAL INSPECTION - Eye Exam Eye Exam: EOMI, Normal appearance - ENT Exam ENT Exam: Mucous Membranes Moist - Respiratory Exam Respiratory Exam: Clear to Ausculation Bilateral, NORMAL BREATHING PATTERN. absent: Rales, Rhonchi, Wheezes - Cardiovascular Exam Cardiovascular Exam: +S1, +S2 - GI/Abdominal Exam GI & Abdominal Exam: Soft, Normal Bowel Sounds. absent: Firm, Guarding, Rigid, Tenderness Additional comments: sri at midline from surgical site. - Extremities Exam Extremities Exam: Full ROM, Normal Inspection. absent: Calf Tenderness, Pedal Edema - Neurological Exam Neurological Exam: Alert, Awake, Oriented x3 - Psychiatric Exam Psychiatric exam: Normal Affect, Normal Mood - Skin Skin Exam: Dry, Intact, Normal Color, Warm Assessment and Plan - Assessment and Plan (Free Text) Assessment: 67yo F with PMH of anemia, HTN, DM presenting to the ED with fatigue and dizzine ss for 10 days. Hemoglobin 6.4, admitted for symptomatic anemia. Received 2 X pRBC, colonic mass found- ulcerated adenocarcinoma w/ mucinous features, partial colectomy 08/04 - colonic adenocarcinoma, moderately differentiated, grade 2, invation through mucularis propria, not beyond subseroosal fat, no lyphovascular identified. New DVT of Left subclavian, initially on lovenox; however due to gi bleed, held, transfused 3 PRBC, no bleeding s/p heparin, and now on eliquis 5 BID. Awaiting subacute placement. Plan: Deep Vein thrombosis Superficial vein thrombosis - celiac vein revealing superficial vein thrombosis - subclavian vein revealing deep vein thrombosis - s/p lovenox 90 SC BID; however held due to GI bleed - s/p heparin w/ stable h/h - d/c heaprin 08/10 night and start eliquis 5 mg BID 08/10 Ascending Colon Ulcerated Mass Colon cancer - CT abd/pelvis: annualar soft tissue mass involving right colon worrisome for neoplasm; small adjacent lymph nodes 13 mm - neg CT head and chest - GI consulted, Dr Damon - Upper EGD findings: mild esophagitis f/u bx, no bleed - colonoscopy: Ascending colon showed bleeding ulcerated mass - path results: ulcerated adenocarcinoma w/ mucinous features - cardio consulted for clearance, Dr. Godfrey johnson for cardiac clearance - ECHO - EF of 65-70%, diastolic dysfunction - Nuclear stres test - normal - carotid duplex - no stenosis - per cardio, patient is at moderate risk for colonic surgery - GenSx consulted Dr Barrett: - CT ChestAbPelv: malignant appearing ascending colon mass - s/p right colectomy on 08/04 - path - colonic adenocarcinoma, moderately differentiated, grade 2, invation through mucularis propria, not beyond subseroosal fat, no lyphovascular identified - tramadol/flexeril for pain management per surgery - clear from surgery for d/c, pending subacute placement - F/u heme/onc recs - unlikley mets, f/u path & outpatient -stage 2, does not require adjuvant chemotherapy Symptomatic Anemia-Iron Deficiency - resolving - Initial Hemoglobin 6s - 2 x PRBC - Heme/Onc consulted, Dr. Boudreaux - see above - H&H 10s/30 stable HTN - initially BP in 170s - home valsartan/hctz not on formulary - losartan/hctz initially - post op BP 120s, BP meds held for now Thyroid nodule - CT scan: R Lobe enlargement - U/S: enlarged bilateral gland, f/u with fine needle bx and a radionucleatide scan - endocrine, Dr. David johnson - fine needle aspiration following partial colectomy, outpatient vs inpatient DM - 6.2 HbA1c - medium dose sliding scale - accuchecks ACHS - hypoglycemic protocol Breast nodules - small nodular densities notes on Ct/ab/pelvis, will require mammogram outpatient GI bleed - resolved - hgb 6.5 on 08/08 - lovenox held - 2 X PRBC - 1 X pRBC today - s/p heparin no longer bloody bowel movements - d/c heparin to now eliquis 5 BID PPx DVT: SCDs, eliquis 5 mg BID GI: pepcid PT recs: subacute rehab on d/c Dispo: mass on colonoscopy; s/p hemicolectomy on 08/04. Unlikely mets, will d/c to subacute; however, pt is extremely selective with her option and is stating she may sign out AMA. Working with social work to find placement. on D/c/ AMA provide eliquis 5 mg BID for DVT in left subclavian. F/u required with GI (Nelson), Heme (angi), surgery (constanza), primary (mone murphy). <Armaan Artis H - Last Filed: 08/11/18 13:37> Objective - Vital Signs/Intake and Output Vital Signs (last 24 hours): Temp Pulse Resp BP Pulse Ox 98.3 F 73 20 132/71 96 08/10/18 23:00 08/11/18 07:00 08/10/18 23:00 08/10/18 23:00 08/10/18 23:00 Intake and Output: 08/11/18 08/11/18 06:59 18:59 Output Total 600 Balance -600 - Medications Medications: Current Medications Acetaminophen (Tylenol 325mg Tab) 650 mg PO Q6 [facility] Last Admin: 08/11/18 06:20 Dose: 650 mg Apixaban (Eliquis) 5 mg PO Q12H [facility] Last Admin: 08/11/18 06:22 Dose: 5 mg Cyclobenzaprine HCl (Flexeril) 10 mg PO TID [facility] Last Admin: 08/11/18 13:10 Dose: 10 mg Dextrose (Dextrose 50% Inj) 0 ml IV STAT PRN; Protocol PRN Reason: Hypoglycemia Protocol Dextrose (Glutose 15) 0 gm PO ONCE PRN; Protocol PRN Reason: Hypoglycemia Protocol Famotidine (Pepcid) 20 mg PO BID [facility] Last Admin: 08/11/18 10:08 Dose: 20 mg Glucagon (Glucagen Diagnostic Kit) 0 mg IM STAT PRN; Protocol PRN Reason: Hypoglycemia Protocol BUPIVACAINE 0.125%/0.9% NACL (Bupivacaine-Ns 0.125% On-Q Manager Real Estate) 600 mls @ 4 mls/hr IJ ONCE ONE Stop: 08/13/18 18:59 Insulin Human Regular (Novolin R) 0 unit SC ACHS [facility]; Protocol Last Admin: 08/11/18 11:30 Dose: 2 units Losartan Potassium (Cozaar) 100 mg PO DAILY [facility] Last Admin: 08/07/18 09:42 Dose: 100 mg Ondansetron HCl (Zofran Inj) 4 mg IVP Q4H PRN PRN Reason: Nausea/Vomiting Rosuvastatin Calcium (Crestor) 10 mg PO HS [facility] Last Admin: 08/10/18 21:32 Dose: 10 mg Tramadol HCl (Ultram) 50 mg PO TID PRN PRN Reason: Pain, moderate (4-7) Last Admin: 08/10/18 13:38 Dose: 50 mg - Labs Labs: 08/10/18 11:15 08/10/18 11:15 PT 12.7 SECONDS (9.7-12.2) H 08/10/18 11:15 INR 1.2 08/10/18 11:15 APTT 55.0 SECONDS (21-34) H D 08/10/18 11:15 Attending/Attestation - Attestation I have personally seen and examined this patient.: Yes I have fully participated in the care of the patient.: Yes I have reviewed all pertinent clinical information, including history, physical exam and plan: Yes Notes (Text): 08/11/18 13:33 Medical attending: Patient was seen and examined by me, reviewed the above note by the medical office assistant and agree with the above note. The patient is off of the heparin ggt today and on the PO Eliquis. She denied bleeding and had normal bowl movments. The patient did not have trouble eating. She denied nausea and denied vomitting. The patient is pedning on AWA placement at this time, this being said she is also considering simply going home as well. thank you Armaan Artis
--- NOTE | 2018-08-11 12:22 | CP.PCM.PN ---
Subjective - Date & Time of Evaluation Date of Evaluation: 08/11/18 Time of Evaluation: 12:00 - Subjective Subjective: Feeling better. Objective - Vital Signs/Intake and Output Vital Signs (last 24 hours): Temp Pulse Resp BP Pulse Ox 98.3 F 73 20 132/71 96 08/10/18 23:00 08/11/18 04:00 08/10/18 23:00 08/10/18 23:00 08/10/18 23:00 Intake and Output: 08/11/18 08/11/18 06:59 18:59 Output Total 600 Balance -600 - Medications Medications: Current Medications Acetaminophen (Tylenol 325mg Tab) 650 mg PO Q6 [facility] Last Admin: 08/11/18 06:20 Dose: 650 mg Apixaban (Eliquis) 5 mg PO Q12H [facility] Last Admin: 08/11/18 06:22 Dose: 5 mg Cyclobenzaprine HCl (Flexeril) 10 mg PO TID [facility] Last Admin: 08/11/18 10:08 Dose: 10 mg Dextrose (Dextrose 50% Inj) 0 ml IV STAT PRN; Protocol PRN Reason: Hypoglycemia Protocol Dextrose (Glutose 15) 0 gm PO ONCE PRN; Protocol PRN Reason: Hypoglycemia Protocol Famotidine (Pepcid) 20 mg PO BID [facility] Last Admin: 08/11/18 10:08 Dose: 20 mg Glucagon (Glucagen Diagnostic Kit) 0 mg IM STAT PRN; Protocol PRN Reason: Hypoglycemia Protocol BUPIVACAINE 0.125%/0.9% NACL (Bupivacaine-Ns 0.125% On-Q Core Cutter) 600 mls @ 4 mls/hr IJ ONCE ONE Stop: 08/13/18 18:59 Insulin Human Regular (Novolin R) 0 unit SC ACHS [facility]; Protocol Last Admin: 08/11/18 07:30 Dose: Not Given Losartan Potassium (Cozaar) 100 mg PO DAILY [facility] Last Admin: 08/07/18 09:42 Dose: 100 mg Ondansetron HCl (Zofran Inj) 4 mg IVP Q4H PRN PRN Reason: Nausea/Vomiting Rosuvastatin Calcium (Crestor) 10 mg PO HS [facility] Last Admin: 08/10/18 21:32 Dose: 10 mg Tramadol HCl (Ultram) 50 mg PO TID PRN PRN Reason: Pain, moderate (4-7) Last Admin: 08/10/18 13:38 Dose: 50 mg - Labs Labs: 08/10/18 11:15 08/10/18 11:15 PT 12.7 SECONDS (9.7-12.2) H 08/10/18 11:15 INR 1.2 08/10/18 11:15 APTT 55.0 SECONDS (21-34) H D 08/10/18 11:15 - Head Exam Head Exam: ATRAUMATIC - Eye Exam Eye Exam: Normal appearance - ENT Exam ENT Exam: Mucous Membranes Dry - Respiratory Exam Respiratory Exam: NORMAL BREATHING PATTERN - Cardiovascular Exam Cardiovascular Exam: +S1, +S2 - GI/Abdominal Exam GI & Abdominal Exam: Normal Bowel Sounds Assessment and Plan (1) Anemia Assessment & Plan: GI bleeding secondary to tumor s/p resection iron deficiency s/p 2U PRBC Status: Acute (2) DVT (deep venous thrombosis) Assessment & Plan: provoked from midline restarted anticoagulation; Eliquis 5mg BID Status: Acute (3) Colon cancer Assessment & Plan: s/p hemicolectomy stage II - no high risk features does not require adjuvant chemotherapy Status: Acute (4) Elevated CEA Assessment & Plan: secondary to colon cancer s/p resection Status: Acute
--- NOTE | 2018-08-11 15:42 | CP.PCM.PN ---
Subjective - Date & Time of Evaluation Date of Evaluation: 08/11/18 Time of Evaluation: 09:00 - Subjective Subjective: Nephrology Consultation Note: Assessment: Stable oliguria likely hypovolemia as FeNa 0.1%: RESOLVED diabetes Mellitus hypertension with urgency morbid obesity colon CA s/p Rt hemicolectomy 08/04/18 Anemia hypokalemia hypophosphatemia Plan No acute need for renal replacement therapy at this time. Hypertension control with meds as ordered. Maintain hemodynamics stable. Avoid hypotension. c/w valsartan/hctz as home med at d/c Monitor Input/Output, daily weights and renal function with basic metabolic panel supplement lytes as needed Dose meds/antibiotics for GFR >60 Glycemic control Further work up/management as per primary team Thanks for allowing me to participate in care of your patient. Will sign off and follow patient with you further PRN. Please call if any Qs. Dr Giovanni Rai Office: [phone] Chief Complaint; pain Reason for consult: low urine output HPI: Pt is a 67 F with hx of diabetes Mellitus ( years), hypertension (years) morbid obesity presented with complaints of anemia and found to have colonic mass s/p Rt hemicolectomy 08/04/18. post-op urine output is noted to be low hence renal consulted Denies OTC/herbal meds or NSAIDs No recent iodinated contrast exposure. Noted obvious episodes of low BP during surgery. BP was low at 90/50s towards the end. ROS: making more urine. GI bleed over weekend. stable now Cardiovascular: No chest pain. Pulmonary: No shortness of breath Gastrointestinal: no abdominal pain No nausea. No vomiting. Genitourinary: No pain while urinating. Denies blood in urine. All other negative except as mentioned in HPI Physical Examination: General Appearance: Comfortable, in no acute respiratory distress, co-operative . obese Vitals reviewed and noted as below Head; Atraumatic, normocephalic ENT: no ulcers no thrush. Tongue is midline. Oropharynx: no rash or ulcers. EYES: Pupils are equal, round and reactive to light accommodation. Eye muscles and extraocular movement intact. Sclera is anicteric. Neck; supple no lymphadenopathy, no thyromegaly or bruit Lungs: Normal respiratory rate/effort. Breath sounds bilateral equal and clear Heart: Normal rate. s1s2 normal. No rub or gallop. Extremities: 1+ pedal edema. No varicose veins Neurological: Patient is alert, awake and oriented to person, place and time. No focal deficit. Strength bilateral appropriate and equal Skin: Warm and dry. Normal turgor. No rash. Palpitation: Normal elasticity for age Abdomen: Abdomen is soft. Bowel sounds +. There is no abdominal tenderness, no guarding/rigidity no organomegaly. s/p surgery, has abdominal binder. exam overall limited Psych: normal insight and normal affect/mood MSK: no joint tenderness or swelling. Digits and nails normal, no deformity : kidney or bladder not palpable. has finney Labs/imaging reviewed. Past medical history, past surgical history, family history, social history, allergy reviewed and noted as below Family hx: no hx of CKD. Rest non-contributory Objective - Vital Signs/Intake and Output Vital Signs (last 24 hours): Temp Pulse Resp BP Pulse Ox 98.3 F 73 20 132/71 96 08/10/18 23:00 08/11/18 07:00 08/10/18 23:00 08/10/18 23:00 08/10/18 23:00 Intake and Output: 08/11/18 08/11/18 06:59 18:59 Output Total 600 Balance -600 - Medications Medications: Current Medications Acetaminophen (Tylenol 325mg Tab) 650 mg PO Q6 [facility] Last Admin: 08/11/18 12:30 Dose: Not Given Apixaban (Eliquis) 5 mg PO Q12H [facility] Last Admin: 08/11/18 06:22 Dose: 5 mg Cyclobenzaprine HCl (Flexeril) 10 mg PO TID [facility] Last Admin: 08/11/18 13:10 Dose: 10 mg Dextrose (Dextrose 50% Inj) 0 ml IV STAT PRN; Protocol PRN Reason: Hypoglycemia Protocol Dextrose (Glutose 15) 0 gm PO ONCE PRN; Protocol PRN Reason: Hypoglycemia Protocol Famotidine (Pepcid) 20 mg PO BID [facility] Last Admin: 08/11/18 10:08 Dose: 20 mg Glucagon (Glucagen Diagnostic Kit) 0 mg IM STAT PRN; Protocol PRN Reason: Hypoglycemia Protocol BUPIVACAINE 0.125%/0.9% NACL (Bupivacaine-Ns 0.125% On-Q Science Manager) 600 mls @ 4 mls/hr IJ ONCE ONE Stop: 08/13/18 18:59 Insulin Human Regular (Novolin R) 0 unit SC ACHS [facility]; Protocol Last Admin: 08/11/18 11:30 Dose: 2 units Losartan Potassium (Cozaar) 100 mg PO DAILY [facility] Last Admin: 08/07/18 09:42 Dose: 100 mg Ondansetron HCl (Zofran Inj) 4 mg IVP Q4H PRN PRN Reason: Nausea/Vomiting Rosuvastatin Calcium (Crestor) 10 mg PO HS [facility] Last Admin: 08/10/18 21:32 Dose: 10 mg Tramadol HCl (Ultram) 50 mg PO TID PRN PRN Reason: Pain, moderate (4-7) Last Admin: 08/10/18 13:38 Dose: 50 mg - Labs Labs: 08/10/18 11:15 08/10/18 11:15 PT 12.7 SECONDS (9.7-12.2) H 08/10/18 11:15 INR 1.2 08/10/18 11:15 APTT 55.0 SECONDS (21-34) H D 08/10/18 11:15
--- NOTE | 2018-08-12 00:05 | PN ---
DATE: 08/11/2018 LOCATION: 650, bed A. SUBJECTIVE: This is a 67-year-old female, post right hemicolectomy due to colon CA, seen and examined in rounds with reported irregular bowel movement, passing gas without reported active bleeding. No reported vomiting but mild dyspepsia with occasional vomiting, tolerating oral intake well. No reported chest pain, palpitation or significant shortness of breath recently. No chills or fever. The patient, however, still has intermittent period of slight abdominal pain, and abdominal binder is in place and intact. The most recent lab results for today show blood glucose level of 150. Rest of the lab results, however, is still pending and the patient still has low hemoglobin and hematocrit with thrombocytosis. PHYSICAL EXAMINATION: GENERAL: A 67-year-old female awake, alert, oriented. VITAL SIGNS: Afebrile with pulse of 78, respiratory rate 20-22, blood pressure of 146/74. HEENT: Pale, dry oral mucous membrane, nonicteric sclerae. LUNGS: Few scattered crepitation. Decreased air entry at bases. HEART: Positive S1 and S2. ABDOMEN: Soft with slight mild generalized tenderness. No mass or organomegaly. No rebound tenderness or guarding but slight generalized tenderness. EXTREMITIES: Without edema, clubbing or cyanosis. NEUROLOGIC: No reported new neurological deficit, sensory or motor. IMPRESSION: 1. Right-sided colon cancer with status post right hemicolectomy. 2. Re-exacerbation of peptic ulcer disease. 3. Anemia secondary to above. 4. Reported recent history of hematuria, subsided. 5. Reported deep venous thrombosis with electrolyte imbalance. 6. Poorly controlled diabetes mellitus. 7. Breast nodules by recent radiology study results. 8. Known history of hyperlipidemia with hypertension. SUGGESTIONS: 1. Continue current management. 2. Repeat stool for occult blood. 3. The patient will need followup colonoscopy. 4. Further recommendation after 1 year. 5. Further recommendation to follow. Winter Ellis MD
--- NOTE | 2018-08-12 05:02 | PN ---
DATE: 08/11/2018 ENDOCRINOLOGY FOLLOWUP NOTE LOCATION: Room 650. SUBJECTIVE: This is a 67-year-old female with recent right hemicolectomy, presented here with marked anemia and subsequent GI evaluation with a colonic mass lesion in the right ascending colon as noted. Her histopathology showed presence of an ulcerated colonic adenocarcinoma, moderately differentiated grade 2 with invasion of the muscular area with no apparent lymphatic or lymph node involvement thereof. She also continues to have marked anemia and received packed RBC transfusion today as noted. Moreover, she has an incidental finding of a moderately enlarged multinodular goiter with a dominant right thyroid nodule at this time. We have deferred the fine needle aspiration biopsy of the dominant right thyroid nodule per the patient's preferences and this could be done electively on the outpatient as indicated. She remains clinically and biochemically euthyroid as noted otherwise. No indications for any kind of thyroid pharmacotherapy at this time. We will obtain serial thyroid studies accordingly. Kathy Hernandez MD
[2018-08-12] MEDS: (Novolin R) Insulin Human Regular 100 units/ml vial SC SCH ×4 (07:45→21:32)
--- NOTE | 2018-08-12 07:50 | CP.PCM.PN ---
<Frank Mcneil - Last Filed: 08/12/18 15:04> Subjective - Date & Time of Evaluation Date of Evaluation: 08/12/18 Time of Evaluation: 07:49 - Subjective Subjective: PGY-1 Medicine Progress Note for Dr. Artis Patient seen and examined at bedside, in no acute distress. No overnight events reported. Patient awaiting authorization for AWA placement. 12 pt ROS reviewed and negative. Objective - Vital Signs/Intake and Output Vital Signs (last 24 hours): Temp Pulse Resp BP Pulse Ox 98.3 F 68 20 150/74 95 08/11/18 23:00 08/12/18 03:44 08/11/18 23:00 08/11/18 23:00 08/11/18 23:00 - Medications Medications: Current Medications Acetaminophen (Tylenol 325mg Tab) 650 mg PO Q6 [facility] Last Admin: 08/12/18 05:27 Dose: 650 mg Apixaban (Eliquis) 5 mg PO Q12H [facility] Last Admin: 08/12/18 05:27 Dose: 5 mg Cyclobenzaprine HCl (Flexeril) 10 mg PO TID [facility] Last Admin: 08/11/18 17:45 Dose: 10 mg Dextrose (Dextrose 50% Inj) 0 ml IV STAT PRN; Protocol PRN Reason: Hypoglycemia Protocol Dextrose (Glutose 15) 0 gm PO ONCE PRN; Protocol PRN Reason: Hypoglycemia Protocol Famotidine (Pepcid) 20 mg PO BID [facility] Last Admin: 08/11/18 17:45 Dose: 20 mg Glucagon (Glucagen Diagnostic Kit) 0 mg IM STAT PRN; Protocol PRN Reason: Hypoglycemia Protocol BUPIVACAINE 0.125%/0.9% NACL (Bupivacaine-Ns 0.125% On-Q Spot Facer) 600 mls @ 4 mls/hr IJ ONCE ONE Stop: 08/13/18 18:59 Insulin Human Regular (Novolin R) 0 unit SC ACHS [facility]; Protocol Last Admin: 08/12/18 07:45 Dose: Not Given Losartan Potassium (Cozaar) 100 mg PO DAILY [facility] Last Admin: 08/07/18 09:42 Dose: 100 mg Ondansetron HCl (Zofran Inj) 4 mg IVP Q4H PRN PRN Reason: Nausea/Vomiting Rosuvastatin Calcium (Crestor) 10 mg PO HS [facility] Last Admin: 08/11/18 21:03 Dose: 10 mg Tramadol HCl (Ultram) 50 mg PO TID PRN PRN Reason: Pain, moderate (4-7) Last Admin: 08/11/18 16:40 Dose: 50 mg - Labs Labs: 08/10/18 11:15 08/10/18 11:15 PT 12.7 SECONDS (9.7-12.2) H 08/10/18 11:15 INR 1.2 08/10/18 11:15 APTT 55.0 SECONDS (21-34) H D 08/10/18 11:15 - Constitutional Appears: Non-toxic, No Acute Distress - Head Exam Head Exam: ATRAUMATIC, NORMAL INSPECTION, NORMOCEPHALIC - Eye Exam Eye Exam: EOMI, Normal appearance, PERRL Pupil Exam: NORMAL ACCOMODATION - ENT Exam ENT Exam: Mucous Membranes Moist, Normal Exam - Neck Exam Neck Exam: Full ROM, Normal Inspection - Respiratory Exam Respiratory Exam: Clear to Ausculation Bilateral, NORMAL BREATHING PATTERN. absent: Accessory Muscle Use, Rales, Rhonchi, Wheezes, Respiratory Distress, Stridor - Cardiovascular Exam Cardiovascular Exam: REGULAR RHYTHM, +S1, +S2 - GI/Abdominal Exam GI & Abdominal Exam: Soft, Normal Bowel Sounds. absent: Distended, Firm, Guarding, Rigid, Tenderness Additional comments: sri at midline from surgical site. - Extremities Exam Extremities Exam: Full ROM, Normal Capillary Refill, Normal Inspection. absent: Calf Tenderness, Pedal Edema - Back Exam Back Exam: NORMAL INSPECTION - Neurological Exam Neurological Exam: Alert, Awake, Oriented x3 - Psychiatric Exam Psychiatric exam: Normal Affect, Normal Mood - Skin Skin Exam: Dry, Intact, Normal Color, Warm Assessment and Plan - Assessment and Plan (Free Text) Assessment: 67yo F with PMH of anemia, HTN, DM presenting to the ED with fatigue and dizziness for 10 days. Hemoglobin 6.4, admitted for symptomatic anemia. Received 2 X pRBC, colonic mass found- ulcerated adenocarcinoma w/ mucinous features, partial colectomy 08/04 - colonic adenocarcinoma, moderately differentiated, grade 2, invation through mucularis propria, not beyond subseroosal fat, no lyphovascular identified. New DVT of Left subclavian, initially on lovenox; however due to gi bleed, held, transfused 3 PRBC, no bleeding s/p heparin, and now on eliquis 5 BID. Awaiting subacute placement. Plan: Deep Vein thrombosis Superficial vein thrombosis - celiac vein revealing superficial vein thrombosis - subclavian vein revealing deep vein thrombosis - s/p lovenox 90 SC BID; however held due to GI bleed - s/p heparin w/ stable h/h - currently on eliquis 5 mg PO BID Ascending Colon Ulcerated Mass Colon cancer - CT abd/pelvis: annualar soft tissue mass involving right colon worrisome for neoplasm; small adjacent lymph nodes 13 mm - neg CT head and chest - GI consulted, Dr Damon - Upper EGD findings: mild esophagitis f/u bx, no bleed - colonoscopy: Ascending colon showed bleeding ulcerated mass - path results: ulcerated adenocarcinoma w/ mucinous features - cardio consulted for clearance, Dr. Donahue recs for cardiac clearance - ECHO - EF of 65-70%, diastolic dysfunction - Nuclear stres test - normal - carotid duplex - no stenosis - per cardio, patient is at moderate risk for colonic surgery - GenSx consulted Dr Barrett: - CT ChestAbPelv: malignant appearing ascending colon mass - s/p right colectomy on 08/04 - path - colonic adenocarcinoma, moderately differentiated, grade 2, invation through mucularis propria, not beyond subseroosal fat, no lyphovascular identified - tramadol/flexeril for pain management per surgery - clear from surgery for d/c, pending subacute placement -heme/onc recs appreciated- unlikley mets, f/u path & outpatient -stage 2, does not require adjuvant chemotherapy Symptomatic Anemia-Iron Deficiency - resolving - Initial Hemoglobin 6s - 2 x PRBC - Heme/Onc consulted, Dr. Boudreaux - see above - H&H 10s/30 stable HTN - initially BP in 170s - home valsartan/hctz not on formulary - losartan/hctz initially - post op BP 120s, BP meds held for now Thyroid nodule - CT scan: R Lobe enlargement - U/S: enlarged bilateral gland, f/u with fine needle bx and a radionucleatide scan - endocrine, Dr. Hernandez recs - fine needle aspiration following partial colectomy, outpatient vs inpatient DM - 6.2 HbA1c - medium dose sliding scale - accuchecks ACHS - hypoglycemic protocol Breast nodules - small nodular densities notes on Ct/ab/pelvis, will require mammogram outpatient GI bleed - resolved - hgb 6.5 on 08/08 - lovenox held - 2 X PRBC - 1 X pRBC today - s/p heparin no longer bloody bowel movements - d/c heparin to now eliquis 5 BID PPx, Diet, Disposition -DVT: SCDs, eliquis 5 mg BID -GI: pepcid -PT recs: subacute rehab on d/c Dispo: awaiting authorization for d/c to [facility] Case discussed with Dr. Steff Mcneil DO, PGY-1 <Armaan Artis H - Last Filed: 08/12/18 15:46> Objective - Vital Signs/Intake and Output Vital Signs (last 24 hours): Temp Pulse Resp BP Pulse Ox 98.5 F 64 20 163/84 H 96 08/12/18 07:30 08/12/18 07:30 08/12/18 07:30 08/12/18 07:30 08/12/18 07:30 - Medications Medications: Current Medications Acetaminophen (Tylenol 325mg Tab) 650 mg PO Q6 [facility] Last Admin: 08/12/18 13:19 Dose: 650 mg Apixaban (Eliquis) 5 mg PO Q12H [facility] Last Admin: 08/12/18 05:27 Dose: 5 mg Cyclobenzaprine HCl (Flexeril) 10 mg PO TID [facility] Last Admin: 08/12/18 09:04 Dose: 10 mg Dextrose (Dextrose 50% Inj) 0 ml IV STAT PRN; Protocol PRN Reason: Hypoglycemia Protocol Dextrose (Glutose 15) 0 gm PO ONCE PRN; Protocol PRN Reason: Hypoglycemia Protocol Famotidine (Pepcid) 20 mg PO BID [facility] Last Admin: 08/12/18 09:04 Dose: 20 mg Glucagon (Glucagen Diagnostic Kit) 0 mg IM STAT PRN; Protocol PRN Reason: Hypoglycemia Protocol BUPIVACAINE 0.125%/0.9% NACL (Bupivacaine-Ns 0.125% On-Q Spot Facer) 600 mls @ 4 mls/hr IJ ONCE ONE Stop: 08/13/18 18:59 Insulin Human Regular (Novolin R) 0 unit SC ACHS [facility]; Protocol Last Admin: 08/12/18 11:40 Dose: Not Given Losartan Potassium (Cozaar) 100 mg PO DAILY [facility] Last Admin: 08/07/18 09:42 Dose: 100 mg Ondansetron HCl (Zofran Inj) 4 mg IVP Q4H PRN PRN Reason: Nausea/Vomiting Rosuvastatin Calcium (Crestor) 10 mg PO HS [facility] Last Admin: 08/11/18 21:03 Dose: 10 mg Tramadol HCl (Ultram) 50 mg PO TID PRN PRN Reason: Pain, moderate (4-7) Last Admin: 08/11/18 16:40 Dose: 50 mg - Labs Labs: 08/10/18 11:15 08/10/18 11:15 PT 12.7 SECONDS (9.7-12.2) H 08/10/18 11:15 INR 1.2 08/10/18 11:15 APTT 55.0 SECONDS (21-34) H D 08/10/18 11:15 Attending/Attestation - Attestation I have personally seen and examined this patient.: Yes I have fully participated in the care of the patient.: Yes I have reviewed all pertinent clinical information, including history, physical exam and plan: Yes Notes (Text): 08/12/18 15:44 Medical attending: Patient was seen and examined by me. Agree with the above note by the resident The patient was not in any acute distress. At this time we are pending AWA placement. She remains on the Eliquis PO BID She reports minimal tenderness. She is tolerating her diet fine and also the patient reports normal appearing BMs as well Armaan Artis
[2018-08-12 17:17] VITALS: TEMP 98.4
[2018-08-13 02:09] VITALS: O2SAT 97
--- NOTE | 2018-08-13 02:19 | PN ---
DATE: 08/12/2018 LOCATION: 650, bed A. SUBJECTIVE: This is a 67-year-old female seen and examined in rounds. The patient denied any actual chest pain or palpitation, but intermittent period of mild abdominal pain. No reported active bleeding. No significant complain of shortness of breath, nausea, or vomiting. The entire chart is reviewed, including but not limited to the most recent lab and radiology study results, current and the previous medication list, current and the previous medical events. Today's blood glucose level is 113. Rest of the lab results still pending. PHYSICAL EXAMINATION: GENERAL: A 67-year-old female. VITAL SIGNS: Afebrile with pulse of 62, respiratory rate 20 to 22, blood pressure of 152/76. HEENT: Pale, dry oral mucous membrane. Nonicteric sclerae. LUNGS: Few scattered crepitation. Decreased air entry at bases. HEART: Positive S1 and S2. ABDOMEN: Soft with mild generalized tenderness, covered with clean dressing and abdominal binder with discharge. Bowel sounds are present. EXTREMITIES: Lower extremity with mild edematous changes. No clubbing or cyanosis. NEUROLOGIC: No new reported neurological deficits, sensory or motor. IMPRESSION: 1. Right-sided colon cancer with status post right hemicolectomy. 2. Re-exacerbation of peptic ulcer disease. 3. Anemia secondary to above. 4. Known history of, but not limited to hypertension, hyperlipidemia with poorly controlled diabetes mellitus. SUGGESTIONS: 1. Continue current management. 2. Agree to discharge home. 3. The patient is to be followed up as outpatient with followup colonoscopy after one year. Further recommendation to follow. Winter Ellis MD
--- NOTE | 2018-08-13 07:42 | CP.PCM.PN ---
Objective - Vital Signs/Intake and Output Vital Signs (last 24 hours): Temp Pulse Resp BP Pulse Ox 98.4 F 79 20 144/70 97 08/12/18 23:00 08/12/18 23:00 08/12/18 23:00 08/12/18 23:00 08/12/18 23:00 - Medications Medications: Current Medications Acetaminophen (Tylenol 325mg Tab) 650 mg PO Q6 [facility] Last Admin: 08/13/18 05:46 Dose: 650 mg Apixaban (Eliquis) 5 mg PO Q12H [facility] Last Admin: 08/13/18 05:46 Dose: 5 mg Cyclobenzaprine HCl (Flexeril) 10 mg PO TID [facility] Last Admin: 08/12/18 17:40 Dose: 10 mg Dextrose (Dextrose 50% Inj) 0 ml IV STAT PRN; Protocol PRN Reason: Hypoglycemia Protocol Dextrose (Glutose 15) 0 gm PO ONCE PRN; Protocol PRN Reason: Hypoglycemia Protocol Famotidine (Pepcid) 20 mg PO BID [facility] Last Admin: 08/12/18 17:40 Dose: 20 mg Glucagon (Glucagen Diagnostic Kit) 0 mg IM STAT PRN; Protocol PRN Reason: Hypoglycemia Protocol BUPIVACAINE 0.125%/0.9% NACL (Bupivacaine-Ns 0.125% On-Q Corn Press Operator) 600 mls @ 4 mls/hr IJ ONCE ONE Stop: 08/13/18 18:59 Insulin Human Regular (Novolin R) 0 unit SC ACHS [facility]; Protocol Last Admin: 08/12/18 21:32 Dose: Not Given Losartan Potassium (Cozaar) 100 mg PO DAILY [facility] Last Admin: 08/07/18 09:42 Dose: 100 mg Ondansetron HCl (Zofran Inj) 4 mg IVP Q4H PRN PRN Reason: Nausea/Vomiting Rosuvastatin Calcium (Crestor) 10 mg PO HS [facility] Last Admin: 08/12/18 21:33 Dose: 10 mg Tramadol HCl (Ultram) 50 mg PO TID PRN PRN Reason: Pain, moderate (4-7) Last Admin: 08/11/18 16:40 Dose: 50 mg - Labs Labs: 08/10/18 11:15 08/10/18 11:15 PT 12.7 SECONDS (9.7-12.2) H 08/10/18 11:15 INR 1.2 08/10/18 11:15 APTT 55.0 SECONDS (21-34) H D 08/10/18 11:15
[2018-08-13] MEDS: (Novolin R) Insulin Human Regular 100 units/ml vial SC SCH ×2 (07:43→11:34)
--- NOTE | 2018-08-13 07:51 | PN ---
DATE: 08/12/2018 ENDOCRINOLOGY FOLLOWUP NOTE LOCATION: Room 650. SUBJECTIVE: This is a 67-year-old female with recent diagnosis and evaluation of an ulcerated colonic adenocarcinoma and underwent a right hemicolectomy and is now being followed closely for metabolic management. Her glycemic levels today are fluctuating but much improved at this time and have ranged from 111 to 113 and 129 mg/dL. LABORATORY DATA: Her chemistry showed BUN of 11, sodium 140, potassium 3.4, chloride 105, CO2 of 25, glucose 236 and creatinine 0.6. Her glucose levels have ranged from 127 to 166 at bedtime last night. So her repeat thyroid study showed T4 of 14.4 with a TSH of 2. ASSESSMENT AND PLAN: She also is concomitant multinodular goiter with a dominant right thyroid nodule as mentioned in the previous progress notes and is awaiting a fine needle aspiration biopsy when she is more clinically and hemodynamically stable at this time. This has to be deferred for an elective procedure which could be done on the outpatient as the patient so decides. We will obtain serum chemistries and supplement accordingly as needed. At this time, the patient has really not been started back on her basal insulin therapy as previously given because of the variable oral intake as noted. We will follow. Kathy Hernandez MD
[2018-08-13 08:45] VITALS: BP 149/80; PULSE 64
--- NOTE | 2018-08-13 12:52 | PN ---
DATE: 08/13/2018 LOCATION: 650, bed A. SUBJECTIVE: This is a 67-year-old female, post right hemicolectomy due to colon CA, seen and examined in rounds with intermittent period of abdominal pain, but tolerating oral intake well. The entire chart is reviewed, including but not limited to the most recent lab and radiology study results, current and the previous medication list. Today's lab results still pending. PHYSICAL EXAMINATION: GENERAL: A 67-year-old female. VITAL SIGNS: Afebrile with pulse of 66, respiratory rate 20 to 22 with blood pressure 144/82. HEENT: Pale, dry oral mucous membrane. Nonicteric sclerae. LUNGS: Few scattered crepitation. Decreased air entry at bases. HEART: Positive S1 and S2. ABDOMEN: Soft with mild generalized tenderness. No mass or organomegaly. Covered with clean dressing and abdominal binder. EXTREMITIES: Mild lower extremity edematous changes. No clubbing or cyanosis. NEUROLOGIC: No reported new neurological deficits, sensory or motor. IMPRESSION: 1. Right-sided colon cancer status post right hemicolectomy. 2. Re-exacerbation of peptic ulcer disease. 3. Anemia secondary to above. 4. Known history of hyperlipidemia, hypertension, poorly-controlled diabetes mellitus. 5. Mild malnutrition with hypoalbuminemia, hypoproteinemia. SUGGESTIONS: 1. Continue current management. 2. Follow up H and H. 3. Guaiac all the stools daily x3. 4. Follow up colonoscopy after 12 to 18 months as suggested, otherwise as indicated. Winter Ellis MD
--- NOTE | 2018-08-13 14:39 | CP.PCM.DIS ---
<Hebert Boyd M - Last Filed: 08/13/18 14:51> Provider - Provider Date of Admission: 07/30/18 08:55 Attending physician: Armaan Artis DO Primary care physician: Dr. Vasquez Consults: 07/27/18 14:08 Hematology Oncology Consult Routine Comment: Consulting Provider: Shimon Boudreaux Consulting Physician: Shimon Boudreaux Reason for Consult: pt with symptomatic microcytic anemia 07/28/18 09:25 Gastroenterology Consult Routine Comment: Consulting Provider: Winter Damon Consulting Physician: Winter Damon Reason for Consult: anemia, possible GI etiology, hemmrhoids 07/30/18 05:50 General Surgery Consult Routine Comment: Consulting Provider: Washington Barrett Jr. Consulting Physician: Washington Barrett Jr. Reason for Consult: ulcerated mass seen on colonoscopy 08/01/18 10:54 Endocrinology Consult Routine Comment: Consulting Provider: Kathy Hernandez Consulting Physician: Kathy Hernandez Reason for Consult: thyroid nodule on US and CT 08/02/18 11:54 Cardiology Consult Routine Comment: Consulting Provider: David Donahue Consulting Physician: David Donahue Reason for Consult: pre-op clearance for removal of colonic mass 08/05/18 11:12 Nephrology Consult Routine Comment: Consulting Provider: Giovanni Rai Consulting Physician: Giovanni Rai Reason for Consult: Decreased urine output Time Spent in preparation of Discharge (in minutes): 40 Diagnosis - Discharge Diagnosis (1) Colon cancer Status: Acute Comment: s/p hemicolectomy w/ anastomosis (2) DVT (deep venous thrombosis) Status: Acute Comment: on eliquis 5 bid Hospital Course - Lab Results Lab Results: Micro Results 08/07/18 13:15 Nose MRSA Culture - Final MRSA NOT DETECTED 08/04/18 18:07 Nose MRSA Culture (Admit) - Final MRSA NOT DETECTED Most Recent Lab Values WBC 9.8 K/uL (4.8-10.8) 08/10/18 11:15 RBC 3.40 Mil/uL (3.80-5.20) L 08/10/18 11:15 Hgb 9.7 g/dL (11.0-16.0) L 08/10/18 11:15 Hct 29.0 % (34.0-47.0) L 08/10/18 11:15 MCV 85.3 fL (81.0-99.0) 08/10/18 11:15 MCH 28.5 pg (27.0-31.0) 08/10/18 11:15 MCHC 33.4 g/dL (33.0-37.0) 08/10/18 11:15 RDW 19.6 % (11.5-14.5) H 08/10/18 11:15 Plt Count 513 K/uL (130-400) H D 08/10/18 11:15 MPV 7.6 fL (7.2-11.7) 08/10/18 11:15 Neut % (Auto) 65.5 % (50.0-75.0) 08/10/18 11:15 Lymph % (Auto) 22.6 % (20.0-40.0) 08/10/18 11:15 Pickett % (Auto) 7.0 % (0.0-10.0) 08/10/18 11:15 Eos % (Auto) 4.1 % (0.0-4.0) H 08/10/18 11:15 Baso % (Auto) 0.8 % (0.0-2.0) 08/10/18 11:15 Neut # (Auto) 6.4 K/uL (1.8-7.0) 08/10/18 11:15 Lymph # (Auto) 2.2 K/uL (1.0-4.3) 08/10/18 11:15 Pickett # (Auto) 0.7 K/uL (0.0-0.8) 08/10/18 11:15 Eos # (Auto) 0.4 K/uL (0.0-0.7) 08/10/18 11:15 Baso # (Auto) 0.1 K/uL (0.0-0.2) 08/10/18 11:15 Retic Count 3.2 % (0.5-1.5) H 07/27/18 14:18 Haptoglobin 241.5 mg/dL (30.0-200.0) H 07/27/18 17:04 PT 12.7 SECONDS (9.7-12.2) H 08/10/18 11:15 INR 1.2 08/10/18 11:15 APTT 55.0 SECONDS (21-34) H D 08/10/18 11:15 Sodium 140 mmol/L (132-148) 08/10/18 11:15 Potassium 3.4 mmol/L (3.6-5.2) L 08/10/18 11:15 Chloride 105 mmol/L (98-107) 08/10/18 11:15 Carbon Dioxide 25 mmol/L (22-30) 08/10/18 11:15 Anion Gap 13 (10-20) 08/10/18 11:15 BUN 11 mg/dL (7-17) 08/10/18 11:15 Creatinine 0.6 mg/dL (0.7-1.2) L 08/10/18 11:15 Est GFR ( Amer) > 60 08/10/18 11:15 Est GFR (Non-Af Amer) > 60 08/10/18 11:15 POC Glucose (mg/dL) 126 mg/dL (65-110) H 08/13/18 11:14 Random Glucose 236 mg/dL (65-105) H D 08/10/18 11:15 Hemoglobin A1c 6.2 % (4.2-6.5) 07/27/18 17:04 Calcium 8.3 mg/dl (8.6-10.4) L 08/10/18 11:15 Phosphorus 2.6 mg/dL (2.5-4.5) 08/10/18 11:15 Magnesium 1.6 mg/dL (1.6-2.3) 08/10/18 11:15 Iron < 10 ug/dL (37-170) L 07/27/18 17:04 TIBC 415 ug/dL (250-450) 07/27/18 17:04 % Saturation 2.4 (20-55) L 07/27/18 17:04 Ferritin 5.4 ng/mL 07/27/18 17:04 Total Bilirubin 0.1 mg/dL (0.2-1.3) L 08/10/18 11:15 AST 32 U/L (14-36) 08/10/18 11:15 ALT 23 U/L (9-52) 08/10/18 11:15 Alkaline Phosphatase 77 U/L (38-126) 08/10/18 11:15 Lactate Dehydrogenase 352 U/L (313-618) 07/27/18 17:04 Troponin I < 0.0120 ng/mL (0.00-0.120) 07/27/18 11:49 Total Protein 5.8 g/dL (6.3-8.3) L 08/10/18 11:15 Albumin 3.0 g/dL (3.5-5.0) L 08/10/18 11:15 Globulin 2.8 gm/dL (2.2-3.9) 08/10/18 11:15 Albumin/Globulin Ratio 1.0 (1.0-2.1) 08/10/18 11:15 Carcinoembryonic Ag 10.0 ng/mL (0-3.0) H 07/28/18 20:45 CA 125 Antigen 8.9 U/mL (0-35) 07/28/18 20:45 Vitamin B12 998 pg/mL (239-931) H 07/27/18 17:04 Folate 15.0 ng/mL 07/27/18 17:04 Free T4 1.11 ng/dL (0.78-2.19) 07/27/18 17:04 Thyroxine (T4) 14.4 ug/dL (5.5-11.0) H 08/09/18 07:01 Total T3 1.87 nmol/L (1.49-2.60) 07/27/18 17:04 Thyroglobulin, Quant 42.9 ng/mL (2.8-40.9) H 08/02/18 08:12 TSH 3rd Generation 2.00 mIU/L (0.46-4.68) 08/09/18 07:01 Urine Color Yellow (YELLOW) 07/27/18 12:26 Urine Clarity Hazy (Clear) 07/27/18 12:26 Urine pH 6.0 (5.0-8.0) 07/27/18 12:26 Ur Specific [place] 1.015 (1.003-1.030) 07/27/18 12:26 Urine Protein Negative mg/dL (NEGATIVE) 07/27/18 12:26 Urine Glucose (UA) Negative mg/dL (Normal) 07/27/18 12:26 Urine Ketones Negative mg/dL (NEGATIVE) 07/27/18 12:26 Urine Blood Negative (NEGATIVE) 07/27/18 12:26 Urine Nitrate Negative (NEGATIVE) 07/27/18 12:26 Urine Bilirubin Negative (NEGATIVE) 07/27/18 12:26 Urine Urobilinogen 0.2 mg/dL (0.2-1.0) 07/27/18 12:26 Ur Leukocyte Esterase Negative Vashti/uL (Negative) 07/27/18 12:26 Urine WBC (Auto) 136 /hpf (0-5) H 07/27/18 12:26 Urine RBC (Auto) 9 /hpf (0-3) H 07/27/18 12:26 Ur Squamous Epith Cells 7 /hpf (0-5) H 07/27/18 12:26 Urine Bacteria Occ (<OCC) H 07/27/18 12:26 Ur Random Creatinine 240.9 mg/dL 08/05/18 12:17 Ur Random Sodium 75 mmol/L 08/05/18 12:17 Thyroperoxidase Ab 4 IU/mL (<9) 08/02/18 08:12 Thyroglobulin Antibody 1 IU/mL (< OR = 1) 08/02/18 08:12 Blood Type A POSITIVE 08/08/18 13:59 Blood Type Confirm A POSITIVE 07/27/18 12:55 Antibody Screen Negative 08/08/18 13:59 - Hospital Course Hospital Course: HPI: Patient is a 67yo F with PMH of anemia, HTN, DM presenting to the ED with fatigue and dizziness for 10 days. She reports gradual onset of fatigue, lethargy, and dizziness. She reports prior history of this two years ago. She reports fatigue that worsens with exertion and shortness of breath when walking. She reports an episode of syncope 5 days ago while she was showering. Last night as she was walking outside of her house to take out the trash, she reports feeling fatigued and falling on her right side. She denied head trauma. She reports blurry vision and palpitations. She also reports decreased PO intake in the past couple of days. She denies blood in the urine, stool, or vomitus. She denies headache, fever, chills, abdominal pain, nausea, vomiting, dysuria. Patient states last colonoscopy was >2 yrs ago, with normal results. She denies previous blood transfusions. During course, patient had colonoscopy suggesting ulcerated adenocarcinoma per path. Patient had hemicolectomy following cardiac clearance. Patient found to have left subclavian DVT, treated with 5 mg eliquis BID. Patient also had hemoglobin drop in 6s following initial lovenox for dvt treatment; however following transfusions, patient has had stable hgb on eliquis with no reported blood bowel movements Patient also will require outpatient follow up for r thyroid nodule & breast calcified adenoma. Echo EF 65- 70%, moderate septal hypertrophy. Above is only a summary of patient stay, see EMR for full details. Below are discharge instructions provided to patient upon discharge. Patient is stable for discharge to subacute rehab per Dr. Artis. Patient should follow up with her primary doctor, Dr. Almonte within 1 week. Patient should follow up with Dr. Boudreaux, card reader within 1 week for further staging of GI/colon cancer Patient should follow up with Dr. Barrett, General/Vascular surgery within 1 week, for staple removal Patient should follow up with Dr. Damon, [employer]er within 1 week, for further cancer management Patient should resume/start the following medications: - eliquis 5 mg, one tablet, by mouth, twice daily - losartan 25 mg, one tablet, by mouth, daily - Tougeo solostar 50 mg SC ACBD - Vascepa 1gm Po twice daily by mouth - Victoza 18 units, SC daily Please monitor bowel movements for possible bleeding, if blood, eliquis will need to be stopped. If any of the symptoms return or worsen, please return to nearest medical facility. Discharge Exam - Head Exam Head Exam: ATRAUMATIC, NORMAL INSPECTION, NORMOCEPHALIC - Eye Exam Eye Exam: EOMI, Normal appearance Pupil Exam: NORMAL ACCOMODATION - ENT Exam ENT Exam: Mucous Membranes Moist - Respiratory Exam Respiratory Exam: Clear to PA & Lateral. absent: Chest Wall Tenderness - Cardiovascular Exam Cardiovascular Exam: +S1, +S2. absent: JVD - GI/Abdominal Exam GI & Abdominal Exam: Normal Bowel Sounds, Soft Additional comments: sri midline, incision site clean, dry, healing - Extremities Exam Additional comments: denies calf tenderness, pedal edema - Back Exam Back exam: absent: CVA tenderness (L), CVA tenderness (R) - Neurological Exam Neurological exam: Alert, Oriented x3 - Psychiatric Exam Psychiatric exam: Normal Affect, Normal Mood - Skin Skin Exam: Dry, Intact, Normal Color, Warm Discharge Plan - Discharge Medications Prescriptions: Apixaban [Eliquis] 5 mg PO Q12H #30 tab Losartan [Cozaar] 25 mg PO DAILY #30 tab - Follow Up Plan Condition: STABLE Disposition: REHAB FACILITY/REHAB UNIT Instructions: Colonoscopy (DC), Deep Vein Thrombosis (Blood Clots in the Legs) (DC), Colectomy, Partial and Total, (DC), Upper GI Endoscopy (DC), Normocytic Normochromic Anemia (DC), Managing Pain After Surgery, Pulmonary Embolism (DC), Pulmonary Embolism (GEN), Deep Venous Thrombosis (DC), Deep Venous Thrombosis (GEN) Additional Instructions: Patient is stable for discharge to subacute rehab per Dr. Artis. Patient should follow up with her primary doctor, Dr. Almonte within 1 week. Patient should follow up with Dr. Boudreaux, card reader within 1 week for further staging of GI/colon cancer Patient should follow up with Dr. Barrett, General/Vascular surgery within 1 week, for staple removal Patient should follow up with Dr. Damon, [employer] within 1 week, for further cancer management Patient should resume/start the following medications: - eliquis 5 mg, one tablet, by mouth, twice daily - losartan 25 mg, one tablet, by mouth, daily - Tougeo solostar 50 mg SC ACBD - Vascepa 1gm Po twice daily by mouth - Victoza 18 units, SC daily Please monitor bowel movements for possible bleeding, if blood, eliquis will need to be stopped. If any of the symptoms return or worsen, please return to nearest medical facility. Referrals: Shimon Boudreaux MD [Staff Provider] - Winter Damon [Staff Provider] - Washington Barrett Jr., MD [Staff Provider] - <Armaan Artis - Last Filed: 08/13/18 16:12> Provider - Provider Date of Admission: 07/30/18 08:55 Attending physician: Armaan Artis DO Consults: 07/27/18 14:08 Hematology Oncology Consult Routine Comment: Consulting Provider: Shimon Boudreaux Consulting Physician: Shimon Boudreaux Reason for Consult: pt with symptomatic microcytic anemia 07/28/18 09:25 Gastroenterology Consult Routine Comment: Consulting Provider: Winter Damon Consulting Physician: Winter Damon Reason for Consult: anemia, possible GI etiology, hemmrhoids 07/30/18 05:50 General Surgery Consult Routine Comment: Consulting Provider: Washington Barrett Jr. Consulting Physician: Washington Barrett Jr. Reason for Consult: ulcerated mass seen on colonoscopy 08/01/18 10:54 Endocrinology Consult Routine Comment: Consulting Provider: Kathy Hernandez Consulting Physician: Kathy Hernandez Reason for Consult: thyroid nodule on US and CT 08/02/18 11:54 Cardiology Consult Routine Comment: Consulting Provider: David Donahue Consulting Physician: David Donahue Reason for Consult: pre-op clearance for removal of colonic mass 08/05/18 11:12 Nephrology Consult Routine Comment: Consulting Provider: Giovanni Rai Consulting Physician: Giovanni Rai Reason for Consult: Decreased urine output Hospital Course - Lab Results Lab Results: Micro Results 08/07/18 13:15 Nose MRSA Culture - Final MRSA NOT DETECTED 08/04/18 18:07 Nose MRSA Culture (Admit) - Final MRSA NOT DETECTED Most Recent Lab Values WBC 9.8 K/uL (4.8-10.8) 08/10/18 11:15 RBC 3.40 Mil/uL (3.80-5.20) L 08/10/18 11:15 Hgb 9.7 g/dL (11.0-16.0) L 08/10/18 11:15 Hct 29.0 % (34.0-47.0) L 08/10/18 11:15 MCV 85.3 fL (81.0-99.0) 08/10/18 11:15 MCH 28.5 pg (27.0-31.0) 08/10/18 11:15 MCHC 33.4 g/dL (33.0-37.0) 08/10/18 11:15 RDW 19.6 % (11.5-14.5) H 08/10/18 11:15 Plt Count 513 K/uL (130-400) H D 08/10/18 11:15 MPV 7.6 fL (7.2-11.7) 08/10/18 11:15 Neut % (Auto) 65.5 % (50.0-75.0) 08/10/18 11:15 Lymph % (Auto) 22.6 % (20.0-40.0) 08/10/18 11:15 Pickett % (Auto) 7.0 % (0.0-10.0) 08/10/18 11:15 Eos % (Auto) 4.1 % (0.0-4.0) H 08/10/18 11:15 Baso % (Auto) 0.8 % (0.0-2.0) 08/10/18 11:15 Neut # (Auto) 6.4 K/uL (1.8-7.0) 08/10/18 11:15 Lymph # (Auto) 2.2 K/uL (1.0-4.3) 08/10/18 11:15 Pickett # (Auto) 0.7 K/uL (0.0-0.8) 08/10/18 11:15 Eos # (Auto) 0.4 K/uL (0.0-0.7) 08/10/18 11:15 Baso # (Auto) 0.1 K/uL (0.0-0.2) 08/10/18 11:15 Retic Count 3.2 % (0.5-1.5) H 07/27/18 14:18 Haptoglobin 241.5 mg/dL (30.0-200.0) H 07/27/18 17:04 PT 12.7 SECONDS (9.7-12.2) H 08/10/18 11:15 INR 1.2 08/10/18 11:15 APTT 55.0 SECONDS (21-34) H D 08/10/18 11:15 Sodium 140 mmol/L (132-148) 08/10/18 11:15 Potassium 3.4 mmol/L (3.6-5.2) L 08/10/18 11:15 Chloride 105 mmol/L (98-107) 08/10/18 11:15 Carbon Dioxide 25 mmol/L (22-30) 08/10/18 11:15 Anion Gap 13 (10-20) 08/10/18 11:15 BUN 11 mg/dL (7-17) 08/10/18 11:15 Creatinine 0.6 mg/dL (0.7-1.2) L 08/10/18 11:15 Est GFR ( Amer) > 60 08/10/18 11:15 Est GFR (Non-Af Amer) > 60 08/10/18 11:15 POC Glucose (mg/dL) 126 mg/dL (65-110) H 08/13/18 11:14 Random Glucose 236 mg/dL (65-105) H D 08/10/18 11:15 Hemoglobin A1c 6.2 % (4.2-6.5) 07/27/18 17:04 Calcium 8.3 mg/dl (8.6-10.4) L 08/10/18 11:15 Phosphorus 2.6 mg/dL (2.5-4.5) 08/10/18 11:15 Magnesium 1.6 mg/dL (1.6-2.3) 08/10/18 11:15 Iron < 10 ug/dL (37-170) L 07/27/18 17:04 TIBC 415 ug/dL (250-450) 07/27/18 17:04 % Saturation 2.4 (20-55) L 07/27/18 17:04 Ferritin 5.4 ng/mL 07/27/18 17:04 Total Bilirubin 0.1 mg/dL (0.2-1.3) L 08/10/18 11:15 AST 32 U/L (14-36) 08/10/18 11:15 ALT 23 U/L (9-52) 08/10/18 11:15 Alkaline Phosphatase 77 U/L (38-126) 08/10/18 11:15 Lactate Dehydrogenase 352 U/L (313-618) 07/27/18 17:04 Troponin I < 0.0120 ng/mL (0.00-0.120) 07/27/18 11:49 Total Protein 5.8 g/dL (6.3-8.3) L 08/10/18 11:15 Albumin 3.0 g/dL (3.5-5.0) L 08/10/18 11:15 Globulin 2.8 gm/dL (2.2-3.9) 08/10/18 11:15 Albumin/Globulin Ratio 1.0 (1.0-2.1) 08/10/18 11:15 Carcinoembryonic Ag 10.0 ng/mL (0-3.0) H 07/28/18 20:45 CA 125 Antigen 8.9 U/mL (0-35) 07/28/18 20:45 Vitamin B12 998 pg/mL (239-931) H 07/27/18 17:04 Folate 15.0 ng/mL 07/27/18 17:04 Free T4 1.11 ng/dL (0.78-2.19) 07/27/18 17:04 Thyroxine (T4) 14.4 ug/dL (5.5-11.0) H 08/09/18 07:01 Total T3 1.87 nmol/L (1.49-2.60) 07/27/18 17:04 Thyroglobulin, Quant 42.9 ng/mL (2.8-40.9) H 08/02/18 08:12 TSH 3rd Generation 2.00 mIU/L (0.46-4.68) 08/09/18 07:01 Urine Color Yellow (YELLOW) 07/27/18 12:26 Urine Clarity Hazy (Clear) 07/27/18 12:26 Urine pH 6.0 (5.0-8.0) 07/27/18 12:26 Ur Specific [place] 1.015 (1.003-1.030) 07/27/18 12:26 Urine Protein Negative mg/dL (NEGATIVE) 07/27/18 12:26 Urine Glucose (UA) Negative mg/dL (Normal) 07/27/18 12:26 Urine Ketones Negative mg/dL (NEGATIVE) 07/27/18 12:26 Urine Blood Negative (NEGATIVE) 07/27/18 12:26 Urine Nitrate Negative (NEGATIVE) 07/27/18 12:26 Urine Bilirubin Negative (NEGATIVE) 07/27/18 12:26 Urine Urobilinogen 0.2 mg/dL (0.2-1.0) 07/27/18 12:26 Ur Leukocyte Esterase Negative Vashti/uL (Negative) 07/27/18 12:26 Urine WBC (Auto) 136 /hpf (0-5) H 07/27/18 12:26 Urine RBC (Auto) 9 /hpf (0-3) H 07/27/18 12:26 Ur Squamous Epith Cells 7 /hpf (0-5) H 07/27/18 12:26 Urine Bacteria Occ (<OCC) H 07/27/18 12:26 Ur Random Creatinine 240.9 mg/dL 08/05/18 12:17 Ur Random Sodium 75 mmol/L 08/05/18 12:17 Thyroperoxidase Ab 4 IU/mL (<9) 08/02/18 08:12 Thyroglobulin Antibody 1 IU/mL (< OR = 1) 08/02/18 08:12 Blood Type A POSITIVE 08/08/18 13:59 Blood Type Confirm A POSITIVE 07/27/18 12:55 Antibody Screen Negative 08/08/18 13:59 Attending/Attestation - Attestation I have personally seen and examined this patient.: Yes I have fully participated in the care of the patient.: Yes I have reviewed all pertinent clinical information, including history, physical exam and plan: Yes Notes (Text): Medical attending: Patient was seen and examined by me. Agree with the above note by the resident The patient was not in any acute distress. We encouraged the patient to work with PT as much as possible while she is at the [facility] The patient explains she may not stay at PT very long because she has a very ill family member she is trying to see as well This is a very stressful time for her. The patient will need to follow up with her physician as well as with hematology oncology As mentioned previously the patient will need to continue with the PO Eliquis due to the upper extremity DVT Armaan Artis
--- NOTE | 2018-08-13 20:29 | PN ---
DATE: 08/13/2018 ENDOCRINOLOGY FOLLOWUP NOTE LOCATION: Room 650. SUBJECTIVE: This is a 67-year-old female, presenting here with marked anemia and was evaluated to have a colonic mass lesion and underwent a right hemicolectomy and the histopathology showed the presence of a moderately differentiated adenocarcinoma in the right ascending colon as noted. She improved clinically postoperatively fairly well and her appetite is improving as noted. Her glycemic levels have remained near optimal and the glucose values have ranged from 126 to 145 and 118 mg/dL. PLAN OF MANAGEMENT: So at this time, we would recommend to hold off the resumption of insulin therapy as her oral intake improves accordingly. For now, there is no indication to resume any kind of insulin therapy until her oral intake improves. She is also aware that she has to undergo a fine-needle aspiration biopsy of the dominant right thyroid nodule which was found on routine testing as inpatient. She remains clinically and biochemically euthyroid with no indications to any kind of thyroid pharmacotherapy. Kathy Hernandez MD
--- NOTE | 2018-08-13 21:17 | CP.PCM.PN ---
Subjective - Date & Time of Evaluation Date of Evaluation: 08/12/18 Time of Evaluation: 12:00 - Subjective Subjective: Feeling better Objective - Vital Signs/Intake and Output Vital Signs (last 24 hours): Temp Pulse Resp BP Pulse Ox 98.4 F 64 20 149/80 97 08/13/18 07:00 08/13/18 07:00 08/13/18 07:00 08/13/18 07:00 08/13/18 07:00 - Labs Labs: 08/10/18 11:15 08/10/18 11:15 PT 12.7 SECONDS (9.7-12.2) H 08/10/18 11:15 INR 1.2 08/10/18 11:15 APTT 55.0 SECONDS (21-34) H D 08/10/18 11:15 - Head Exam Head Exam: ATRAUMATIC - Eye Exam Eye Exam: Normal appearance - ENT Exam ENT Exam: Mucous Membranes Dry - Respiratory Exam Respiratory Exam: NORMAL BREATHING PATTERN - Cardiovascular Exam Cardiovascular Exam: +S1, +S2 - GI/Abdominal Exam GI & Abdominal Exam: Normal Bowel Sounds Assessment and Plan (1) Anemia Assessment & Plan: iron deficiency s/p PRBC transfusion Status: Acute (2) DVT (deep venous thrombosis) Assessment & Plan: provoked from midline restarted anticoagulation; Eliquis 5mg BID Status: Acute (3) Colon cancer Assessment & Plan: s/p hemicolectomy stage II - no high risk features does not require adjuvant chemotherapy Status: Acute (4) Elevated CEA Assessment & Plan: secondary to colon cancer s/p resection Status: Acute
--- NOTE | 2018-08-13 21:19 | CP.PCM.PN ---
Subjective - Date & Time of Evaluation Date of Evaluation: 08/13/18 Time of Evaluation: 12:00 - Subjective Subjective: No complaints. Objective - Vital Signs/Intake and Output Vital Signs (last 24 hours): Temp Pulse Resp BP Pulse Ox 98.4 F 64 20 149/80 97 08/13/18 07:00 08/13/18 07:00 08/13/18 07:00 08/13/18 07:00 08/13/18 07:00 - Labs Labs: 08/10/18 11:15 08/10/18 11:15 PT 12.7 SECONDS (9.7-12.2) H 08/10/18 11:15 INR 1.2 08/10/18 11:15 APTT 55.0 SECONDS (21-34) H D 08/10/18 11:15 - Head Exam Head Exam: ATRAUMATIC - Eye Exam Eye Exam: Normal appearance - ENT Exam ENT Exam: Mucous Membranes Dry - Respiratory Exam Respiratory Exam: NORMAL BREATHING PATTERN - Cardiovascular Exam Cardiovascular Exam: +S1, +S2 - GI/Abdominal Exam GI & Abdominal Exam: Normal Bowel Sounds Assessment and Plan (1) Anemia Assessment & Plan: iron deficiency s/p PRBC transfusion Status: Acute (2) DVT (deep venous thrombosis) Assessment & Plan: provoked from midline restarted anticoagulation; Eliquis 5mg BID Status: Acute (3) Colon cancer Assessment & Plan: s/p hemicolectomy stage II - no high risk features does not require adjuvant chemotherapy Status: Acute (4) Elevated CEA Assessment & Plan: secondary to colon cancer s/p resection Status: Acute
== END 2018-08-13 13:08 | DRG 329 ==
LOC: C.ER 10:25 → C.9E 12:12 → C.5S 13:42 → OBSVTOIN 07-30 08:55 → C.9I 08-04 16:21 → C.6T 08-07 12:23
PROVIDERS: ADMIT Hospitalist; ATTEND Hospitalist
PROC: 0DB68ZX Excision of Stomach, Via Natural or Artificial Opening Endoscopic, Diagnostic (ICD-10-PCS; 2018-07-29)
PROC: 0DBK8ZX Excision of Ascending Colon, Via Natural or Artificial Opening Endoscopic, Diagnostic (ICD-10-PCS; 2018-07-30)
PROC: 0DTF0ZZ Resection of Right Large Intestine, Open Approach (ICD-10-PCS; principal; 2018-08-04 10:30)
DX: C18.2 Malignant neoplasm of ascending colon (principal); N17.0 Acute kidney failure with tubular necrosis; E44.1 Mild protein-calorie malnutrition; Z68.41 Body mass index [BMI] 40.0-44.9, adult; E87.1 Hypo-osmolality and hyponatremia; I42.9 Cardiomyopathy, unspecified; I82.622 Acute embolism and thrombosis of deep veins of left upper extremity; I82.B12 Acute embolism and thrombosis of left subclavian vein; B37.81 Candidal esophagitis; D50.0 Iron deficiency anemia secondary to blood loss (chronic); E04.2 Nontoxic multinodular goiter; E11.65 Type 2 diabetes mellitus with hyperglycemia; E66.01 Morbid (severe) obesity due to excess calories; E78.5 Hyperlipidemia, unspecified; E83.51 Hypocalcemia; E86.1 Hypovolemia; E87.6 Hypokalemia; F17.210 Nicotine dependence, cigarettes, uncomplicated; I10 Essential (primary) hypertension; I65.29 Occlusion and stenosis of unspecified carotid artery; I95.89 Other hypotension; Z79.01 Long term (current) use of anticoagulants; Z79.4 Long term (current) use of insulin; K27.9 Peptic ulcer, site unspecified, unspecified as acute or chronic, without hemorrhage or perforation; K21.9 Gastro-esophageal reflux disease without esophagitis; K57.10 Diverticulosis of small intestine without perforation or abscess without bleeding; K44.9 Diaphragmatic hernia without obstruction or gangrene; K64.8 Other hemorrhoids; K64.4 Residual hemorrhoidal skin tags